=== PATIENT | male | born 1985 | race Caucasian/White ===

== ENCOUNTER 2020-06-25 14:53 | Outpatient (CLI) | payer MEDICARE, MEDICAID, SELFPAY ==
[2020-06-25 16:23] LABS: Alanine Aminotransferase 16 U/L (4-50); Albumin Level 4.5 g/dL (3.5-5.1); Alkaline Phosphatase 68 U/L (38-126); Aspartate Amino Transferase 27 U/L (17-59); Bilirubin,Total 0.2 mg/dL (0.2-1.3)
== END 2020-06-25 14:54 | disposition home or self-care (01) ==
PROVIDERS: PCP Internal Medicine; Visit Provider Podiatrist Foot & Ankle Surgery
DX: B35.1 Tinea unguium (principal); M79.675 Pain in left toe(s); M79.674 Pain in right toe(s)
CPT/HCPCS: 36415; 80076

== ENCOUNTER 2020-09-02 11:30 | Outpatient (CLI) | payer MEDICARE, MEDICAID, SELFPAY ==
--- NOTE | ~2020-09-02 | XR_ITS ---
EXAMINATION: XR chest 2V EXAM DATE: 09/02/2020 12:03 INDICATION: T17.908A - Unspecified foreign body in respiratory tract, pa. TECHNIQUE: Frontal and lateral projections of the chest obtained and reviewed. Comparison is made to prior examination from 11/29/2018. FINDINGS: Thoracolumbar Mckeon rods, imaged portions are intact. The cardiomediastinal silhouett e is prominent but magnified on this AP technique. No confluent consolidation, pneumothorax or pleura l effusion suspected. Tracheobronchial air column unremarkable. Moderate thoracolumbar scoliosis. IMPRESSION: Thoracolumbar hardware. No other radiopaque foreign bodies. Reviewed, dictated and finalized at location A.
== END 2020-09-02 11:31 | disposition home or self-care (01) ==
LOC: ANHIMG 11:36
PROVIDERS: PCP Internal Medicine; Visit Provider Internal Medicine
DX: T17.908A Unspecified foreign body in respiratory tract, part unspecified causing other injury, initial encounter (principal)
CPT/HCPCS: 71046

== ENCOUNTER 2020-09-10 14:11 | Outpatient (CLI) | payer MEDICARE, MEDICAID, SELFPAY ==
[2020-09-10 15:10] LABS: Alanine Aminotransferase 15 U/L (4-50); Albumin Level 4.2 g/dL (3.5-5.1); Alkaline Phosphatase 72 U/L (38-126); Aspartate Amino Transferase 35 U/L (17-59); Bilirubin,Total 0.2 mg/dL (0.2-1.3)
== END 2020-09-10 14:12 | disposition home or self-care (01) ==
LOC: ANHLAB 14:33
PROVIDERS: PCP Internal Medicine; Visit Provider Podiatrist Foot & Ankle Surgery
DX: B35.1 Tinea unguium (principal)
CPT/HCPCS: 36415; 80076

== ENCOUNTER 2020-10-19 06:01 | Observation (INO) | payer MEDICARE, MEDICAID, SELFPAY ==
[2020-10-19] VITALS (19 sets, daily range): BP systolic 97–135; BP diastolic 62–81; PULSE 81–160; RESP 12–33; TEMP 36.5–37.8; O2SAT 95–100; BMI 15.5
--- NOTE | ~2020-10-19 | CT_ITS ---
EXAMINATION: CT abdomen pelvis wo con DATE: 10/19/2020 08:24 INDICATION: Vomiting. Abdomen pain. TECHNIQUE: Computed tomography (CT) of the abdomen and pelvis was performed without intravenous contr ast. The dose-length product was 261.58 mGy-cm. Automated exposure control and iterative reconstructi on technique were employed. COMPARISON: None. FINDINGS: There is left lower lobe airspace disease with left lower lobe bronchiectasis. Heart size i s normal. There is scoliosis. There are Mckeon rods visualized throughout the lower thoracic and lumbar spine. Evaluation of the abdomen and pelvis limited by streak artifact from overlying spinal rods. The liver , spleen, pancreas, adrenal glands and kidneys are grossly unremarkable for noncontrast CT. Gallbladd er is present. Nonobstructive bowel gas pattern. There is a large amount of retained fecal material i n the distal colon or rectum. No free air or free fluid. IMPRESSION: 1. Fecal impaction of the distal colon and rectum. 2: Left lower lobe airspace disease which may represent atelectasis and/or pneumonia. Reviewed, dictated and finalized at location A. IMPRESSION: 1. Fecal impaction of the distal colon and rectum. 2: Left lower lobe airspace disease which may represent atelectasis and/or pne aysha.
--- NOTE | ~2020-10-19 | XR_ITS ---
XR chest 1V portable 10/19/2020 06:24 Indication: Tachypnea Procedure: AP portable chest Comparison: Comparison to multiple prior studies sequentially, with oldest reviewed study dated 08/2018. Findings: Heart size is normal. Diffuse bilateral airspace disease. There are Mckeon rods. No sig nificant effusion or pneumothorax. No acute osseous abnormality. Impression: 1: Diffuse bilateral airspace disease which may represent edema or pneumonia. Reviewed, dictated and finalized at location A. Impression: 1: Diffuse bilateral airspace disease which may represent edema or pneumonia.
--- NOTE | 2020-10-19 06:16 | ECG_ITS ---
Measurements Intervals [place] Rate: 147 P: 46 WA: 130 QRS: 115 QRSD: 86 T: 15 QT: 274 QTc: 429 Interpretive Statements SINUS TACHYCARDIA, POSSIBLE ATRIAL FLUTTER LEFT POSTERIOR FASCICULAR BLOCK BORDERLINE ST-T WAVE ABNORMALITY- ANTEROLAT/INF LEADS BASELINE ARTIFACT- I, II, III, AVR, AVF ABNORMAL ECG Electronically Signed On 10-19-2020 6:34:45 CDT by Yoandy Walters D.O.
[2020-10-19] MEDS: SODIUM CHLORIDE 0.9% IV 1,000 ML 999 ML IV CONT (06:26)
[2020-10-19 06:35] LABS: Glucose Point of Care 122 mg/dl (65-105)
[2020-10-19 06:44] LABS: Alveolar/Arterial O2 Gradient 55.2 mmHg; Base Excess ABG 1.6 mEq/l (+/-2.0); Device ROOM AIR; Fractional Inspired Oxygen 21 %; HCO3 ABG 25.3 mEq/l (22.0-26.0); Oxygen Content ABG 18.6 %vol (16.0-22.0); Oxygen Saturation ABG 87.5 % (95.0-100.0); Oxyhemoglobin 86.8 % THb (90.0-100.0); PO2 ABG 50.2 mmHg (80.0-100.0); PO2 FiO2 Ratio Arterial Blood 2.39 %; Site Drawn RIGHT BRACHIAL; Total Hemoglobin 15.3 g/dL (12.0-18.0); pH ABG 7.452 (7.350-7.450)
--- NOTE | 2020-10-19 06:49 | ED.SOB ---
HPI - SOB/Dyspnea General Chief Complaint: Shortness of Breath/Dyspnea <Silvia Christianson MD - Last Filed: 10/19/20 07:45> Stated Complaint: aspirated, sob <Silvia Christianson MD - Last Filed: 10/19/20 07:45> Time Seen by Provider: 10/19/20 06:07 <Silvia Christianson MD - Last Filed: 10/19/20 07:45> Source: family <Silvia Christianson MD - Last Filed: 10/19/20 07:45> Mode of arrival: wheelchair <Silvia Christianson MD - Last Filed: 10/19/20 07:45> Limitations: physical limitation (nonverbal cerebral palsy) <Silvia Christianson MD - Last Filed: 10/19/20 07:45> History of Present Illness HPI Narrative: This is a 35 year old male with cerebral palsy, gtube in place, seizures and aspiration who presents with his mother for concern of aspiration. She states this morning she woke up and he was moaning with nasal flaring. She gave him tylenol through his g tube at that time and patient had an episode of emesis containing his tylenol. She states he frequently aspirates. He is not acting normally and he is moaning . She states he does not moan unless something is wrong. She is unsure of fever at home but she gave him 500 mg tylenol to prevent a fever. She does states he has been coughing over the past 2 days. <Silvia Christianson MD - Last Filed: 10/19/20 07:45> Related Data Home Medications: Home Medications Medication Instructions Recorded Confirmed baclofen 20 mg FEEDING TUBE BID 03/26/19 09/02/20 <Silvia Christianson MD - Last Filed: 10/19/20 07:45> Allergies/Adverse Reactions: Allergies Allergy/AdvReac Type Severity Reaction Status Date / Time Sulfa (Sulfonamide Allergy Unknown LIPS AND Verified 10/19/20 06:14 Antibiotics) GENITAL PEELING SKIN <Silvia Christianson MD - Last Filed: 10/19/20 07:45> Review of Systems Review of Systems: ROS unobtainable: Yes unobtainable due to medical condition (nonverbal) <Silvia Christianson MD - Last Filed: 10/19/20 07:45> [facility] Past Medical History Medical History: Medical History (Updated 10/19/20 @ 10:48 by Bharath Tineo DO) Cerebral palsy Gastrointestinal tube present History of seizures Uses powered wheelchair <Silvia Christianson MD - Last Filed: 10/19/20 07:45> Surgical History Surgical History: Surgical History (Updated 10/19/20 @ 06:49 by Silvia Christianson MD) Previous back surgery <Silvia Christianson MD - Last Filed: 10/19/20 07:45> Family History Family History: Family History Father Family history of diabetes mellitus in first degree relative Hypertension Family history of elevated blood lipids <Silvia Christianson MD - Last Filed: 10/19/20 07:45> Social History Social History: Social History Smoking status: Never smoker Alcohol intake: never Substance use: never Additional occupation/education comments: disabled <Silvia Christianson MD - Last Filed: 10/19/20 07:45> Exam Const: General: no acute distress and alert <Silvia Christianson MD - Last Filed: 10/19/20 07:45> Nutritional Appearance: thin <Silvia Christianson MD - Last Filed: 10/19/20 07:45> Other: nonverbal <Silvia Christianson MD - Last Filed: 10/19/20 07:45> Eyes: EOM: EOMs intact bilaterally <Silvia Christianson MD - Last Filed: 10/19/20 07:45> Resp: Effort & Inspection: normal respiratory effort, not labored and no use of accessory muscles <Silvia Christianson MD - Last Filed: 10/19/20 07:45> Auscultation: rales <Silvia Christianson MD - Last Filed: 10/19/20 07:45> Other: some mild nasal flaring <Silvia Christianson MD - Last Filed: 10/19/20 07:45> Cardio: Rate: tachycardic <Silvia Christianson MD - Last Filed: 10/19/20 07:45> Rhythm: regular rhythm <Silvia Christianson MD - Last Filed: 10/19/20 07:45> Heart sounds: no murmurs <Silvia Christianson MD - Last File
[2020-10-19 06:53] LABS: Basophils Absolute Auto 0.1 K/mm3 (0.0-0.1); Basophils Percent Auto 0.3 % (0.2-1.2); Eosinophils Percent Auto 0.1 % (0-4.4); Hematocrit 46.4 % (42.0-52.0); Hemoglobin 15.3 g/dL (14.0-18.0); Immature Granulocyte Absolute 0.06 K/mm3 (0.00-0.031); Immature Granulocyte Percent A 0.4 % (0-0.5); Lymphocytes Absolute Auto 2.27 K/mm3 (0.9-3.2); Lymphocytes Percent Auto 14.3 % (18.3-44.2); Mean Corpuscular Hemoglobin 30.1 pg (26-34); Mean Corpuscular Volume 91.2 fl (80-100); Mean Platelet Volume 10.2 fl (7.4-10.4); Monocytes Absolute Auto 1.4 K/mm3 (0.1-0.6); Monocytes Percent Auto 8.7 % (2.6-8.5); Neutrophils Absolute Auto 12.1 K/mm3 (1.3-6.7); Neutrophils Percent Auto 76.2 % (45.5-73.1); Platelet Count Result 296 k/mm3 (150-375); Red Blood Count 5.09 M/mm3 (4.6-6.20); Red Cell Distribution Width 14.6 % (11.5-14.5); White Blood Count 15.9 K/mm3 (4.5-10.0)
[2020-10-19 06:57] LABS: Alanine Aminotransferase 20 U/L (4-50); Albumin Level 4.6 g/dL (3.5-5.1); Alkaline Phosphatase 82 U/L (38-126); Anion Gap 12 mmol/L (8-16); Aspartate Amino Transferase 30 U/L (17-59); Bilirubin,Total 0.4 mg/dL (0.2-1.3); Blood Urea Nitrogen 17 mg/dL (9-20); Calcium 9.8 mg/dL (8.4-10.2); Carbon Dioxide 31 mmol/L (22-30); Chloride 98 mmol/L (98-107); Estimated Glomerular Filt Rate > 60; Glucose 101 mg/dL (65-110); INR 0.9; Magnesium 1.4 mg/dL (1.6-2.3); Potassium 4.9 mmol/L (3.4-5.0); Prothrombin Time 11.7 Seconds (11.1-14.7); Sodium 141 mmol/L (137-145)
[2020-10-19 06:58] LABS: Partial Thromboplastin Time 24.8 SECONDS (22.3-36.8)
[2020-10-19 07:01] LABS: D Dimer 0.45 ug/mL (<0.48)
[2020-10-19 07:08] LABS: NT Pro B Type Natriuretic Pept 25 pg/mL (5-100); Troponin I < 0.012 ng/mL (0.000-0.034)
[2020-10-19 07:54] LABS: Lactic Acid Reflex 3.6 mmol/L (0.7-2.1)
[2020-10-19] MEDS: SODIUM CHLORIDE 0.9% IV 500 ML 999 ML IV CONT (08:05)
[2020-10-19 08:18] LABS: Add Urine Microscopic? YES; Appearance Urine Clear (Clear); Bilirubin Urine Negative (Negative); Blood Urine Negative (Negative); Color Urine Yellow (Yellow); Glucose Urine UA Negative (Negative); Ketones Urine Negative (Negative); Leukocyte Esterase Ur Negative LEU/UL (Negative); Mucus Urine Rare /lpf; Nitrate Urine Negative (Negative); Protein Urine Negative (Negative); Specific Grav Ur 1.016 (1.001-1.035); Squamous Epithelial Cell Urine Rare /hpf (Few); Urobilinogen Urine Negative mg/dL (<2.0); WBC Urine 0-3 /hpf
[2020-10-19 08:25] LABS: Valproic Acid 41.5 ug/mL (50-120)
[2020-10-19] MEDS: MAGNESIUM SULF 1 GM/D5W 100 ML 1 GM/100 ML BAG IVPB (09:09)
[2020-10-19 10:40] LABS: Reflex Lactic Acid Yes or No Add Lactic
--- NOTE | 2020-10-19 10:56 | PC.NURSE ---
This patient, Dallas Slaughter, was admitted to IMU Room 213-01. Patient/family oriented to hospital policies and general routines including ID bracelet, bed and alarms, visiting hours, pain management, procedures, bathroom and other care routines, personal items, smoking policy, room service/diet, and visiting hours. Information on how to activate the Rapid Response Team has been discussed. Patient/Family are encouraged to report perceived risks to care and to ask questions if they do not understand what they are told or what they should do.
[2020-10-19 11:36] LABS: Lactic Acid 3.9 mmol/L (0.7-2.1)
[2020-10-19] MEDS: SODIUM CHLORIDE 0.9% IV 1,000 ML 100 ML IV CONT (12:01)
--- NOTE | 2020-10-19 13:00 | PM.IMHP ---
H&P: HPI History of Present Illness Date/Time: 10/19/20 13:00 Chief Complaint: Possible aspiration. Narrative: This is a 35-year-old male with cerebral palsy and history of seizures and aspiration who presented to the emergency department earlier today with concerns for possible aspiration. The patient does not speak and thus all of the following history is obtained via a review of his electronic medical records as well as discussions with his mother. Over the years Dallas has had progressive issues with dysphagia and now has a G-tube however he does still eat once a day or so. He seems to understand that he has difficulties swallowing and some days he eats more than others. Yesterday Dallas celebrated his 35th birthday and I believe sometime last evening he had an episode of emesis and he began coughing thereafter. This morning he was moaning, which is not usual for him, and seemed to be having difficulties breathing with nostrils flaring. Mom also thought he felt a bit warm and brought him in for evaluation. Chest x-ray on arrival showed diffuse bilateral airspace disease which could represent edema or pneumonia, and he is being admitted for suspected aspiration. A CT of the abdomen and pelvis showed fecal impaction of the distal colon and rectum and with further questioning his mom mentions that he typically has formed bowel movements but on Monday he seemed to be having a harder time and was straining. She has MiraLax at home and monitors his bowel movements closely and will give that to him if she feels he needs it however he has been having bowel movements daily and she did not think that he was constipated. At the time my evaluation he is alert and is enjoying watching the cars pass by the window in his room. He looks to be in no distress and mother reports that his color looks good and he seems to be back to his usual self. Review of Systems Review of Systems: Narrative: Unable to obtain as the patient does not talk. Mom denies any recent illnesses. No known exposure to those positive for COVID-19. His urine always small strong and that is not changed. He has not had a seizure for many years. No history of venous thromboembolism. Except as documented, all other systems were reviewed and are negative. [facility] Past Medical History Medical History Anxiety Cerebral palsy Dysphagia Chronic. G-tube in place. Gastrointestinal tube present History of pulmonary aspiration History of upper gastrointestinal bleeding Seizure disorder Uses powered wheelchair Surgical History Surgical History (Updated 10/19/20 @ 20:57 by Huyen Ngo PA-C) History of orthopedic surgery Multiple surgeries related to his cerebra palsy including tendon surgeries and Green transfer. History of spinal fusion Family History Family History Father Family history of diabetes mellitus in first degree relative Hypertension Family history of elevated blood lipids Social History Social History (Updated 10/19/20 @ 20:53 by Huyen Ngo PA-C) Social History: Surrogate decision maker: Cm and Leonora Slaughter, parents. Code status: Full code. Smoking status: Never smoker Alcohol intake: never Substance use: never Additional living arrangements comments: The patient lives with his parents and 17-year-old brother in [place]. He is wheelchair-bound and uses an electric wheelchair which he can manage quite nicely. In fact he likes to spend a lot of his time out in their pole [place] where they have cars and motorcycles, which he really enjoys. He is dependent on most activities of daily living. Additional occupation/education comments: Disabled. Meds Home Medications and Allergies Home Medications Medication Instructions Recorded Confirmed Type baclofen 20 mg FEEDING TUBE BID 03/26/19 10/19/20 History tizanidine 4 mg caps
--- NOTE | 2020-10-19 15:01 | PCDIET ---
Nutrition Consult Received. Spoke with patient's mother, Leonora, who reports patient takes Ensure Plus via PEG at home. See Comprehensive Nutrition Assessment for additional details. Recommend 240mL (1 can) Ensure Enlive every 4-6 hours x 4 feedings/day with 150mL water flush after each feeding to provide 1400kcal (36 kcal/kg), 80 grams protein and 1320mL free water.
[2020-10-19] MEDS: DIVALPROEX SODIUM SPRINKLE 125 MG CAP.DR 250 MG PO (17:01)
[2020-10-19] MEDS: SCOPOLAMINE 1.5 MG PATCH 1 MG TRANSDERM (17:02)
--- NOTE | 2020-10-19 19:52 | PC.NURSE ---
meds were not given at 1700 due to not having the right tubing for g-tube. Leonora (mom) at bedside to contact family to bring in correct tubing.
[2020-10-19] MEDS: BACLOFEN 10 MG TABLET 20 MG FEED TUBE (20:10)
[2020-10-19] MEDS: CLORAZEPATE DIPOTASSIUM (*CRX) 3.75 MG TABLET FEED TUBE (20:10)
[2020-10-19] MEDS: PANTOPRAZOLE 40 MG TABLET PO (20:10)
[2020-10-19] MEDS: diazePAM (*CRX) 10 MG TABLET FEED TUBE (21:11)
[2020-10-20] VITALS (8 sets, daily range): BP systolic 98–126; BP diastolic 61–78; PULSE 70–110; RESP 14–18; TEMP 36.6–37; O2SAT 94–98
[2020-10-20 05:42] LABS: Basophils Absolute Auto 0.1 K/mm3 (0.0-0.1); Basophils Percent Auto 0.3 % (0.2-1.2); Eosinophils Percent Auto 0.2 % (0-4.4); Hematocrit 37.5 % (42.0-52.0); Hemoglobin 12.4 g/dL (14.0-18.0); Immature Granulocyte Absolute 0.06 K/mm3 (0.00-0.031); Immature Granulocyte Percent A 0.3 % (0-0.5); Lymphocytes Absolute Auto 4.06 K/mm3 (0.9-3.2); Lymphocytes Percent Auto 23.2 % (18.3-44.2); Mean Corpuscular HGB Conc 33.1 g/dl (32-36); Mean Corpuscular Volume 90.8 fl (80-100); Mean Platelet Volume 10.2 fl (7.4-10.4); Monocytes Absolute Auto 1.3 K/mm3 (0.1-0.6); Monocytes Percent Auto 7.3 % (2.6-8.5); Neutrophils Percent Auto 68.7 % (45.5-73.1); Platelet Count Result 212 k/mm3 (150-375); Red Blood Count 4.13 M/mm3 (4.6-6.20); Red Cell Distribution Width 14.8 % (11.5-14.5); White Blood Count 17.5 K/mm3 (4.5-10.0)
[2020-10-20 05:55] LABS: Lactic Acid Reflex 0.7 mmol/L (0.7-2.1)
[2020-10-20 05:57] LABS: Alanine Aminotransferase 11 U/L (4-50); Albumin Level 3.3 g/dL (3.5-5.1); Alkaline Phosphatase 60 U/L (38-126); Anion Gap 9 mmol/L (8-16); Aspartate Amino Transferase 19 U/L (17-59); Bilirubin,Total 0.4 mg/dL (0.2-1.3); Blood Urea Nitrogen 10 mg/dL (9-20); Calcium 8.6 mg/dL (8.4-10.2); Carbon Dioxide 23 mmol/L (22-30); Chloride 105 mmol/L (98-107); Estimated CRCL calculation 68 ml/min; Estimated Glomerular Filt Rate > 60; Glucose 80 mg/dL (65-110); Magnesium 1.8 mg/dL (1.6-2.3); Sodium 137 mmol/L (137-145)
[2020-10-20 06:45] LABS: Valproic Acid 31.5 ug/mL (50-120)
[2020-10-20] MEDS: PANTOPRAZOLE 40 MG TABLET PO (10:09)
[2020-10-20] MEDS: DIVALPROEX SODIUM SPRINKLE 125 MG CAP.DR 250 MG PO (10:09)
[2020-10-20] MEDS: ENOXAPARIN 40 MG/0.4 ML SYRINGE SUB-Q (10:09)
[2020-10-20] MEDS: BACLOFEN 10 MG TABLET 20 MG FEED TUBE (10:10)
[2020-10-20] MEDS: CLORAZEPATE DIPOTASSIUM (*CRX) 3.75 MG TABLET FEED TUBE (10:10)
--- NOTE | 2020-10-20 11:34 | PM.DS ---
DS: Admitting Diagnosis Admitting Diagnosis Short of breath DS: Discharge Diagnosis Discharge Diagnosis (1) Sepsis: Code(s): A41.9 - Sepsis, unspecified organism Status: Acute Assessment and Plan: The patient meets sepsis criteria with low-grade fever, tachypnea, tachycardia, leukocytosis, and elevated lactic acid level in the setting of suspected aspiration pneumonia. With adequate fluid resuscitation, his lactic acid level normalized. WBC elevated at 16K and relatively unchanged today. No further fevers. He is nontoxic appearance this morning and mom reports that he is at his baseline. BCx pending but mom wishing to take his home today. COVID swab also pending. (2) Pneumonia: Code(s): J18.9 - Pneumonia, unspecified organism Status: Acute Assessment and Plan: Presumed aspiration pneumonia given his hx. Empiric Zosyn started after blood cultures collected. Sputum cx not collected. COVID less likely but he has been swabbed and this is pending. He was placed in isolation. He has received one dose of the COVID vaccine and is due for the 2nd shot in early October. Not requiring O2. Tube feedings started and tolerating it well without vomiting. Mom plans to stop oral intake now. (3) Hypomagnesemia: Code(s): E83.42 - Hypomagnesemia Status: Acute Assessment and Plan: Magnesium slightly low at 1.4 and this has been replaced. Repeat mag level normal. (4) Fecal impaction of rectum: Code(s): K56.41 - Fecal impaction Status: Acute Assessment and Plan: CT scan showing fecal impaction of the distal colon and rectum. No evidence of obstruction on imaging. Enema given with good results. The benefits of a routine bowel regiment discussed. Started on MiraLax daily and titrate as needed. (5) Seizure disorder: Code(s): G40.909 - Epilepsy, unspecified, not intractable, without status epilepticus Status: Acute Assessment and Plan: Valproic acid level is a bit low but he has not had seizures for several years. We continued his VPA DS: Summary Hospital Course Reason for hospitalization: 35yo male with cerebral palsy and dysphagia requiring GTube here for shortness of breath and found to have PNA. Please see H&P for details Hospital Course: Please see above for details of hospital course Status at Discharge Cognitive/behavioral status at discharge: stable Time Spent with Patient Time attestation: Total time spent providing and/or coordinating discharge services: 35 minutes Time spent: Greater than 30 minutes Exam Narrative: Exam Narrative: AF 98.5 126/65 99 18 97% ra Gen - NARD lying semi-recumbent in bed Chest - clear to quiet respirations, nml RR CV - RRR S1/S2; Tele showing occasional sinus tachycardia Abd - Soft, mildly protuberant (mom states this is much improved), Peg tube dressing clean and dry with slight pinkness to surrounding skin Ext - No pedal edema Neuro - Alert,nonverbal, spastic contractures noted UE/LE and muscle mass loss Psych - pleasant and cooperative at times Skin - as above o/w warm and dry DS: Data Data Completed and Pending Labs on day of discharge: Labs from last 24 hours 10/20/20 10/20/20 10/20/20 05:07 05:07 05:07 WBC RBC Hgb Hct MCV MCH MCHC RDW Plt Count MPV Immature Gran % (Auto) Neut % (Auto) Lymph % (Auto) [place] % (Auto) Eos % (Auto) Baso % (Auto) Lymph # (Auto) [place] # (Auto) Eos # (Auto) Baso # (Auto) Abs Immat Gran (auto) Absolute Neuts (auto) Absolute Nucleated RBC Nucleated RBC % Sodium 137 Potassium 4.0 Chloride 105 Carbon Dioxide 23 Anion Gap 9 BUN 10 D Creatinine 0.70 Estim Creat Clear Calc 68 Estimated GFR > 60 Glucose 80 Lactic Acid 0.7 Calcium 8.6 Magnesium 1.8 Total Bilirubin 0.4 AST 19 ALT 11 Alkaline Phosphatase 60 T
[2020-10-20 15:39] LABS: SARS-CoV-2 RNA PCR Negative
--- NOTE | 2020-10-22 15:42 | PC.NURSE ---
COVID is negative. Dr. Pereyra aware.
--- NOTE | 2020-10-26 13:03 | PC.NURSE ---
Blood cx are negative. Dr. Roddy minor.
== END 2020-10-20 12:57 | disposition home or self-care (01) ==
LOC: ANHED 08:01 → ANHIMU 10-20 11:49
PROVIDERS: General Practice; Physician Assistant; Admitting Provider Family Medicine; Emergency Provider Emergency Medicine; PCP Internal Medicine; Visit Provider Internal Medicine
DX: J18.9 Pneumonia, unspecified organism (principal); R65.20 Severe sepsis without septic shock; E83.42 Hypomagnesemia; K56.41 Fecal impaction; G40.909 Epilepsy, unspecified, not intractable, without status epilepticus; R06.02 Shortness of breath; G80.9 Cerebral palsy, unspecified; Z93.1 Gastrostomy status; R13.10 Dysphagia, unspecified; F41.9 Anxiety disorder, unspecified; Z20.822 Contact with and (suspected) exposure to COVID-19
CPT/HCPCS: 36415; 36600; 51701; 71045; 74176; 80053; 80164; 81001; 82805; 82948; 83605; 83735; 83880; 84484; 85025; 85380; 85610; 85730; 87040; 93005; 96361; 96365; 96366; 96367; 96372; 99285; A9270; C9803; G0378; J0456; J0696; J1650; J2543; J3370; J3475; J7030; J7040; U0003; U0005

== ENCOUNTER 2020-12-08 01:39 | Day surgery (SDC) | payer MEDICARE, MEDICAID, SELFPAY ==
[2020-12-04 13:10] VITALS: BMI 14.4
[2020-12-08 10:24] VITALS: BP 125/78; PULSE 82; RESP 20; TEMP 36.6; O2SAT 97
--- NOTE | 2020-12-08 10:31 | SUR.PREOP ---
Mom present with pt. Dr. Mccartney at bedside. Vitals stable. FLACC 0. pt tolerated procedure well. Mom given discharge papers.
--- NOTE | 2020-12-08 10:32 | WPDGICN ---
Assessment and Plan Assessment and plan (1) Dysphagia: Code(s): R13.10 - Dysphagia, unspecified Status: Acute (2) Gastrointestinal tube present: Code(s): Z93.1 - Gastrostomy status Status: Acute Assessment and Plan: Patient has a Del type of G-tube. This requires exchange approximately every 4 months. Mother asks that we exchanged at this time because of deterioration over time and some leakage. Plan is for every four-month exchange of this G-tube. (3) Cerebral palsy: Code(s): G80.9 - Cerebral palsy, unspecified Status: Acute GI Consult Note Consult date/time: 12/08/20 10:32 HPI: Dallas Slaughter is a 35 year old male Presents for exchange of gastrostomy tube. Patient has a history of cerebral palsy. He is unable to eat or swallow safely. Currently requires gastrostomy tube for nutritional support. He had difficulty with our traditional G-tube. Most recently has done very well with a Del type of G-tube. Mother has exchange this at home every 4 months on her own. However recently has noticed some leakage and requests that we exchange it so that she is certain is done properly. She denies any bleeding. He has had no recent weight loss. Review of Systems Review of Systems: All systems reviewed & are unremarkable except as noted in HPI and below PMFSH Past Medical History Medical History Anxiety Cerebral palsy Dysphagia Chronic. G-tube in place. Gastrointestinal tube present History of pulmonary aspiration History of upper gastrointestinal bleeding Seizure disorder Uses powered wheelchair Surgical History Surgical History History of orthopedic surgery Multiple surgeries related to his cerebra palsy including tendon surgeries and Green transfer. History of spinal fusion Family History Family History Father Family history of diabetes mellitus in first degree relative Hypertension Family history of elevated blood lipids Social History Social History Social History: Surrogate decision maker: Cm and Leonora Slaughter, parents. Code status: Full code. Smoking status: Never smoker Alcohol intake: never Substance use: never Substance use type: does not use Living arrangements: with family Additional living arrangements comments: The patient lives with his parents and 17-year-old brother in [place]. He is wheelchair-bound and uses an electric wheelchair which he can manage quite nicely. In fact he likes to spend a lot of his time out in their [place] where they have cars and motorcycles, which he really enjoys. He is dependent on most activities of daily living. Additional occupation/education comments: Disabled. Spiritual care concerns: No Meds Home Medications and Allergies Home Medications Medication Instructions Recorded Confirmed Type tizanidine 4 mg capsule 4 mg PO TID PRN #30 cap 04/18/19 12/04/20 Rx acetaminophen 500 mg/15 mL oral 500 mg PO Q6H PRN #240 ml 04/22/20 12/04/20 Rx liquid mupirocin 2 % topical ointment 1 applic TOPICAL BID PRN #22 g 04/22/20 12/04/20 Rx scopolamine base 1 mg over 3 days 1 patch TOPICAL Q3-4D #4 each 04/22/20 12/04/20 Rx transdermal patch omeprazole 40 mg capsule,delayed 40 mg PO DAILY #30 cap 07/10/20 12/04/20 Rx release albuterol sulfate 2.5 mg INHALATION Q4-6H PRN #180 ml 09/02/20 12/04/20 Rx clorazepate dipotassium 3.75 mg 3.75 mg FEEDING TUBE TID #270 10/05/20 12/04/20 Rx tablet tablet MDD anxiety benzonatate 100 mg PO TID PRN 10/19/20 12/04/20 History divalproex 250 mg PO BID 10/19/20 12/04/20 History diazepam 5 mg tablet 10 mg FEEDING TUBE HS #90 tablet 11/16/20 12/04/20 Rx MDD spasticity baclofen 20 mg tablet See Rx Instructions .ROUTE 11/17/20 12/04/20 Rx .COMPLEX #2
--- NOTE | 2020-12-08 10:35 | PM.OP ---
Procedure Note - Brief Procedure Note - Brief Date of procedure: 12/08/20 Pre-op diagnosis: G-tube Removal Surgeon: Fletcher Mccartney MD Patient with cerebral palsy. Has a Del brand gastrostomy tube in place. Informed consent for removal exchange of this is obtained from the patient his mother. Old G-tube is removed initially the interior balloon is deflated with 6cc of liquid is removed. Old G-tube is taken out. New Del brand G-tube is placed within the gastrostomy tube it is inflated with 6cc of water. Tolerated well by patient aspiration of gastric contents appears to confirm adequate position. Local skin is noted to be erythematous with probable flash but no evidence of infection. Local care is advised to the G-tube site. Plan to resume tube feedings as previously prescribed. Would anticipate follow-up for G-tube exchange in 4 months.
== END 2020-12-08 10:25 | disposition home or self-care (01) ==
PROVIDERS: PCP Internal Medicine; Visit Provider Internal Medicine Gastroenterology
PROC: 0DH63UZ Insertion of Feeding Device into Stomach, Percutaneous Approach (ICD-10-PCS; CPT 43246; principal; 2020-12-08 11:00)
DX: Z43.1 Encounter for attention to gastrostomy (principal); R13.10 Dysphagia, unspecified; G80.9 Cerebral palsy, unspecified; G40.909 Epilepsy, unspecified, not intractable, without status epilepticus; Z99.3 Dependence on wheelchair; Z98.1 Arthrodesis status
CPT/HCPCS: 43762; 43246; J7120

== ENCOUNTER 2020-12-19 19:55 | Emergency (ER) | payer MEDICARE, MEDICAID, SELFPAY ==
[2020-12-19 20:00] VITALS: BP 125/86; PULSE 97; RESP 18; TEMP 36.7; O2SAT 97
--- NOTE | 2020-12-19 22:30 | PC.NURSE ---
Pt's mother/legal guardian does not want to wait, reports will monitor pt at home and return if needed.
== END 2020-12-19 23:00 | disposition left against medical advice (07) ==
LOC: ANHED 23:22
PROVIDERS: PCP Internal Medicine
DX: K94.21 Gastrostomy hemorrhage (principal)
CPT/HCPCS: 99199

== ENCOUNTER → 2021-04-07 02:54 | Outpatient (CLI) | payer MEDICARE, MEDICAID, SELFPAY ==
[2021-04-07 14:59] LABS: Influenza A QL RT-PCR Negative (Negative); Influenza B QL RT-PCR Negative (Negative)
[2021-04-08 01:23] LABS: SARS-CoV-2 RNA PCR Negative
== END ==
PROVIDERS: PCP Internal Medicine; Visit Provider Internal Medicine
DX: J06.9 Acute upper respiratory infection, unspecified (principal); R68.89 Other general symptoms and signs; Z20.822 Contact with and (suspected) exposure to COVID-19
CPT/HCPCS: 87502; C9803; U0003; U0005

== ENCOUNTER 2021-04-15 00:36 | Outpatient (CLI) | payer MEDICARE, MEDICAID, SELFPAY ==
[2021-04-09 15:10] VITALS: BMI 14.4
[2021-04-15 10:45] VITALS: BP 122/79; PULSE 75; RESP 18; O2SAT 99
--- NOTE | 2021-04-15 11:16 | WPDGICN ---
Assessment and Plan Assessment and plan (1) PEG (percutaneous endoscopic gastrostomy) adjustment/replacement/removal: Code(s): Z43.1 - Encounter for attention to gastrostomy Status: Acute Assessment and Plan: Patient presents today for PEG tube exchange and replacement. Plan to do this at 4 month intervals. Further recommendations may be given after placement. GI Consult Note Consult date/time: 04/15/21 11:16 HPI: Dallas Slaughter is a 35 year old male Presents for exchange of PEG tube. Patient has a history of cerebral palsy. His depends on PEG tube for nutritional support. Patient had Del type of PEG tube replaced 4 months ago. He presents today for replacement. Currently doing well. He has had no bleeding. Weight has remained stable. Review of Systems Review of Systems: All systems reviewed & are unremarkable except as noted in HPI and below PMFSH Past Medical History Medical History Anxiety Cerebral palsy Dysphagia Chronic. G-tube in place. Gastrointestinal tube present History of pulmonary aspiration History of upper gastrointestinal bleeding Seizure disorder Uses powered wheelchair Surgical History Surgical History History of orthopedic surgery Multiple surgeries related to his cerebra palsy including tendon surgeries and Green transfer. History of spinal fusion Family History Family History Father Family history of diabetes mellitus in first degree relative Hypertension Family history of elevated blood lipids Social History Social History (Updated 02/22/21 @ 09:59 by Yesi Elizalde) Social History: Surrogate decision maker: Cm and Leonora Slaughter, parents. Code status: Full code. Smoking status: Never smoker Alcohol intake: never Substance use: never Substance use type: does not use Living arrangements: with family Additional living arrangements comments: The patient lives with his parents and 17-year-old brother in [place]. He is wheelchair-bound and uses an electric wheelchair which he can manage quite nicely. In fact he likes to spend a lot of his time out in their [place] where they have cars and motorcycles, which he really enjoys. He is dependent on most activities of daily living. Additional occupation/education comments: Disabled. Spiritual care concerns: No Meds Home Medications and Allergies Home Medications Medication Instructions Recorded Confirmed Type tizanidine 4 mg capsule 4 mg PO TID PRN #30 cap 04/18/19 04/09/21 Rx acetaminophen 500 mg/15 mL oral 500 mg PO Q6H PRN #240 ml 04/22/20 04/09/21 Rx liquid omeprazole 40 mg capsule,delayed 40 mg PO DAILY #30 cap 07/10/20 04/09/21 Rx release albuterol sulfate 2.5 mg INHALATION Q4-6H PRN #180 ml 09/02/20 04/09/21 Rx divalproex 250 mg PO BID 10/19/20 04/09/21 History baclofen 20 mg tablet See Rx Instructions .ROUTE 11/17/20 04/09/21 Rx .COMPLEX #270 tablet mupirocin 2 % topical ointment 1 applic TOPICAL BID PRN #22 g 01/18/21 04/09/21 Rx clorazepate dipotassium 3.75 mg 3.75 mg FEEDING TUBE TID #270 02/08/21 04/09/21 Rx tablet tablet MDD anxiety benzonatate 100 mg capsule See Rx Instructions .ROUTE 02/22/21 04/09/21 Rx .COMPLEX #90 capsule scopolamine base 1 mg over 3 days 1 patch TOPICAL Q3-4D #24 ea 03/22/21 04/09/21 Rx transdermal patch diazepam 5 mg tablet See Rx Instructions PO .COMPLEX 04/02/21 04/09/21 Rx PRN #90 tablet Allergies Allergy/AdvReac Type Severity Reaction Status Date / Time Sulfa (Sulfonamide Allergy Unknown LIPS AND Verified 02/22/21 09:57 Antibiotics) GENITAL PEELING SKIN Exam Narrative: Physical exam reveals patient to be alert. Vital signs stable. HEENT exam is unremarkable. Patient anicteric. Lungs are clear heart without murmur. Abdomen
--- NOTE | 2021-04-15 11:18 | P.OPB_ITS ---
Procedure Note - Brief Procedure Note - Brief Date of procedure: 04/15/21 Pre-op diagnosis: malfunctioning g- tube Post-op diagnosis: same Procedure performed: Peg tube removal and replacement. Description of procedure: After informed consent from patient's mother the risks benefits alternatives and indications are discussed agreed 2. Patient is given no sedation. 6Cc of liquid is removed from the internal balloon of the existing Del PEG tube. This is removed. G-tube site appears well healed. Small amount of probable flush noted. 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 6cc of water is placed into the balloon and tolerated well by patient. Gastric contents were aspirated through the G-tube site. Anesthesia: none Surgeon: Fletcher Mccartney MD Estimated blood loss (mL): 0 Drains: No Packing: No Pathology: none sent Complications: No immediate complications Condition: stable Findings: Peg tube replaced without difficulties. Plan for patient to resume tube feedings return home. Follow-up replacement PEG tube advised in 4 months.
--- NOTE | 2021-04-15 11:21 | SUR.PREOP ---
Dallas was assisted by his Mother Gayle to the stretcher. Vital signs stable. Consent and questions answered. Dr Mccartney at bedside to replace Del tube. Reddened area noted to site- Dr Mccartney aware and drain sponges applied. Patient assisted back to wheelchair by mother. No acute distress noted.
== END 2021-04-15 11:19 | disposition home or self-care (01) ==
PROVIDERS: PCP Internal Medicine; Visit Provider Internal Medicine Gastroenterology
PROC: 0DH63UZ Insertion of Feeding Device into Stomach, Percutaneous Approach (ICD-10-PCS; CPT 43246; principal; 2021-04-15 11:30)
DX: K94.23 Gastrostomy malfunction (principal)
CPT/HCPCS: 99211; G0463

== ENCOUNTER 2021-05-24 13:25 | Emergency (ER) | payer MEDICARE, MEDICAID, SELFPAY ==
--- NOTE | ~2021-05-24 | CT_ITS ---
EXAMINATION: CT chest abdomen pelvis w con DATE: 05/24/2021 15:30 INDICATION: Fever. TECHNIQUE: Computed tomography (CT) of the chest, abdomen, and pelvis was performed with 81 mL Omnipa que 350 intravenous contrast. Automated exposure control and iterative reconstruction technique were employed. The dose-length product was 289.36 mGy-cm. COMPARISON: CT abdomen and pelvis 10/19/2020 FINDINGS: CHEST CT: There are centrilobular nodules in right upper lobe. There is mild bronchiectasis in left lower lobe with material in some of the bronchi. There are groundglass opacities and centrilobular nodules and t ree-in-bud opacities in left upper lobe and left lower lobe. No pleural effusion. The heart size is n ormal. No pericardial effusion. ABDOMEN/PELVIS CT: The liver, gallbladder, spleen, pancreas, adrenal glands, and kidneys are normal. There is a gastrost viktoriya tube in expected position. Stool distends the rectum. The appendix is not visualized. There are n o pathologically enlarged lymph nodes. There is no free intraperitoneal fluid. There is thoracolumbar dextroscoliosis. There are changes of posterior fusion procedure from T2 to the sacrum and iliac bon es. IMPRESSION: 1. Pneumonia involving the upper lobes and left lower lobe. 2. Stool distends the rectum. Reviewed, dictated and finalized at location A. AD REELER
--- NOTE | ~2021-05-24 | XR_ITS ---
EXAMINATION: XR chest 2V EXAM DATE: 05/24/2021 13:57 INDICATION: Possible aspiration TECHNIQUE: Frontal and lateral projections of the chest obtained and reviewed. Comparison is made to prior examination from 10/09/2020. FINDINGS: Thoracolumbar Mckeon rods. No confluent consolidation, pneumothorax or pleural effusio n suspected. The cardiomediastinal silhouette is prominent but magnified on this AP technique. IMPRESSION: No acute cardiopulmonary findings. Reviewed, dictated and finalized at location B. ROLLER
[2021-05-24 13:31] VITALS: BP 120/70; PULSE 110; RESP 18; TEMP 37.4; O2SAT 96
--- NOTE | 2021-05-24 14:03 | PC.NURSE ---
MOM REPORTS THE PAST MONTH PT NOT EATING LIKE HE NORMALLY DOES. MOM REPORTS PT WILL GO TO KITCHEN. POINT TO SOMETHING HE WANTS THEN ONLY TAKE A COUPLE BITES .
[2021-05-24 14:38] LABS: Basophils Absolute Auto 0.1 K/mm3 (0.0-0.1); Basophils Percent Auto 0.3 % (0.2-1.2); Eosinophils Percent Auto 0.1 % (0-4.4); Hematocrit 45.8 % (42.0-52.0); Hemoglobin 15.1 g/dL (14.0-18.0); Immature Granulocyte Absolute 0.07 K/mm3 (0.00-0.031); Immature Granulocyte Percent A 0.4 % (0-0.5); Lymphocytes Absolute Auto 4.45 K/mm3 (0.9-3.2); Lymphocytes Percent Auto 26.2 % (18.3-44.2); Mean Corpuscular Hemoglobin 30.2 pg (26-34); Mean Corpuscular Volume 91.6 fl (80-100); Mean Platelet Volume 10.4 fl (7.4-10.4); Monocytes Absolute Auto 1.7 K/mm3 (0.1-0.6); Monocytes Percent Auto 10.2 % (2.6-8.5); Neutrophils Absolute Auto 10.7 K/mm3 (1.3-6.7); Neutrophils Percent Auto 62.8 % (45.5-73.1); Platelet Count Result 251 k/mm3 (150-375)
[2021-05-24 14:56] LABS: Alanine Aminotransferase 21 U/L (4-50); Albumin Level 4.6 g/dL (3.5-5.1); Alkaline Phosphatase 85 U/L (38-126); Anion Gap 10 mmol/L (8-16); Aspartate Amino Transferase 29 U/L (17-59); Bilirubin,Total 0.4 mg/dL (0.2-1.3); Blood Urea Nitrogen 15 mg/dL (9-20); Calcium 9.4 mg/dL (8.4-10.2); Carbon Dioxide 29 mmol/L (22-30); Chloride 99 mmol/L (98-107); Estimated CRCL calculation 65 ml/min; Estimated Glomerular Filt Rate > 60; Glucose 90 mg/dL (65-110); Potassium 4.2 mmol/L (3.4-5.0); Sodium 138 mmol/L (137-145)
[2021-05-24 15:00] VITALS: BP 118/68; PULSE 99; RESP 16; O2SAT 98
[2021-05-24 15:39] VITALS: TEMP 36.9
[2021-05-24 15:43] LABS: Add Urine Microscopic? YES; Appearance Urine Clear (Clear); Bilirubin Urine Negative (Negative); Blood Urine 3+ (Negative); Color Urine Yellow (Yellow); Glucose Urine UA Negative (Negative); Ketones Urine Negative (Negative); Leukocyte Esterase Ur Negative LEU/UL (Negative); Mucus Urine Rare /lpf; Nitrate Urine Negative (Negative); Protein Urine Negative (Negative); RBC Urine >75 /hpf (0-2); Specific Grav Ur 1.011 (1.001-1.035); Urobilinogen Urine Negative mg/dL (<2.0); WBC Urine 0-3 /hpf
[2021-05-24 16:00] VITALS: BP 114/70; PULSE 98; RESP 16; TEMP 37.1; O2SAT 98
--- NOTE | 2021-05-24 16:36 | ED.GENADULT ---
HPI - General Adult General Chief complaint: Unspecified Stated complaint: aspirating Time Seen by Provider: 05/24/21 14:32 Related Data Allergies Allergy/AdvReac Type Severity Reaction Status Date / Time Sulfa (Sulfonamide Allergy Unknown LIPS AND Verified 05/24/21 13:35 Antibiotics) GENITAL PEELING SKIN PMFSH Past Medical History Medical History Anxiety Cerebral palsy Dysphagia Chronic. G-tube in place. Gastrointestinal tube present History of pulmonary aspiration History of upper gastrointestinal bleeding Seizure disorder Uses powered wheelchair Surgical History Surgical History History of orthopedic surgery Multiple surgeries related to his cerebra palsy including tendon surgeries and Green transfer. History of spinal fusion Family History Family History Father Family history of diabetes mellitus in first degree relative Hypertension Family history of elevated blood lipids Social History Social History (Updated 02/22/21 @ 09:59 by Yesi Elizalde) Social History: Surrogate decision maker: Cm and Leonora Kasandra, parents. Code status: Full code. Smoking status: Never smoker Alcohol intake: never Substance use: never Substance use type: does not use Additional living arrangements comments: The patient lives with his parents and 17-year-old brother in [place]. He is wheelchair-bound and uses an electric wheelchair which he can manage quite nicely. In fact he likes to spend a lot of his time out in their [place] where they have cars and motorcycles, which he really enjoys. He is dependent on most activities of daily living. Additional occupation/education comments: Disabled. Spiritual care concerns: No Course Course Emergency Course: Patient was treated with IV antibiotics in the department. Admission was discussed with mother and she does prefer discharge to home. Mother states that she does have the ability of oxygen at home. Mother was educated on reasons to return to the emerge department and the importance having close follow-up with the patient's primary care physician. All questions and concerns were addressed. Patient heart rate was improved and his temperature was improved. Patient is saturating well on room air and is in no distress. Vital Signs Vital signs: Vital Signs Temperature 99.3 F 05/24/21 13:31 Pulse Rate 110 H 05/24/21 13:31 Respiratory Rate 18 05/24/21 13:31 Blood Pressure 120/70 05/24/21 13:31 Pulse Oximetry 96 05/24/21 13:31 Temperature 98.4 F 05/24/21 15:39 Pulse Rate 99 05/24/21 15:00 Respiratory Rate 16 05/24/21 15:00 Blood Pressure 118/68 05/24/21 15:00 Pulse Oximetry 98 05/24/21 15:00 Medical Decision Making Vital Signs Vital Signs: Vital Signs Temperature 99.3 F 05/24/21 13:31 Pulse Rate 110 H 05/24/21 13:31 Respiratory Rate 18 05/24/21 13:31 Blood Pressure 120/70 05/24/21 13:31 Pulse Oximetry 96 05/24/21 13:31 Temperature 98.4 F 05/24/21 15:39 Pulse Rate 99 05/24/21 15:00 Respiratory Rate 16 05/24/21 15:00 Blood Pressure 118/68 05/24/21 15:00 Pulse Oximetry 98 05/24/21 15:00 Lab Data Result diagrams: 05/24/21 14:31 05/24/21 14:31 Labs: Lab Results 05/24/21 05/24/21 05/24/21 Range/Units 14:31 14:31 15:10 WBC 17.0 H (4.5-10.0) K/mm3 RBC 5.00 (4.6-6.20) M/mm3 Hgb 15.1 (14.0-18.0) g/dL Hct 45.8 (42.0-52.0) % MCV 91.6 (80-100) fl MCH 30.2 (26-34) pg MCHC 33.0 (32-36) g/dl RDW 15.0 H (11.5-14.5) % Plt Count 251 (150-375) k/mm3 MPV 10.4 (7.4-10.4) fl Immature Gran % (Auto) 0.4 (0-0.5) % Neut % (Auto) 62.8 (45.5-73.1) % Lymph % (Auto) 26.2 (18.3-44.2) % [place] % (Auto) 10.2 H (2.6-8.5) % E
[2021-05-24 17:17] VITALS: BP 118/68; PULSE 92; RESP 16; O2SAT 97
[2021-05-24 18:06] VITALS: BP 118/62; PULSE 94; RESP 16; TEMP 36.5; O2SAT 98
== END 2021-05-24 18:08 | disposition home or self-care (01) ==
PROVIDERS: Emergency Medicine; Emergency Provider Emergency Medicine; PCP Internal Medicine
DX: J69.0 Pneumonitis due to inhalation of food and vomit (principal); G80.9 Cerebral palsy, unspecified; R13.10 Dysphagia, unspecified; Z93.1 Gastrostomy status; G40.909 Epilepsy, unspecified, not intractable, without status epilepticus; Z99.3 Dependence on wheelchair
CPT/HCPCS: 36415; 51702; 71046; 71260; 74177; 80053; 81001; 85025; 87040; 96365; 96367; 99284; J1956; J2543; Q9967

== ENCOUNTER 2021-06-28 12:25 | Outpatient (CLI) | payer MEDICARE, MEDICAID, SELFPAY ==
--- NOTE | ~2021-06-28 | XR_ITS ---
EXAMINATION: XR barium swallow modified DATE: 06/28/2021 13:34 INDICATION: Dysphagia. TECHNIQUE: The patient was given barium-containing material of multiple consistencies to swallow by t he speech pathologist while I performed fluoroscopy. Fluoroscopy exposure time was 2.1 minutes. The n umber of fluoroscopy images saved to the PACS was 2. Dose-area product was 1.255 Gy-cm^2. FINDINGS: There was reduced lingual movement. There is no purposeful propulsion of contrast to the pharynx. Robert y little contrast reached the pharynx, and the swallow could not be assessed for laryngeal penetratio n or aspiration. IMPRESSION: 1. Reduced lingual movement. Very little contrast reached the pharynx, and the swallow could not be a ssessed for laryngeal penetration or aspiration. 2. Please refer to the speech therapy report for recommendations. Reviewed, dictated and finalized at location A. IMPRESSION: 1. Reduced lingual movement. Very little contrast reached the pharynx, and the swallow could not be assessed for laryngeal penetration or aspiration. 2. Please refer to the speech therapy report for recommendations.
--- NOTE | 2021-07-01 08:29 | STOPEVAL ---
Thank you for referring Dallas Slaughter to [facility].? The patient is scheduled to be seen for therapy? ____x/week for ___ weeks. Please review, sign, date and return this plan of care MARIANN. I agree with and certify that the following plan of care is medically necessary. Referring Physician Date Attending Provider: Alvaro Alonso DO Outpatient Past Medical History Past Medical History Source of Past Medical History Recalled from Previous Visit, Confirmed with Patient/Family Neurological History Hx Seizures Yes Hx Other Neurological Disorders Yes: CEREBRAL PALSY, SPASTIC MUSCLES/ W/C BOUND, DIFFICULT TO UNDERSTAND SPEECH Respiratory History Hx Pneumonia Yes: HX ASPIRATION PNEUMONIA, PN AND COXTDU3110/19/2020 HOSPITALIZED Hx Other Respiratory Disorders Yes: DIFFICULTY SWALLOWING R/T CP, O2 & SUCTIONING PRN Gastrointestinal History Hx Appendectomy Yes Hx Gastrointestinal Bleed Yes: HX STOMACH EROSIONS/ SEVERE GI BLEED, ICU/ TRANSFUSED Hx Other Gastrointestinal Disorders Yes: DIFFICULTY SWALLOWING, TUBE FEEDINGS PER PEG AND EATS 1 SOLID FOOD MEAL/DAY Musculoskeletal History Hx Spinal Surgery Yes: FULL SPINAL FUSION- RODS AND SCREWS Hx Other Musculoskeletal Disorders Yes: RIGID MUSCLES, SPACICITY, VERY LIMITED ROM, W/C BOUND, FULL LIFT TO TRANSFER Hematological History Hx Blood Transfusions Yes: WITH GI BLEED AND WITH SPINAL FUSION Hx Implanted Device Yes: METAL ALL ALONG SPINE Modified Barium Swallow Evaluation Recent Swallowing History Reports Dysphagia Yes: he won't eat and when he does he chokes alot Onset of Dysphagia years ago Other Related History cerebral palsy Consistency Pureed Consistency Method of Presentation Spoon Oral Preparatory Symptoms Anterior Loss Oral Preparatory Phase Comments all contents were leaked from his mouth; inability and weakness versus refusal. Pharyngeal Phase Comments pharyngeal stage could not be assessed as pt did not propel any contents posteriorly; all contents were leaked from his mouth Thin Method of Presentation pipette Oral Preparatory Symptoms Anterior Loss,Loss of Bolus Control,Unable to Form Bolus Oral Preparatory Phase Comments
--- NOTE | 2021-07-01 08:30 | STOPEVAL ---
MODIFIED BARIUM SWALLOW EVALUATION: Thank you for referring Dallas Slaughter to [facility].? Modified Barium Swallow Evaluation Recent Swallowing History Reports Dysphagia Yes: he won't eat and when he does he chokes alot Onset of Dysphagia years ago Other Related History cerebral palsy Consistency Pureed Consistency Method of Presentation Spoon Oral Preparatory Symptoms Anterior Loss Oral Preparatory Phase Comments all contents were leaked from his mouth; inability and weakness versus refusal. Pharyngeal Phase Comments pharyngeal stage could not be assessed as pt did not propel any contents posteriorly; all contents were leaked from his mouth Thin Method of Presentation pipette Oral Preparatory Symptoms Anterior Loss,Loss of Bolus Control,Unable to Form Bolus Oral Preparatory Phase Comments all contents were leaked from his mouth Pharyngeal Phase Comments pharyngeal stage could not be assessed as pt did not propel any contents posteriorly; all contents were leaked from his mouth Disorders Oral Preparatory Stage Disorders Reduced Labial Tension,Reduced Lingual Control,Reduced Lingual Coordination Oral Stage Disorders Disorganized A-P Movement, Reduced Labial Tension,Reduced Tongue Control,Reduced Tongue Movement,Reduced Tongue Shaping Swallowing Recommendations MBS Comments Pt did not achieve lip closure to hold contents in oral cavity; refusal versus inability/impairment. Pt made no oral initiation to formulate contents into a bolus. ST Clinical Summary Clinical Summary ST Clinical Summary Pt was seated for a lateral view. Pt's mother was presented for the exam and encouraged pt; however, upon all trials, pt did not achieve lip seal nor appear to attempt to formulate contents into a bolus. All presented contents were leaked from his mouth. Pharyngeal stage could not
== END 2021-06-28 12:26 | disposition home or self-care (01) ==
LOC: ANHIMG 12:32
PROVIDERS: PCP Internal Medicine; Visit Provider Internal Medicine
DX: R13.10 Dysphagia, unspecified (principal)
CPT/HCPCS: 99199; 92611

== ENCOUNTER 2021-09-02 02:32 | Day surgery (SDC) | payer MEDICARE, MEDICAID, SELFPAY ==
[2021-08-30 14:24] VITALS: BMI 16.1
[2021-09-02 11:54] VITALS: BP 115/89; PULSE 79; RESP 16; TEMP 36.8; O2SAT 98
--- NOTE | 2021-09-02 12:12 | PM.IMHP ---
H&P: HPI History of Present Illness Date/Time: 09/02/21 12:12 Chief Complaint: G-tube malfunction Narrative: this is a 35-year-old white male patient with cerebral palsy is had a PEG tube for nutritional support for quite some time. Patient's G-tube last changed 4 months ago. He her currently has a Del type G-tube. It is advised that these get changed to 4 month intervals patient presents today for change of this PEG tube. Patient notices some irritation and erythema at the opening. His mother reports that he pulls out the tube on a few occasions in that skin will get irritated from gastric juices. Review of Systems Review of Systems: Review of systems noncontributory. [facility] Past Medical History Medical History Anxiety Cerebral palsy Dysphagia Chronic. G-tube in place. Gastrointestinal tube present History of pulmonary aspiration History of upper gastrointestinal bleeding Seizure disorder Uses powered wheelchair Surgical History Surgical History History of orthopedic surgery Multiple surgeries related to his cerebra palsy including tendon surgeries and Green transfer. History of spinal fusion Family History Family History Father Family history of diabetes mellitus in first degree relative Hypertension Family history of elevated blood lipids Social History Social History Social History: Surrogate decision maker: Cm and Leonora Ramírezi, parents. Code status: Full code. Smoking status: Never smoker Alcohol intake: never Substance use: never Substance use type: does not use Living arrangements: with family Additional living arrangements comments: The patient lives with his parents and 17-year-old brother in [place]. He is wheelchair-bound and uses an electric wheelchair which he can manage quite nicely. In fact he likes to spend a lot of his time out in their [place] where they have cars and motorcycles, which he really enjoys. He is dependent on most activities of daily living. Additional occupation/education comments: Disabled. Spiritual care concerns: No Meds Home Medications and Allergies Home Medications Medication Instructions Recorded Confirmed Type acetaminophen 500 mg/15 mL oral 500 mg (15 mL) PO Q6H PRN fever or 04/22/20 08/30/21 Rx liquid pain #240 mL omeprazole 40 mg capsule,delayed 40 mg PO DAILY #30 caps 07/10/20 08/30/21 Rx release albuterol sulfate 2.5 mg/3 mL 2.5 mg (3 mL) inhalation Q4-6H PRN 09/02/20 08/30/21 Rx (0.083 %) solution for nebulization shortness of breath or wheezing #180 mL mupirocin 2 % topical ointment 1 applic topical BID PRN Edema #22 01/18/21 08/30/21 Rx grams scopolamine base 1 mg over 3 days 1 patch topical Q3-4D #24 ea 03/22/21 08/30/21 Rx transdermal patch tizanidine 4 mg tablet 4 mg PO TID PRN muscle spasticity 05/14/21 08/30/21 Rx #60 tabs amoxicillin 250 mg-potassium 10 ml PO Q8H #100 mL 06/03/21 08/30/21 Rx clavulanate 62.5 mg/5 mL oral suspension (Augmentin) divalproex 125 mg capsule,delayed See Rx Instructions .Route 07/30/21 08/30/21 Rx release sprinkle .COMPLEX #360 caps diazepam 5 mg tablet See Rx Instructions PO .COMPLEX 08/16/21 08/30/21 Rx PRN muscle spasm #90 tabs benzonatate 100 mg capsule See Rx Instructions .Route 08/26/21 08/30/21 Rx .COMPLEX #90 caps clorazepate dipotassium 3.75 mg 3.75 mg feeding tube TID #90 tabs 08/26/21 08/30/21 Rx tablet baclofen 20 mg tablet See Rx Instructions .Route 08/27/21 08/30/21 Rx .COMPLEX #270 tabs Allergies Allergy/AdvReac Type Severity Reaction Status Date / Time Sulfa (Sulfonamide Allergy Unknown LIPS AND Verified 09/02/21 11:50 Antibiotics) GENITAL PEELING SKIN Vital Signs Vital Signs - 24 hr 09/02/21 11
--- NOTE | 2021-09-02 12:15 | PM.OP ---
Procedure Note - Brief Procedure Note - Brief Date of procedure: 09/02/21 Pre-op diagnosis: malfunctioning G-tube Preop diagnosis malfunctioning G-tube. Irritation at PEG tube site. Procedure performed: Postop diagnosis peg removal and exchange. Description of procedure: After informed consent from patient and his mother the previous Del type PEG tube is removed. 5cc of liquid has withdrawn from the internal balloon. Old PEG tube is removed noted to have some blood at the tube site. New Del 24 Slovak PEG replacement tube is placed into the gastric cutaneous fistula. 5cc of water is placed into the balloon is noted to be in good position. Gastric juices are withdrawn through the balloon PEG tube. Peg tube itself will not come out as the balloon is inflated at this time. Implants: Twenty-four Slovak Del PEG replacement tube is placed at the gastric cutaneous PEG tube site. Surgeon: Fletcher Mccartney MD Estimated blood loss (mL): 0 Drains: No Packing: No Pathology: None sent Complications: None Findings: Peg tube is exchanged without difficulty. Plan is for local care to the skin at the PEG tube site gauze dressing is suggested. Patient may benefit from Desitin at this site. Gastric content should not be allowed to leak and remain on the skin for any extended period of time. Follow-up PEG replacement is advised in 4 months.
== END 2021-09-02 12:10 | disposition home or self-care (01) ==
PROVIDERS: PCP Internal Medicine; Visit Provider Internal Medicine Gastroenterology
PROC: 0DH63UZ Insertion of Feeding Device into Stomach, Percutaneous Approach (ICD-10-PCS; CPT 43246; principal; 2021-09-02 13:15)
DX: Z43.1 Encounter for attention to gastrostomy (principal); Z98.0 Intestinal bypass and anastomosis status; Z90.49 Acquired absence of other specified parts of digestive tract; Z87.19 Personal history of other diseases of the digestive system; Y83.8 Other surgical procedures as the cause of abnormal reaction of the patient, or of later complication, without mention of misadventure at the time of the procedure; F41.9 Anxiety disorder, unspecified; G80.9 Cerebral palsy, unspecified; R13.10 Dysphagia, unspecified; R56.9 Unspecified convulsions; Z98.1 Arthrodesis status; Z79.51 Long term (current) use of inhaled steroids
CPT/HCPCS: 99211; G0463

== ENCOUNTER 2021-11-30 15:00 | Outpatient (CLI) | payer MEDICARE, MEDICAID, SELFPAY ==
[2021-11-30 15:58] LABS: Alanine Aminotransferase 20 U/L (6-50); Albumin Level 4.5 g/dL (3.5-5.1); Alkaline Phosphatase 80 U/L (38-126); Anion Gap 16 mmol/L (8-16); Aspartate Amino Transferase 31 U/L (17-59); Bilirubin,Total 0.2 mg/dL (0.2-1.3); Blood Urea Nitrogen 15 mg/dL (9-20); Calcium 9.1 mg/dL (8.4-10.2); Carbon Dioxide 30 mmol/L (22-30); Chloride 93 mmol/L (98-107); Estimated Glomerular Filt Rate > 60; Glucose 138 mg/dL (65-110); Potassium 4.4 mmol/L (3.4-5.0); Sodium 139 mmol/L (137-145)
== END 2021-11-30 15:01 | disposition home or self-care (01) ==
PROVIDERS: PCP Internal Medicine; Visit Provider Nurse Practitioner
DX: E78.5 Hyperlipidemia, unspecified (principal); Z51.81 Encounter for therapeutic drug level monitoring; Z79.899 Other long term (current) drug therapy
CPT/HCPCS: 36415; 80053

== ENCOUNTER 2022-01-22 16:37 | Emergency (ER) | payer MEDICARE, MEDICAID, SELFPAY ==
--- NOTE | ~2022-01-22 | XR_ITS ---
EXAMINATION: XR chest 2V Exam Date/Time: 01/22/2022 17:15 CDT HISTORY: fever, cough; hx of G-tube, cerebral palsy Comparison: 05/24/2021, CT and x-ray. RESULT: Lines, tubes, and devices: Extensive thoracolumbar fusion hardware. Lungs and pleura: No focal consolidation or pneumothorax. Chronic coarse interstitial opacities in t he left dependent lung base. Cardiomediastinal silhouette: Stable. Other: No acute osseous or upper abdominal finding. IMPRESSION: No acute cardiopulmonary process. Reviewed, dictated and finalized at location K.
--- NOTE | ~2022-01-22 | XR_ITS ---
EXAM: XR abdomen/kub 1V DATE: 01/22/2022 17:29 HISTORY: constipation, fever; hx of G-tube, cerebral palsy . COMPARISON: CT 05/24/2021, x-ray 07/17/2018. FINDINGS: Normal bowel gas pattern. No organomegaly. No abnormal abdominal calcification. Extensive thoracolumbar fusion hardware. Congenital osseous change. IMPRESSION: No radiographic evidence of obstruction or ileus. Reviewed, dictated and finalized at location K.
[2022-01-22 16:40] VITALS: BP 117/64; PULSE 112; RESP 18; TEMP 36.9; O2SAT 97
[2022-01-22 16:58] VITALS: RESP 18; O2SAT 99
[2022-01-22] MEDS: SODIUM CHLORIDE 0.9% IV 1,000 ML 999 ML IV CONT (17:49)
[2022-01-22 17:56] LABS: Basophils Percent Auto 0.4 % (0.2-1.2); Eosinophils Percent Auto 0.1 % (0-4.4); Hematocrit 43.2 % (42.0-52.0); Hemoglobin 14.5 g/dL (14.0-18.0); Immature Granulocyte Absolute 0.05 K/mm3 (0.00-0.031); Immature Granulocyte Percent A 0.4 % (0-0.5); Lymphocytes Absolute Auto 2.69 K/mm3 (0.9-3.2); Lymphocytes Percent Auto 23.7 % (18.3-44.2); Mean Corpuscular HGB Conc 33.6 g/dl (32-36); Mean Corpuscular Hemoglobin 31.3 pg (26-34); Mean Corpuscular Volume 93.1 fl (80-100); Mean Platelet Volume 10.2 fl (7.4-10.4); Monocytes Absolute Auto 1.7 K/mm3 (0.1-0.6); Monocytes Percent Auto 15.2 % (2.6-8.5); Neutrophils Absolute Auto 6.8 K/mm3 (1.3-6.7); Neutrophils Percent Auto 60.2 % (45.5-73.1); Platelet Count Result 205 k/mm3 (150-375); Red Blood Count 4.64 M/mm3 (4.6-6.20); Red Cell Distribution Width 14.3 % (11.5-14.5); White Blood Count 11.4 K/mm3 (4.5-10.0)
--- NOTE | 2022-01-22 18:03 | ED.FEVER ---
HPI - Fever General Chief Complaint: Fever Stated Complaint: fever Time Seen by Provider: 01/22/22 16:51 History of Present Illness HPI Narrative: Patient is a 36-year-old male who presents ER with fever. Up to 102.5 ?F according mom. Persistent throughout the day. She has been trying to treat it with Tylenol. Patient had multiple immunizations yesterday including COVID, influenza, and flu. Reports last night he was having an aspiration episode and she had to suction him. Patient has had shortness of breath new productive cough today. No gurgling breath sounds. Mother also reports some mild constipation and she gives him MiraLAX. Related Data Allergies Allergy/AdvReac Type Severity Reaction Status Date / Time Sulfa (Sulfonamide Allergy Unknown LIPS AND Verified 01/22/22 17:07 Antibiotics) GENITAL PEELING SKIN Review of Systems Review of Systems: ROS unobtainable: Yes unobtainable due to medical condition PMFSH Past Medical History Medical History Anxiety Cerebral palsy Dysphagia Chronic. G-tube in place. Gastrointestinal tube present History of pulmonary aspiration History of upper gastrointestinal bleeding Seizure disorder Uses powered wheelchair Surgical History Surgical History History of orthopedic surgery Multiple surgeries related to his cerebra palsy including tendon surgeries and Green transfer. History of spinal fusion Family History Family History Father Family history of diabetes mellitus in first degree relative Hypertension Family history of elevated blood lipids Social History Social History Social History: Surrogate decision maker: Cm and Leonora Slaughter, parents. Code status: Full code. Smoking status: Never smoker Alcohol intake: never Substance use: never Substance use type: does not use Additional living arrangements comments: The patient lives with his parents and 17-year-old brother in [place]. He is wheelchair-bound and uses an electric wheelchair which he can manage quite nicely. In fact he likes to spend a lot of his time out in their [place] where they have cars and motorcycles, which he really enjoys. He is dependent on most activities of daily living. Additional occupation/education comments: Disabled. Spiritual care concerns: No Exam Narrative: GENERAL: Chronically ill appearing, well-nourished, and in no acute distress. HEAD: Normocephalic, atraumatic. EYES: PERRL and EOMI. ENT: Mucous membranes moist. CHEST: Clear to auscultation. No respiratory distress. HEART: Regular rate and rhythm. Normal peripheral pulses. ABDOMEN: Soft, nontender, nondistended, normal active bowel sounds. Normal-appearing G-tube site. EXTREMITIES: Contractures of extremities. No acute deformity. SKIN: Warm, dry, no rash. NEURO: Awake and alert, neurologic baseline. Course Course Emergency Course: Your patient resting comfortably. Family informed of results. Discharge home. No hypoxia. No new respiratory distress or productive cough. Feel symptoms felt to be related to recent vaccination. Vital Signs Vital signs: Vital Signs Temperature 98.4 F 01/22/22 16:40 Pulse Rate 112 H 01/22/22 16:40 Respiratory Rate 18 01/22/22 16:40 Blood Pressure 117/64 01/22/22 16:40 Pulse Oximetry 97 01/22/22 16:40 Temperature 98.5 F 01/22/22 19:22 Pulse Rate 99 01/22/22 19:22 Respiratory Rate 17 01/22/22 19:22 Blood Pressure 102/71 01/22/22 19:22 Pulse Oximetry 95 01/22/22 19:22 Allergies: Allergies Allergy/AdvReac Type Severity Reaction Status Date / Time Sulfa (Sulfonamide Allergy Unknown LIPS AND Verified 01/22/22 17:07 Antibiotics) GENITAL PEELING SKIN Vital Signs: Vital Signs T
[2022-01-22 18:07] LABS: Alanine Aminotransferase 20 U/L (6-50); Alkaline Phosphatase 91 U/L (38-126); Anion Gap 11 mmol/L (8-16); Aspartate Amino Transferase 24 U/L (17-59); Bilirubin,Total 0.4 mg/dL (0.2-1.3); Blood Urea Nitrogen 15 mg/dL (9-20); Calcium 8.7 mg/dL (8.4-10.2); Carbon Dioxide 29 mmol/L (22-30); Chloride 97 mmol/L (98-107); Estimated Glomerular Filt Rate > 60; Glucose 117 mg/dL (65-110); Potassium 4.2 mmol/L (3.4-5.0); Sodium 137 mmol/L (137-145)
[2022-01-22 18:32] LABS: Influenza A QL RT-PCR Negative (Negative); Influenza B QL RT-PCR Negative (Negative); SARS-CoV-2 RNA PCR Negative
--- NOTE | 2022-01-22 19:10 | PC.NURSE ---
Report received from JESSI Serna. Assumed care of patient at this time.
[2022-01-22 19:22] VITALS: BP 102/71; PULSE 99; RESP 17; TEMP 36.9; O2SAT 95
== END 2022-01-22 20:00 | disposition home or self-care (01) ==
PROVIDERS: Emergency Provider Emergency Medicine; PCP Internal Medicine
DX: R50.83 Postvaccination fever (principal); Z20.822 Contact with and (suspected) exposure to COVID-19; G80.9 Cerebral palsy, unspecified; R13.10 Dysphagia, unspecified; G40.909 Epilepsy, unspecified, not intractable, without status epilepticus; F41.9 Anxiety disorder, unspecified; Z93.1 Gastrostomy status; Z98.1 Arthrodesis status; Z99.3 Dependence on wheelchair
CPT/HCPCS: 36415; 71046; 74018; 80053; 85025; 87502; 96360; 99283; J7030; U0003; U0005

== ENCOUNTER 2022-01-28 08:46 | Outpatient (CLI) | payer MEDICARE, MEDICAID, SELFPAY ==
[2022-01-27 13:18] VITALS: BMI 16.5
[2022-01-28 12:25] VITALS: BP 123/76; PULSE 60; RESP 16; TEMP 36.8; O2SAT 100
--- NOTE | 2022-01-28 12:46 | PM.HPGS ---
History of Present Illness History of Present Illness Consent: Risks, benefits, and alternatives have been discussed and questions answered. Patient agrees to proceed with procedure. Chief complaint: Malfunc Peg Tube Narrative: Dallas Slaughter is a 36 year old male Presents for PEG tube exchange. Patient has a history of cerebral palsy. He has required and PEG tube feedings for quite some time. He currently has a Del type PEG tube with internal balloon. Patient's mother reports that on few occasions he has pulled this out. He has developed some proud flesh at the gastric cutaneous fistula. mother states current PEG tube feedings are functioning well. He has no immediate difficulties. Patient presents today for PEG tube exchange. Previous PEG tube is began to deteriorate somewhat. Review of Systems Review of Systems: Review of systems noncontributory. [facility] Past Medical History Medical History Anxiety Cerebral palsy Dysphagia Chronic. G-tube in place. Gastrointestinal tube present History of pulmonary aspiration History of upper gastrointestinal bleeding Seizure disorder Uses powered wheelchair Surgical History Surgical History History of orthopedic surgery Multiple surgeries related to his cerebra palsy including tendon surgeries and Green transfer. History of spinal fusion Family History Family History Father Family history of diabetes mellitus in first degree relative Hypertension Family history of elevated blood lipids Social History Social History Social History: Surrogate decision maker: Cm and Leonora Slaughter, parents. Code status: Full code. Smoking status: Never smoker Alcohol intake: never Substance use: never Substance use type: does not use Living arrangements: with family Additional living arrangements comments: The patient lives with his parents and 17-year-old brother in [place]. He is wheelchair-bound and uses an electric wheelchair which he can manage quite nicely. In fact he likes to spend a lot of his time out in their [place] where they have cars and motorcycles, which he really enjoys. He is dependent on most activities of daily living. Additional occupation/education comments: Disabled. Spiritual care concerns: No Meds Home Medications and Allergies Home Medications Medication Instructions Recorded Confirmed Type albuterol sulfate 2.5 mg/3 mL 2.5 mg (3 mL) inhalation Q4-6H PRN 09/02/20 01/27/22 Rx (0.083 %) solution for nebulization shortness of breath or wheezing #180 mL divalproex 125 mg capsule,delayed See Rx Instructions .Route 07/30/21 01/27/22 Rx release sprinkle .COMPLEX #360 caps clorazepate dipotassium 3.75 mg 3.75 mg feeding tube TID #90 tabs 08/26/21 01/27/22 Rx tablet omeprazole 40 mg capsule,delayed 40 mg PO DAILY #30 caps 09/02/21 01/27/22 Rx release scopolamine base 1 mg over 3 days 1 patch topical Q3-4D #24 ea 10/06/21 01/27/22 Rx transdermal patch benzonatate 100 mg capsule See Rx Instructions .Route 10/25/21 01/27/22 Rx .COMPLEX #180 caps diazepam 5 mg tablet See Rx Instructions PO .COMPLEX 11/15/21 01/27/22 Rx PRN muscle spasm #90 tabs acetaminophen 500 mg/15 mL oral 500 mg (15 mL) PO Q6H PRN fever or 12/02/21 01/27/22 Rx liquid pain #240 mL mupirocin 2 % topical ointment 1 applic topical BID PRN Edema #22 12/02/21 01/27/22 Rx grams baclofen 20 mg tablet See Rx Instructions .Route 12/24/21 01/27/22 Rx .COMPLEX #270 tabs tizanidine 4 mg tablet 4 mg PO TID PRN muscle spasticity 01/13/22 01/27/22 Rx #60 tabs Allergies Allergy/AdvReac Type Severity Reaction Status Date / Time Sulfa (Sulfonamide Allergy Unknown LIPS AND Verified 01/27/22 13:11 Antibiotics) GENITAL
--- NOTE | 2022-01-28 12:48 | PM.OP ---
Procedure Note - Brief Procedure Note - Brief Date of procedure: 01/28/22 Pre-op diagnosis: Malfunc Peg Tube Peg tube malfunction. Procedure performed: Peg removal and replacement. Description of procedure: After informed consent from patient's mother previous Del PEG type tube is removed. Initially 5-6 cc of colored fluid is withdrawn from the internal balloon. Del G-tube is withdrawn. New 24 Guyanese Del PEG type G-tube is placed through the gastric cutaneous all orifice without difficulty. Gastric contents were aspirated from the opening without difficulty. Plan for PEG tube feedings to be resumed as previously prescribed. Local care to the PEG tube site is advised. Anticipate follow-up PEG tube replacement at 4 month intervals. Implants: Twenty-four Guyanese Del PEG tube device placed into the gastric cutaneous fistula. Surgeon: Fletcher Mccartney MD Findings: Previous PEG tube slightly deteriorated from time. New PEG tube placed anticipate follow-up PEG tube replacement at 3-4 month intervals. Continue tube feedings as previously prescribed.
--- NOTE | 2022-02-03 11:26 | SUR.OPER ---
Procedure done in the pre-op room, Time out completed at [address] Mccartney, patient, pt's mom, and Emma Magaña RN. Procedure started at 1232 and completed at 1234. Patient discharged at 1234.
== END 2022-01-28 12:40 | disposition home or self-care (01) ==
PROVIDERS: PCP Internal Medicine; Visit Provider Internal Medicine Gastroenterology
PROC: 0DH63UZ Insertion of Feeding Device into Stomach, Percutaneous Approach (ICD-10-PCS; CPT 43246; principal; 2022-01-28 13:30)
DX: Z43.1 Encounter for attention to gastrostomy (principal)
CPT/HCPCS: 99212; G0463

== ENCOUNTER 2022-06-10 20:35 | Emergency (ER) | payer MEDICARE, MEDICAID, SELFPAY ==
--- NOTE | ~2022-06-10 | XR_ITS ---
XR chest 2V 06/11/2022 02:11 Indication: Cough and drooling. History of chest pain. Procedure: AP and lateral views of the chest Comparison: 01/22/2022 Findings: Borderline heart size. Shallow inspiration. No focal air space disease, pulmonary edema, pl eural effusion or suspected pneumothorax. There are Mckeon rods overlying the thoracic spine. No acute osseous abnormality. Impression: 1: No acute cardiopulmonary disease. Reviewed, dictated and finalized at location A. Impression: 1: No acute cardiopulmonary disease.
--- NOTE | ~2022-06-10 | CT_ITS ---
EXAMINATION: CT abdomen pelvis w con DATE: 06/11/2022 01:59 INDICATION: Constipation. TECHNIQUE: Computed tomography (CT) of the abdomen and pelvis was performed with 100 cc Omnipaque 350 intravenous contrast. The dose-length product was 312.42 mGy-cm. Automated exposure control and iter ative reconstruction technique were employed. COMPARISON: CT dated 05/24/2021 FINDINGS: Heart size normal. There are Mckeon rods. There is scoliosis. There is left lower lobe consolidation which may represent atelectasis or pneumonia. No significant pleural or pericardial eff usion. There is a G-tube present. No significant vascular abnormality. No lymphadenopathy. There is a right inguinal hernia containing nonobstructed bowel. There is fecal impaction of the distal colon a nd rectum. No free air or free fluid. The liver, spleen, pancreas, adrenal glands and kidneys are unremarkable. Gallbladder is present. No free air or free fluid. No lymphadenopathy. No acute osseous abnormality. IMPRESSION: 1. Fecal impaction of the distal colon and rectum. No definite obstruction. 2: Left lower lobe airspace consolidation which may represent atelectasis or pneumonia. 3: Right inguinal hernia containing nonobstructed bowel. Reviewed, dictated and finalized at location A. IMPRESSION: 1. Fecal impaction of the distal colon and rectum. No definite obstruction. 2: Left lower lobe airspace consolidation which may represent atelectasis or pn eumonia. 3: Right inguinal hernia containing nonobstructed bowel.
[2022-06-10 20:41] VITALS: BP 117/76; PULSE 86; RESP 18; TEMP 36.9; O2SAT 97
[2022-06-10 22:49] VITALS: BP 127/78; PULSE 86; O2SAT 100
--- NOTE | 2022-06-10 23:45 | PC.NURSE ---
Upon bringing patient back to a room, hebert stated patient did have a BM. Patient cleaned up.
--- NOTE | 2022-06-11 00:56 | ED.ABDPAIN ---
HPI - Abdominal Pain General Chief Complaint: Abdominal Pain <ADARSH Tirado Last Filed: 06/11/22 03:52> Stated Complaint: abdominal pain, constipated <ADARSH Tirado Last Filed: 06/11/22 03:52> Time Seen by Provider: 06/10/22 23:44 <ADARSH Tirado Last Filed: 06/11/22 03:52> Source: family and old records reviewed <ADARSH Tirado Last Filed: 06/11/22 03:52> Mode of arrival: ambulatory <ADARSH Tirado Last Filed: 06/11/22 03:52> Limitations: language barrier <ADARSH Tirado Last Filed: 06/11/22 03:52> History of Present Illness HPI narrative: Patient is a 36 y/o male who presents to the ED with his mother with report of abdominal distension and constipation. Patient has a Hx of cerebral palsy, seizures, G-tube placement, aspiration pneumonia. He is nonverbal at baseline. Information provided through mother and review of old records. Mother reports patient has had recent constipation. He passed a large hard stool ball 5 days ago, and another 2 days ago. She has been giving him MiraLAX, Dulcolax and glycerin suppositories, without improvement. She states he has been eating normally and his G-tube has been functioning normally. Mother has also noticed patient moaning more than usual, drawing his knees up towards his abdomen, abdominal distention, and increased drooling. She denies any vomiting. Patient does also have a chronic cough, mother reports slight worsening of this recently. Denies any fever. <ADARSH Tirado Last Filed: 06/11/22 03:52> Related Data Allergies/Adverse Reactions: Allergies Allergy/AdvReac Type Severity Reaction Status Date / Time Sulfa (Sulfonamide Allergy Unknown LIPS AND Verified 06/10/22 20:46 Antibiotics) GENITAL PEELING SKIN <ADARSH Tirado Last Filed: 06/11/22 03:52> Review of Systems Review of Systems: ROS unobtainable: Yes unobtainable due to medical condition <Marlen Fernandes PA-C - Last Filed: 06/11/22 03:52> [facility] Past Medical History Medical History: Medical History Anxiety Cerebral palsy Dysphagia Chronic. G-tube in place. Gastrointestinal tube present History of pulmonary aspiration History of upper gastrointestinal bleeding Seizure disorder Uses powered wheelchair <Marlen Fernandes PA-C - Last Filed: 06/11/22 03:52> Surgical History Surgical History: Surgical History History of orthopedic surgery Multiple surgeries related to his cerebra palsy including tendon surgeries and Green transfer. History of spinal fusion <Marlen Fernandes PA-C - Last Filed: 06/11/22 03:52> Family History Family History: Family History Father Family history of diabetes mellitus in first degree relative Hypertension Family history of elevated blood lipids <Marlen Fernandes PA-C - Last Filed: 06/11/22 03:52> Social History Social History: Social History Social History: Surrogate decision maker: Cm and Leonora Kasandra, parents. Code status: Full code. Smoking status: Never smoker Alcohol intake: never Substance use: never Substance use type: does not use Living arrangements: with family Additional living arrangements comments: The patient lives with his parents and 17-year-old brother in [place]. He is wheelchair-bound and uses an electric wheelchair which he can manage quite nicely. In fact he likes to spend a lot of his time out in their [place] where they have cars and motorcycles, which he really enjoys. He is dependent on most activities of daily living. Occupation/Education: unemployed Additional occupation/education comment
[2022-06-11 00:57] VITALS: BP 116/85; PULSE 77; RESP 18; O2SAT 97
--- NOTE | 2022-06-11 00:58 | PC.NURSE ---
Patients mother and POA at bedside, she was informed of need for urine specimen. She states patient normally needs a catheter to obtain a specimen, she states she does not want that at this time.
[2022-06-11 01:00] LABS: Basophils Percent Auto 0.4 % (0.2-1.2); Eosinophils Percent Auto 0.2 % (0-4.4); Hematocrit 44.7 % (42.0-52.0); Hemoglobin 14.9 g/dL (14.0-18.0); Immature Granulocyte Absolute 0.03 K/mm3 (0.00-0.031); Immature Granulocyte Percent A 0.3 % (0-0.5); Lymphocytes Absolute Auto 4.86 K/mm3 (0.9-3.2); Lymphocytes Percent Auto 51.1 % (18.3-44.2); Mean Corpuscular HGB Conc 33.3 g/dl (32-36); Mean Corpuscular Hemoglobin 30.7 pg (26-34); Mean Corpuscular Volume 92.2 fl (80-100); Mean Platelet Volume 9.9 fl (7.4-10.4); Monocytes Absolute Auto 0.9 K/mm3 (0.1-0.6); Monocytes Percent Auto 9.6 % (2.6-8.5); Neutrophils Absolute Auto 3.7 K/mm3 (1.3-6.7); Neutrophils Percent Auto 38.4 % (45.5-73.1); Platelet Count Result 249 k/mm3 (150-375); Red Blood Count 4.85 M/mm3 (4.6-6.20); Red Cell Distribution Width 13.9 % (11.5-14.5); White Blood Count 9.5 K/mm3 (4.5-10.0)
[2022-06-11 01:12] LABS: Alanine Aminotransferase 24 U/L (6-50); Albumin Level 4.2 g/dL (3.5-5.1); Alkaline Phosphatase 88 U/L (38-126); Anion Gap 6 mmol/L (8-16); Aspartate Amino Transferase 29 U/L (17-59); Bilirubin,Total 0.4 mg/dL (0.2-1.3); Blood Urea Nitrogen 13 mg/dL (9-20); Carbon Dioxide 31 mmol/L (22-30); Chloride 102 mmol/L (98-107); Estimated CRCL calculation 96 ml/min; Estimated Glomerular Filt Rate > 60; Glucose 102 mg/dL (65-110); Lactic Acid Reflex 1.3 mmol/L (0.7-2.0); Potassium 4.2 mmol/L (3.4-5.0); Sodium 139 mmol/L (137-145)
[2022-06-11] MEDS: SODIUM CHLORIDE 0.9% IV 1,000 ML 999 ML IV CONT (01:31)
[2022-06-11 04:09] LABS: Appearance Urine Clear (Clear); Bilirubin Urine Negative (Negative); Blood Urine Negative (Negative); Color Urine Yellow (Yellow); Glucose Urine UA Negative (Negative); Ketones Urine Negative (Negative); Leukocyte Esterase Ur Negative LEU/UL (Negative); Nitrate Urine Negative (Negative); Protein Urine Negative (Negative)
[2022-06-11 04:28] LABS: Specific Grav Ur 1.042 (1.001-1.035)
[2022-06-11] MEDS: BISACODYL 10 MG SUPPOSITORY RECTAL (04:29)
[2022-06-11 04:31] LABS: Add Urine Microscopic? NO
[2022-06-11 04:33] VITALS: BP 108/68; PULSE 77; RESP 18; O2SAT 98
--- NOTE | 2022-06-11 05:31 | PC.NURSE ---
Patient had a large BM, hard and soft. ERP notified. Per mother patient is much more comfortable.
== END 2022-06-11 05:48 | disposition home or self-care (01) ==
PROVIDERS: Emergency Provider Physician Assistant; PCP Internal Medicine
DX: K59.00 Constipation, unspecified (principal); G80.9 Cerebral palsy, unspecified; G40.909 Epilepsy, unspecified, not intractable, without status epilepticus; Z93.1 Gastrostomy status; Z98.1 Arthrodesis status; Z99.3 Dependence on wheelchair
CPT/HCPCS: 36415; 71046; 74177; 80053; 81003; 83605; 85025; 96360; 99284; A9270; J7030; Q9967

== ENCOUNTER 2022-06-13 15:12 | Inpatient (IN) | payer MEDICARE, MEDICAID, SELFPAY ==
[2022-06-13] VITALS (9 sets, daily range): BP systolic 99–112; BP diastolic 3–79; PULSE 110–126; RESP 18–25; TEMP 36.9–39.4; O2SAT 96–100
--- NOTE | ~2022-06-13 | CT_ITS ---
EXAMINATION: CT chest abdomen pelvis w con DATE: 06/13/2022 21:27 INDICATION: Sepsis, fecal impaction . TECHNIQUE: Computed tomography (CT) of the chest, abdomen, and pelvis was performed with 100 mL Omnip aque-350 intravenous contrast. Automated exposure control and iterative reconstruction technique were employed. The dose-length product was 381.40 mGy-cm. COMPARISON: CT abdomen pelvis 06/11/2022, CT cap 05/24/2021 FINDINGS: Examination limited by motion artifact and beam hardening. CHEST: Thoracic aorta: No significant dilation or calcification. Lung parenchyma and airways: Airway debris in the distal trachea. Chronic bronchiectasis and scarring in the left lower lobe with adjacent subsegmental atelectasis/consolidation. Mild scattered tree-in- bud opacities in the posterior segment of the right upper lobe. Subsegmental scar/atelectasis in the dependent right lower lobe. Thoracic inlet, axillae and chest wall: No thyroid or soft tissue mass. No axillary lymphadenopathy. Mediastinum: No mass or lymphadenopathy. Heart and pericardium: Normal heart size. No pericardial effusion. Coronary artery calcifications: Absent. Pleura: No effusion or mass. Thoracic bones: No acute osseous finding in the chest. ABDOMEN/PELVIS: Liver: Normal. Biliary/Gallbladder: Possible mild wall edema/pericholecystic fluid although determination is limited by motion artifact. No bile duct dilation. Pancreas: No mass or duct dilation. Spleen: Normal. Adrenals:No mass. Kidneys: No mass, stone, or hydronephrosis. GI tract: Moderate distal esophageal and gastric wall edema. PEG tube, in good position. No small or large bowel dilation. Appendix not confidently visualized. Rectal wall edema. Mesentery/Peritoneum: No ascites, mass, or free air. Retroperitoneum: No mass Pelvis: Marked urinary bladder wall thickening and edema. Mild prostate enlargement with heterogeneou s enhancement. Soft Tissues: Small uncomplicated fat-containing right inguinal hernia. Abdominopelvic bones: No acute osseous finding in the abdomen/pelvis. Congenital scoliosis. Extensiv e uncomplicated appearing thoracolumbar fusion hardware. IMPRESSION: 1. Airway debris in the distal trachea. Right upper lobe tree-in-bud opacities may represent atypical infection or aspiration. Findings of chronic aspiration in the left lower lobe. 2. Esophagitis/gastritis. 3. Possible mild gallbladder wall edema/pericholecystic fluid, correlate with right upper quadrant pa in/tenderness and biliary labs. 4. Severe cystitis and possible prostatitis. 5. Proctitis. Reviewed, dictated and finalized at location K. IMPRESSION: 1. Airway debris in the distal trachea. Right upper lobe tree-in-bud opacities may represent atypical infection or aspiration. Findings of chronic aspiration in the left lower lobe. 2. Esophagitis/gastritis. 3. Possible mild gallbladder wall edema/pericholecystic fluid, correlate with r ight upper quadrant pain/tenderness and biliary labs. 4. Severe cystitis and possible prostatitis. 5. Proctitis.
--- NOTE | ~2022-06-13 | XR_ITS ---
XR G tube evaluation w imaging 06/15/2022 14:36 Indication: G-tube evaluation Procedure: Serial fluoroscopic images are performed during contrast administration via pre-existing G -tube. 0.7 minutes of fluoroscopy time. Fluoroscopic images. Comparison: No prior studies for comparison. Findings: There is normal contrast opacification of the stomach during gastric tube injection with Om nipaque 350. 100 cc Omnipaque administered. No evidence for contrast extravasation. Impression: 1: Gastric tube appropriately located within the stomach lumen. No evidence for extravasation. Reviewed, dictated and finalized at location A. Impression: 1: Gastric tube appropriately located within the stomach lumen. No evidence for extravasation.
--- NOTE | ~2022-06-13 | XR_ITS ---
EXAMINATION: XR abdomen NG/feed tube insert DATE: 06/15/2022 17:14 INDICATION: Nasogastric tube insertion TECHNIQUE: A supine view of the abdomen and lower chest was obtained for evaluation of feeding tube placement. COMPARISON: None. FINDINGS: Nasogastric tube tip in proximal side port in the body of the stomach. Linear opacity projecting over the right side of the upper lumbar spine appears to correspond in location to a previously seen cont rast opacified percutaneous gastrostomy tube. Contrast is seen scattered throughout the colon and a f ew loops of small bowel secondary to the earlier contrast injection through the percutaneous gastrost viktoriya tube. Heart size is normal. S-shaped thoracolumbar scoliosis with extensive a cemented posterior spinal fusion with bilateral vertical hernesto, pedicle screw and laminar wire fixation extending from T2 caudally through at least the lower lumbar spine. IMPRESSION: 1. Nasal gastric tube tip in proximal side port in the body of the stomach. 2. Likely additional percutaneous gastrostomy tube projecting over the expected location of the dista l gastric body. Reviewed, dictated and finalized at location A. IMPRESSION: 1. Nasal gastric tube tip in proximal side port in the body of the stomach. 2. Likely additional percutaneous gastrostomy tube projecting over the expected location of the distal gastric body.
--- NOTE | ~2022-06-13 | XR_ITS ---
XR chest 1V portable DATE: 06/13/2022 16:39 INDICATION: Shortness of breath TECHNIQUE: Portable supine AP view on 06/13/2022 at 1637 hours COMPARISON: 06/11/2022 AP and lateral chest FINDINGS: Thoracolumbar spinal rods are again noted. No pulmonary infiltrate or consolidation, pleural effusion or pulmonary vascular congestion or pneumo thorax is detected. Thoracolumbar dextroscoliosis. IMPRESSION: No active disease Reviewed, dictated and finalized at location B. IMPRESSION: No active disease
--- NOTE | ~2022-06-13 | XR_ITS ---
Portable chest x-ray Comparison: 06/13/2022 Clinical History: Congestion Findings: There is worsening extensive groundglass pulmonary disease. No pleural effusion or pneumot horax. NG tube in place. Cardiomediastinal silhouette is stable. Stable extensive spinal fixation grullon rdware. Impression: Worsening groundglass pulmonary disease, compatible with developing pulmonary edema versus infection. Correlate clinically. NG tube in place. Stable extensive spinal fixation hardware. Reviewed, dictated and finalized at location . Impression: Worsening groundglass pulmonary disease, compatible with developing pulmonary e collin versus infection. Correlate clinically. NG tube in place. Stable extensive spinal fixation hardware.
--- NOTE | ~2022-06-13 | XR_ITS ---
MODIFIED ESOPHAGRAM HISTORY: Possible aspiration pneumonia TECHNIQUE: Modified barium esophagram was performed by speech pathologist under radiologist fluorosco pic guidance. This was recorded on tape. The exam was reviewed on 06/15/2022 13:15 CDT. The DAP for this procedure was 0.35 Gycm2. Fluoroscopy time is 0.3 minutes. FINDINGS: Lateral projection of the cervical spine demonstrates normal alignment. Swallowing reflex is absent limiting evaluation for aspiration. IMPRESSION: 1: Extremely limited study due to absent swallowing reflex. 2: Please refer to speech pathologist report for additional detail. Reviewed, dictated and finalized at location A.
--- NOTE | ~2022-06-13 | XR_ITS ---
Supine views of the abdomen Clinical history: Fecal impaction COMPARISON: 01/22/2022 Findings: Bowel gas pattern is nonspecific. No evidence for obstruction or free air. No abnormal mass lesion or calcification is seen. Extensive spinal fixation hardware is unchanged. Impression: Nonspecific bowel gas pattern. Stable extensive spinal fixation hardware. Reviewed, dictated and finalized at [facility]. Impression: Nonspecific bowel gas pattern. Stable extensive spinal fixation hardware.
[2022-06-13 16:29] LABS: Appearance Urine Turbid (Clear); Bilirubin Urine 2+ (Negative); Blood Urine 3+ (Negative); Color Urine Red (Yellow); Glucose Urine UA Negative (Negative); Ketones Urine 1+ mg/dL (Negative); Leukocyte Esterase Ur Trace LEU/UL (Negative); Nitrate Urine Positive (Negative); Protein Urine 3+ mg/dL (Negative); Specific Grav Ur 1.015 (1.001-1.035); pH Urine >=9.0 (5.0-9.0)
[2022-06-13 16:41] LABS: Add Urine Microscopic? YES
[2022-06-13 16:42] LABS: Basophils Percent Auto 0.2 % (0.2-1.2); Eosinophils Percent Auto 0.1 % (0-4.4); Hematocrit 44.5 % (42.0-52.0); Hemoglobin 14.8 g/dL (14.0-18.0); Immature Granulocyte Absolute 0.09 K/mm3 (0.00-0.031); Immature Granulocyte Percent A 0.5 % (0-0.5); Immature Platelet Fraction Pct 10.3 % (0.9-11.2); Lymphocytes Percent Auto 12.5 % (18.3-44.2); Mean Corpuscular HGB Conc 33.3 g/dl (32-36); Mean Corpuscular Volume 93.1 fl (80-100); Mean Platelet Volume 11.6 fl (7.4-10.4); Monocytes Absolute Auto 2.3 K/mm3 (0.1-0.6); Monocytes Percent Auto 12.3 % (2.6-8.5); Neutrophils Absolute Auto 13.8 K/mm3 (1.3-6.7); Neutrophils Percent Auto 74.4 % (45.5-73.1); Platelet Count Result 113 k/mm3 (150-375); Red Blood Count 4.78 M/mm3 (4.6-6.20); Red Cell Distribution Width 14.2 % (11.5-14.5); White Blood Count 18.5 K/mm3 (4.5-10.0)
[2022-06-13 16:42] LABS: RBC Urine >100 /hpf (0-2)
[2022-06-13 16:43] LABS: WBC Urine 0-3 /hpf (0-3)
[2022-06-13 16:44] LABS: Bacteria Urine Trace /hpf; Squamous Epithelial Cell Urine Few /hpf (Few)
[2022-06-13] MEDS: ACETAMINOPHEN 325 MG TABLET 650 MG FEED TUBE ×2 (16:51→23:03)
[2022-06-13 16:57] LABS: Alanine Aminotransferase 21 U/L (6-50); Albumin Level 4.3 g/dL (3.5-5.1); Alkaline Phosphatase 103 U/L (38-126); Anion Gap 7 mmol/L (8-16); Aspartate Amino Transferase 32 U/L (17-59); Bilirubin,Total 0.8 mg/dL (0.2-1.3); Blood Urea Nitrogen 18 mg/dL (9-20); CRP > 9.0 mg/dL (<1.0); Calcium 9.1 mg/dL (8.4-10.2); Carbon Dioxide 33 mmol/L (22-30); Chloride 100 mmol/L (98-107); Estimated CRCL calculation 80 ml/min; Estimated Glomerular Filt Rate > 60; Glucose 92 mg/dL (65-110); Potassium 4.9 mmol/L (3.4-5.0); Sodium 140 mmol/L (137-145)
[2022-06-13 17:01] LABS: INR 1.1; Prothrombin Time 13.5 Seconds (11.1-14.7)
[2022-06-13 17:01] LABS: Lactic Acid Reflex 2.1 mmol/L (0.7-2.0)
[2022-06-13 17:02] LABS: Partial Thromboplastin Time 30.9 SECONDS (22.3-36.8)
[2022-06-13 17:54] LABS: Influenza A QL RT-PCR Negative (Negative); Influenza B QL RT-PCR Negative (Negative); SARS-CoV-2 RNA PCR Negative
[2022-06-13] MEDS: PIPERACILLN/TAZ 3.375GM/NS50ML 3.375 GM/50 ML BAG IVPB (18:37)
--- NOTE | 2022-06-13 18:42 | ED.FEVER ---
HPI - Fever General Chief Complaint: Fever Stated Complaint: constiptaed, blood in his urine, fever Time Seen by Provider: 06/13/22 16:00 History of Present Illness HPI Narrative: Patient is a 36-year-old male with history of cerebral palsy who presents to the ER with fever. Patient was seen in the ER couple nights ago for constipation and was disimpacted. Mother is given some Colace since then. She feels patient may be more bloated. Patient's G-tube came out today and patient aspirated as witnessed by mom. He is not coughing at this time. Cannot provide history. No hypoxia. Patient's G-tube is back in place. Related Data Allergies Allergy/AdvReac Type Severity Reaction Status Date / Time Sulfa (Sulfonamide Allergy Unknown LIPS AND Verified 06/13/22 15:58 Antibiotics) GENITAL PEELING SKIN Review of Systems Review of Systems: ROS unobtainable: Yes unobtainable due to medical condition PMFSH Past Medical History Medical History Anxiety Cerebral palsy Dysphagia Chronic. G-tube in place. Gastrointestinal tube present History of pulmonary aspiration History of upper gastrointestinal bleeding Seizure disorder Uses powered wheelchair Surgical History Surgical History History of orthopedic surgery Multiple surgeries related to his cerebra palsy including tendon surgeries and Green transfer. History of spinal fusion Family History Family History Father Family history of diabetes mellitus in first degree relative Hypertension Family history of elevated blood lipids Social History Social History (Updated 06/13/22 @ 20:10 by Raisa Laurent DO) Social History: Surrogate decision maker: Cm and Leonoraflorencia Slaughter, parents. Code status: Full code. Smoking status: Never smoker Alcohol intake: never Substance use: never Substance use type: does not use Living arrangements: with family Additional living arrangements comments: The patient lives with his parents and 19-year-old brother in [place]. He is wheelchair-dependent and uses an electric wheelchair which he can manage quite nicely. In fact he likes to spend a lot of his time out in their [place] where they have cars and motorcycles, which he really enjoys. He is dependent on most activities of daily living. Occupation/Education: unemployed Additional occupation/education comments: Disabled. Spiritual care concerns: No Exam Narrative: GENERAL: Chronically ill-appearing, well-nourished, and in no acute distress. HEAD: Normocephalic, atraumatic. EYES: PERRL and EOMI. ENT Mucous membranes moist. CHEST: Clear to auscultation. No respiratory distress. HEART: Tachycardic and regular. Normal peripheral pulses. ABDOMEN: Soft, nontender, nondistended, normal active bowel sounds. EXTREMITIES: Upper and lower extremity contractures that are chronic. No edema. SKIN: Warm, dry, no rash. NEURO: Awake and alert and at neurologic baseline according to mother. Course [employer]PECTOR/PA Physician Supervision Patient aggressively fluid resuscitated. IV Zosyn started. Patient could have potentially aspiration pneumonia and UTI. Flu and COVID testing negative. Discussed treatment plan with patient's mom who verbalized understanding. Vital Signs Vital signs: Vital Signs Temperature 98.4 F 06/13/22 15:26 Pulse Rate 124 H 06/13/22 15:26 Respiratory Rate 23 H 06/13/22 15:26 Blood Pressure 112/62 06/13/22 15:26 Pulse Oximetry 96 06/13/22 15:26 Oxygen Delivery Room Air 06/13/22 15:26 Temperature 99.1 F 06/13/22 19:31 Pulse Rate 118 H 06/13/22 20:52 Respiratory Rate 22 H 06/13/22 20:52 Blood Pressure 100/73 06/13/22 20:52 Pulse Oximetry 100 06/13/22 20:52 Oxygen Delivery Room Air 06/13/22 15:26 MDM - Fever Lab Data 06/13/22 16:27
[2022-06-13] MEDS: SODIUM CHLORIDE 0.9% IV 1,000 ML 999 ML IV CONT (18:53)
[2022-06-13 19:47] LABS: Reflex Lactic Acid Yes or No Add Lactic
[2022-06-13] MEDS: MORPHINE SULFATE (*CRX) 2 MG/ML INJ IV PUSH (20:06)
--- NOTE | 2022-06-13 20:07 | PM.IMHP ---
H&P: HPI History of Present Illness Date/Time: 06/13/22 20:07 Chief Complaint: Bloody urine, fever, constipation Narrative: 36-year-old male with past medical history of seizures disorder, cerebral palsy, nonverbal with dysphagia and PEG tube who presented to the ER with hematuria, fever, constipation and abdominal pain. Source of information is from past medical records and patient's mother's report. The patient is nonverbal at baseline. The patient had been evaluated in the ER on the and was found to have fecal impaction was manually disimpacted and received a suppository. He did have a large bowel movement at that time and was discharged home. His mother states that since he returned home she has been doing MiraLax every other day and Dulcolax suppositories every other day without relief in his symptoms. The patient has continued to eat orally and had some a eggs and other food this morning for breakfast. He usually eats 1 solid meal a day and receives the rest of his nutrition through his G-tube. Then the shortly before coming to the ER the patient began tremoring and flaring his nostrils. She states that he usually flares his nostrils any time he aspirates. He checked his temperature at that time it was 100.5. She gave him a dose of Tylenol through his PEG tube. When she asked him where he was hurting he pointed to the right lower chest. When I asked him if he was hurting in his chest or was he hurting lower in his abdomen. He indicated within not of his head that he was hurting more in his abdomen. His mother reports that for the last day the patient has been moaning and groaning which is unusual for him. He has seemed restless and is not sleeping. She when she saw that his nostrils or flaring she did put him on 2 L of oxygen. However when patient arrived to the ER he was not hypoxic. At the time of my evaluation the patient's teeth were chattering. I suspect that the patient is now right growing in trying to spike a fever again. The patient's labs in the ER did today demonstrated a significant increase in his white count compared to prior his white count is 18.5. His mother had noticed some blood in his urine at home. His platelet count has dropped from 249 down to 113. His UA was red in color and turbid in appearance with a pH greater than 9 3+ protein 1+ ketones 3+ blood positive nitrates 2+ bilirubin greater than 100 RBCs and trace bacteria. Had trace leukocyte esterase. His viral PCRs were negative. Patient remains tachycardic despite IV fluids. The patient had been evaluated overnight on the in the ER. He had a CT with contrast at that time and demonstrated fecal impaction and distal colon and rectum without obstruction. Left lower lobe airspace consolidation may represent atelectasis or pneumonia and a right inguinal hernia containing nonobstructive bowel. During that ER visit the patient was afebrile and had a normal white count. Patient was manually disimpacted by the ER physician and had a the suppository. At that time he passed a larger than fist sized ball of hard stool and was discharged home. Although he had evidence of consolidation at the time he had no evidence of infection. Review of Systems Review of Systems: ROS unobtainable: Yes unobtainable due to medical condition (Nonverbal due to cerebral palsy) PMFSH Past Medical History Medical History (Updated 06/14/22 @ 03:48 by Raisa Laurent DO) Anxiety Cerebral palsy Dysphagia Chronic. G-tube in place. Esophagitis with gastritis Gastrointestinal tube present History of GI bleed History of pulmonary aspiration History of upper gastrointestinal bleeding Seizure disorder Uses powered wheelchair Surgical History Surgical History History of orthopedic surgery Multiple surgeries related to his cerebra palsy including tendon surgeries and Green transfer. History of spinal fusion Famil
[2022-06-13 21:04] LABS: Lactic Acid 1.7 mmol/L (0.7-2.0)
[2022-06-13] MEDS: SODIUM CHLORIDE 0.9% IV 1,000 ML 125 ML IV CONT (21:34)
--- NOTE | 2022-06-13 22:50 | PC.NURSE ---
Per Dr. Laurent, cooling measures initiated.
[2022-06-14] VITALS (18 sets, daily range): BP systolic 96–110; BP diastolic 54–78; PULSE 73–125; RESP 14–26; TEMP 36.3–38.9; O2SAT 95–98; BMI 17.4
[2022-06-14] MEDS: PANTOPRAZOLE SODIUM IV 40 MG VIAL IV PUSH ×3 (00:14→20:26)
[2022-06-14] MEDS: PIPERACILLIN/TAZOBACTAM SOD 4.5 GM in SODIUM CHLORIDE 0.9% IV 100 ML 200 ML IVPB ×5 (00:42→23:30)
[2022-06-14] MEDS: SODIUM CHLORIDE 0.9% IV 1,000 ML 999 ML IV CONT (00:42)
[2022-06-14] MEDS: MORPHINE SULFATE (*CRX) 2 MG/ML INJ IV PUSH ×3 (02:25→23:34)
[2022-06-14] MEDS: DOCUSATE SODIUM 400 MG/400 ML ENEMA RECTAL (02:59)
--- NOTE | 2022-06-14 04:01 | ADMIMU ---
This patient, Dallas Slaughter, was admitted to IMU status, and placed in Intensive Care Unit-11 at 0250. Patient/family oriented to hospital policies and general routines including ID bracelet, bed and alarms, visiting hours, pain management, procedures, bathroom and other care routines, personal items, smoking policy, room service/diet, and visiting hours. Valuables list has been completed. Information on how to activate the Rapid Response Team has been discussed. Patient/Family are encouraged to report perceived risks to care and to ask questions if they do not understand what they are told or what they should do.
[2022-06-14 04:33] LABS: Basophils Percent Auto 0.2 % (0.2-1.2); Hemoglobin 12.6 g/dL (14.0-18.0); Immature Granulocyte Absolute 0.26 K/mm3 (0.00-0.031); Immature Granulocyte Percent A 1.3 % (0-0.5); Immature Platelet Fraction Pct 3.8 % (0.9-11.2); Lymphocytes Absolute Auto 2.88 K/mm3 (0.9-3.2); Mean Corpuscular HGB Conc 33.2 g/dl (32-36); Mean Corpuscular Hemoglobin 31.3 pg (26-34); Mean Corpuscular Volume 94.5 fl (80-100); Mean Platelet Volume 10.2 fl (7.4-10.4); Monocytes Absolute Auto 2.3 K/mm3 (0.1-0.6); Monocytes Percent Auto 11.4 % (2.6-8.5); Neutrophils Percent Auto 73.1 % (45.5-73.1); Platelet Count Result 132 k/mm3 (150-375); Red Blood Count 4.02 M/mm3 (4.6-6.20); Red Cell Distribution Width 14.5 % (11.5-14.5); White Blood Count 20.5 K/mm3 (4.5-10.0)
[2022-06-14 04:46] LABS: Anion Gap 5 mmol/L (8-16); Blood Urea Nitrogen 13 mg/dL (9-20); Calcium 7.4 mg/dL (8.4-10.2); Carbon Dioxide 25 mmol/L (22-30); Chloride 108 mmol/L (98-107); Estimated CRCL calculation 87 ml/min; Estimated Glomerular Filt Rate > 60; Glucose 82 mg/dL (65-110); Potassium 4.1 mmol/L (3.4-5.0); Sodium 138 mmol/L (137-145)
[2022-06-14] MEDS: BACLOFEN 10 MG TABLET 20 MG PO ×3 (05:36→20:26)
[2022-06-14] MEDS: CLORAZEPATE DIPOTASSIUM (*CRX) 3.75 MG TABLET FEED TUBE ×3 (08:32→17:58)
[2022-06-14] MEDS: BISACODYL 10 MG SUPPOSITORY RECTAL (08:32)
[2022-06-14] MEDS: polyethylene glycoL 3350 17 GM POWD.PACK FEED TUBE ×2 (08:32→17:26)
[2022-06-14] MEDS: HEPARIN SODIUM 5,000 UNITS/ML VIAL 5000 UNITS SUB-Q ×2 (08:32→20:26)
[2022-06-14] MEDS: DIVALPROEX SODIUM SPRINKLE 125 MG CAP.DR 250 MG PO ×2 (08:32→17:25)
[2022-06-14] MEDS: ACETAMINOPHEN 325 MG TABLET 650 MG FEED TUBE (08:38)
[2022-06-14] MEDS: SODIUM CHLORIDE 0.9% IV 1,000 ML 125 ML IV CONT ×2 (12:18→20:27)
--- NOTE | 2022-06-14 16:32 | PC.NURSE ---
This patient, Dallas Slaughter, was transferred to IMU on 06/14/22 at 1632. Personal belongings sent with patient. Report given to JESSI Carter. Appropriate documentation sent with patient.
--- NOTE | 2022-06-14 17:01 | PM.IMPN ---
Progress Note: A&P Assessment and Plan (1) Sepsis: Qualifiers: Sepsis acute organ dysfunction status: without acute organ dysfunction Sepsis type: sepsis due to unspecified organism Qualified Code(s): A41.9 - Sepsis, unspecified organism Code(s): A41.9 - Sepsis, unspecified organism Status: Acute (2) UTI (urinary tract infection): Code(s): N39.0 - Urinary tract infection, site not specified Status: Acute (3) Fecal impaction of rectum: Code(s): K56.41 - Fecal impaction Status: Acute (4) Dysphagia: Qualifiers: Dysphagia type: unspecified Qualified Code(s): R13.10 - Dysphagia, unspecified Code(s): R13.10 - Dysphagia, unspecified Status: Acute (5) Seizure disorder: Code(s): G40.909 - Epilepsy, unspecified, not intractable, without status epilepticus Status: Acute (6) Cerebral palsy: Code(s): G80.9 - Cerebral palsy, unspecified Status: Acute Plan Sepsis criteria met with tachycardia, tachypnea, fever and leukocytosis. Patient has sepsis with UA suggestive of UTI. Blood cultures are pending. UA is positive for infection uc is pending, continue to watch pt for further fevers CT demonstrated diffusely inflamed bladder and likely associated prostatitis. Also there may was some concern for cholecystitis. I was at the bedside with ER physician when he performed a right upper quadrant fast exam which demonstrated gallbladder wall of approximately 0.3 in thickness which could be indicative of inflammation. No obvious stones noted. CT also demonstrated no fecal impaction with proctitis. zosyn and iv fluids started The patient's UTI probably occurred due to his earlier fecal impaction. pt to continue with aggressive bowel regimen with b.i.d. MiraLax and daily Dulcolax suppositories. And daily enemas if needed The patient's prior CT did demonstrate consolidation left lower lobe however I think this is likely due to atelectasis. pt has some cough , i will add iv vancomycin as aspiration pneumonia is a possibility The patient has dysphagia with a G-tube. Will order tube feeds per the patient's home regimen. Will continue patient's home Depakote for seizure disorder. Will continue the patient's home muscle relaxers for his spasticity related to cerebral palsy. Subjective Date/time seen: 06/14/22 17:01 36-year-old male with past medical history of seizures disorder, cerebral palsy, nonverbal with dysphagia and PEG tube who presented to the ER with hematuria, fever, constipation and abdominal pain.? Source of information is from past medical records and patient's mother's report.? The patient is nonverbal at baseline.? The patient had been evaluated in the ER on the and was found to have fecal impaction was manually disimpacted and received a suppository.? He did have a large bowel movement at that time and was discharged home.? His mother states that since he returned home she has been doing MiraLax every other day and Dulcolax suppositories every other day without relief in his symptoms.? The patient has continued to eat orally and had some a eggs and other food this morning for breakfast.? He usually eats 1 solid meal a day and receives the rest of his nutrition through his G-tube.? Then the shortly before coming to the ER the patient began tremoring and flaring his nostrils. Pt admitted for vomiting fecal impaction, possible aspiration pneumonia and uti long discussion with mother by the bedside ok to continue iv fluids, tube feeds, iv zosyn bolus tube feed given already pt had suppository earlier in the day had a bowel movement Review of Systems Review of Systems: Cough, abdominal distension Exam Narrative: Thin appearing pleasant younger male Const: Other: chronically ill appearing HENMT: Other: Head is normocephalic atraumatic mucous membranes are dry Eyes: Other: No scleral icterus, no conjunctival
[2022-06-14 23:54] LABS: Hematocrit 37.4 % (42.0-52.0); Hemoglobin 12.3 g/dL (14.0-18.0); Immature Platelet Fraction Pct 4.3 % (0.9-11.2); Mean Corpuscular HGB Conc 32.9 g/dl (32-36); Mean Corpuscular Hemoglobin 31.3 pg (26-34); Mean Corpuscular Volume 95.2 fl (80-100); Mean Platelet Volume 10.5 fl (7.4-10.4); Platelet Count Result 145 k/mm3 (150-375); Red Blood Count 3.93 M/mm3 (4.6-6.20); Red Cell Distribution Width 14.6 % (11.5-14.5); White Blood Count 16.2 K/mm3 (4.5-10.0)
[2022-06-15] VITALS (17 sets, daily range): BP systolic 96–121; BP diastolic 59–78; PULSE 58–115; RESP 16–20; TEMP 36.3–37; O2SAT 92–97
[2022-06-15] LABS: Anion Gap 3 mmol/L (8-16); Blood Urea Nitrogen 12 mg/dL (9-20); Calcium 7.8 mg/dL (8.4-10.2); Carbon Dioxide 26 mmol/L (22-30); Chloride 108 mmol/L (98-107); Estimated CRCL calculation 87 ml/min; Estimated Glomerular Filt Rate > 60; Glucose 99 mg/dL (65-110); Sodium 137 mmol/L (137-145)
[2022-06-15 05:22] LABS: Estimated CRCL calculation 75 ml/min; Estimated Glomerular Filt Rate > 60
[2022-06-15] MEDS: PIPERACILLIN/TAZOBACTAM SOD 4.5 GM in SODIUM CHLORIDE 0.9% IV 100 ML 200 ML IVPB ×3 (06:08→19:14)
[2022-06-15] MEDS: BACLOFEN 10 MG TABLET 20 MG PO (08:29)
[2022-06-15] MEDS: HEPARIN SODIUM 5,000 UNITS/ML VIAL 5000 UNITS SUB-Q ×2 (08:30→20:36)
[2022-06-15] MEDS: DIVALPROEX SODIUM SPRINKLE 125 MG CAP.DR 250 MG PO (08:30)
[2022-06-15] MEDS: PANTOPRAZOLE SODIUM IV 40 MG VIAL IV PUSH ×2 (08:30→20:36)
[2022-06-15] MEDS: TIZANIDINE HCL 4 MG TABLET PO (08:32)
[2022-06-15] MEDS: CLORAZEPATE DIPOTASSIUM (*CRX) 3.75 MG TABLET FEED TUBE (08:38)
--- NOTE | 2022-06-15 09:19 | PCNFU ---
Nutrition Follow-Up Complete: Moderate Malnutrition as related to inadequate protein-energy intake with increased protein-energy needs in chronic setting or condition (Cerebral Palsy) as evidenced by minimal oral intake for > 1-2 months: severe subcutaneous fat loss (orbital fat pads) and muscle wasting (temporalis). goal; Meet estimated nutritional needs Goal: Pt current nutrition is . Nutrition recommendation: Last recorded weight is 43 kg. Bowel Motility: Labs Reviewed: Meds Noted: Skin: Additional Notes: Will monitor every 3 days.
[2022-06-15] MEDS: SODIUM CHLORIDE 0.9% IV 1,000 ML 125 ML IV CONT ×2 (10:05→20:38)
--- NOTE | 2022-06-15 11:25 | PM.IMPN ---
Progress Note: A&P Assessment and Plan (1) Sepsis: Qualifiers: Sepsis type: sepsis due to unspecified organism Sepsis acute organ dysfunction status: without acute organ dysfunction Qualified Code(s): A41.9 - Sepsis, unspecified organism Code(s): A41.9 - Sepsis, unspecified organism Status: Acute (2) UTI (urinary tract infection): Code(s): N39.0 - Urinary tract infection, site not specified Status: Acute (3) Fecal impaction of rectum: Code(s): K56.41 - Fecal impaction Status: Acute (4) Dysphagia: Qualifiers: Dysphagia type: unspecified Qualified Code(s): R13.10 - Dysphagia, unspecified Code(s): R13.10 - Dysphagia, unspecified Status: Acute (5) Seizure disorder: Code(s): G40.909 - Epilepsy, unspecified, not intractable, without status epilepticus Status: Acute (6) Cerebral palsy: Code(s): G80.9 - Cerebral palsy, unspecified Status: Acute Plan # sepsis criteria met with tachycardia, tachypnea, fever and leukocytosis. Patient has sepsis with UA suggestive of UTI. Blood cultures are no growth to date. UA is positive for infection urine culture is pending, continue to watch pt for further fevers. On IV Zosyn CT demonstrated diffusely inflamed bladder and likely associated prostatitis. Also there may was some concern for cholecystitis. I was at the bedside with ER physician when he performed a right upper quadrant fast exam which demonstrated gallbladder wall of approximately 0.3 in thickness which could be indicative of inflammation. No obvious stones noted. CT also demonstrated no fecal impaction with proctitis. zosyn and iv fluids started Barium swallow failed. Needs to be NPO strictly # fecal impaction pt to continue with aggressive bowel regimen with b.i.d. MiraLax and daily Dulcolax suppositories. And daily enemas if needed # left lower lobe consolidation on IV vancomycin and Zosyn. She will aspiration pneumonia. # status post PEG tube placement tube feeds as ordered. Dr. suarez consultation for PEG tube replacement as already scheduled in 2 days # dysphagia # seizure disorder: Depakote # cerebral palsy with spasticity on muscle relaxer # DVT prophylaxis heparin subQ # code status full code Subjective Date/time seen: 06/15/22 11:25 Interval history: Went to do a barium swallow evaluation which she failed. Discussed need to be NPO with family. Abdomen is distended he is scheduled to get his PEG tube replaced on . Review of Systems Review of Systems: ROS unobtainable: Yes unobtainable due to medical condition (Nonverbal due to cerebral palsy) Exam Narrative: GENERAL: Chronically ill-appearing, well-nourished, and in no acute distress. HEAD: Normocephalic, atraumatic. EYES: PERRL and EOMI. ENT? Mucous membranes moist. CHEST: Clear to auscultation.? No respiratory distress. HEART: Regular rate rhythm normal peripheral pulses. ABDOMEN: Soft, nontender, distended, normal active bowel sounds. G-tube in place EXTREMITIES: Upper and lower extremity contractures that are chronic.? No edema. SKIN: Warm, dry, no rash. NEURO: Awake and alert and at neurologic baseline according to mother. Objective Data Vital Signs Vital Signs: Vital Signs - 24 hr 06/14/22 12:00 06/14/22 12:00 06/14/22 12:00 Temperature 97.4 F L Pulse Rate 78 93 Respiratory Rate 14 Blood Pressure 104/69 Pulse Oximetry 98 98 Oxygen Delivery Room Air 06/14/22 14:00 06/14/22 16:00 06/14/22 16:00 Temperature Pulse Rate 73 93 Respiratory Rate Blood Pressure Pulse Oximetry 98 Oxygen Delivery Room Air 06/14/22 16:00 06/14/22 18:00 06/14/22 20:00 Temperature 97.6 F 97.6 F Pulse Rate 100 82 87 Respiratory Rate 14 20 Blood Pressure 102/61 96/54 L Pulse Oximetry 97 96 Oxygen Delivery 06/14/22 20:00 06/14/22 20:00 06/14/22 22:00 Temperature Pulse Rate 94 94 88
--- NOTE | 2022-06-15 12:09 | P.CDI_ITS ---
CDI Query Clarified Diagnosis Clarified Diagnosis: BMI 17.4 Nutritional Diagnostic Statement Moderate Malnutrition as related to inadequate protein energy- intake with increased protein-energy needs in chronic setting or condition (cerebral palsy) as evidence by minimal oral intake for > 1-2 months: mild subcutaneous fat loss (orbital fat pads) and muscle wasting (temporalis). Please review Comprehensive Nutrition Assessment for more information. Please clarify severity of protein calorie malnutrition * Mild * Moderate * Severe * Other/Unspecified <Emma Olvera RN - Last Filed: 06/15/22 12:15> Provider Comments Moderate malnutrition <Hai Etienne MD - Last Filed: 06/16/22 09:27>
--- NOTE | 2022-06-15 12:22 | PCSTNOTE ---
Modified barium swallow study (MBSS) Patient was alert in an upright seated position. Responding to yes/no questions with head nod/shake. Given 3ml of thin liquid by spoon patient did not form bolus and there was anterior loss of bolus. Procedure was stopped. Based on the results of this MBSS and reports from mother and nursing staff, NPO is recommended for this patient due to high risk of aspiration. No further speech therapy is recommended. Thank you for the referral of this patient.
--- NOTE | 2022-06-15 12:45 | WPDGICN ---
Assessment and Plan Assessment and plan (1) Ileus: Code(s): K56.7 - Ileus, unspecified Status: Acute Assessment and Plan: Patient with significant abdominal distention appears to have begun on on Monday. He had significant distention initially attributed to a fecal impaction which was disimpacted Monday or Monday per. He continues to be that the with absent bowel sounds are present. Plan for NG tube decompression. Etiology for this could be related to his infection with urinary tract infection and pneumonia. Perhaps from trauma from disimpaction.. Will plan supportive care. Consider imaging studies to exclude obstruction subsequently if necessary. He will need to be NPO for now and IV fluids for nutrition at present. (2) Aspiration pneumonia: Code(s): J69.0 - Pneumonitis due to inhalation of food and vomit Status: Acute Assessment and Plan: Antibiotics in progress for aspiration pneumonia. (3) UTI (urinary tract infection): Code(s): N39.0 - Urinary tract infection, site not specified Status: Acute Assessment and Plan: Active urinary tract infection will need antibiotics. This may be contributed to his abdominal distention. (4) PEG (percutaneous endoscopic gastrostomy) adjustment/replacement/removal: Code(s): Z43.1 - Encounter for attention to gastrostomy Status: Acute Assessment and Plan: PEG tube has been functioning adequately. Given his abdominal distention will not replace it at this time. Will plan contrast study through the PEG tube to document good position initially. (5) Fecal impaction of rectum: Code(s): K56.41 - Fecal impaction Status: Acute Assessment and Plan: Fecal impaction was resolved on Monday or Monday. Patient has had difficulties with constipation because of his cerebral palsy. Continue to monitor at this time. He may benefit from a Gastrografin lower GI after decompression with NG tube is accomplished. (6) Cerebral palsy: Code(s): G80.9 - Cerebral palsy, unspecified Status: Acute Assessment and Plan: Patient with longstanding history of pre broad palsy. Currently less alert and more lethargic than did typical. GI Consult Note Consult date/time: 06/15/22 12:46 Reason for consult: Abdominal distention. History of PEG tube. HPI: Dallas Slaughter is a 36 year old male Well-known to me with a history of cerebral palsy. Patient has required PEG tube for many years for nutritional support. History is obtained with the assistance patient's mother. Patient is very obtained in its been so over the weekend. Mother initially noticed difficulties that patient may have been more urpy' last week. On Monday apparently became somewhat distended. Because of abdominal distention patient was taken to the emergency room on Monday. X-ray imaging revealed a fecal impaction. This was disimpacted. Patient continued to have difficulties and return to the emergency room on Monday. That time found to have a urinary tract infection. Patient was subsequently admitted the hospital. Imaging studies have also identified patient is having pneumonia. Is felt that he has an aspiration pneumonia. Patient currently is much more lethargic than typical. He does not interact as he usually does. Review of Systems Review of Systems: ROS unobtainable: Yes unobtainable due to mental status PMFSH Past Medical History Medical History (Updated 06/15/22 @ 12:50 by Fletcher Mccartney MD) Anxiety Cerebral palsy Dysphagia Chronic. G-tube in place. Esophagitis with gastritis Gastrointestinal tube present History of GI bleed History of pulmonary aspiration History of upper gastrointestinal bleeding Seizure disorder Uses powered wheelchair Surgical History Surgical History History of orthopedic surgery Multiple surgeries related to his cer
--- NOTE | 2022-06-15 13:34 | PCNFU ---
Nutrition Follow-Up Complete: Moderate Malnutrition as related to inadequate protein-energy intake with increased protein-energy needs in chronic setting or condition (Cerebral Palsy) as evidenced by minimal oral intake for > 1-2 months: mild subcutaneous fat loss (orbital fat pads) and muscle wasting (temporalis). Goal: Meet estimated nutritional needs Patient has limited progress towards goal. We will continue current goal. Pt current nutrition is NPO. Nutrition recommendation: Jevity 1.5 bolus feedings 300 ml 4 x daily. Last recorded weight is 43 kg. Bowel Motility:+Bm reported 06/14 Labs Reviewed: no labs to report Meds Noted:Vancomycin, Heparin, NS Skin: WNL Additional Notes: Patient currently NPO for xray. MBS performed today recommending non oral feedings. Spoke with hospitalist regarding home tube feedings. Recommend to change formula which will provide patient with sole source of nutrition of Jevity 1.5 bolus feedings 300 ml 4 x daily. Tube feedings providing 1800 kcals/77 gms protein/912 ml water. Flush 150 ml after feedings. Patient currently has NGT with plans to replace PEG. If patient remains NPO for greater than 5 days recommend starting parental nutrition of Clinimix E 4.25/5 at 80 ml/hr. Monitoring: will reassess every Monday and Monday.
[2022-06-16] VITALS (11 sets, daily range): BP systolic 123–134; BP diastolic 64–86; PULSE 53–88; RESP 14–20; TEMP 36.4–36.8; O2SAT 93–99
[2022-06-16] MEDS: PIPERACILLIN/TAZOBACTAM SOD 4.5 GM in SODIUM CHLORIDE 0.9% IV 100 ML 200 ML IVPB ×5 (00:31→23:37)
[2022-06-16] MEDS: SCOPOLAMINE 1.5 MG PATCH TRANSDERM (03:30)
[2022-06-16 05:12] LABS: Basophils Percent Auto 0.3 % (0.2-1.2); Eosinophils Percent Auto 0.3 % (0-4.4); Hematocrit 38.4 % (42.0-52.0); Hemoglobin 12.9 g/dL (14.0-18.0); Immature Granulocyte Absolute 0.05 K/mm3 (0.00-0.031); Immature Granulocyte Percent A 0.6 % (0-0.5); Lymphocytes Absolute Auto 2.62 K/mm3 (0.9-3.2); Lymphocytes Percent Auto 32.8 % (18.3-44.2); Mean Corpuscular HGB Conc 33.6 g/dl (32-36); Mean Corpuscular Hemoglobin 30.4 pg (26-34); Mean Corpuscular Volume 90.4 fl (80-100); Mean Platelet Volume 10.3 fl (7.4-10.4); Monocytes Percent Auto 12.9 % (2.6-8.5); Neutrophils Absolute Auto 4.3 K/mm3 (1.3-6.7); Neutrophils Percent Auto 53.1 % (45.5-73.1); Platelet Count Result 158 k/mm3 (150-375); Red Blood Count 4.25 M/mm3 (4.6-6.20); Red Cell Distribution Width 14.3 % (11.5-14.5)
[2022-06-16 05:40] LABS: Alanine Aminotransferase 15 U/L (6-50); Albumin Level 3.2 g/dL (3.5-5.1); Alkaline Phosphatase 80 U/L (38-126); Anion Gap 7 mmol/L (8-16); Aspartate Amino Transferase 20 U/L (17-59); Bilirubin,Total 0.5 mg/dL (0.2-1.3); Blood Urea Nitrogen 6 mg/dL (9-20); Carbon Dioxide 24 mmol/L (22-30); Chloride 107 mmol/L (98-107); Estimated CRCL calculation 86 ml/min; Estimated Glomerular Filt Rate > 60; Glucose 88 mg/dL (65-110); Magnesium 1.8 mg/dL (1.6-2.3); Potassium 3.6 mmol/L (3.4-5.0); Sodium 138 mmol/L (137-145)
--- NOTE | 2022-06-16 07:54 | WPDGIPROGNO ---
Progress Note: A&P Assessment and Plan (1) PEG (percutaneous endoscopic gastrostomy) status: Code(s): Z93.1 - Gastrostomy status Status: Acute Assessment and Plan: Peg appears to be in good position. Contrast placed through it shows it is in the stomach. I would not change it at this time until is abdominal issues have resolved. PEG tube itself is due for of replacement but this should be deferred till he is illness is cleared. (2) Ileus: Code(s): K56.7 - Ileus, unspecified Status: Acute Assessment and Plan: Ileus appears resolved this morning. Patient's bowel sounds are now normal active. Will clamp NG tube. Start Dulcolax suppositories. Allow all medications to be given via the NG tube or PEG tube. (3) Aspiration pneumonia: Code(s): J69.0 - Pneumonitis due to inhalation of food and vomit Status: Acute Assessment and Plan: Patient with sepsis appears be from aspiration pneumonia and urinary tract infection. Continue antibiotics. (4) Acute UTI: Code(s): N39.0 - Urinary tract infection, site not specified Status: Acute Assessment and Plan: Patient on antibiotics for apparent UTI. (5) Cerebral palsy: Code(s): G80.9 - Cerebral palsy, unspecified Status: Acute (6) Seizure disorder: Code(s): G40.909 - Epilepsy, unspecified, not intractable, without status epilepticus Status: Acute (7) Fecal impaction of rectum: Code(s): K56.41 - Fecal impaction Status: Acute Assessment and Plan: Pack aguilar appears resolved. Continue laxative in bowel regime. Subjective Date/time seen: 06/16/22 07:54 Interval history: Patient remains lethargic this morning. He has had a moderate amount of output via NG tube overnight. Mother reports he is much less distended and more comfortable. Nursing staff reports small bowel movement. Review of Systems Review of Systems: She ROS unobtainable: Yes unobtainable due to medical condition Exam Narrative: physical exam reveals patient to be lying in bed. Somewhat lethargic. Non communicative. He does watch what is happening in observes the room. HEENT exam reveals no icterus. Lungs reveal a few rhonchi. Heart without murmur. Abdomen bowel sounds are active this morning. Abdomen much softer and flatter. Extremities with significant flexion contractures. Objective Data Vital Signs Vital Signs: Vital Signs - 24 hr 06/15/22 09:06 06/15/22 08:00 06/15/22 08:00 Temperature Pulse Rate 74 83 Respiratory Rate Blood Pressure Pulse Oximetry 92 Oxygen Delivery Room Air Room Air 06/15/22 10:00 06/15/22 12:00 06/15/22 12:00 Temperature 97.3 F L Pulse Rate 88 69 66 Respiratory Rate 18 Blood Pressure 96/59 L Pulse Oximetry 94 Oxygen Delivery 06/15/22 12:00 06/15/22 14:00 06/15/22 16:00 Temperature 98.6 F Pulse Rate 67 68 Respiratory Rate 16 Blood Pressure 121/78 Pulse Oximetry 97 Oxygen Delivery Room Air 06/15/22 16:00 06/15/22 16:00 06/15/22 18:00 Temperature Pulse Rate 62 79 Respiratory Rate Blood Pressure Pulse Oximetry Oxygen Delivery Room Air 06/15/22 19:51 06/15/22 20:00 06/15/22 20:00 Temperature 98.1 F Pulse Rate 67 67 74 Respiratory Rate 18 18 Blood Pressure 98/65 L Pulse Oximetry 96 96 Oxygen Delivery Room Air 06/15/22 23:44 06/15/22 22:00 06/16/22 00:00 Temperature 97.6 F Pulse Rate 58 L 69 70 Respiratory Rate 20 Blood Pressure 112/74 Pulse Oximetry 93 Oxygen Delivery 06/16/22 00:00 06/15/22 22:47 06/16/22 04:00 Temperature 97.6 F Pulse Rate 70 76 Respiratory Rate 20 20 Blood Pressure 125/64 Pulse Oximetry 93 93 94 Oxygen Delivery Room Air Room Air 06/16/22 02:00 06/16/22 04:00 06/16/22 04:00 Temperature Pulse Rate 70 67 76 Respiratory Rate 20 Blood Pressure Pulse Oximetry 94 Oxygen Delivery Room Air
[2022-06-16] MEDS: PANTOPRAZOLE SODIUM IV 40 MG VIAL IV PUSH ×2 (10:38→20:18)
[2022-06-16] MEDS: HEPARIN SODIUM 5,000 UNITS/ML VIAL 5000 UNITS SUB-Q ×2 (10:38→20:18)
[2022-06-16] MEDS: CLORAZEPATE DIPOTASSIUM (*CRX) 3.75 MG TABLET FEED TUBE ×3 (10:39→17:27)
[2022-06-16] MEDS: BISACODYL 10 MG SUPPOSITORY RECTAL (10:39)
[2022-06-16] MEDS: SODIUM CHLORIDE 0.9% IV 1,000 ML 125 ML IV CONT (11:28)
[2022-06-16] MEDS: BACLOFEN 10 MG TABLET 20 MG PO ×2 (13:21→20:19)
--- NOTE | 2022-06-16 13:54 | PCNFU ---
Nutrition Follow-Up Complete: Moderate Malnutrition as related to inadequate protein-energy intake with increased protein-energy needs in chronic setting or condition (Cerebral Palsy) as evidenced by minimal oral intake for > 1-2 months: mild subcutaneous fat loss (orbital fat pads) and muscle wasting (temporalis). Goal: Meet estimated nutritional needs Patient has limited progress towards goal at this time. We will continue current goal. Pt current nutrition is NPO. Nutrition recommendation: PPN at 80 ml/hr if patient remains NPO. Last recorded weight is 43 kg. Bowel Motility: +BM reported 06/15 Labs Reviewed:Cr 0.6,BUN 6, Alb 3.2 Meds Noted: Protonix, Miralax, Heparin, Vancomycin Skin: WNL Additional Notes: Patient is non verbal. PEG in place. Diet order: NPO with NGT to suction. MBS on 06/15 recommending non oral feedings. Spoke with nursing today, patient will remain NPO due to emesis after meds today. Gtube was not replaced. If patient remains NPO would recommend starting PPN at 80 ml/hr, providing 1153 kcals and 82 gms protein. Discussions with Hospitalist and Transplant Registered Nurse in regards to home tube feedings orders due to patient's need for sole source of nutrition. Tube feeding recommendations for [facility] bolus feedings 237 ml 3 x daily with 150 ml water flush after feedings. Tube feedings providing 1600 kcals/66 gms protein,480 ml water. Meeting 100% of kcal and protein needs at 35 kcal/kg. Agree with diet orders. Monitoring: Will monitor every Monday and Monday.
--- NOTE | 2022-06-16 16:51 | PM.IMPN ---
Progress Note: A&P Assessment and Plan (1) Sepsis: Qualifiers: Sepsis type: sepsis due to unspecified organism Sepsis acute organ dysfunction status: without acute organ dysfunction Qualified Code(s): A41.9 - Sepsis, unspecified organism Code(s): A41.9 - Sepsis, unspecified organism Status: Acute (2) UTI (urinary tract infection): Code(s): N39.0 - Urinary tract infection, site not specified Status: Acute (3) Fecal impaction of rectum: Code(s): K56.41 - Fecal impaction Status: Acute (4) Dysphagia: Qualifiers: Dysphagia type: unspecified Qualified Code(s): R13.10 - Dysphagia, unspecified Code(s): R13.10 - Dysphagia, unspecified Status: Acute (5) Seizure disorder: Code(s): G40.909 - Epilepsy, unspecified, not intractable, without status epilepticus Status: Acute (6) Cerebral palsy: Code(s): G80.9 - Cerebral palsy, unspecified Status: Acute Plan # sepsis criteria met with tachycardia, tachypnea, fever and leukocytosis. Patient has sepsis with UA suggestive of UTI. Blood cultures are no growth to date. UA is positive for infection urine culture is pending, continue to watch pt for further fevers. On IV Zosyn CT demonstrated diffusely inflamed bladder and likely associated prostatitis. Also there may was some concern for cholecystitis. I was at the bedside with ER physician when he performed a right upper quadrant fast exam which demonstrated gallbladder wall of approximately 0.3 in thickness which could be indicative of inflammation. No obvious stones noted. CT also demonstrated no fecal impaction with proctitis. zosyn and iv fluids started Barium swallow failed. Needs to be NPO strictly . # fecal impaction pt to continue with aggressive bowel regimen with b.i.d. MiraLax and daily Dulcolax suppositories. And daily enemas if needed . Also has ileus. GI recommendations appreciated. Continue NG suction ordered. # left lower lobe consolidation on IV vancomycin and Zosyn. Continue treatment forl aspiration pneumonia. # status post PEG tube placement tube feeds as ordered. Dr. suarez consultation for PEG tube replacement as already scheduled in 2 days # dysphagia # seizure disorder: Depakote switched to IV # cerebral palsy with spasticity on muscle relaxer # DVT prophylaxis heparin subQ # code status full code Subjective Date/time seen: 06/16/22 16:51 Interval history: Patient remains lethargic this morning. He has had a moderate amount of output via NG tube overnight. Mother reports he is much less distended and more comfortable. Nursing staff reports small bowel movement. 06/16/2022: NG was placed for ileus by GI yesterday. Had 700 cc out. Abdomen is softer. He is also NPO. Seizure medication has been changed to IV. He had 2 or 3 bowel movements since yesterday Review of Systems Review of Systems: ROS unobtainable: Yes unobtainable due to medical condition (Nonverbal due to cerebral palsy) Exam Narrative: GENERAL: Chronically ill-appearing, well-nourished, and in no acute distress. HEAD: Normocephalic, atraumatic. EYES: PERRL and EOMI. ENT? Mucous membranes moist. CHEST: Clear to auscultation.? No respiratory distress. HEART: Regular rate rhythm normal peripheral pulses. ABDOMEN: Soft, nontender, distended, normal active bowel sounds. G-tube in place EXTREMITIES: Upper and lower extremity contractures that are chronic.? No edema. SKIN: Warm, dry, no rash. NEURO: Awake and alert and at neurologic baseline according to mother. Objective Data Vital Signs Vital Signs: Vital Signs - 24 hr 06/15/22 18:00 06/15/22 19:51 06/15/22 20:00 Temperature 98.1 F Pulse Rate 79 67 67 Respiratory Rate 18 18 Blood Pressure 98/65 L Pulse Oximetry 96 96 Oxygen Delivery Room Air 06/15/22 20:00 06/15/22 23:44 06/15/22 22:00 Temperature 97.6 F Pulse Rate 74 58 L 69 Respir
[2022-06-16] MEDS: DEXTROSE 5%/0.45% SOD CHL 1,000 ML 40 ML IV CONT (17:32)
[2022-06-16] MEDS: diazePAM (*CRX) 5 MG TABLET 10 MG PO (20:20)
[2022-06-16] MEDS: ONDANSETRON INJ 4 MG/2 ML VIAL IV PUSH (23:36)
[2022-06-17] VITALS: BP 124/71; PULSE 52; RESP 16; TEMP 36.6; O2SAT 97
[2022-06-17] MEDS: PIPERACILLIN/TAZOBACTAM SOD 4.5 GM in SODIUM CHLORIDE 0.9% IV 100 ML 200 ML IVPB ×3 (05:40→17:22)
[2022-06-17] MEDS: BACLOFEN 10 MG TABLET 20 MG PO ×3 (05:51→22:42)
[2022-06-17 05:58] LABS: Basophils Percent Auto 0.4 % (0.2-1.2); Eosinophils Absolute Auto 0.1 K/mm3 (0-0.3); Eosinophils Percent Auto 0.6 % (0-4.4); Hematocrit 36.5 % (42.0-52.0); Hemoglobin 12.2 g/dL (14.0-18.0); Immature Granulocyte Absolute 0.04 K/mm3 (0.00-0.031); Immature Granulocyte Percent A 0.5 % (0-0.5); Lymphocytes Absolute Auto 3.87 K/mm3 (0.9-3.2); Lymphocytes Percent Auto 48.6 % (18.3-44.2); Mean Corpuscular HGB Conc 33.4 g/dl (32-36); Mean Corpuscular Hemoglobin 30.4 pg (26-34); Mean Platelet Volume 9.9 fl (7.4-10.4); Monocytes Absolute Auto 0.8 K/mm3 (0.1-0.6); Monocytes Percent Auto 10.2 % (2.6-8.5); Neutrophils Absolute Auto 3.2 K/mm3 (1.3-6.7); Neutrophils Percent Auto 39.7 % (45.5-73.1); Platelet Count Result 188 k/mm3 (150-375); Red Blood Count 4.01 M/mm3 (4.6-6.20); Red Cell Distribution Width 14.3 % (11.5-14.5)
[2022-06-17 06:07] LABS: Alanine Aminotransferase 13 U/L (6-50); Albumin Level 2.9 g/dL (3.5-5.1); Alkaline Phosphatase 65 U/L (38-126); Anion Gap 5 mmol/L (8-16); Aspartate Amino Transferase 18 U/L (17-59); Bilirubin,Total 0.4 mg/dL (0.2-1.3); Blood Urea Nitrogen 6 mg/dL (9-20); Calcium 7.9 mg/dL (8.4-10.2); Carbon Dioxide 26 mmol/L (22-30); Chloride 107 mmol/L (98-107); Estimated CRCL calculation 86 ml/min; Estimated Glomerular Filt Rate > 60; Glucose 90 mg/dL (65-110); Magnesium 1.8 mg/dL (1.6-2.3); Potassium 3.2 mmol/L (3.4-5.0); Sodium 138 mmol/L (137-145)
[2022-06-17 07:53] VITALS: BP 127/77; PULSE 50; RESP 14; TEMP 36.4; O2SAT 94
[2022-06-17] MEDS: POTASSIUM CHLORIDE INJ 40 MEQ in SODIUM CHLORIDE 0.9% IV 500 ML 130 MEQ IVPB (08:02)
[2022-06-17] MEDS: HEPARIN SODIUM 5,000 UNITS/ML VIAL 5000 UNITS SUB-Q ×2 (09:59→20:15)
[2022-06-17] MEDS: PANTOPRAZOLE SODIUM IV 40 MG VIAL IV PUSH ×2 (09:59→20:12)
[2022-06-17] MEDS: CLORAZEPATE DIPOTASSIUM (*CRX) 3.75 MG TABLET FEED TUBE ×3 (10:00→17:28)
[2022-06-17] MEDS: BISACODYL 10 MG SUPPOSITORY RECTAL (10:00)
--- NOTE | 2022-06-17 11:57 | PC.NURSE ---
This patient, Dallas Slaughter, was transferred to [[id number]] on 06/17/22 at 1145. Personal belongings sent with patient. Report given to [Maryanne]. Appropriate documentation sent with patient.
--- NOTE | 2022-06-17 12:13 | PCNFU ---
Addendum entered by Kim Calvert RD, LDN 06/17/22 15:19: Diet order will advance to tube feedings of Jevity 1.5 at 30 ml/hr. Recommend goal rate on continuous feedings at 50 ml/hr. Following. Original Note: Nutrition Follow-Up Complete: Moderate Malnutrition as related to inadequate protein-energy intake with increased protein-energy needs in chronic setting or condition (Cerebral Palsy) as evidenced by minimal oral intake for > 1-2 months: mild subcutaneous fat loss (orbital fat pads) and muscle wasting (temporalis). Goal: Meet estimated nutritional needs Patient has limited progressing towards goal. We will continue current goal. Pt current nutrition is NPO x 2. Nutrition recommendation: If patient remains NPO for greater than 5 days-Clinimix 4.25/5 at 80 ml/hr with 250 ml 20% Lipid Emulsion. Last recorded weight is 43 kg. Bowel Motility:+Bm reported 06/16 Labs Reviewed:Alb 2.9,K 3.2,BUN 6, Cr 0.6 Meds Noted:Heparin, Dextrose 5%, Vancomycin, Protonix, Miralax. Skin: WNL Additional Notes: Patient is NPO x 2 days. NGT to suction-700 ml output yesterday. Spoke with patients mom this morning regarding home tube feedings. She is aware of the tube feeding change and agreeable to the feedings of [facility] bolus feedings 3 x daily with Flush of 150 ml after feedings. At this time patient will remain NPO. If patient remains NPO for greater than 5 days recommend starting Clinimix 4.25/5 at 80 ml/hr with 250 ml 20% Lipid Emulsion. Monitoring: Will monitor every 3 days.
--- NOTE | 2022-06-17 12:47 | PM.IMPN ---
Progress Note: A&P Assessment and Plan (1) Sepsis: Qualifiers: Sepsis type: sepsis due to unspecified organism Sepsis acute organ dysfunction status: without acute organ dysfunction Qualified Code(s): A41.9 - Sepsis, unspecified organism Code(s): A41.9 - Sepsis, unspecified organism Status: Acute (2) UTI (urinary tract infection): Code(s): N39.0 - Urinary tract infection, site not specified Status: Acute (3) Fecal impaction of rectum: Code(s): K56.41 - Fecal impaction Status: Acute (4) Dysphagia: Qualifiers: Dysphagia type: unspecified Qualified Code(s): R13.10 - Dysphagia, unspecified Code(s): R13.10 - Dysphagia, unspecified Status: Acute (5) Seizure disorder: Code(s): G40.909 - Epilepsy, unspecified, not intractable, without status epilepticus Status: Acute (6) Cerebral palsy: Code(s): G80.9 - Cerebral palsy, unspecified Status: Acute Plan # sepsis criteria met with tachycardia, tachypnea, fever and leukocytosis. Patient has sepsis with UA suggestive of UTI. Blood cultures are no growth to date. UA is positive for infection urine culture is pending, continue to watch pt for further fevers. On IV Zosyn CT demonstrated diffusely inflamed bladder and likely associated prostatitis. Also there may was some concern for cholecystitis. I was at the bedside with ER physician when he performed a right upper quadrant fast exam which demonstrated gallbladder wall of approximately 0.3 in thickness which could be indicative of inflammation. No obvious stones noted. CT also demonstrated no fecal impaction with proctitis. zosyn and iv fluids started Barium swallow failed. Needs to be NPO strictly . # fecal impaction pt to continue with aggressive bowel regimen with b.i.d. MiraLax and daily Dulcolax suppositories. And daily enemas if needed . Also has ileus. GI recommendations appreciated. Continue NG suction ordered. # left lower lobe consolidation on IV vancomycin and Zosyn. Continue treatment forl aspiration pneumonia. Repeat chest x-ray with congestive changes. Will give a dose of Lasix today # status post PEG tube placement tube feeds as ordered. Dr. suarez consultation for PEG tube replacement as already scheduled in 2 days # dysphagia # seizure disorder: Depakote switched to IV # cerebral palsy with spasticity on muscle relaxer # DVT prophylaxis heparin subQ # code status full code Subjective Date/time seen: 06/17/22 12:47 Interval history: Patient remains lethargic this morning. He has had a moderate amount of output via NG tube overnight. Mother reports he is much less distended and more comfortable. Nursing staff reports small bowel movement. 06/16/2022: NG was placed for ileus by GI yesterday. Had 700 cc out. Abdomen is softer. He is also NPO. Seizure medication has been changed to IV. He had 2 or 3 bowel movements since yesterday 06/17/2022: NG output 700 cc yesterday. 350 cc so far. Abdomen is softer having bowel movement. Remains NPO. Discussed with the nursing staff. Review of Systems Review of Systems: ROS unobtainable: Yes unobtainable due to medical condition (Nonverbal due to cerebral palsy) Exam Narrative: GENERAL: Chronically ill-appearing, well-nourished, and in no acute distress. HEAD: Normocephalic, atraumatic. EYES: PERRL and EOMI. ENT? Mucous membranes moist. CHEST: Coarse breath sound to auscultation no respiratory distress. HEART: Regular rate rhythm normal peripheral pulses. ABDOMEN: Soft, nontender, distended, normal active bowel sounds. G-tube in place EXTREMITIES: Upper and lower extremity contractures that are chronic.? No edema. SKIN: Warm, dry, no rash. NEURO: Awake and alert and at neurologic baseline according to mother. Objective Data Vital Signs Vital Signs: Vital Signs - 24 hr 06/16/22 16:00 06/16/22 20:05 06/16/22 20:00 Temper
[2022-06-17 12:54] VITALS: BP 143/79; PULSE 54; RESP 18; TEMP 36.9; O2SAT 96
[2022-06-17] MEDS: METOCLOPRAMIDE HCL INJ 10 MG/2 ML VIAL IV PUSH ×2 (13:52→17:28)
[2022-06-17] MEDS: FUROSEMIDE INJ 40 MG/4 ML VIAL IV PUSH (13:57)
--- NOTE | 2022-06-17 15:02 | WPDGIPROGNO ---
Progress Note: A&P Assessment and Plan (1) Ileus: Code(s): K56.7 - Ileus, unspecified Status: Acute Assessment and Plan: Patient's ileus appears to be improving. He is having bowel movements on a regular basis. Bowel sounds appreciated today. Will clamp NG tube and start tube feedings at a slow rate. (2) Aspiration pneumonia: Code(s): J69.0 - Pneumonitis due to inhalation of food and vomit Status: Acute Assessment and Plan: Pneumonia more evident with chest x-ray performed today. Continue antibiotics. Likely this is the source of sepsis. (3) Acute UTI: Code(s): N39.0 - Urinary tract infection, site not specified Status: Acute Assessment and Plan: Patient also being treated for urinary tract infection. Likely contributes to sepsis. (4) PEG (percutaneous endoscopic gastrostomy) adjustment/replacement/removal: Code(s): Z43.1 - Encounter for attention to gastrostomy Status: Acute Assessment and Plan: PEG tube is removed and exchanged today with a new 24 Chinese Del PEG tube. This is very short but like tube. Tolerated well by patient. Resume tube feedings at a slow rate today and advance slowly as tolerated. (5) Cerebral palsy: Code(s): G80.9 - Cerebral palsy, unspecified Status: Acute Subjective Date/time seen: 06/17/22 15:03 Interval history: Patient remains bedridden. Had several good bowel movements this morning. Abdomen modestly distended but softer. Bowel sounds are appreciated today. No significant fluid out take from NG tube. NG tube decompression restarted yesterday because of recurrent distention. This appears to have improved. Review of Systems Review of Systems: ROS unobtainable: Yes unobtainable due to mental status Exam Narrative: Physical exam reveals patient comfortable lying in bed. Still nonverbal at his baseline. Less animated than is typical for him. He is afebrile and anicteric. HEENT exam unremarkable. NG tube in place. Lungs reveal scattered rhonchi. Heart without murmur. Abdomen peg tube in good position. Bowel sounds are present but difficult to appreciate. No masses appreciated. Peg tube is replaced by review deflating the internal balloon and replacement with 24 Chinese Del PEG tube. Patient follow rated this procedure. Objective Data Vital Signs Vital Signs: Vital Signs - 24 hr 06/16/22 16:00 06/16/22 20:05 06/16/22 20:00 Temperature 97.7 F 98.2 F Pulse Rate 53 L 55 L Respiratory Rate 18 16 Blood Pressure 134/82 134/84 Pulse Oximetry 98 94 Oxygen Delivery Room Air 06/17/22 00:00 06/16/22 21:47 06/17/22 07:53 Temperature 97.8 F 97.5 F L Pulse Rate 52 L 50 L Respiratory Rate 16 14 Blood Pressure 124/71 127/77 Pulse Oximetry 97 96 94 Oxygen Delivery Room Air 06/17/22 08:00 06/17/22 12:54 Temperature 98.4 F Pulse Rate 54 L Respiratory Rate 18 Blood Pressure 143/79 H Pulse Oximetry 96 Oxygen Delivery Room Air Intake/Output Intake/Output: Intake & Output 06/14/22 06/15/22 06/16/22 06/17/22 23:59 23:59 23:59 23:59 Intake Total 4130 3361.25 2709.00 402.50 Output Total 350 1250 700 350 Balance 3780 2111.25 2009.00 52.50 Meds/Results Medications: Active Medications Generic Name Dose Route Start Last Admin Trade Name Freq PRN Reason Stop Dose Admin Acetaminophen 650 mg 06/13/22 20:05 06/14/22 08:38 Acetaminophen 325 Mg Tablet FEED TUBE 650 mg Q6HR PRN Administration Mild Pain (1-3) or Fever Albuterol 2.5 mg 06/14/22 03:41 Albuterol Sulfate Neb 2.5 Mg/3 Ml Inh INHALATION Q4-6H PRN shortness of breath or wheezing Baclofen 20 mg 06/14/22 06:00 06/17/22 05:51 Baclofen 10 Mg Tablet PO 20 mg Q8HR VANDA Administration Benzonatate 100 mg 06/14/22 09:00 Benzonatate 100 Mg Capsule PO TID PRN Cough Bisacodyl 10 mg 06/14/22 09:00 06/17/22 10:00 Bisacodyl 10 Mg S
--- NOTE | 2022-06-17 15:08 | P.OPB_ITS ---
Procedure Note - Brief Procedure Note - Brief Date of procedure: 06/17/22 Pre-op diagnosis: Aspiration Pneumonia, Sepsis Deteriorating PEG tube. Post-op diagnosis: Same Procedure performed: Peg tube replacement. Description of procedure: After consent is obtained from the patient's mother who is power of state's attorney the old PEG tube internal bumper is deflated. 5cc of fluid is removed from the internal bumper and old PEG tube is removed. A new 24 Cam[place]onian Del type button PEG tube is replaced. Implants: Twenty-four Cam[place]onian Del PEG tube is placed. Anesthesia: none Surgeon: Fletcher Mccartney MD Estimated blood loss (mL): 0 Drains: No Packing: No Pathology: None sent Complications: None Condition: Stable Disposition: No change Findings: Old PEG tube had deteriorated. New PEG tube placed without difficulty. Plan to resume tube feedings at a slow rate tonight. A advance as tolerated morning if tolerated.
[2022-06-17 16:00] VITALS: BP 121/61; PULSE 47; RESP 16; TEMP 36.8; O2SAT 94
[2022-06-17 20:15] VITALS: PULSE 47; RESP 16; O2SAT 94
[2022-06-17] MEDS: diazePAM (*CRX) 5 MG TABLET 10 MG PO (22:45)
[2022-06-17 23:48] VITALS: BP 115/61; PULSE 57; RESP 14; TEMP 36.6; O2SAT 92
[2022-06-18] MEDS: METOCLOPRAMIDE HCL INJ 10 MG/2 ML VIAL IV PUSH ×4 (01:06→17:43)
[2022-06-18] MEDS: PIPERACILLIN/TAZOBACTAM SOD 4.5 GM in SODIUM CHLORIDE 0.9% IV 100 ML 200 ML IVPB ×4 (01:06→17:43)
[2022-06-18] MEDS: DEXTROSE 5%/0.45% SOD CHL 1,000 ML 40 ML IV CONT (03:03)
[2022-06-18] MEDS: BACLOFEN 10 MG TABLET 20 MG PO ×3 (05:50→21:58)
[2022-06-18 06:58] LABS: Basophils Absolute Auto 0.1 K/mm3 (0.0-0.1); Basophils Percent Auto 0.6 % (0.2-1.2); Eosinophils Absolute Auto 0.1 K/mm3 (0-0.3); Eosinophils Percent Auto 1.4 % (0-4.4); Hematocrit 39.5 % (42.0-52.0); Hemoglobin 13.2 g/dL (14.0-18.0); Immature Granulocyte Absolute 0.06 K/mm3 (0.00-0.031); Immature Granulocyte Percent A 0.8 % (0-0.5); Mean Corpuscular HGB Conc 33.4 g/dl (32-36); Mean Corpuscular Hemoglobin 30.3 pg (26-34); Mean Corpuscular Volume 90.8 fl (80-100); Mean Platelet Volume 10.1 fl (7.4-10.4); Monocytes Absolute Auto 0.8 K/mm3 (0.1-0.6); Monocytes Percent Auto 9.7 % (2.6-8.5); Neutrophils Absolute Auto 2.7 K/mm3 (1.3-6.7); Neutrophils Percent Auto 34.5 % (45.5-73.1); Platelet Count Result 234 k/mm3 (150-375); Red Blood Count 4.35 M/mm3 (4.6-6.20); Red Cell Distribution Width 14.1 % (11.5-14.5); White Blood Count 7.7 K/mm3 (4.5-10.0)
[2022-06-18 07:18] LABS: Alanine Aminotransferase 14 U/L (6-50); Albumin Level 3.1 g/dL (3.5-5.1); Alkaline Phosphatase 74 U/L (38-126); Anion Gap 6 mmol/L (8-16); Aspartate Amino Transferase 21 U/L (17-59); Bilirubin,Total 0.3 mg/dL (0.2-1.3); Blood Urea Nitrogen 5 mg/dL (9-20); Calcium 8.1 mg/dL (8.4-10.2); Carbon Dioxide 31 mmol/L (22-30); Chloride 103 mmol/L (98-107); Estimated CRCL calculation 75 ml/min; Estimated Glomerular Filt Rate > 60; Glucose 150 mg/dL (65-110); Magnesium 1.9 mg/dL (1.6-2.3); Potassium 3.1 mmol/L (3.4-5.0); Sodium 140 mmol/L (137-145)
[2022-06-18] MEDS: POTASSIUM CHLORIDE INJ 40 MEQ in SODIUM CHLORIDE 0.9% IV 500 ML 130 MEQ IVPB (10:00)
[2022-06-18] MEDS: PANTOPRAZOLE SODIUM IV 40 MG VIAL IV PUSH ×2 (10:01→21:57)
[2022-06-18] MEDS: HEPARIN SODIUM 5,000 UNITS/ML VIAL 5000 UNITS SUB-Q ×2 (10:01→21:57)
--- NOTE | 2022-06-18 10:21 | WPDGIPROGNO ---
Progress Note: A&P Assessment and Plan (1) Ileus: Code(s): K56.7 - Ileus, unspecified Status: Acute Assessment and Plan: Ileus appears to be resolved. Although abdomen is still modestly distended. Plan to discontinue NG tube. Advance tube feeding slowly. (2) PEG (percutaneous endoscopic gastrostomy) status: Code(s): Z93.1 - Gastrostomy status Status: Acute Assessment and Plan: Advance tube feedings as tolerated. Peg tube button was replaced yesterday. Will need to be replaced another 3-4 months. (3) Aspiration pneumonia: Code(s): J69.0 - Pneumonitis due to inhalation of food and vomit Status: Acute Assessment and Plan: Patient with pneumonia. Continue antibiotics. Limited oral intake for now. (4) Acute UTI: Code(s): N39.0 - Urinary tract infection, site not specified Status: Acute (5) Fecal impaction of rectum: Code(s): K56.41 - Fecal impaction Status: Acute Assessment and Plan: Patient admitted with fecal impaction. May resume stool softeners and laxatives now the tube feedings restarted. (6) Cerebral palsy: Code(s): G80.9 - Cerebral palsy, unspecified Status: Acute Subjective Date/time seen: 06/18/22 10:21 Interval history: Patient alert more interactive today. Apparently continues to have bowel movements. Tolerating tube feedings at a slow rate. Review of Systems Review of Systems: ROS unobtainable: Yes unobtainable due to medical condition Exam Narrative: Physical exam reveals patient be alert. Vital signs stable. HEENT exam reveals no icterus. NG tube in place clamped at this time. Lungs reveal few rhonchi. Abdomen bowel sounds are present abdomen is soft but modestly distended. Mild tympany noted. Objective Data Vital Signs Vital Signs: Vital Signs - 24 hr 06/17/22 12:54 06/17/22 16:00 06/17/22 20:15 Temperature 98.4 F 98.2 F Pulse Rate 54 L 47 L 47 L Respiratory Rate 18 16 16 Blood Pressure 143/79 H 121/61 Pulse Oximetry 96 94 94 Oxygen Delivery Room Air 06/17/22 23:48 Temperature 97.8 F Pulse Rate 57 L Respiratory Rate 14 Blood Pressure 115/61 Pulse Oximetry 92 Oxygen Delivery Intake/Output Intake/Output: Intake & Output 06/15/22 06/16/22 06/17/22 06/18/22 23:59 23:59 23:59 23:59 Intake Total 3361.25 2709.00 1805.00 201.25 Output Total 1250 700 350 Balance 2111.25 2008. 1455.00 201.25 Meds/Results Medications: Active Medications Generic Name Dose Route Start Last Admin Trade Name Freq PRN Reason Stop Dose Admin Acetaminophen 650 mg 06/13/22 20:05 06/14/22 08:38 Acetaminophen 325 Mg Tablet FEED TUBE 650 mg Q6HR PRN Administration Mild Pain (1-3) or Fever Albuterol 2.5 mg 06/14/22 03:41 Albuterol Sulfate Neb 2.5 Mg/3 Ml Inh INHALATION Q4-6H PRN shortness of breath or wheezing Baclofen 20 mg 06/14/22 06:00 06/18/22 05:50 Baclofen 10 Mg Tablet PO 20 mg Q8HR VANDA Administration Benzonatate 100 mg 06/14/22 09:00 Benzonatate 100 Mg Capsule PO TID PRN Cough Bisacodyl 10 mg 06/14/22 09:00 06/18/22 10:09 Bisacodyl 10 Mg [facility]ository [facility] Clorazepate Dipotassium 3.75 mg 06/14/22 09:00 06/17/22 17:28 Clorazepate Dipotassium (*Crx) 3.75 Mg Tablet FEED TUBE 3.75 mg TID VANDA Administration Diazepam 2.5 mg 06/14/22 04:35 Diazepam (*Crx) 2.5 Mg Tablet PO BID PRN muscle spasm Diazepam 10 mg 06/14/22 04:36 06/17/22 22:45 Diazepam (*Crx) 5 Mg Tablet PO 10 mg HS PRN Administration muscle spasm Diazepam 10 mg 06/15/22 18:52 Diazepam Inj (*Crx) 10 Mg/2 Ml Syringe IV PUSH HS PRN Muscle Spasm Diazepam 2.5 mg 06/15/22 18:53 Diazepam Inj (*Crx) 10 Mg/2 Ml Syringe IV PUSH BID PRN Muscle Spasm Divalproex Sodium 250 mg 06/14/22 08:00 06/15/22 18:40 Divalproex Sodium Sprinkle 125 Mg
[2022-06-18] MEDS: CLORAZEPATE DIPOTASSIUM (*CRX) 3.75 MG TABLET FEED TUBE ×3 (10:49→17:43)
[2022-06-18 14:00] VITALS: BP 113/73; PULSE 60; RESP 16; TEMP 36.8; O2SAT 97
--- NOTE | 2022-06-18 14:04 | PM.IMPN ---
Progress Note: A&P Assessment and Plan (1) Sepsis: Qualifiers: Sepsis type: sepsis due to unspecified organism Sepsis acute organ dysfunction status: without acute organ dysfunction Qualified Code(s): A41.9 - Sepsis, unspecified organism Code(s): A41.9 - Sepsis, unspecified organism Status: Acute (2) UTI (urinary tract infection): Code(s): N39.0 - Urinary tract infection, site not specified Status: Acute (3) Fecal impaction of rectum: Code(s): K56.41 - Fecal impaction Status: Acute (4) Dysphagia: Qualifiers: Dysphagia type: unspecified Qualified Code(s): R13.10 - Dysphagia, unspecified Code(s): R13.10 - Dysphagia, unspecified Status: Acute (5) Seizure disorder: Code(s): G40.909 - Epilepsy, unspecified, not intractable, without status epilepticus Status: Acute (6) Cerebral palsy: Code(s): G80.9 - Cerebral palsy, unspecified Status: Acute Plan # sepsis criteria met with tachycardia, tachypnea, fever and leukocytosis. Patient has sepsis with UA suggestive of UTI. Blood cultures are no growth to date. UA is positive for infection urine culture is pending, continue to watch pt for further fevers. On IV Zosyn CT demonstrated diffusely inflamed bladder and likely associated prostatitis. Also there may was some concern for cholecystitis. I was at the bedside with ER physician when he performed a right upper quadrant fast exam which demonstrated gallbladder wall of approximately 0.3 in thickness which could be indicative of inflammation. No obvious stones noted. CT also demonstrated no fecal impaction with proctitis. zosyn and iv fluids started Barium swallow failed. Needs to be NPO strictly . # fecal impaction pt to continue with aggressive bowel regimen with b.i.d. MiraLax and daily Dulcolax suppositories. And daily enemas if needed . Also has ileus. GI recommendations appreciated. NG was placed and continued on low intermittent suction. Abdomen has been softer and having regular bowel movement. NG has now been discontinued. Restarted on Tube feed slowly. Continue as tolerated to a goal rate. Eventually he will be on a tube feed at home which is new. He is planned to continue on bolus feeding as discussed and planned based on dietitian recommendations. # left lower lobe consolidation on IV vancomycin and Zosyn. Continue treatment for aspiration pneumonia. Repeat chest x-ray with congestive changes. Received a dose of Lasix 06/17/2022. Lung sounds better today # status post PEG tube placement tube feeds as ordered. Dr. suarez consultation for PEG tube replacement as already scheduled in 2 days Status post exchange of PEG tube 06/17/2022 # dysphagiaNeeds to be strict NPO. # seizure disorder: Depakote switched to IV . Since peg tube is reused we can switch Depakote back enterally # cerebral palsy with spasticity on muscle relaxer # DVT prophylaxis heparin subQ # code status full code Subjective Date/time seen: 06/18/22 14:04 Interval history: is more interactive today. His brother from [place] is here to visit. is having regular bowel movement. Discussion nursing staff. Tolerating tube feeds currently at 45 cc per hour. No nausea vomiting. He had his PEG tube exchanged yesterday Review of Systems Review of Systems: ROS unobtainable: Yes unobtainable due to medical condition (Nonverbal due to cerebral palsy) Exam Narrative: GENERAL: Chronically ill-appearing, well-nourished, and in no acute distress. HEAD: Normocephalic, atraumatic. EYES: PERRL and EOMI. ENT? Mucous membranes moist. CHEST: Coarse breath sound to auscultation improved from yesterday, no respiratory distress. HEART: Regular rate rhythm normal peripheral pulses. ABDOMEN: Soft, nontender, distended, normal active bowel sounds. G-tube in place EXTREMITIES: Upper and lower extremity contractures that are chronic.
[2022-06-18 20:00] VITALS: PULSE 69; RESP 14; O2SAT 96
[2022-06-18 21:28] VITALS: BP 105/63; PULSE 69; RESP 14; TEMP 36.8; O2SAT 96
[2022-06-18] MEDS: VALPROIC ACID LIQ 250 MG/5 ML ORAL SOLUTION UDC FEED TUBE (21:57)
[2022-06-19] MEDS: PIPERACILLIN/TAZOBACTAM SOD 4.5 GM in SODIUM CHLORIDE 0.9% IV 100 ML 200 ML IVPB ×3 (00:13→11:47)
[2022-06-19] MEDS: METOCLOPRAMIDE HCL INJ 10 MG/2 ML VIAL IV PUSH ×4 (00:15→17:18)
[2022-06-19] MEDS: BACLOFEN 10 MG TABLET 20 MG PO ×3 (05:23→20:17)
[2022-06-19 06:00] VITALS: BP 95/58; PULSE 80; RESP 14; TEMP 36.9; O2SAT 95
[2022-06-19 06:36] LABS: Basophils Percent Auto 0.5 % (0.2-1.2); Eosinophils Absolute Auto 0.2 K/mm3 (0-0.3); Hematocrit 37.7 % (42.0-52.0); Hemoglobin 12.3 g/dL (14.0-18.0); Immature Granulocyte Absolute 0.07 K/mm3 (0.00-0.031); Immature Granulocyte Percent A 0.9 % (0-0.5); Lymphocytes Absolute Auto 4.25 K/mm3 (0.9-3.2); Lymphocytes Percent Auto 56.4 % (18.3-44.2); Mean Corpuscular HGB Conc 32.6 g/dl (32-36); Mean Corpuscular Hemoglobin 30.6 pg (26-34); Mean Corpuscular Volume 93.8 fl (80-100); Mean Platelet Volume 9.9 fl (7.4-10.4); Monocytes Absolute Auto 0.8 K/mm3 (0.1-0.6); Monocytes Percent Auto 10.7 % (2.6-8.5); Neutrophils Absolute Auto 2.2 K/mm3 (1.3-6.7); Neutrophils Percent Auto 29.5 % (45.5-73.1); Platelet Count Result 270 k/mm3 (150-375); Red Blood Count 4.02 M/mm3 (4.6-6.20); Red Cell Distribution Width 14.6 % (11.5-14.5); White Blood Count 7.5 K/mm3 (4.5-10.0)
[2022-06-19 07:16] LABS: Alanine Aminotransferase 17 U/L (6-50); Alkaline Phosphatase 60 U/L (38-126); Anion Gap 3 mmol/L (8-16); Aspartate Amino Transferase 26 U/L (17-59); Bilirubin,Total 0.3 mg/dL (0.2-1.3); Blood Urea Nitrogen 5 mg/dL (9-20); Calcium 8.2 mg/dL (8.4-10.2); Carbon Dioxide 30 mmol/L (22-30); Chloride 107 mmol/L (98-107); Estimated CRCL calculation 86 ml/min; Estimated Glomerular Filt Rate > 60; Glucose 125 mg/dL (65-110); Magnesium 1.9 mg/dL (1.6-2.3); Potassium 3.7 mmol/L (3.4-5.0); Sodium 140 mmol/L (137-145)
[2022-06-19] MEDS: HEPARIN SODIUM 5,000 UNITS/ML VIAL 5000 UNITS SUB-Q ×2 (09:05→20:17)
[2022-06-19] MEDS: PANTOPRAZOLE SODIUM IV 40 MG VIAL IV PUSH ×2 (09:05→20:18)
[2022-06-19] MEDS: CLORAZEPATE DIPOTASSIUM (*CRX) 3.75 MG TABLET FEED TUBE ×3 (09:05→17:18)
[2022-06-19] MEDS: VALPROIC ACID LIQ 250 MG/5 ML ORAL SOLUTION UDC FEED TUBE ×2 (09:06→20:18)
[2022-06-19] MEDS: SCOPOLAMINE 1.5 MG PATCH TRANSDERM (09:07)
[2022-06-19 14:00] VITALS: BP 114/73; PULSE 88; RESP 16; TEMP 36.6; O2SAT 92
--- NOTE | 2022-06-19 14:08 | PM.IMPN ---
Progress Note: A&P Assessment and Plan (1) Sepsis: Qualifiers: Sepsis type: sepsis due to unspecified organism Sepsis acute organ dysfunction status: without acute organ dysfunction Qualified Code(s): A41.9 - Sepsis, unspecified organism Code(s): A41.9 - Sepsis, unspecified organism Status: Acute (2) UTI (urinary tract infection): Code(s): N39.0 - Urinary tract infection, site not specified Status: Acute (3) Fecal impaction of rectum: Code(s): K56.41 - Fecal impaction Status: Acute (4) Dysphagia: Qualifiers: Dysphagia type: unspecified Qualified Code(s): R13.10 - Dysphagia, unspecified Code(s): R13.10 - Dysphagia, unspecified Status: Acute (5) Seizure disorder: Code(s): G40.909 - Epilepsy, unspecified, not intractable, without status epilepticus Status: Acute (6) Cerebral palsy: Code(s): G80.9 - Cerebral palsy, unspecified Status: Acute Plan # sepsis criteria met with tachycardia, tachypnea, fever and leukocytosis. Patient has sepsis with UA suggestive of UTI. Blood cultures are no growth to date. UA is positive for infection urine culture is pending, continue to watch pt for further fevers. On IV Zosyn CT demonstrated diffusely inflamed bladder and likely associated prostatitis. Also there may was some concern for cholecystitis. I was at the bedside with ER physician when he performed a right upper quadrant fast exam which demonstrated gallbladder wall of approximately 0.3 in thickness which could be indicative of inflammation. No obvious stones noted. CT also demonstrated no fecal impaction with proctitis. zosyn and iv fluids started Barium swallow failed. Needs to be NPO strictly . # fecal impaction pt to continue with aggressive bowel regimen with b.i.d. MiraLax and daily Dulcolax suppositories. And daily enemas if needed . Also has ileus. GI recommendations appreciated. NG was placed and continued on low intermittent suction. Abdomen has been softer and having regular bowel movement. NG has now been discontinued. Restarted on Tube feed slowly. Continue as tolerated to a goal rate. Eventually he will be on a tube feed at home which is new. He is planned to continue on bolus feeding as discussed and planned based on dietitian recommendations. # left lower lobe consolidation on IV vancomycin and Zosyn. Continue treatment for aspiration pneumonia. Repeat chest x-ray with congestive changes. Received a dose of Lasix 06/17/2022. Lung sounds better. Switch Zosyn to oral Augmentin # status post PEG tube placement tube feeds as ordered. Dr. suarez consultation for PEG tube replacement as already scheduled in 2 days Status post exchange of PEG tube 06/17/2022 # dysphagiaNeeds to be strict NPO. # seizure disorder: Depakote switched to IV . Since peg tube is reused we can switch Depakote back enterally # cerebral palsy with spasticity on muscle relaxer # DVT prophylaxis heparin subQ # code status full code Subjective Date/time seen: 06/19/22 14:08 Interval history: He had some coughing with to feed in them yesterday and hence the tube feed is running a bit slower today at 30 cc an hour. No residual issue per nursing staff. Having bowel movement belly is soft. Brother at bedside. Discussed with him. Review of Systems Review of Systems: ROS unobtainable: Yes unobtainable due to medical condition (Nonverbal due to cerebral palsy) Objective Data Vital Signs Vital Signs: Vital Signs - 24 hr 06/18/22 21:28 06/18/22 20:00 06/19/22 06:00 Temperature 98.3 F 98.4 F Pulse Rate 69 69 80 Respiratory Rate 14 14 14 Blood Pressure 105/63 95/58 L Pulse Oximetry 96 96 95 Oxygen Delivery Room Air Intake/Output Intake/Output: Intake & Output 06/16/22 06/17/22 06/18/22 06/19/22 23:59 23:59 23:59 23:59 Intake Total 2709.00 1805.00 1773.75 200 Output Total 700 350 Bal
[2022-06-19] MEDS: AMOXICILLIN/CLAVULANATE K 875-125 MG TAB 1 TABLET FEED TUBE (20:17)
[2022-06-19] MEDS: diazePAM INJ (*CRX) 10 MG/2 ML SYRINGE IV PUSH (20:18)
[2022-06-19 21:20] LABS: Glucose Point of Care 109 mg/dl (65-105)
[2022-06-19 22:00] VITALS: BP 109/67; PULSE 57; RESP 16; TEMP 36.6; O2SAT 95
[2022-06-20] MEDS: METOCLOPRAMIDE HCL INJ 10 MG/2 ML VIAL IV PUSH ×3 (00:18→12:22)
[2022-06-20 02:12] VITALS: BP 112/69; PULSE 76; RESP 18; TEMP 36.1; O2SAT 94
[2022-06-20] MEDS: BACLOFEN 10 MG TABLET 20 MG PO ×2 (06:06→12:23)
[2022-06-20 06:31] LABS: Basophils Absolute Auto 0.1 K/mm3 (0.0-0.1); Basophils Percent Auto 0.7 % (0.2-1.2); Eosinophils Absolute Auto 0.2 K/mm3 (0-0.3); Eosinophils Percent Auto 2.5 % (0-4.4); Hematocrit 36.8 % (42.0-52.0); Hemoglobin 12.5 g/dL (14.0-18.0); Immature Granulocyte Absolute 0.11 K/mm3 (0.00-0.031); Immature Granulocyte Percent A 1.3 % (0-0.5); Lymphocytes Absolute Auto 4.12 K/mm3 (0.9-3.2); Mean Corpuscular Hemoglobin 30.6 pg (26-34); Mean Corpuscular Volume 90.2 fl (80-100); Mean Platelet Volume 9.6 fl (7.4-10.4); Monocytes Absolute Auto 0.9 K/mm3 (0.1-0.6); Neutrophils Absolute Auto 3.4 K/mm3 (1.3-6.7); Neutrophils Percent Auto 38.5 % (45.5-73.1); Platelet Count Result 344 k/mm3 (150-375); Red Blood Count 4.08 M/mm3 (4.6-6.20); Red Cell Distribution Width 14.6 % (11.5-14.5); White Blood Count 8.8 K/mm3 (4.5-10.0)
[2022-06-20 06:42] LABS: Anion Gap 5 mmol/L (8-16); Carbon Dioxide 29 mmol/L (22-30); Chloride 107 mmol/L (98-107); Potassium 3.7 mmol/L (3.4-5.0); Sodium 141 mmol/L (137-145)
[2022-06-20 06:43] LABS: Alanine Aminotransferase 23 U/L (6-50); Albumin Level 3.2 g/dL (3.5-5.1); Alkaline Phosphatase 63 U/L (38-126); Aspartate Amino Transferase 34 U/L (17-59); Bilirubin,Total 0.3 mg/dL (0.2-1.3); Blood Urea Nitrogen 7 mg/dL (9-20); Calcium 8.4 mg/dL (8.4-10.2); Estimated CRCL calculation 101 ml/min; Estimated Glomerular Filt Rate > 60; Glucose 116 mg/dL (65-110)
[2022-06-20] MEDS: AMOXICILLIN/CLAVULANATE K 875-125 MG TAB 1 TABLET FEED TUBE (09:25)
[2022-06-20] MEDS: HEPARIN SODIUM 5,000 UNITS/ML VIAL 5000 UNITS SUB-Q (09:26)
[2022-06-20] MEDS: PANTOPRAZOLE SODIUM IV 40 MG VIAL IV PUSH (09:26)
[2022-06-20] MEDS: BISACODYL 10 MG SUPPOSITORY RECTAL (09:26)
[2022-06-20] MEDS: CLORAZEPATE DIPOTASSIUM (*CRX) 3.75 MG TABLET FEED TUBE ×2 (09:26→12:25)
[2022-06-20] MEDS: VALPROIC ACID LIQ 250 MG/5 ML ORAL SOLUTION UDC FEED TUBE (09:26)
--- NOTE | 2022-06-20 11:37 | PCNFU ---
Nutrition Follow-Up Complete: Moderate Malnutrition as related to inadequate protein-energy intake with increased protein-energy needs in chronic setting or condition (Cerebral Palsy) as evidenced by minimal oral intake for > 1-2 months: mild subcutaneous fat loss (orbital fat pads) and muscle wasting (temporalis). Goal: Meet estimated nutritional needs Patient is progressing towards goal. We will continue current goal. Pt current nutrition is Jevity 1.5 at 30 ml/hr. Nutrition recommendation: changed to bolus feedings 240 ml- 4 x per day of Jevity 1.5 Last recorded weight is 43.7 kg. Bowel Motility:+BM reported 06/20 Labs Reviewed:Glu 116, BUN 7, Cr 0.5,Hct 36.8,Hgb 12.5 Meds Noted:Protonix, Reglan, Heparin Skin: WNL Additional Notes: Spoke with Hospitalist today. NGT removed this weekend. Some abdominal distention noted over the weekend. Patient is going to global climate change researcher to bolus feedings for lunch. Jevity 1.5-240 ml. Discussed with nursing tube feedings change. If patient tolerates plans to discharge today. Spoke with healthcare analyst, tube feedings for home are all set up for [facility]. Patient has ordered 237 ml 3 x daily. Flush 150 ml after feedings. Tube feedings providing 1600 kcals/66 gms protein/480 ml water. Agree with diet orders. Monitoring: Will monitor every Monday and Monday.
--- NOTE | 2022-06-20 12:43 | WPDGIPROGNO ---
Progress Note: A&P Assessment and Plan (1) PEG (percutaneous endoscopic gastrostomy) status: Code(s): Z93.1 - Gastrostomy status Status: Acute Assessment and Plan: Patient doing well. Tolerating PEG tube feedings. Plan to change to bolus tube feedings which she will proceed receive at home. [employer] [facility] Researcher to determine PEG nutritional formula to take after discharge. Continue care to PEG site. Peg button Del type tube was replaced during this hospital stay anticipate replacement again in 3-4 months. (2) Aspiration pneumonia: Code(s): J69.0 - Pneumonitis due to inhalation of food and vomit Status: Acute Assessment and Plan: Patient to complete complete course of antibiotics for pneumonia after discharge. (3) Acute UTI: Code(s): N39.0 - Urinary tract infection, site not specified Status: Acute (4) Cerebral palsy: Code(s): G80.9 - Cerebral palsy, unspecified Status: Acute Subjective Date/time seen: 06/20/22 12:43 Interval history: Patient seen in follow-up today. Patient remains interactive. Afebrile. HEENT exam reveals no icterus. Tolerating tube feedings continuously. Had some nausea when tube feedings were increased to45cc an hour. Review of Systems Review of Systems: ROS unobtainable: Yes unobtainable due to medical condition Exam Narrative: Physical exam vital signs are stable. Patient is alert afebrile anicteric. He has significant flexion contractures. Lung reveal a few rhonchi. Heart without murmur. Abdomen is soft. Tube feedings being tolerated currently. No masses no tenderness. Objective Data Vital Signs Vital Signs: Vital Signs - 24 hr 06/19/22 14:00 06/19/22 22:00 06/20/22 02:12 Temperature 97.9 F 97.9 F 97 F L Pulse Rate 88 57 L 76 Respiratory Rate 16 16 18 Blood Pressure 114/73 109/67 112/69 Pulse Oximetry 92 95 94 Oxygen Delivery 06/20/22 09:30 Temperature Pulse Rate Respiratory Rate Blood Pressure Pulse Oximetry Oxygen Delivery Room Air Intake/Output Intake/Output: Intake & Output 06/17/22 06/18/22 06/19/22 06/20/22 23:59 23:59 23:59 23:59 Intake Total 1805.00 1773.75 770 0 Output Total 350 Balance 1455.00 1773.75 770 0 Meds/Results Medications: Active Medications Generic Name Dose Route Start Last Admin Trade Name Freq PRN Reason Stop Dose Admin Acetaminophen 650 mg 06/13/22 20:05 06/14/22 08:38 Acetaminophen 325 Mg Tablet FEED TUBE 650 mg Q6HR PRN Administration Mild Pain (1-3) or Fever Albuterol 2.5 mg 06/14/22 03:41 Albuterol Sulfate Neb 2.5 Mg/3 Ml Inh INHALATION Q4-6H PRN shortness of breath or wheezing Amoxicillin/Clavulanate Potassium 1 tablet 06/19/22 21:00 06/20/22 09:25 Amoxicillin/Clavulanate K 875-125 Mg Tab FEED TUBE 1 tablet Q12HR VANDA Administration Baclofen 20 mg 06/14/22 06:00 06/20/22 12:23 Baclofen 10 Mg Tablet PO 20 mg Q8HR VANDA Administration Benzonatate 100 mg 06/14/22 09:00 Benzonatate 100 Mg Capsule PO TID PRN Cough Bisacodyl 10 mg 06/14/22 09:00 06/20/22 09:26 Bisacodyl 10 Mg Suppository RECTAL 10 mg QAM VANDA Administration Clorazepate Dipotassium 3.75 mg 06/14/22 09:00 06/20/22 12:25 Clorazepate Dipotassium (*Crx) 3.75 Mg Tablet FEED TUBE 3.75 mg TID VANDA Administration Diazepam 2.5 mg 06/14/22 04:35 Diazepam (*Crx) 2.5 Mg Tablet PO BID PRN muscle spasm Diazepam 10 mg 06/14/22 04:36 06/17/22 22:45 Diazepam (*Crx) 5 Mg Tablet PO 10 mg HS PRN Administration muscle spasm Diazepam 10 mg 06/15/22 18:52 06/19/22 20:18 Diazepam Inj (*Crx) 10 Mg/2 Ml Syringe IV PUSH 10 mg HS PRN Administration Muscle Spasm Diazepam 2.5 mg 06/15/22 18:53 Diazepam Inj (*Crx) 10 Mg/2 Ml Syringe IV PUSH BID PRN Muscle Spasm Divalproex Sodium 250 mg 06/18/22 17:00 Divalproex Sodium Sprinkle 125 Mg
--- NOTE | 2022-06-20 13:30 | PM.DS ---
DS: Admitting Diagnosis Discharge Date 06/20/2022 Admitting Diagnosis Fever DS: Discharge Diagnosis Discharge Diagnosis (1) Sepsis: Qualifiers: Sepsis type: sepsis due to unspecified organism Sepsis acute organ dysfunction status: without acute organ dysfunction Qualified Code(s): A41.9 - Sepsis, unspecified organism Code(s): A41.9 - Sepsis, unspecified organism Status: Acute (2) UTI (urinary tract infection): Code(s): N39.0 - Urinary tract infection, site not specified Status: Acute (3) Fecal impaction of rectum: Code(s): K56.41 - Fecal impaction Status: Acute (4) Dysphagia: Qualifiers: Dysphagia type: unspecified Qualified Code(s): R13.10 - Dysphagia, unspecified Code(s): R13.10 - Dysphagia, unspecified Status: Acute (5) Seizure disorder: Code(s): G40.909 - Epilepsy, unspecified, not intractable, without status epilepticus Status: Acute (6) Cerebral palsy: Code(s): G80.9 - Cerebral palsy, unspecified Status: Acute DS: Summary Hospital Course Hospital Course: # sepsis criteria met with tachycardia, tachypnea, fever and leukocytosis.? Patient has sepsis with UA suggestive of UTI.? Blood cultures are no growth to date.? CT demonstrated diffusely inflamed bladder and likely associated prostatitis.? Also there may was some concern for cholecystitis.? CT also demonstrated no fecal impaction with proctitis.? zosyn and iv fluids started CT chest with airway diverse in the distal trachea. Right upper lobe tree-in-bud opacities may represent atypical infection or aspiration. Findings of chronic aspiration the left lower lobe. There were associated findings of esophagitis/gastritis. He was treated with IV Zosyn. He did well with resolution of fever and resolution of his leukocytosis With findings of possible ongoing aspiration he underwent barium swallow which he failed. It was recommended for him to stay completely NPO. He had a PEG tube in place but was used only for supplemental nutrition. This was switched to primary source of nutrition to him during the hospital stay. He was started on tube feeds with Jevity 1.2 during the hospital stay a continuous basis. Further plan to change to bolus feeding at discharge was made. His antibiotics is switched to Augmentin at discharge for completion of the course of antibiotics for his underlying UTI and pneumonia. Pneumonia is suspected to be aspiration pneumonia. # fecal impaction with ileus pt to continue with aggressive bowel regimen with b.i.d. MiraLax and daily Dulcolax suppositories.? And daily? enemas if needed .? Also has ileus.? GI recommendations appreciated. During the hospital stay he was treated with NG tube tube decompression.? Abdomen has been softer and having regular bowel movement.? NG has now been discontinued.? Restarted on ? Tube feed slowly.? Continue as tolerated to a goal rate.? Eventually he will be on a tube feed at home which is new.? He is planned to continue on bolus feeding as discussed and planned based on dietitian recommendations. # left lower lobe consolidation on IV vancomycin and Zosyn.? ? Continue treatment for aspiration pneumonia. Repeat chest x-ray with congestive changes.? ? Received a dose of Lasix 06/17/2022.? Lung sounds better.? Switch Zosyn to oral Augmentin # status post PEG tube placement tube feeds as ordered.? Dr. suarez consultation for PEG tube replacement as already scheduled in 2 days Status post exchange of PEG tube 06/17/2022 # dysphagia: Needs to be strict NPO. # seizure disorder:? Depakote? switched to IV .? Since? peg tube is reused we can switch Depakote back? enterally # cerebral palsy with spasticity on muscle relaxer # DVT prophylaxis heparin subQ # code status full code Time Spent with Patient Time attestation: Total time spent providing and/or coordinating discharge services: 45 minutes Exam Narrative: GENERAL: C
[2022-06-20 13:58] VITALS: BP 125/84; PULSE 106; RESP 18; TEMP 36.6; O2SAT 97
== END 2022-06-20 14:45 | disposition home or self-care (01) | DRG 871 ==
LOC: ANHED 21:54 → ANHIMU 22:08 → ANHICU 06-14 02:10 → ANHIMU 06-14 16:07 → ANH3MEDSUR 06-17 12:22
PROVIDERS: Internal Medicine; Admitting Provider Family Medicine; Emergency Provider Emergency Medicine; PCP Internal Medicine; Visit Provider Internal Medicine
DX: A41.9 Sepsis, unspecified organism (principal); J69.0 Pneumonitis due to inhalation of food and vomit; N39.0 Urinary tract infection, site not specified; G80.1 Spastic diplegic cerebral palsy; E44.0 Moderate protein-calorie malnutrition; Z68.1 Body mass index [BMI] 19.9 or less, adult; R13.10 Dysphagia, unspecified; G40.909 Epilepsy, unspecified, not intractable, without status epilepticus; K56.41 Fecal impaction; Z20.822 Contact with and (suspected) exposure to COVID-19; Z93.1 Gastrostomy status; Z79.899 Other long term (current) drug therapy; Z88.2 Allergy status to sulfonamides
CPT/HCPCS: 36415; 49465; 71045; 71046; 71260; 74018; 74177; 80048; 80053; 80202; 81001; 81003; 82565; 82948; 83605; 83735; 85025; 85027; 85055; 85610; 85730; 86140; 87040; 87081; 87636; 92611; 96360; 96361; 96365; 96366; 96367; 96372; 96375; 96376; 99285; A9270; C9113; G0378; J1644; J1940; J2270; J2405; J2543; J2765; J3360; J3370; J3480; J7030; J7040; Q9967

== ENCOUNTER 2022-07-02 13:06 | Inpatient (IN) | payer MEDICARE, MEDICAID, SELFPAY ==
[2022-07-02] VITALS (8 sets, daily range): BP systolic 92–109; BP diastolic 54–77; PULSE 96–142; RESP 20–30; TEMP 36.8–39.5; O2SAT 88–100
--- NOTE | ~2022-07-02 | CT_ITS ---
EXAMINATION: CT chest abdomen pelvis w con DATE: 07/02/2022 15:42 INDICATION: Fever, shortness of breath and abdominal distentio . TECHNIQUE: Computed tomography (CT) of the chest, abdomen, and pelvis was performed with T8 mL Omnipa que-350 intravenous contrast. Automated exposure control and iterative reconstruction technique were employed. The dose-length product was 386.29 mGy-cm. COMPARISON: 06/13/2022 FINDINGS: CHEST: Thoracic aorta: No significant dilation or calcification. Lung parenchyma and airways: Scattered centrilobular and tree-in-bud opacities. Bilateral basilar dep endent atelectasis/scar and acinar opacities in the left lung base. Left lower lobe atelectasis. Airw ay debris in the trachea. Thoracic inlet, axillae and chest wall: No thyroid or soft tissue mass. No axillary lymphadenopathy. Mediastinum: No mass or lymphadenopathy. Heart and pericardium: Normal heart size. No pericardial effusion. Coronary artery calcifications: . Pleura: No effusion or mass. Thoracic bones: No acute osseous finding in the chest. ABDOMEN/PELVIS: Liver: Normal. Biliary/Gallbladder: Gallbladder is normal. No bile duct dilation. Pancreas: No mass or duct dilation. Spleen: Normal. Adrenals:No mass. Kidneys: No mass, stone, or hydronephrosis. GI tract: PEG tube, in good position. Moderate distal esophageal and gastric wall edema. Persistent i ntraluminal or wall hyperdensity in the gastric fundus. No small or large bowel dilation. Appendix no t confidently visualized. Mesentery/Peritoneum: No ascites, mass, or free air. Retroperitoneum: No mass Pelvis: Mild urinary bladder wall thickening. Soft Tissues: Small uncomplicated fat-containing right inguinal hernia.. Abdominopelvic bones: Extensive thoracolumbar fusion. No acute osseous finding. IMPRESSION: Scattered pulmonary opacities may represent atypical infection, airways disease, or acute aspiration. Additional findings of chronic aspiration in the left lower lobe. Moderate esophagitis/gastritis. Mi ld urinary bladder wall thickening, may be secondary to a neurogenic bladder/outlet compromise or cys titis. Reviewed, dictated and finalized at location K. IMPRESSION: Scattered pulmonary opacities may represent atypical infection, airways disease , or acute aspiration. Additional findings of chronic aspiration in the left lo wer lobe. Moderate esophagitis/gastritis. Mild urinary bladder wall thickening, may be secondary to a neurogenic bladder/outlet compromise or cystitis.
--- NOTE | ~2022-07-02 | XR_ITS ---
XR chest 1V portable DATE: 07/02/2022 14:15 INDICATION: Shortness of breath, fever TECHNIQUE: Portable AP chest on July 02, 2022 1413 hours COMPARISON: 06/13/2022 portable AP chest FINDINGS: Bilateral thoracic spinal rods. There is dextroscoliosis of the thoracolumbar spine. There is diffuse bilateral groundglass pulmonary density which may be consistent with pulmonary edema or pneumonia, mildly improved since 06/13/2022. No pleural effusion or pneumothorax is detected. IMPRESSION: Mild improvement of diffuse bilateral groundglass pulmonary density since 06/17/2022 Reviewed, dictated and finalized at location A.
--- NOTE | 2022-07-02 13:12 | ECG_ITS ---
Measurements Intervals [place] Rate: 142 P: 40 WV: 150 QRS: 109 QRSD: 86 T: 41 QT: 270 QTc: 415 Interpretive Statements SINUS TACHYCARDIA POSSIBLE RIGHT VENTRICULAR HYPERTROPHY LOW-VOLTAGE QRS IN LIMB LEADS NONSPECIFIC ST ABNORMALITY ABNORMAL ECG COMPARED TO ECG 10/19/2020 06:13:23 NO SIGNIFICANT CHANGES Electronically Signed On 07-02-2022 15:38:11 CDT by Cooper Spencer M.D.
[2022-07-02] MEDS: SODIUM CHLORIDE 0.9% IV 1,000 ML 999 ML IV CONT (13:33)
[2022-07-02 13:34] LABS: Basophils Absolute Auto 0.1 K/mm3 (0.0-0.1); Basophils Percent Auto 0.3 % (0.2-1.2); Eosinophils Percent Auto 0.2 % (0-4.4); Hematocrit 46.2 % (42.0-52.0); Hemoglobin 15.2 g/dL (14.0-18.0); Immature Granulocyte Absolute 0.06 K/mm3 (0.00-0.031); Immature Granulocyte Percent A 0.3 % (0-0.5); Lymphocytes Absolute Auto 3.03 K/mm3 (0.9-3.2); Lymphocytes Percent Auto 17.4 % (18.3-44.2); Mean Corpuscular HGB Conc 32.9 g/dl (32-36); Mean Corpuscular Hemoglobin 31.3 pg (26-34); Mean Corpuscular Volume 95.3 fl (80-100); Mean Platelet Volume 10.6 fl (7.4-10.4); Monocytes Absolute Auto 1.1 K/mm3 (0.1-0.6); Monocytes Percent Auto 6.4 % (2.6-8.5); Neutrophils Absolute Auto 13.1 K/mm3 (1.3-6.7); Neutrophils Percent Auto 75.4 % (45.5-73.1); Platelet Count Result 301 k/mm3 (150-375); Red Blood Count 4.85 M/mm3 (4.6-6.20); Red Cell Distribution Width 14.8 % (11.5-14.5); White Blood Count 17.4 K/mm3 (4.5-10.0)
[2022-07-02 13:44] LABS: Alanine Aminotransferase 35 U/L (6-50); Albumin Level 4.7 g/dL (3.5-5.1); Alkaline Phosphatase 106 U/L (38-126); Anion Gap 9 mmol/L (8-16); Aspartate Amino Transferase 44 U/L (17-59); Bilirubin,Total 0.4 mg/dL (0.2-1.3); Blood Urea Nitrogen 23 mg/dL (9-20); Calcium 9.7 mg/dL (8.4-10.2); Carbon Dioxide 33 mmol/L (22-30); Chloride 100 mmol/L (98-107); Estimated CRCL calculation 80 ml/min; Estimated Glomerular Filt Rate > 60; Glucose 88 mg/dL (65-110); Potassium 4.4 mmol/L (3.4-5.0); Sodium 142 mmol/L (137-145)
--- NOTE | 2022-07-02 14:38 | ED.GENADULT ---
HPI - General Adult General Chief complaint: Shortness of Breath/Dyspnea Stated complaint: aspirated Time Seen by Provider: 07/02/22 13:23 History of Present Illness HPI narrative: 36-year-old male presented to the emergency department for evaluation of distended abdomen emesis and new O2 requirement. Patient is nonverbal and has cerebral palsy. Patient had recent hospitalization in June 13 for urinary sepsis and bowel obstruction. Mother states that the patient had been improved since discharge then this morning when he woke up he had not produced any urine she states when she did his feeding this morning his belly became distended, patient was moaning during feeding. Patient did have a bowel movement today. Mother reports that at home the patient did have an episode of emesis during which he was not clearing his airway and mother had to reposition him in order to help him pass the emesis afterwards patient had an increased O2 requirement and patient was placed on oxygen. Related Data Allergies Allergy/AdvReac Type Severity Reaction Status Date / Time Sulfa (Sulfonamide Allergy Unknown LIPS AND Verified 06/13/22 15:58 Antibiotics) GENITAL PEELING SKIN Review of Systems Review of Systems: ROS unobtainable: Yes unobtainable due to mental status [facility] Past Medical History Medical History (Updated 07/02/22 @ 17:34 by Huyen Ngo PA-C) Anxiety Cerebral palsy Dysphagia Chronic. G-tube in place. Esophagitis with gastritis History of GI bleed History of pulmonary aspiration Seizure disorder Uses powered wheelchair Surgical History Surgical History (Updated 07/02/22 @ 17:34 by Huyen Ngo PA-C) Gastrointestinal tube present History of orthopedic surgery Multiple surgeries related to his cerebra palsy including tendon surgeries and Green transfer. History of spinal fusion Family History Family History Father Family history of elevated blood lipids Family history of diabetes mellitus in first degree relative Hypertension Chronic obstructive pulmonary disease Other Lung cancer Social History Social History Social History: Surrogate decision maker: Cm and Leonora Slaughter, parents. Code status: Full code. Smoking status: Never smoker Second hand tobacco smoke exposure: No Alcohol intake: never Substance use: never Substance use type: does not use Lack of Transportation: No Lack of Food: Never True Current Housing: I Have Housing Concerned About Future Housing: No Difficulty Paying Gas/Electric Bills: No Difficulty Paying for Meds: No Currently Unemployed: No Education: Decline to Answer Difficulty w/ Childcare or Family Care: No Living arrangements: with family Additional living arrangements comments: The patient lives with his parents and 19-year-old brother in [place]. His father is currently suffering from dementia. He is wheelchair-dependent and uses an electric wheelchair which he can manage quite nicely. In fact he likes to spend a lot of his time out in their [place] where they have cars and motorcycles, which he really enjoys. He is dependent on most activities of daily living. Occupation/Education: unemployed Additional occupation/education comments: Disabled. Spiritual care concerns: No Exam Narrative: APPEARANCE: Ill-appearing HEAD: normocephalic, atraumatic. EYES: PERRLA/EOMI, conjunctivae clear. NOSE: Normal no drainage THROAT: Pharynx clear, no exudate. NECK: Supple. No adenopathy, no masses. RESPIRATORY: Airway patent, respirations nonlabored. Decreased breath sounds bilaterally CARDIOVASCULAR: Regular rate and rhythm without murmurs rubs or gallops. ABDOMINAL: Soft, nontender, nondistended, normal bowel sounds MUSCULOSKELETAL: Moves all extremities. Strength/ROM intact, No edema, No calf tenderne
[2022-07-02 14:39] LABS: Appearance Urine Turbid (Clear); Bacteria Urine None Seen /hpf; Bilirubin Urine Negative (Negative); Color Urine Yellow (Yellow); Glucose Urine UA Negative (Negative); Ketones Urine Negative (Negative); Leukocyte Esterase Ur 1+ LEU/UL (Negative); Need Manual Microscopic Reviewed; Nitrate Urine Negative (Negative); Non Pathogenic Casts 0-2; Protein Urine Negative (Negative); Specific Grav Ur 1.018 (1.001-1.035); Squamous Epithelial Cell Urine None seen /hpf (Few); Urobilinogen Urine 0.2 mg/dL (<2.0); WBC Urine 0-5 /hpf
[2022-07-02 14:40] LABS: Add Urine Microscopic? YES
[2022-07-02 14:47] LABS: Influenza A QL RT-PCR Negative (Negative); Influenza B QL RT-PCR Negative (Negative); RSV RNA, RT-PCR Negative (Negative); SARS-CoV-2 RNA PCR Negative
[2022-07-02] MEDS: PIPERACILLN/TAZ 3.375GM/NS50ML 3.375 GM/50 ML BAG IVPB ×2 (15:10→23:39)
[2022-07-02] MEDS: SODIUM CHLORIDE 0.9% IV 1,000 ML 500 ML IV CONT (15:11)
--- NOTE | 2022-07-02 17:15 | PM.IMHP ---
H&P: HPI History of Present Illness Date/Time: 07/02/22 17:15 Chief Complaint: Distended abdomen, vomiting, fever. Narrative: This is a 36-year-old male with history of seizures, cerebral palsy, and chronic aspiration who presented to the emergency department for evaluation of distended abdomen, vomiting, and fever. He is nonverbal and thus the following history is obtained via a review of his electronic medical records as well as discussions with his motherDon Haynes is known to the hospitalist service and was recently admitted to the hospital just a couple of weeks ago with sepsis. Urinalysis was abnormal but urine culture demonstrated no growth. CT imaging showed inflammation of the bladder and likely associated prostatitis in addition to findings of of esophagitis/gastritis and evidence of chronic aspiration the left lower lobe. He underwent barium swallow study which he failed and it was recommended that he remain completely NPO. His G-tube was replaced per Dr. Mccartney during the stay. He was treated with Zosyn and was discharged on amoxicillin. According to the patient's mother, he has been getting his nutrition through the button though on occasion he has a small amount of strawberry milk or crackers with butter but that is rare. This morning she reports that his abdomen was distended while doing his feedings. He began moaning at about 10:30, shortly before developing a low-grade fever. He vomited several times prior to arrival and he reportedly had coughing and choking episodes at the same time. Vital signs on arrival to the ED include a temperature of 103.1?, heart rate 142, respiratory rate 30, and a blood pressure of 109/77. He was given a dose of Zosyn in the ED for presumed aspiration and he is being admitted in this setting for further treatment. At the time my evaluation he is alert and keenly interested in what the nurses are doing in the room. He has defervesced and seems to be in good spirits. He does not exhibit any signs of pain on examination of the abdomen. Review of Systems Review of Systems: Unable to obtain as he is nonverbal. [facility] Past Medical History Medical History Anxiety Cerebral palsy Dysphagia Chronic. G-tube in place. Esophagitis with gastritis History of GI bleed History of pulmonary aspiration Seizure disorder Uses powered wheelchair Surgical History Surgical History (Updated 07/02/22 @ 17:34 by Huyen Ngo PA-C) Gastrointestinal tube present History of orthopedic surgery Multiple surgeries related to his cerebra palsy including tendon surgeries and Green transfer. History of spinal fusion Family History Family History Father Family history of elevated blood lipids Family history of diabetes mellitus in first degree relative Hypertension Chronic obstructive pulmonary disease Other Lung cancer Social History Social History Social History: Surrogate decision maker: Cm and Leonora Slaughter, parents. Code status: Full code. Smoking status: Never smoker Second hand tobacco smoke exposure: No Alcohol intake: never Substance use: never Substance use type: does not use Lack of Transportation: No Lack of Food: Never True Current Housing: I Have Housing Concerned About Future Housing: No Difficulty Paying Gas/Electric Bills: No Difficulty Paying for Meds: No Currently Unemployed: No Education: Decline to Answer Difficulty w/ Childcare or Family Care: No Living arrangements: with family Additional living arrangements comments: The patient lives with his parents and 19-year-old brother in [place]. His father is currently suffering from dementia. He is wheelchair-dependent and uses an electric wheelchair which he can manage quite nicely. In fact he likes to spend a lot of his time out in
[2022-07-02] MEDS: SODIUM CHLORIDE 0.9% IV 1,000 ML 75 ML IV CONT (17:51)
--- NOTE | 2022-07-02 18:23 | ADMGEN ---
This patient, Dallas Slaughter, was admitted to IMU Room 232-01. Patient/family oriented to hospital policies and general routines including ID bracelet, bed and alarms, visiting hours, pain management, procedures, bathroom and other care routines, personal items, smoking policy, room service/diet, and visiting hours. Information on how to activate the Rapid Response Team has been discussed. Patient/Family are encouraged to report perceived risks to care and to ask questions if they do not understand what they are told or what they should do.
[2022-07-03] VITALS (12 sets, daily range): BP systolic 99–122; BP diastolic 57–77; PULSE 63–98; RESP 16–20; TEMP 36.4–36.8; O2SAT 93–100
[2022-07-03] MEDS: CLORAZEPATE DIPOTASSIUM (*CRX) 3.75 MG TABLET FEED TUBE ×3 (00:20→16:53)
[2022-07-03] MEDS: BACLOFEN 10 MG TABLET 20 MG FEED TUBE ×4 (00:20→21:19)
[2022-07-03 04:59] LABS: Hematocrit 36.1 % (42.0-52.0); Hemoglobin 11.5 g/dL (14.0-18.0); Mean Corpuscular HGB Conc 31.9 g/dl (32-36); Mean Corpuscular Hemoglobin 30.3 pg (26-34); Platelet Count Result 207 k/mm3 (150-375); White Blood Count 19.4 K/mm3 (4.5-10.0)
[2022-07-03 05:09] LABS: Alanine Aminotransferase 25 U/L (6-50); Albumin Level 3.2 g/dL (3.5-5.1); Alkaline Phosphatase 71 U/L (38-126); Anion Gap 4 mmol/L (8-16); Aspartate Amino Transferase 28 U/L (17-59); Bilirubin,Total 0.5 mg/dL (0.2-1.3); Blood Urea Nitrogen 16 mg/dL (9-20); Calcium 8.2 mg/dL (8.4-10.2); Carbon Dioxide 26 mmol/L (22-30); Chloride 107 mmol/L (98-107); Estimated CRCL calculation 90 ml/min; Estimated Glomerular Filt Rate > 60; Glucose 79 mg/dL (65-110); Potassium 4.1 mmol/L (3.4-5.0); Sodium 137 mmol/L (137-145)
[2022-07-03] MEDS: LANSOPRAZOLE ORAL SUSP 30 MG/10 ML ORAL.SUSP FEED TUBE (06:19)
[2022-07-03] MEDS: PIPERACILLN/TAZ 3.375GM/NS50ML 3.375 GM/50 ML BAG IVPB ×4 (06:20→23:31)
[2022-07-03] MEDS: METOCLOPRAMIDE HCL 10 MG/10 ML SOLN UDC FEED TUBE (10:02)
[2022-07-03] MEDS: diazePAM (*CRX) 2.5 MG TABLET FEED TUBE ×2 (10:02→16:53)
[2022-07-03] MEDS: ENOXAPARIN 30 MG/0.3 ML SYRINGE SUB-Q (10:02)
[2022-07-03] MEDS: VALPROIC ACID LIQ 250 MG/5 ML ORAL SOLUTION UDC FEED TUBE ×2 (10:03→21:19)
--- NOTE | 2022-07-03 13:05 | PM.IMPN ---
Progress Note: A&P Assessment and Plan (1) Sepsis: Qualifiers: Sepsis type: sepsis due to unspecified organism Sepsis acute organ dysfunction status: without acute organ dysfunction Qualified Code(s): A41.9 - Sepsis, unspecified organism Code(s): A41.9 - Sepsis, unspecified organism Status: Acute Assessment and Plan: Present on admission and evidenced by fever, hypotension, tachycardia, tachypnea, and leukocytosis in the setting of pneumonia. Blood pressures have responded somewhat to IV fluids and he is running near his baseline. Blood cultures have been obtained and are no growth to date (2) Aspiration pneumonia: Qualifiers: Aspiration pneumonia type: unspecified Laterality: unspecified laterality Lung location: unspecified part of lung Qualified Code(s): J69.0 - Pneumonitis due to inhalation of food and vomit Code(s): J69.0 - Pneumonitis due to inhalation of food and vomit Status: Acute Assessment and Plan: Mother reports that his abdomen was distended this morning and that he vomited up quite a large amount of his tube feedings. It looks like he was on Reglan 10 mg q.6 hours with his previous hospitalization though appeared to have an ileus at that time. May be prudent to continue Reglan with meals. No evidence of obstruction or ileus noted on CT on admission. Elevate head of bed. Monitor residuals. Tube feeds currently on hold. (3) Esophagitis with gastritis: Code(s): K29.70 - Gastritis, unspecified, without bleeding; K20.90 - Esophagitis, unspecified without bleeding Status: Acute Assessment and Plan: Continue omeprazole. (4) Hypoxia: Code(s): R09.02 - Hypoxemia Status: Acute Assessment and Plan: Related to aspiration. Oxygen has been weaned off. Currently on room air saturating well (5) Bladder wall thickening: Code(s): N32.89 - Other specified disorders of bladder Status: Acute Assessment and Plan: Noted on CT, may be due to neurogenic bladder/outlet compromise or cystitis. He has had blood on multiple urinalyses over the years and he may very well have some chronic cystitis. Mother reports that he was dry this morning, bladder scan p.r.n. to check residuals. (6) Seizure disorder: Code(s): G40.909 - Epilepsy, unspecified, not intractable, without status epilepticus Status: Acute Assessment and Plan: Continue anti seizure medications. Subjective Date/time seen: 07/03/22 13:05 Interval history: Chart reviewed. Had a large bowel movement today. Abdomen is less distended. Not much coughing. At his baseline mental status Review of Systems Review of Systems: ROS unobtainable: Yes unobtainable due to mental status Exam Narrative: General: Mildly ill-appearing, chronically debilitated male resting comfortably in bed. HEENT: Atraumatic. Pupils are reactive. Extraocular motions appear to be intact. Sclera anicteric. Tacky mucous membranes. Fair dentition. Oropharynx not visualized. Neck: Supple. No lymphadenopathy. Respiratory: Diminished breath sounds bilaterally, no respiratory distress Cardiovascular: Regular rate and rhythm Gastrointestinal: Abdomen is soft. G-tube button is clean, dry, and intact. Hypoactive bowel sounds. No guarding or rebound tenderness. Mildly distended Skin: Warm and dry. Generalized pallor. Extremities: No cyanosis, clubbing, or edema. Normal capillary refill. Peripheral pulses intact. Neurological: Alert. Cranial nerves 2-12 are grossly intact. He is nonverbal. 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 He does follow some commands. Psychiatric: Cooperative. Objective Data Vital Signs Vital Signs: Vital Signs - 24 hr 07/02/22 13:13 07/02/22 13:13 07/02/22 13:15 Temperature 103.1 F H Pulse Rate 142 H Respiratory Rate 30 H Blood Pressure Pulse Oximetry 88
[2022-07-03] MEDS: diazePAM (*CRX) 5 MG TABLET 10 MG FEED TUBE (21:20)
[2022-07-04] VITALS (9 sets, daily range): BP systolic 103–122; BP diastolic 65–82; PULSE 62–78; RESP 16–20; TEMP 36.1–36.6; O2SAT 95–99; BMI 18.1
[2022-07-04] MEDS: PIPERACILLN/TAZ 3.375GM/NS50ML 3.375 GM/50 ML BAG IVPB ×3 (05:19→18:56)
[2022-07-04] MEDS: BACLOFEN 10 MG TABLET 20 MG FEED TUBE ×2 (05:38→22:20)
[2022-07-04] MEDS: LANSOPRAZOLE ORAL SUSP 30 MG/10 ML ORAL.SUSP FEED TUBE (05:38)
[2022-07-04 05:51] LABS: Basophils Percent Auto 0.4 % (0.2-1.2); Eosinophils Percent Auto 0.4 % (0-4.4); Hematocrit 39.1 % (42.0-52.0); Hemoglobin 12.9 g/dL (14.0-18.0); Immature Granulocyte Absolute 0.04 K/mm3 (0.00-0.031); Immature Granulocyte Percent A 0.4 % (0-0.5); Lymphocytes Absolute Auto 3.31 K/mm3 (0.9-3.2); Lymphocytes Percent Auto 30.8 % (18.3-44.2); Mean Corpuscular Hemoglobin 30.9 pg (26-34); Mean Corpuscular Volume 93.8 fl (80-100); Monocytes Absolute Auto 0.7 K/mm3 (0.1-0.6); Monocytes Percent Auto 6.3 % (2.6-8.5); Neutrophils Absolute Auto 6.6 K/mm3 (1.3-6.7); Neutrophils Percent Auto 61.7 % (45.5-73.1); Platelet Count Result 210 k/mm3 (150-375); Red Blood Count 4.17 M/mm3 (4.6-6.20); Red Cell Distribution Width 14.7 % (11.5-14.5); White Blood Count 10.7 K/mm3 (4.5-10.0)
[2022-07-04 06:00] LABS: Alanine Aminotransferase 25 U/L (6-50); Albumin Level 3.6 g/dL (3.5-5.1); Alkaline Phosphatase 78 U/L (38-126); Anion Gap 9 mmol/L (8-16); Aspartate Amino Transferase 28 U/L (17-59); Bilirubin,Total 0.5 mg/dL (0.2-1.3); Blood Urea Nitrogen 11 mg/dL (9-20); Calcium 8.9 mg/dL (8.4-10.2); Carbon Dioxide 26 mmol/L (22-30); Chloride 104 mmol/L (98-107); Estimated CRCL calculation 78 ml/min; Estimated Glomerular Filt Rate > 60; Glucose 64 mg/dL (65-110); Magnesium 1.9 mg/dL (1.6-2.3); Sodium 139 mmol/L (137-145)
[2022-07-04] MEDS: CLORAZEPATE DIPOTASSIUM (*CRX) 3.75 MG TABLET FEED TUBE (09:30)
[2022-07-04] MEDS: diazePAM (*CRX) 2.5 MG TABLET FEED TUBE (09:30)
[2022-07-04] MEDS: ENOXAPARIN 30 MG/0.3 ML SYRINGE SUB-Q (09:30)
[2022-07-04] MEDS: VALPROIC ACID LIQ 250 MG/5 ML ORAL SOLUTION UDC FEED TUBE ×2 (09:30→20:54)
[2022-07-04 10:45] LABS: Hepatitis B Surface Antigen Negative (Negative)
[2022-07-04 11:02] LABS: HIV 1/2 Ab P24 Ag Result Negative (Negative); Hepatitis C Virus Antibody Negative (Negative)
--- NOTE | 2022-07-04 15:00 | PM.IMPN ---
Progress Note: A&P Assessment and Plan (1) Sepsis: Qualifiers: Sepsis type: sepsis due to unspecified organism Sepsis acute organ dysfunction status: without acute organ dysfunction Qualified Code(s): A41.9 - Sepsis, unspecified organism Code(s): A41.9 - Sepsis, unspecified organism Status: Acute Assessment and Plan: Present on admission and evidenced by fever, hypotension, tachycardia, tachypnea, and leukocytosis in the setting of pneumonia. Blood pressures have responded somewhat to IV fluids and he is running near his baseline. Blood cultures have been obtained and are no growth to date (2) Aspiration pneumonia: Qualifiers: Aspiration pneumonia type: unspecified Laterality: unspecified laterality Lung location: unspecified part of lung Qualified Code(s): J69.0 - Pneumonitis due to inhalation of food and vomit Code(s): J69.0 - Pneumonitis due to inhalation of food and vomit Status: Acute Assessment and Plan: Mother reports that his abdomen was distended this morning and that he vomited up quite a large amount of his tube feedings. It looks like he was on Reglan 10 mg q.6 hours with his previous hospitalization though appeared to have an ileus at that time. May be prudent to continue Reglan with meals. No evidence of obstruction or ileus noted on CT on admission. Elevate head of bed. Monitor residuals. Tube feeds currently on hold. Will resume trickle tube feeds today and advance as tolerated (3) Esophagitis with gastritis: Code(s): K29.70 - Gastritis, unspecified, without bleeding; K20.90 - Esophagitis, unspecified without bleeding Status: Acute Assessment and Plan: Continue omeprazole. (4) Hypoxia: Code(s): R09.02 - Hypoxemia Status: Acute Assessment and Plan: Related to aspiration. Oxygen has been weaned off. Currently on room air saturating well (5) Bladder wall thickening: Code(s): N32.89 - Other specified disorders of bladder Status: Acute Assessment and Plan: Noted on CT, may be due to neurogenic bladder/outlet compromise or cystitis. He has had blood on multiple urinalyses over the years and he may very well have some chronic cystitis. Mother reports that he was dry this morning, bladder scan p.r.n. to check residuals. (6) Seizure disorder: Code(s): G40.909 - Epilepsy, unspecified, not intractable, without status epilepticus Status: Acute Assessment and Plan: Continue anti seizure medications. Subjective Date/time seen: 07/04/22 15:00 Interval history: he accidentally pulled out the G-tube earlier today and was put back. Abdominal distension about the same. Having bowel movement. Discussed with his mother. His back to his baseline mental status. Review of Systems Review of Systems: ROS unobtainable: Yes unobtainable due to mental status Exam Narrative: General: Mildly ill-appearing, chronically debilitated male resting comfortably in bed. HEENT: Atraumatic. Pupils are reactive. Extraocular motions appear to be intact. Sclera anicteric. Tacky mucous membranes. Fair dentition. Oropharynx not visualized. Neck: Supple. No lymphadenopathy. Respiratory: Diminished breath sounds bilaterally, no respiratory distress Cardiovascular: Regular rate and rhythm Gastrointestinal: Abdomen is soft. G-tube button is clean, dry, and intact. Hypoactive bowel sounds. No guarding or rebound tenderness. Mildly distended Skin: Warm and dry. Generalized pallor. Extremities: No cyanosis, clubbing, or edema. Normal capillary refill. Peripheral pulses intact. Neurological: Alert. Cranial nerves 2-12 are grossly intact. He is nonverbal. 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 He does follow some commands. Psychiatric: Cooperative. Objective Data Vital Signs Vital Signs: Vital Signs - 24 hr 07/03/22 16:00 07/03
[2022-07-04 19:59] LABS: Toxigenic C. Diff NEGATIVE (NEGATIVE)
[2022-07-04] MEDS: METOCLOPRAMIDE HCL 10 MG/10 ML SOLN UDC FEED TUBE (20:57)
--- NOTE | 2022-07-04 21:08 | PC.NURSE ---
Sbar faxed, report given to Frank BOWEN. Patient transferred to room 319 via bed with mother present. All belongings gathered by nurse and mother. 24ml cleared from tubefeeding pump. no change from shift assessment. patient and mom tolerating move well and in good spirits.
--- NOTE | 2022-07-04 22:55 | PC.NURSE ---
Patient arrived on 3 Med-Surg at 21:45 on 07/04/2022
[2022-07-05 00:11] LABS: Glucose Point of Care 88 mg/dl (65-105)
[2022-07-05] MEDS: PIPERACILLN/TAZ 3.375GM/NS50ML 3.375 GM/50 ML BAG IVPB ×2 (00:22→12:23)
[2022-07-05] MEDS: LANSOPRAZOLE ORAL SUSP 30 MG/10 ML ORAL.SUSP FEED TUBE (05:44)
[2022-07-05] MEDS: METOCLOPRAMIDE HCL 10 MG/10 ML SOLN UDC FEED TUBE ×2 (05:44→12:22)
[2022-07-05] MEDS: BACLOFEN 10 MG TABLET 20 MG FEED TUBE ×2 (05:44→14:35)
[2022-07-05 05:55] VITALS: BP 92/67; PULSE 75; RESP 16; TEMP 35.8; O2SAT 94
[2022-07-05 07:34] LABS: Basophils Percent Auto 0.6 % (0.2-1.2); Eosinophils Percent Auto 0.5 % (0-4.4); Hematocrit 39.8 % (42.0-52.0); Hemoglobin 13.4 g/dL (14.0-18.0); Immature Granulocyte Absolute 0.02 K/mm3 (0.00-0.031); Immature Granulocyte Percent A 0.3 % (0-0.5); Lymphocytes Absolute Auto 2.97 K/mm3 (0.9-3.2); Lymphocytes Percent Auto 44.8 % (18.3-44.2); Mean Corpuscular HGB Conc 33.7 g/dl (32-36); Mean Corpuscular Hemoglobin 30.8 pg (26-34); Mean Corpuscular Volume 91.5 fl (80-100); Mean Platelet Volume 10.7 fl (7.4-10.4); Monocytes Absolute Auto 0.7 K/mm3 (0.1-0.6); Monocytes Percent Auto 10.7 % (2.6-8.5); Neutrophils Absolute Auto 2.9 K/mm3 (1.3-6.7); Neutrophils Percent Auto 43.1 % (45.5-73.1); Platelet Count Result 209 k/mm3 (150-375); Red Blood Count 4.35 M/mm3 (4.6-6.20); Red Cell Distribution Width 14.2 % (11.5-14.5); White Blood Count 6.6 K/mm3 (4.5-10.0)
[2022-07-05 07:40] LABS: Alanine Aminotransferase 23 U/L (6-50); Alkaline Phosphatase 74 U/L (38-126); Anion Gap 10 mmol/L (8-16); Aspartate Amino Transferase 24 U/L (17-59); Bilirubin,Total 0.5 mg/dL (0.2-1.3); Blood Urea Nitrogen 15 mg/dL (9-20); Calcium 9.1 mg/dL (8.4-10.2); Carbon Dioxide 28 mmol/L (22-30); Chloride 99 mmol/L (98-107); Estimated CRCL calculation 73 ml/min; Estimated Glomerular Filt Rate > 60; Glucose 127 mg/dL (65-110); Magnesium 1.8 mg/dL (1.6-2.3); Potassium 3.7 mmol/L (3.4-5.0); Sodium 137 mmol/L (137-145)
[2022-07-05] MEDS: CLORAZEPATE DIPOTASSIUM (*CRX) 3.75 MG TABLET FEED TUBE ×2 (09:18→12:22)
[2022-07-05] MEDS: ENOXAPARIN 30 MG/0.3 ML SYRINGE SUB-Q (09:19)
[2022-07-05] MEDS: VALPROIC ACID LIQ 250 MG/5 ML ORAL SOLUTION UDC FEED TUBE (09:19)
[2022-07-05] MEDS: diazePAM (*CRX) 2.5 MG TABLET FEED TUBE (09:24)
--- NOTE | 2022-07-05 09:36 | PCNFU ---
Nutrition Follow-Up Complete: Need for enteral nutrition administration related to chronic illness, need for full tube feeding as evidenced by PEG tube, NPO status Meet estimated nutrition needs Goal: Pt current nutrition is Jevity 1.5 @ 45 ml/h for 1485 kcals, 63 g protein, 752 ml free water from formula. 100ml flus q 4 hrs Nutrition recommendation: Continue with current plan of care Last recorded weight is 41.6 kg. Bowel Motility: + BM 07/04 Labs Reviewed: Hgb:13.4, HCT:39.8, Glu:127 Meds Noted: lovenox, reglan, miralax Skin: WNL Additional Notes: Pt stated on tube feedings per recommendation, tolerating well. Agree with orders. Monitoring tolerance, weights, labs, plan of care Follow up Tuesdays and Fridays per policy
[2022-07-05 11:12] VITALS: O2SAT 92
[2022-07-05 14:43] VITALS: BP 101/63; PULSE 78; RESP 20; TEMP 36.4; O2SAT 93
--- NOTE | 2022-07-05 16:30 | PM.DS ---
DS: Admitting Diagnosis Discharge Date 07/05/2022 Admitting Diagnosis sepsis DS: Discharge Diagnosis Discharge Diagnosis (1) Sepsis: Qualifiers: Sepsis acute organ dysfunction status: without acute organ dysfunction Sepsis type: sepsis due to unspecified organism Qualified Code(s): A41.9 - Sepsis, unspecified organism Code(s): A41.9 - Sepsis, unspecified organism Status: Acute (2) Aspiration pneumonia: Qualifiers: Aspiration pneumonia type: unspecified Laterality: unspecified laterality Lung location: unspecified part of lung Qualified Code(s): J69.0 - Pneumonitis due to inhalation of food and vomit Code(s): J69.0 - Pneumonitis due to inhalation of food and vomit Status: Acute (3) Esophagitis with gastritis: Code(s): K29.70 - Gastritis, unspecified, without bleeding; K20.90 - Esophagitis, unspecified without bleeding Status: Acute (4) Hypoxia: Code(s): R09.02 - Hypoxemia Status: Acute (5) Bladder wall thickening: Code(s): N32.89 - Other specified disorders of bladder Status: Acute (6) Seizure disorder: Code(s): G40.909 - Epilepsy, unspecified, not intractable, without status epilepticus Status: Acute DS: Summary Hospital Course Hospital Course: # Sepsis: Present on admission and evidenced by fever, hypotension, tachycardia, tachypnea, and leukocytosis in the setting of pneumonia. Blood pressures have responded somewhat to IV fluids and he is running near his baseline. Blood cultures have been obtained and are no growth to date # Aspiration pneumonia: Mother reports that his abdomen was distended this morning and that he vomited up quite a large amount of his tube feedings. It looks like he was on Reglan 10 mg q.6 hours with his previous hospitalization though appeared to have an ileus at that time. continue Reglan with meals. No evidence of obstruction or ileus noted on CT on admission. Elevate head of bed. Monitor residuals.? Tube feeds currently on hold.?ube feed resumed continous ad tolerated well. # Esophagitis with gastritis: Continue omeprazole. # Hypoxia: Related to aspiration.? Oxygen has been weaned off.? Currently on room air saturating well # Bladder wall thickening: Noted on CT, may be due to neurogenic bladder/outlet compromise or cystitis. He has had blood on multiple urinalyses over the years and he may very well have some chronic cystitis.? Mother reports that he was dry this morning, bladder scan p.r.n. to check residuals. he was urinating well durig the hospital without much residual # Seizure disorder: Continue anti seizure medications. Time Spent with Patient Time attestation: Total time spent providing and/or coordinating discharge services:45 mins Exam Narrative: General: chronically debilitated male resting comfortably in bed. HEENT: Atraumatic. Pupils are reactive. Extraocular motions appear to be intact. Sclera anicteric. Tacky mucous membranes. Fair dentition. Oropharynx not visualized. Neck: Supple. No lymphadenopathy. Respiratory: Diminished breath sounds bilaterally, no respiratory distress Cardiovascular: Regular rate and rhythm Gastrointestinal: Abdomen is soft. G-tube button is clean, dry, and intact. Hypoactive bowel sounds. No guarding or rebound tenderness. Mildly distended Skin: Warm and dry. Generalized pallor. Extremities: No cyanosis, clubbing, or edema. Normal capillary refill. Peripheral pulses intact. Neurological: Alert. Cranial nerves 2-12 are grossly intact. He is nonverbal. 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 He does follow some commands. Psychiatric: Cooperative. DS: Data Data Completed and Pending Labs on day of discharge: Labs from last 24 hours 07/05/22 07/05/22 07/04/22 07:11 07:11 23:55 WBC 6.6 RBC 4.35 L Hgb 13.4 L Hct 39.8 L MCV 91.5 MCH 30.8 MCHC 33.7 RDW
--- NOTE | 2022-07-05 17:05 | PC.NURSE ---
Pt has been compliant with care. Pt family at bedside. Pt appears to have some discomfort with increase in continuous feeding. Pt was able to have a bowel movement and void. Post void urine measures at 129. Pt had aloe vesta applied to skin breakdown on sacrum and in groin. Pt was monitored for any changes in status. Pt discharging home with family. Will continue to monitor pt until discharge.
== END 2022-07-05 17:40 | disposition home or self-care (01) | DRG 871 ==
LOC: ANHED 17:15 → ANHIMU 17:44 → ANH3MEDSUR 07-04 21:54
PROVIDERS: Physician Assistant; Admitting Provider Internal Medicine; Emergency Provider Emergency Medicine; PCP Internal Medicine; Visit Provider Internal Medicine
DX: A41.9 Sepsis, unspecified organism (principal); J69.0 Pneumonitis due to inhalation of food and vomit; K29.70 Gastritis, unspecified, without bleeding; K20.90 Esophagitis, unspecified without bleeding; R09.02 Hypoxemia; N32.89 Other specified disorders of bladder; G40.909 Epilepsy, unspecified, not intractable, without status epilepticus; G80.9 Cerebral palsy, unspecified; Z20.822 Contact with and (suspected) exposure to COVID-19; Z93.1 Gastrostomy status; Z79.899 Other long term (current) drug therapy; Z88.2 Allergy status to sulfonamides
CPT/HCPCS: 36415; 71045; 71260; 74177; 80053; 81001; 82948; 83735; 85025; 85027; 86703; 86803; 87040; 87340; 87493; 87637; 93005; 96361; 96365; 96366; 96367; 96372; 99285; A9270; G0378; G0432; J0131; J1650; J2543; J7030; Q9967

== ENCOUNTER 2022-11-01 00:36 | Outpatient (CLI) | payer MEDICARE, MEDICAID, SELFPAY ==
--- NOTE | ~2022-11-01 | CT_ITS ---
EXAMINATION: CT abdomen pelvis w con DATE: 11/01/2022 14:51 INDICATION: Abdominal distention TECHNIQUE: Computed tomography (CT) of the abdomen and pelvis was performed with 100 mL Omnipaque-350 intravenous contrast. Automated exposure control and iterative reconstruction technique were employe d. The dose-length product was 344.93 mGy-cm. COMPARISON: None FINDINGS: Mild chest wall deformity is fissure with partially visualized moderate thoracolumbar dextroscoliosis . There is instrumented posterior thoracolumbar posterior spinal fusion with bilateral vertical rods with combination of pedicle screws and laminar wires which extends from the cephalad margin of the fi eld-of-view which is at T6 through S1 with bilateral iliac screws. Instrumentation results in streak artifact mildly limiting evaluation most prominently at the lower abdomen and upper pelvis. Associate d developmental chest wall deformity with volume loss in the visualized left hemithorax and associate d mild atelectasis in the left lower lobe. Heart size is normal. No pericardial or pleural effusion. Liver, gallbladder, spleen, pancreas, bilateral adrenal glands and kidneys are normal. Percutaneous g astrostomy tube in the distal body of the stomach. Liquid stool seen scattered throughout the colon c onsistent with nonspecific diarrhea. No dilated bowel to suggest obstruction. The appendix is not vis ualized. No pericecal inflammatory change to suggest acute appendicitis. Bladder is normal. No free i ntraperitoneal gas or fluid. No pathologically enlarged abdominal or pelvic lymphadenopathy. IMPRESSION: 1. Nonspecific diarrhea. No other acute intra-abdominal/pelvic process. Reviewed, dictated and finalized at location L.
[2022-11-01 12:13] VITALS: BP 106/82; PULSE 93; RESP 18; TEMP 36.4; O2SAT 96
--- NOTE | 2022-11-01 14:21 | PM.HPGS ---
History of Present Illness History of Present Illness Consent: Risks, benefits, and alternatives have been discussed and questions answered. Patient agrees to proceed with procedure. Chief complaint: g-tube malfunction Narrative: Dallas Slaughter is a 37 year old male with cerebral palsy has had a G-tube for many years. Has recently noted deterioration of external G-tube patient has a Del type 2 G-tube. The skin around this become quite irritated. Abdomen has become distended. Patient is now having liquid bowel movements. Patient recently hospitalized with pneumonia felt to have aspiration. He had significant gastritis at the time of endoscopy. Was felt to have fecal impaction at that time. Since discharge from the hospital stools have been liquidy in abdomen distended. Review of Systems Review of Systems: Review of systems unobtainable. [facility] Past Medical History Medical History (Updated 11/01/22 @ 14:23 by Fletcher Mccartney MD) Anxiety Cerebral palsy Dysphagia Chronic. G-tube in place. Esophagitis with gastritis Failure to thrive History of GI bleed History of pulmonary aspiration Seizure disorder Uses powered wheelchair Surgical History Surgical History Gastrointestinal tube present History of orthopedic surgery Multiple surgeries related to his cerebra palsy including tendon surgeries and Green transfer. History of spinal fusion Family History Family History Father Family history of elevated blood lipids Family history of diabetes mellitus in first degree relative Hypertension Chronic obstructive pulmonary disease Other Lung cancer Social History Social History Social History: Surrogate decision maker: Cm and Leonora Slaughter, parents. Code status: Full code. Smoking status: Never smoker Second hand tobacco smoke exposure: No Alcohol intake: never Substance use: never Substance use type: does not use Lack of Transportation: No Lack of Food: Never True Current Housing: I Have Housing Concerned About Future Housing: No Difficulty Paying Gas/Electric Bills: No Difficulty Paying for Meds: No Currently Unemployed: No Education: High School Diploma/GED Difficulty w/ Childcare or Family Care: No Living arrangements: with family Additional living arrangements comments: The patient lives with his parents and 19-year-old brother in [place]. His father is currently suffering from dementia. He is wheelchair-dependent and uses an electric wheelchair which he can manage quite nicely. In fact he likes to spend a lot of his time out in their [place] where they have cars and motorcycles, which he really enjoys. He is dependent on most activities of daily living. Occupation/Education: unemployed Additional occupation/education comments: Disabled. Spiritual care concerns: No Meds Home Medications and Allergies Home Medications Medication Instructions Recorded Confirmed Type albuterol sulfate 2.5 mg/3 mL 2.5 mg (3 mL) inhalation Q4-6H PRN 09/02/20 10/26/22 Rx (0.083 %) solution for nebulization shortness of breath or wheezing #180 mL mupirocin 2 % topical ointment 1 applic topical BID PRN Edema #22 12/02/21 10/26/22 Rx grams polyethylene glycol 3350 17 gram 17 g feeding tube BID PRN 06/20/22 10/26/22 Rx oral powder packet (Miralax) constipation #30 ea bisacodyl 10 mg rectal suppository 10 mg RECTAL DAILY PRN 07/14/22 10/26/22 Rx (Dulcolax (bisacodyl)) constipation #12 ea valproic acid (as sodium salt) 250 250 mg (5 mL) feeding tube Q12H 07/19/22 10/26/22 Rx mg/5 mL (5 mL) oral solution #300 mL diazepam 5 mg tablet See Rx Instructions .Route 07/20/22 10/26/22 Rx .COMPLEX PRN muscle spasm #90 tabs clorazepate dipotassium 3.75 mg 3.75 mg feeding tube TID #90 tabs
--- NOTE | 2022-11-01 14:25 | PM.OP ---
Procedure Note - Brief Procedure Note - Brief Date of procedure: 11/01/22 g-tube malfunction Post-op diagnosis: Same Procedure performed: Peg tube exchange. The old PEG tube in her balloon is recur deflated. 5Cc of fluid was withdrawn from the inner balloon and this is withdrawn from the abdomen without difficulty. 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 5Cc water used to inflate the inner balloon. Patient tolerated the procedure with no immediate complications. At this time okay to resume previous tube feedings. Surgeon: Fletcher Mccartney MD Anesthesia: none Findings: Peg site appears well healed. Previous inflammation around the exterior the tube is identified. Some probable flash on for appears chronic at the PEG tube site. Description of procedure: Peg tube exchange as previously described. Old PEG tube removed with removal of 5cc of fluid from the inner balloon. 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 New PEG tube balloon is inflated with 5cc of water. Drains: No Packing: No Pathology: None sent Complications: No immediate complications Condition: Stable Disposition: Other ( discharge home)
--- NOTE | 2022-11-01 14:33 | SUR.PREOP ---
Addendum entered by Karley Hernandez, [employer] 11/01/22 14:42: G-tube removed by Dr. Mccartney. IV lock to be removed by CT- scan personnel after the exam. Discharge instructions given to mom and questions answered. Original Note: 1405 Time out completed prior to start of procedure. G-tube without difficulty, new ALDO-Rai G tube placed by Dr. Mccartney. Abdomen distended prior to procedure. Dr. Mccartney discussed pt's condition with patient's mom, CT orders obtained. 1435 Patient discharged via wheel chair to Radiology for CT- scan.
[2022-11-01 14:43] LABS: Estimated Glomerular Filt Rate > 60
== END 2022-11-01 00:37 | disposition home or self-care (01) ==
PROVIDERS: PCP Family Medicine; Visit Provider Internal Medicine Gastroenterology
PROC: 0DH63UZ Insertion of Feeding Device into Stomach, Percutaneous Approach (ICD-10-PCS; CPT 43246; principal; 2022-11-01 14:15)
DX: R14.0 Abdominal distension (gaseous) (principal); R19.7 Diarrhea, unspecified; G80.9 Cerebral palsy, unspecified; Z93.1 Gastrostomy status
CPT/HCPCS: 74177; 87045; 87427; 87449; 99212; G0463; Q9967

== ENCOUNTER 2022-11-02 13:48 | Outpatient (NON) | payer MEDICARE, MEDICAID, SELFPAY | END 2022-11-02 13:49 | disposition home or self-care (01) | PROVIDERS: PCP Family Medicine; Visit Provider Internal Medicine Gastroenterology | DX: R19.8 Other specified symptoms and signs involving the digestive system and abdomen (principal) | CPT/HCPCS: 87045; 87427; 87449 ==

== ENCOUNTER 2022-11-04 18:48 | Emergency (ER) | payer MEDICARE, MEDICAID, SELFPAY ==
--- NOTE | ~2022-11-04 | CT_ITS ---
EXAMINATION: CT abdomen pelvis w con DATE: 11/05/2022 01:26 INDICATION: Leakage around gastrostomy tube. TECHNIQUE: Computed tomography (CT) of the abdomen and pelvis was performed with 94 mL Omnipaque 350 intravenous contrast. Automated exposure control and iterative reconstruction technique were employed . The dose-length product was 313.58 mGy-cm. COMPARISON: CT abdomen and pelvis 11/01/2022 FINDINGS: The visualized portions of the lung bases demonstrate mild atelectasis versus scarring in l eft lower lobe. A calcified right lung nodule is consistent with old granulomatous disease. There is bronchiectasis bilaterally. No pleural effusion. The heart size is normal. No pericardial effusion. T he liver, gallbladder, spleen, pancreas, adrenal glands, and kidneys are normal. There is a gastrosto my tube in expected position. There are no dilated loops of bowel. There are no pathologically enlarg ed lymph nodes. There is no free intraperitoneal fluid. There are changes of posterior fusion procedu re involving the thoracic and lumbar spine, sacrum, and iliac bones. There is dextroscoliosis of thor acolumbar spine. IMPRESSION: 1. Gastrostomy tube in expected position. Reviewed, dictated and finalized at location E.
[2022-11-04 18:50] VITALS: BP 124/80; PULSE 89; RESP 17; TEMP 37.4; O2SAT 98
[2022-11-04 22:00] VITALS: BP 115/86; TEMP 36.9; O2SAT 100
[2022-11-05] MEDS: SODIUM CHLORIDE 0.9% IV 1,000 ML 999 ML IV CONT (00:34)
[2022-11-05 00:35] LABS: Basophils Percent Auto 0.4 % (0.2-1.2); Eosinophils Percent Auto 0.3 % (0-4.4); Hematocrit 48.7 % (42.0-52.0); Immature Granulocyte Absolute 0.04 K/mm3 (0.00-0.031); Immature Granulocyte Percent A 0.4 % (0-0.5); Lymphocytes Absolute Auto 4.39 K/mm3 (0.9-3.2); Lymphocytes Percent Auto 46.2 % (18.3-44.2); Mean Corpuscular HGB Conc 32.9 g/dl (32-36); Mean Corpuscular Hemoglobin 30.1 pg (26-34); Mean Corpuscular Volume 91.7 fl (80-100); Mean Platelet Volume 10.2 fl (7.4-10.4); Monocytes Absolute Auto 1.2 K/mm3 (0.1-0.6); Monocytes Percent Auto 12.1 % (2.6-8.5); Neutrophils Absolute Auto 3.9 K/mm3 (1.3-6.7); Neutrophils Percent Auto 40.6 % (45.5-73.1); Platelet Count Result 239 k/mm3 (150-375); Red Blood Count 5.31 M/mm3 (4.6-6.20); Red Cell Distribution Width 14.3 % (11.5-14.5); White Blood Count 9.5 K/mm3 (4.5-10.0)
[2022-11-05 00:38] LABS: Glucose Point of Care 88 mg/dl (65-105)
[2022-11-05 00:52] LABS: Alanine Aminotransferase 42 U/L (6-50); Albumin Level 4.6 g/dL (3.5-5.1); Alkaline Phosphatase 119 U/L (38-126); Anion Gap 7 mmol/L (8-16); Aspartate Amino Transferase 41 U/L (17-59); Bilirubin,Total 0.5 mg/dL (0.2-1.3); Blood Urea Nitrogen 24 mg/dL (9-20); Calcium 9.5 mg/dL (8.4-10.2); Carbon Dioxide 30 mmol/L (22-30); Chloride 101 mmol/L (98-107); Estimated CRCL calculation 85 ml/min; Estimated Glomerular Filt Rate > 60; Glucose 90 mg/dL (65-110); Lactic Acid Reflex 1.4 mmol/L (0.7-2.0); Lipase 76 U/L (23-300); Magnesium 1.9 mg/dL (1.6-2.3); Potassium 4.6 mmol/L (3.4-5.0); Sodium 138 mmol/L (137-145)
--- NOTE | 2022-11-05 02:14 | ED.GENADULT ---
HPI - General Adult General Chief complaint: Unspecified Stated complaint: G-tube problem Time Seen by Provider: 11/04/22 23:22 History of Present Illness HPI narrative: This is a 37-year-old patient with cerebral palsy and chronic G-tube presenting with G-tube malfunction. The patient's mom has been working with Dr. Cheney (GI) as she has been having difficulty with his G-tube. A new tube was placed 3 days ago. Since then she has had some leaking around the G-tube site. She also believes the patient's abdomen's is distended x 4 months. GI's believes he may have slow gastric emptying and has scheduled a bowel transit study for November 16. The patient is nonverbal but the mother believes that he is more comfortable than usual. He has been having bowel movements and urinating normally. Related Data Home Medications Medication Instructions Recorded Confirmed amoxicillin 600 mg-potassium 7.3 ml feeding tube BID 10/26/22 10/26/22 clavulanate 42.9 mg/5 mL oral suspension Allergies Allergy/AdvReac Type Severity Reaction Status Date / Time Sulfa (Sulfonamide Allergy Unknown LIPS AND Verified 11/04/22 22:52 Antibiotics) GENITAL PEELING SKIN PMFSH Past Medical History Medical History Anxiety Cerebral palsy Dysphagia Chronic. G-tube in place. Esophagitis with gastritis Failure to thrive History of GI bleed History of pulmonary aspiration Seizure disorder Uses powered wheelchair Surgical History Surgical History Gastrointestinal tube present History of orthopedic surgery Multiple surgeries related to his cerebra palsy including tendon surgeries and Green transfer. History of spinal fusion Family History Family History Father Family history of elevated blood lipids Family history of diabetes mellitus in first degree relative Hypertension Chronic obstructive pulmonary disease Other Lung cancer Social History Social History Social History: Surrogate decision maker: Cm and Leonora Slaughter, parents. Code status: Full code. Smoking status: Never smoker Second hand tobacco smoke exposure: No Alcohol intake: never Substance use: never Substance use type: does not use Lack of Transportation: No Lack of Food: Never True Current Housing: I Have Housing Concerned About Future Housing: No Difficulty Paying Gas/Electric Bills: No Difficulty Paying for Meds: No Currently Unemployed: No Education: High School Diploma/GED Difficulty w/ Childcare or Family Care: No Living arrangements: with family Additional living arrangements comments: The patient lives with his parents and 19-year-old brother in [place]. His father is currently suffering from dementia. He is wheelchair-dependent and uses an electric wheelchair which he can manage quite nicely. In fact he likes to spend a lot of his time out in their [place] where they have cars and motorcycles, which he really enjoys. He is dependent on most activities of daily living. Occupation/Education: unemployed Additional occupation/education comments: Disabled. Spiritual care concerns: No Exam Narrative: APPEARANCE: cerebral palsy Head: atraumatic. EYES: EOMI, NOSE: Atraumatic NECK: Trachea midline RESPIRATORY: No increased rate of breathing CARDIOVASCULAR: RRR, ABDOMINAL: G-tube is in place with some minor excoriation in the surrounding skin. Abdomen is distended but not tender with no guarding. MUSCULOSKELETAl: No obvious deformities NEURO: Alert. Moving 4/4 extremities SKIN:: Warm, dry. Normal color PSYCHIATRIC: Normal affect Course Vital Signs Vital signs: Vital Signs Temperature 99.4 F 11/04/22 18:50 Pulse Rate 89 11/04/22 18:50 Respiratory Rate 17 10/25
[2022-11-05 03:09] VITALS: BP 111/81; PULSE 90; RESP 15; O2SAT 98
== END 2022-11-05 03:10 | disposition home or self-care (01) ==
PROVIDERS: Emergency Provider Emergency Medicine; PCP Family Medicine
DX: G80.9 Cerebral palsy, unspecified (principal); K94.23 Gastrostomy malfunction; Z79.899 Other long term (current) drug therapy
CPT/HCPCS: 36415; 74177; 80053; 82948; 83605; 83690; 83735; 85025; 96360; 96361; 99284; J7030; Q9967

== ENCOUNTER 2022-11-16 08:35 | Outpatient (CLI) | payer MEDICARE, MEDICAID, SELFPAY ==
--- NOTE | ~2022-11-16 | XR_ITS ---
EXAMINATION: XR UGI water soluble w sbs DATE: 11/16/2022 10:54 INDICATION: Abdominal distention TECHNIQUE: 360 cc of water-soluble contrast were administered through the indwelling G-tube. Conventi onal supine abdomen radiographs and fluoroscopy of the esophagus, stomach, and small bowel were perfo rmed. Fluoroscopy exposure time was 3.3 minutes. The DAP for this procedure was 31.208 Gycm2. COMPARISON: None. FINDINGS: UPPER GASTROINTESTINAL SERIES: There is no mass or stricture of the distal esophagus. There is no hiatal hernia. There was there is moderate to large volume of spontaneous gastroesophageal reflux. The stomach shows a normal folding p attern.] SMALL BOWEL SERIES: Transit time from the stomach to proximal colon was approximately 30 minutes. There is normal caliber and mucosal fold pattern throughout the small bowel. Terminal ileum is normal. No tethering or abnor mal mass effect observed upon the small bowel with real-time fluoroscopy. There is slow emptying of c ontrast material from the stomach. IMPRESSION: 1. Slow emptying of contrast material from the stomach. 2. Moderate to large volume of spontaneous gastroesophageal reflux. Reviewed, dictated and finalized at location A.
== END 2022-11-16 08:36 | disposition home or self-care (01) ==
PROVIDERS: PCP Family Medicine; Visit Provider Internal Medicine Gastroenterology
DX: R14.0 Abdominal distension (gaseous) (principal); Z93.1 Gastrostomy status
CPT/HCPCS: 74240; 74248

== ENCOUNTER 2022-12-13 14:55 | Outpatient (CLI) | payer MEDICARE, MEDICAID, SELFPAY ==
[2022-12-13 15:24] LABS: Basophils Percent Auto 0.4 % (0.2-1.2); Eosinophils Absolute Auto 0.1 K/mm3 (0-0.3); Eosinophils Percent Auto 1.7 % (0-4.4); Hematocrit 46.9 % (42.0-52.0); Hemoglobin 15.4 g/dL (14.0-18.0); Immature Granulocyte Absolute 0.02 K/mm3 (0.00-0.031); Immature Granulocyte Percent A 0.3 % (0-0.5); Lymphocytes Absolute Auto 3.34 K/mm3 (0.9-3.2); Lymphocytes Percent Auto 46.9 % (18.3-44.2); Mean Corpuscular HGB Conc 32.8 g/dl (32-36); Mean Corpuscular Hemoglobin 30.7 pg (26-34); Mean Corpuscular Volume 93.6 fl (80-100); Mean Platelet Volume 10.5 fl (7.4-10.4); Monocytes Absolute Auto 1.1 K/mm3 (0.1-0.6); Monocytes Percent Auto 15.6 % (2.6-8.5); Neutrophils Absolute Auto 2.5 K/mm3 (1.3-6.7); Neutrophils Percent Auto 35.1 % (45.5-73.1); Platelet Count Result 207 k/mm3 (150-375); Red Blood Count 5.01 M/mm3 (4.6-6.20); Red Cell Distribution Width 14.6 % (11.5-14.5); White Blood Count 7.1 K/mm3 (4.5-10.0)
[2022-12-13 15:35] LABS: Alanine Aminotransferase 30 U/L (6-50); Albumin Level 4.1 g/dL (3.5-5.1); Alkaline Phosphatase 84 U/L (38-126); Anion Gap 7 mmol/L (8-16); Aspartate Amino Transferase 32 U/L (17-59); Bilirubin,Total 0.4 mg/dL (0.2-1.3); Blood Urea Nitrogen 19 mg/dL (9-20); Calcium 9.2 mg/dL (8.4-10.2); Carbon Dioxide 31 mmol/L (22-30); Chloride 100 mmol/L (98-107); Estimated Glomerular Filt Rate > 60; Glucose 105 mg/dL (65-110); Potassium 4.3 mmol/L (3.4-5.0); Sodium 138 mmol/L (137-145)
== END 2022-12-13 14:56 | disposition home or self-care (01) ==
PROVIDERS: PCP Nurse Practitioner Family; Visit Provider Nurse Practitioner Family
DX: G80.9 Cerebral palsy, unspecified (principal); R19.7 Diarrhea, unspecified
CPT/HCPCS: 36415; 80053; 85025

== ENCOUNTER 2023-03-14 01:01 | Day surgery (SDC) | payer MEDICARE, MEDICAID, SELFPAY ==
[2023-03-14 10:38] VITALS: BP 124/79; PULSE 94; RESP 18; TEMP 36.6; O2SAT 96
[2023-03-14 10:40] VITALS: BMI 17.7
[2023-03-14 10:51] VITALS: TEMP 37.7
--- NOTE | 2023-03-14 11:27 | SUR.PREOP ---
Dr Mccartney at bedside to change G tube- Diana POA Mother present. No acute distress noted. Small rash noted by mother- instructed wound care per Dr Mccartney.
--- NOTE | 2023-03-14 11:34 | PM.HPGS ---
History of Present Illness History of Present Illness Consent: Risks, benefits, and alternatives have been discussed and questions answered. Patient agrees to proceed with procedure. Chief complaint: Gastrostomy status Narrative: Dallas Slaughter is a 37 year old male Presents for replacement of G-tube. Patient has cerebral palsy. Currently gets around in a wheelchair. Patient has a button type PEG tube that requires replacement every several months. Patient presents today for replacement of the G-tube. Patient's mother reports that he has some difficulty with bowel habits. Currently he is seen as a GI it as it is tertiary care center for a 2nd opinion. No bleeding is noted. His weight has improved some since last visit, Review of Systems Review of Systems: Review of systems noncontributory. [facility]LY [facility] Past Medical History Medical History Anxiety Cerebral palsy Dysphagia Chronic. G-tube in place. Esophagitis with gastritis Failure to thrive History of GI bleed History of pulmonary aspiration Seizure disorder Uses powered wheelchair Surgical History Surgical History Gastrointestinal tube present History of orthopedic surgery Multiple surgeries related to his cerebra palsy including tendon surgeries and Green transfer. History of spinal fusion Family History Family History Father Family history of elevated blood lipids Family history of diabetes mellitus in first degree relative Hypertension Chronic obstructive pulmonary disease Other Lung cancer Social History Social History Social History: Surrogate decision maker: Cm and Leonora Slaughter, parents. Code status: Full code. Smoking status: Never smoker Second hand tobacco smoke exposure: No Alcohol intake: never Substance use: never Substance use type: does not use Lack of Transportation: No Lack of Food: Never True Current Housing: I Have Housing Concerned About Future Housing: No Difficulty Paying Gas/Electric Bills: No Difficulty Paying for Meds: No Currently Unemployed: No Education: High School Diploma/GED Difficulty w/ Childcare or Family Care: No Living arrangements: with family Additional living arrangements comments: The patient lives with his parents and 19-year-old brother in [place]. His father ~12/2022. He is wheelchair-dependent and uses an electric wheelchair which he can manage quite nicely. In fact he likes to spend a lot of his time out in their pole [place] where they have cars and motorcycles, which he really enjoys. He is dependent on most activities of daily living. Occupation/Education: unemployed Additional occupation/education comments: Disabled. Spiritual care concerns: No Meds Home Medications and Allergies Home Medications Medication Instructions Recorded Confirmed Type albuterol sulfate 2.5 mg/3 mL 2.5 mg (3 mL) inhalation Q4-6H PRN 09/02/20 03/02/23 Rx (0.083 %) solution for nebulization shortness of breath or wheezing #180 mL mupirocin 2 % topical ointment 1 applic topical BID PRN Edema #22 12/02/21 03/02/23 Rx grams polyethylene glycol 3350 17 gram 17 g feeding tube BID PRN 06/20/22 03/02/23 Rx oral powder packet (Miralax) constipation #30 ea bisacodyl 10 mg rectal suppository 10 mg RECTAL DAILY PRN 07/14/22 03/02/23 Rx (Dulcolax (bisacodyl)) constipation #12 ea acetaminophen 500 mg/15 mL oral 500 mg (15 mL) feeding tube Q6H 10/18/22 03/02/23 Rx liquid PRN fever or pain #240 mL metoclopramide HCl 5 mg/5 mL oral See Rx Instructions .Route 11/25/22 03/02/23 Rx solution .COMPLEX #12,000 mL nystatin 100,000 unit/gram topical 1 applic topical TID #120 grams 12/14/22 03/02/23 Rx cream baclofen 20 mg tablet See Rx Instructions .Rou
--- NOTE | 2023-03-14 11:37 | PM.OP ---
Procedure Note - Brief Procedure Note - Brief Date of procedure: 03/14/23 Gastrostomy status Post-op diagnosis: Same Procedure performed: Replacement of button type gastrostomy tube. Surgeon: Fletcher Mccartney MD Anesthesia: none Description of procedure: Previous button type gastrostomy tube is noted be in place. Appears to be well healed. The tube internal bumper is decompressed 5cc of fluid is withdrawn from the internal bumper an old G-tube is withdrawn and removed. A new button type gastrostomy tube was replaced into the existing gastrocutaneous fistula. The internal bumper is inflated with 5cc of sterile water. Tolerated well by patient. He can resume tube feedings today. Implants: Button type gastrostomy tube left in place. Estimated blood loss (mL): 0 Drains: No Packing: No Pathology: None sent Complications: None Condition: Stable Disposition: Other ( Home)
--- NOTE | 2023-03-24 11:41 | W.PM.PROC2 ---
Procedure Note - Detailed Date of Procedure 03/14/23 Pre-op Diagnosis Gastrostomy status Post-op Diagnosis Same Procedure Performed Exchange of PEG tube. Surgeon Fletcher Mccartney MD Anesthesia None Indications Peg tube malfunction. Findings Old PEG tube functioning well but is been in place for more than 3 months. Description of Procedure Internal bumper of a PEG tube is decompressed by withdrawing fluid. New button like PEG tube is replaced into the gastrocutaneous fistula. Internal bumper filled with sterile water. Patient tolerated the procedure well. Implants Replacement PEG tube is replaced. Estimated Blood Loss 0 IV Fluids 0 Drains No Packing No Pathology None sent Complications None Condition Stable Disposition Same day [facility] Billing Surgery - Charge Forward: Surgery Billing
== END 2023-03-14 11:14 | disposition home or self-care (01) ==
PROVIDERS: PCP Family Medicine; Visit Provider Internal Medicine Gastroenterology
PROC: 0DJ08ZZ Inspection of Upper Intestinal Tract, Via Natural or Artificial Opening Endoscopic (ICD-10-PCS; CPT 43235; principal; 2023-03-14 11:30)
PROC: 0DH63UZ Insertion of Feeding Device into Stomach, Percutaneous Approach (ICD-10-PCS; CPT 43246; 2023-03-14 11:30)
DX: Z43.1 Encounter for attention to gastrostomy (principal); G80.9 Cerebral palsy, unspecified
CPT/HCPCS: 43762; 99211; 99212; G0463

== ENCOUNTER 2023-05-10 16:08 | Inpatient (IN) | payer MEDICARE, MEDICAID, SELFPAY ==
[2023-05-10] VITALS (16 sets, daily range): BP systolic 100–134; BP diastolic 57–90; PULSE 108–137; RESP 14–25; TEMP 37.3; O2SAT 93–97
--- NOTE | ~2023-05-10 | XR_ITS ---
EXAMINATION: XR chest 1V portable DATE: 05/10/2023 16:51 INDICATION: Fever. TECHNIQUE: A single frontal view of the chest was obtained. COMPARISON: Chest single view 07/02/2022, chest CT 07/02/2022 FINDINGS: Calcified pulmonary nodules are consistent with old granulomatous disease. There is no pneu monia, pleural effusion, or pneumothorax. The heart size is normal. There are changes of posterior fu susan procedure in thoracic lumbar spine. IMPRESSION: 1. No acute cardiopulmonary disease. Reviewed, dictated and finalized at location A. HING MACHINE OPERATOR
--- NOTE | ~2023-05-10 | CT_ITS ---
EXAMINATION: CT chest abdomen pelvis w con DATE: 05/10/2023 20:10 INDICATION: Fever, hematuria and possible aspiration. TECHNIQUE: Computed tomography (CT) of the chest, abdomen, and pelvis was performed with 100 mL Omnip aque-350 intravenous contrast. Automated exposure control and iterative reconstruction technique were employed. The dose-length product was 398.53 mGy-cm. COMPARISON: CT dated 07/02/2022 and 11/16/2022 FINDINGS: CHEST CT: Round atelectasis at the basilar left lower lobe. Subtle tree-in-bud opacities in the posterior segme nt of the right upper lobe consistent with endobronchial disease such as aspiration or pneumonia. No pulmonary edema, pleural effusion or pneumothorax. Heart size is normal. No pericardial effusion. Tho racic aorta is normal in caliber with no dissection. No pathologically enlarged thoracic lymphadenopa thy. There is extensive posterior spinal fusion extending from T2 through the lumbar spine and pelvis with bilateral vertical rods and combination of pedicle screws and laminar hooks and bilateral iliac screws. ABDOMEN/PELVIS CT: Liver, gallbladder, spleen, pancreas, bilateral adrenal glands and kidneys are normal. Percutaneous g astrostomy tube bulb in the body the stomach. Bladder is normal. Edematous wall thickening and surrou nding hyperemia and inflammatory stranding along the rectum and distal sigmoid colon consistent with a proctocolitis. The appendix is not visualized. No pericecal inflammatory change to suggest acute ap pendicitis. No bowel obstruction. No free intraperitoneal gas or fluid. No pathologically enlarged ab dominal or pelvic lymphadenopathy. IMPRESSION: 1. Distal proctocolitis most likely infectious or inflammatory in etiology. 2. Tree-in-bud opacities in the posterior segment of the right upper lobe consistent with aspiration and/or pneumonia. Reviewed, dictated and finalized at location A. IER AND SALESPERSON IMPRESSION: 1. Distal proctocolitis most likely infectious or inflammatory in etiology. 2. Tree-in-bud opacities in the posterior segment of the right upper lobe consi stent with aspiration and/or pneumonia.
[2023-05-10 17:17] LABS: Basophils Percent Auto 0.2 % (0.2-1.2); Hematocrit 45.8 % (42.0-52.0); Hemoglobin 15.4 g/dL (14.0-18.0); Immature Granulocyte Absolute 0.06 K/mm3 (0.00-0.031); Immature Granulocyte Percent A 0.3 % (0-0.5); Lymphocytes Absolute Auto 1.69 K/mm3 (0.9-3.2); Lymphocytes Percent Auto 9.3 % (18.3-44.2); Mean Corpuscular HGB Conc 33.6 g/dl (32-36); Mean Corpuscular Hemoglobin 31.4 pg (26-34); Mean Corpuscular Volume 93.3 fl (80-100); Mean Platelet Volume 9.6 fl (7.4-10.4); Monocytes Absolute Auto 2.1 K/mm3 (0.1-0.6); Monocytes Percent Auto 11.4 % (2.6-8.5); Neutrophils Absolute Auto 14.3 K/mm3 (1.3-6.7); Neutrophils Percent Auto 78.8 % (45.5-73.1); Platelet Count Result 275 k/mm3 (150-375); Red Blood Count 4.91 M/mm3 (4.6-6.20); Red Cell Distribution Width 12.8 % (11.5-14.5); White Blood Count 18.2 K/mm3 (4.5-10.0)
--- NOTE | 2023-05-10 17:26 | ED.GENADULT ---
HPI - General Adult General Chief complaint: Fever Stated complaint: Fever Time Seen by Provider: 05/10/23 16:26 History of Present Illness HPI narrative: patient is a 37-year-old male who presents ER with concern for possible aspiration. Patient had a tube feed today. Shortly after while his mother was laying the then the a.m. to have shaking chills and spiked a fever. She reports he is flying his nostrils. He has had history of aspiration the past. She did not witness aspiration she had not heard him coughing. She reports the patient was at his PCPs office a week ago but otherwise has not been around any potential sick individuals. He also has history of UTI and she has not noticed anything different recently. Patient is nonverbal and cannot provide history. Related Data Home Medications Medication Instructions Recorded Confirmed diazepam 5 mg tablet See Rx Instructions .Route 03/02/23 05/11/23 .COMPLEX muscle spasm scopolamine base 1 mg over 3 days 1 patch topical Q3D 03/02/23 05/11/23 transdermal patch prucalopride [Motegrity] 2 mg feeding tube .hs 05/04/23 05/11/23 baclofen 20 mg tablet 20 mg feeding tube BID 05/11/23 05/11/23 omeprazole 40 mg capsule,delayed 40 mg feeding tube DAILY 05/11/23 05/11/23 release tizanidine 4 mg tablet 4 mg feeding tube TID 05/11/23 05/11/23 Allergies Allergy/AdvReac Type Severity Reaction Status Date / Time Sulfa (Sulfonamide Allergy Unknown LIPS AND Verified 05/11/23 02:05 Antibiotics) GENITAL PEELING SKIN Review of Systems Review of Systems: ROS unobtainable: Yes unobtainable due to medical condition PMFSH Past Medical History Medical History Anxiety Cerebral palsy Dysphagia Chronic. G-tube in place. Esophagitis with gastritis Failure to thrive History of GI bleed History of pulmonary aspiration Seizure disorder Uses powered wheelchair Surgical History Surgical History Gastrointestinal tube present History of orthopedic surgery Multiple surgeries related to his cerebra palsy including tendon surgeries and Green transfer. History of spinal fusion Family History Family History Father Family history of elevated blood lipids Family history of diabetes mellitus in first degree relative Hypertension Chronic obstructive pulmonary disease Other Lung cancer Social History Social History Social History: Surrogate decision maker: Cm and Leonora Slaughter, parents. Code status: Full code. Smoking status: Never smoker Second hand tobacco smoke exposure: No Alcohol intake: never Substance use: never Substance use type: does not use Lack of Transportation: No Lack of Food: Never True Current Housing: I Have Housing Concerned About Future Housing: No Difficulty Paying Gas/Electric Bills: No Difficulty Paying for Meds: No Currently Unemployed: No Education: High School Diploma/GED Difficulty w/ Childcare or Family Care: No Living arrangements: with family Additional living arrangements comments: The patient lives with his parents and 19-year-old brother in [place]. His father ~12/2022. He is wheelchair-dependent and uses an electric wheelchair which he can manage quite nicely. In fact he likes to spend a lot of his time out in their pole [place] where they have cars and motorcycles, which he really enjoys. He is dependent on most activities of daily living. Occupation/Education: unemployed Additional occupation/education comments: Disabled. Spiritual care concerns: No Exam Narrative: GENERAL: Chronically ill-appearing and frail, and in no acute distress. HEAD: Normocephalic, atraumatic. EYES: PERRL and EOMI. ENT: Mucous membranes moist. normal posterior orophar
[2023-05-10 17:29] LABS: Partial Thromboplastin Time 25.6 SECONDS (22.3-36.8)
[2023-05-10 17:30] LABS: Lactic Acid Reflex 1.5 mmol/L (0.7-2.0)
[2023-05-10 17:32] LABS: Alanine Aminotransferase 32 U/L (6-50); Albumin Level 4.3 g/dL (3.5-5.1); Alkaline Phosphatase 76 U/L (38-126); Anion Gap 10 mmol/L (8-16); Aspartate Amino Transferase 40 U/L (17-59); Bilirubin,Total 0.4 mg/dL (0.2-1.3); Blood Urea Nitrogen 22 mg/dL (9-20); CRP 1.7 mg/dL (<1.0); Calcium 9.6 mg/dL (8.4-10.2); Carbon Dioxide 26 mmol/L (22-30); Chloride 103 mmol/L (98-107); Estimated Glomerular Filt Rate > 60; Glucose 85 mg/dL (65-110); Potassium 3.9 mmol/L (3.4-5.0); Sodium 139 mmol/L (137-145)
[2023-05-10 17:53] LABS: Influenza A QL RT-PCR Negative (Negative); Influenza B QL RT-PCR Negative (Negative); RSV RNA, RT-PCR Negative (Negative); SARS-CoV-2 RNA PCR Negative (Negative)
[2023-05-10 18:51] LABS: Appearance Urine Clear (Clear); Bacteria Urine None Seen /hpf; Bilirubin Urine Negative (Negative); Blood Urine 2+ (Negative); Color Urine Yellow (Yellow); Glucose Urine UA Negative (Negative); Ketones Urine Negative (Negative); Leukocyte Esterase Ur Negative LEU/UL (Negative); Nitrate Urine Negative (Negative); Non Pathogenic Casts 0-2; Protein Urine Negative (Negative); RBC Urine 21-50 /hpf (0-2); Specific Grav Ur 1.009 (1.001-1.035); Squamous Epithelial Cell Urine None seen /hpf (Few); Urobilinogen Urine 0.2 mg/dL (<2.0); WBC Urine 0-5 /hpf; pH Urine 7.5 (5.0-9.0)
[2023-05-10 18:56] LABS: Add Urine Microscopic? YES
--- NOTE | 2023-05-10 19:18 | PC.NURSE ---
Assumed care of pt from JESSI Perry at this time.
[2023-05-10] MEDS: PIPERACILLN/TAZ 3.375GM/NS50ML 3.375 GM/50 ML BAG IVPB (19:50)
[2023-05-10] MEDS: SODIUM CHLORIDE 0.9% IV 1,000 ML 999 ML IV CONT (22:33)
[2023-05-10] MEDS: SODIUM CHLORIDE 0.9% IV 1,000 ML 125 ML IV CONT (22:33)
[2023-05-11] VITALS (17 sets, daily range): BP systolic 105–127; BP diastolic 65–91; PULSE 54–114; RESP 14–24; TEMP 36.1–36.8; O2SAT 94–98; BMI 13.1
[2023-05-11] MEDS: PIPERACILLN/TAZ 3.375GM/NS50ML 3.375 GM/50 ML BAG IVPB ×4 (02:22→20:59)
[2023-05-11] MEDS: SODIUM CHLORIDE 0.9% IV 1,000 ML 125 ML IV CONT (06:17)
[2023-05-11 08:55] LABS: Basophils Percent Auto 0.2 % (0.2-1.2); Eosinophils Percent Auto 0.1 % (0-4.4); Hematocrit 37.7 % (42.0-52.0); Hemoglobin 12.4 g/dL (14.0-18.0); Immature Granulocyte Absolute 0.06 K/mm3 (0.00-0.031); Immature Granulocyte Percent A 0.4 % (0-0.5); Lymphocytes Absolute Auto 3.58 K/mm3 (0.9-3.2); Lymphocytes Percent Auto 23.1 % (18.3-44.2); Mean Corpuscular HGB Conc 32.9 g/dl (32-36); Mean Corpuscular Hemoglobin 31.2 pg (26-34); Mean Platelet Volume 9.8 fl (7.4-10.4); Monocytes Absolute Auto 1.3 K/mm3 (0.1-0.6); Monocytes Percent Auto 8.4 % (2.6-8.5); Neutrophils Absolute Auto 10.5 K/mm3 (1.3-6.7); Neutrophils Percent Auto 67.8 % (45.5-73.1); Platelet Count Result 231 k/mm3 (150-375); Red Blood Count 3.97 M/mm3 (4.6-6.20); Red Cell Distribution Width 13.1 % (11.5-14.5); White Blood Count 15.5 K/mm3 (4.5-10.0)
[2023-05-11 09:29] LABS: Anion Gap 5 mmol/L (8-16); Blood Urea Nitrogen 15 mg/dL (9-20); Calcium 8.2 mg/dL (8.4-10.2); Carbon Dioxide 23 mmol/L (22-30); Chloride 112 mmol/L (98-107); Estimated CRCL calculation 65 ml/min; Estimated Glomerular Filt Rate > 60; Glucose 85 mg/dL (65-110); Potassium 3.8 mmol/L (3.4-5.0); Sodium 140 mmol/L (137-145)
[2023-05-11] MEDS: ENOXAPARIN 40 MG/0.4 ML SYRINGE SUB-Q (09:46)
[2023-05-11] MEDS: SCOPOLAMINE 1 MG PATCH 1 PATCH TRANSDERM (09:46)
[2023-05-11] MEDS: VALPROIC ACID LIQ 250 MG/5 ML ORAL SOLUTION UDC FEED TUBE ×2 (11:22→21:01)
[2023-05-11] MEDS: TIZANIDINE HCL 4 MG TABLET FEED TUBE ×2 (11:22→15:12)
[2023-05-11] MEDS: BACLOFEN 10 MG TABLET 20 MG FEED TUBE ×3 (11:23→21:01)
[2023-05-11] MEDS: CLORAZEPATE DIPOTASSIUM (*CRX) 3.75 MG TABLET FEED TUBE ×3 (11:23→21:02)
[2023-05-11] MEDS: SERTRALINE HCL 25 MG TABLET FEED TUBE (11:23)
[2023-05-11] MEDS: LANSOPRAZOLE ODT 30 MG TAB.RAP.DR FEED TUBE ×2 (11:23→21:02)
[2023-05-11] MEDS: diazePAM (*CRX) 5 MG TABLET 2.5 MG FEED TUBE (11:24)
--- NOTE | 2023-05-11 15:18 | PM.IMHP ---
H&P: HPI History of Present Illness Date/Time: 05/11/23 15:18 Chief Complaint: Fever Narrative: This is a 37-year-old male with a past medical history of on feeding tube, seizure disorder, and GERD that presents to the ED on 05/10/2023 due to fevers. Fever at home was 102.7. Patient was given oxygen, Tylenol, sat him up. Patient's fin numbers were concerned for possible aspiration. Patient does have a feeding tube and does not take anything by mouth. Mother states that he was having episodes of choking and coughing. He has been restricted to only tube feedings since June of 2022 due to constant problems with aspiration. Patient was not around any other sick contacts. There was concern for UTI due to patient's history but urine was clean. Patient is nonverbal and unable to provide medical history. Medical history obtained by discussion with Mother. Chest x-ray did not show any acute cardiopulmonary process. CT chest abdomen pelvis showing tree-in-bud opacities in the posterior segment of the right upper lobe consistent with aspiration and/or pneumonia. Found to have an elevated white blood cell count of 18.2, BUN and creatinine of 22/0.6 and a lactic acid of 1.5. Patient was started on Unasyn for aspiration pneumonia. [facility] Past Medical History Medical History Anxiety Cerebral palsy Dysphagia Chronic. G-tube in place. Esophagitis with gastritis Failure to thrive History of GI bleed History of pulmonary aspiration Seizure disorder Uses powered wheelchair Surgical History Surgical History Gastrointestinal tube present History of orthopedic surgery Multiple surgeries related to his cerebra palsy including tendon surgeries and Green transfer. History of spinal fusion Family History Family History Father Family history of elevated blood lipids Family history of diabetes mellitus in first degree relative Hypertension Chronic obstructive pulmonary disease Other Lung cancer Social History Social History Social History: Surrogate decision maker: Cm and Leonora Slaughter, parents. Code status: Full code. Smoking status: Never smoker Second hand tobacco smoke exposure: No Alcohol intake: never Substance use: never Substance use type: does not use Lack of Transportation: No Lack of Food: Never True Current Housing: I Have Housing Concerned About Future Housing: No Difficulty Paying Gas/Electric Bills: No Difficulty Paying for Meds: No Currently Unemployed: No Education: High School Diploma/GED Difficulty w/ Childcare or Family Care: No Living arrangements: with family Additional living arrangements comments: The patient lives with his parents and 19-year-old brother in [place]. His father ~12/2022. He is wheelchair-dependent and uses an electric wheelchair which he can manage quite nicely. In fact he likes to spend a lot of his time out in their pole [place] where they have cars and motorcycles, which he really enjoys. He is dependent on most activities of daily living. Occupation/Education: unemployed Additional occupation/education comments: Disabled. Spiritual care concerns: No Meds Home Medications and Allergies Home Medications Medication Instructions Recorded Confirmed Type albuterol sulfate 2.5 mg/3 mL 2.5 mg (3 mL) inhalation Q4-6H PRN 09/02/20 05/11/23 Rx (0.083 %) solution for nebulization shortness of breath or wheezing #180 mL polyethylene glycol 3350 17 gram 17 g feeding tube BID PRN 06/20/22 05/11/23 Rx oral powder packet (Miralax) constipation #30 ea bisacodyl 10 mg rectal suppository 10 mg RECTAL DAILY PRN 07/14/22 05/11/23 Rx (Dulcolax (bisacodyl)) constipation #12 ea metoclopramide HCl 5 mg/5 mL oral See Rx In
[2023-05-11] MEDS: diazePAM (*CRX) 5 MG TABLET 10 MG FEED TUBE (21:02)
[2023-05-11] MEDS: FAMOTIDINE 20 MG TABLET FEED TUBE (21:02)
[2023-05-11] MEDS: guaiFENesin 600 MG/DEXTROMETHORPHAN 30 MG SR TAB 12 HR 1 TAB PO (21:02)
[2023-05-12] VITALS: PULSE 89
[2023-05-12] MEDS: PIPERACILLN/TAZ 3.375GM/NS50ML 3.375 GM/50 ML BAG IVPB ×3 (02:15→13:30)
[2023-05-12 04:00] VITALS: PULSE 71
[2023-05-12 04:20] VITALS: BP 120/63; PULSE 66; RESP 14; TEMP 36.6; O2SAT 94
[2023-05-12 06:45] LABS: Basophils Percent Auto 0.3 % (0.2-1.2); Eosinophils Absolute Auto 0.1 K/mm3 (0-0.3); Eosinophils Percent Auto 1.1 % (0-4.4); Hemoglobin 12.7 g/dL (14.0-18.0); Immature Granulocyte Absolute 0.02 K/mm3 (0.00-0.031); Immature Granulocyte Percent A 0.2 % (0-0.5); Lymphocytes Absolute Auto 3.16 K/mm3 (0.9-3.2); Lymphocytes Percent Auto 34.1 % (18.3-44.2); Mean Corpuscular HGB Conc 33.4 g/dl (32-36); Mean Corpuscular Hemoglobin 31.3 pg (26-34); Mean Corpuscular Volume 93.6 fl (80-100); Mean Platelet Volume 9.3 fl (7.4-10.4); Monocytes Absolute Auto 0.7 K/mm3 (0.1-0.6); Neutrophils Absolute Auto 5.2 K/mm3 (1.3-6.7); Neutrophils Percent Auto 56.3 % (45.5-73.1); Platelet Count Result 227 k/mm3 (150-375); Red Blood Count 4.06 M/mm3 (4.6-6.20); White Blood Count 9.3 K/mm3 (4.5-10.0)
[2023-05-12 07:04] LABS: Anion Gap 1 mmol/L (8-16); Blood Urea Nitrogen 9 mg/dL (9-20); Calcium 8.7 mg/dL (8.4-10.2); Carbon Dioxide 29 mmol/L (22-30); Chloride 108 mmol/L (98-107); Estimated CRCL calculation 56 ml/min; Estimated Glomerular Filt Rate > 60; Glucose 111 mg/dL (65-110); Potassium 3.9 mmol/L (3.4-5.0); Sodium 138 mmol/L (137-145)
[2023-05-12] MEDS: SERTRALINE HCL 25 MG TABLET FEED TUBE (09:01)
[2023-05-12] MEDS: VALPROIC ACID LIQ 250 MG/5 ML ORAL SOLUTION UDC FEED TUBE (09:01)
[2023-05-12] MEDS: CLORAZEPATE DIPOTASSIUM (*CRX) 3.75 MG TABLET FEED TUBE ×3 (09:02→16:15)
[2023-05-12] MEDS: LANSOPRAZOLE ODT 30 MG TAB.RAP.DR FEED TUBE (09:02)
[2023-05-12] MEDS: guaiFENesin 600 MG/DEXTROMETHORPHAN 30 MG SR TAB 12 HR 1 TAB PO (09:02)
[2023-05-12] MEDS: diazePAM (*CRX) 5 MG TABLET 2.5 MG FEED TUBE ×2 (09:03→16:16)
[2023-05-12] MEDS: BACLOFEN 10 MG TABLET 20 MG FEED TUBE ×2 (09:03→16:15)
[2023-05-12] MEDS: ENOXAPARIN 40 MG/0.4 ML SYRINGE SUB-Q (09:03)
[2023-05-12] MEDS: TIZANIDINE HCL 4 MG TABLET FEED TUBE ×3 (09:03→16:15)
--- NOTE | 2023-05-12 10:27 | PCNFU ---
Nutrition Follow-Up Complete: Swallowing difficulty related to dysphagia as evidenced by NPO and need for alternative nutrition support for sole source of nutrition. Meet estimated needs - Progressing Goal: Pt current nutrition is Peptimen 1.5 - 1 8oz container 3x per day. Nutrition recommendation: Continue with current regimen Last recorded weight is 32.6 kg. - ERROR. Correct weight is 46 kg. Bowel Motility: +2 BMs 05/11/23 Labs Reviewed: Hgb 12.7, Hct 38, Glu 111 Meds Noted: Pepcid, prevaic Skin: PEG tube Additional Notes: Discussed with provider Sherry re: persistent aspiration. Discussed with pt's mother. She does have a pole and gravity bag at home which she has not pursued. Describes that patient Dallas will fight any changes to tube feedings including hooked up to a pump or the gravity bag; prefers to have his mother administer the feedings per syringe. She plans to try transitioning him to the gravity feeding once he gets home. Discussed possibly researching a PEJ tube and discussing with GI doctor in regards to persistent aspiration. Pt already being fed at slow rate, already on peptide based formula for GI tolerance. Suggest prokinetic if intolerance persists. Monitor tube feeding start, tolerance, wt, labs. Follow up every Monday and Monday.
[2023-05-12 12:00] VITALS: PULSE 68
--- NOTE | 2023-05-12 12:08 | PM.DS ---
DS: Admitting Diagnosis Discharge Date 05/12/23 Admitting Diagnosis aspiration pneumonia DS: Discharge Diagnosis Discharge Diagnosis (1) Aspiration pneumonia: Qualifiers: Aspiration pneumonia type: unspecified Laterality: right Lung location: upper lobe of lung Qualified Code(s): J69.0 - Pneumonitis due to inhalation of food and vomit Code(s): J69.0 - Pneumonitis due to inhalation of food and vomit Status: Acute (2) Dysphagia: Qualifiers: Dysphagia type: unspecified Qualified Code(s): R13.10 - Dysphagia, unspecified Code(s): R13.10 - Dysphagia, unspecified Status: Chronic (3) Seizure disorder: Code(s): G40.909 - Epilepsy, unspecified, not intractable, without status epilepticus Status: Chronic (4) Cerebral palsy: Code(s): G80.9 - Cerebral palsy, unspecified Status: Chronic DS: Summary Hospital Course Hospital Course: This is a 37-year-old male with a past medical history of on feeding tube, seizure disorder, and GERD that presents to the ED on 05/10/2023 due to fevers. Fever at home was 102.7. Patient was given oxygen, Tylenol, sat him up. Patient's fin numbers were concerned for possible aspiration.? Patient does have a feeding tube and does not take anything by mouth. Mother states that he was having episodes of choking and coughing. He has been restricted to only tube feedings since June of 2022 due to constant problems with aspiration. Patient was not around any other sick contacts. There was concern for UTI due to patient's history but urine was clean.? Patient is nonverbal and unable to provide medical history. Medical history obtained by discussion with Mother. Chest x-ray did not show any acute cardiopulmonary process.? CT chest abdomen pelvis showing tree-in-bud opacities in the posterior segment of the right upper lobe consistent with aspiration and/or pneumonia. ? Found to have an elevated white blood cell count of 18.2, BUN and creatinine of 22/0.6 and a lactic acid of 1.5. Patient was started on Unasyn for aspiration pneumonia. patient's white blood cell count improved over the next couple days of IV antibiotic therapy as well as his overall consciousness improved. Patient was more alert and awake during this time. Had discussion with patient's mother regarding possible continuous feeds as well as consulting dietitian on patient's case. Dietitian also recommended trial of continuous feeds. Patient's mother was we reassess this and said she would like to discuss this with patient's current GI doctor. She is not agreeable to changing patient's current tube feedings at this time. Patient's labs and vital signs did improve for 3 days of IV antibiotic therapy. Patient's medications were transition to p.o. Augmentin and he was discharged back home with recommendation of a follow-up with GI doctor regarding tube feeding adjustment. His labs and vital signs are stable and he is medically clear for discharge at this time. Time Spent with Patient Time attestation: Total time spent providing and/or coordinating discharge services: Exam Narrative: GENERAL: Comfortable, no acute distress HENMT: moist mucous membranes EYES: EOM intact b/l NECK: no lymphadenopathy RESPIRATORY: clear to auscultation CARDIO: RRR GI: soft, nontender, bowel sounds present, abdominal distension, peg tube present SKIN: no rashes EXTREMITIES: no edema, redness or tenderness DS: Data Data Completed and Pending Labs on day of discharge: Labs from last 24 hours 05/12/23 06:23 WBC 9.3 RBC 4.06 L Hgb 12.7 L Hct 38.0 L MCV 93.6 MCH 31.3 MCHC 33.4 RDW 13.0 Plt Count 227 MPV 9.3 Immature Gran % (Auto) 0.2 Neut % (Auto) 56.3 Lymph % (Auto) 34.1 Park % (Auto) 8.0 Eos % (Auto) 1.1 Baso % (Auto) 0.3 Lymph # (Auto) 3.16 Park # (Auto) 0.7 H Eos # (Auto) 0.1 Baso # (Auto) 0.0 Abs Immat Gran (auto) 0.02 Absolute Neuts (auto) 5.2 Absolute
== END 2023-05-12 16:40 | disposition home or self-care (01) | DRG 179 ==
LOC: ANHED 21:37 → ANH3MEDSUR 05-11 01:03
PROVIDERS: Emergency Medicine; Admitting Provider Internal Medicine; Emergency Provider Student in an Organized Health Care Education/Training Program; PCP Family Medicine; Visit Provider Internal Medicine Critical Care Medicine
DX: J69.0 Pneumonitis due to inhalation of food and vomit (principal); K21.9 Gastro-esophageal reflux disease without esophagitis; R13.10 Dysphagia, unspecified; G83.9 Paralytic syndrome, unspecified; G40.909 Epilepsy, unspecified, not intractable, without status epilepticus; F41.9 Anxiety disorder, unspecified; Z20.822 Contact with and (suspected) exposure to COVID-19; Z93.1 Gastrostomy status; Z99.3 Dependence on wheelchair; Z98.1 Arthrodesis status
CPT/HCPCS: 36415; 71045; 71260; 74177; 80048; 80053; 81001; 83605; 85025; 85610; 85730; 86140; 87040; 87637; 96361; 96365; 99285; A9270; G0378; J1650; J2543; J7030; J7040; Q9967

== ENCOUNTER 2023-05-15 09:40 | Inpatient (IN) | payer MEDICARE, MEDICAID, SELFPAY ==
[2023-05-15] VITALS (18 sets, daily range): BP systolic 105–122; BP diastolic 70–88; PULSE 98–137; RESP 16–30; TEMP 37–37.4; O2SAT 91–100
--- NOTE | ~2023-05-15 | XR_ITS ---
XR chest 1V portable 05/20/2023 06:00 Indication: Assess change of pneumonia Procedure: AP portable chest Comparison: Comparison to multiple prior studies sequentially, with oldest reviewed study dated 05/18. Findings: Cardiomegaly. Diffuse bilateral airspace disease has progressed, particularly on the right. There are Mckeon rods obscuring the spine. No acute osseous abnormality. No significant effusion or pneumothorax. Impression: 1: Interval progression of diffuse bilateral airspace disease which may represent edema or pneumonia. Reviewed, dictated and finalized at location A. FOOD ASSISTANT RESTAURANT MANAGER Impression: 1: Interval progression of diffuse bilateral airspace disease which may represe nt edema or pneumonia.
--- NOTE | ~2023-05-15 | XR_ITS ---
XR abdomen/kub 1V 05/19/2023 08:23 INDICATION: Emesis. TECHNIQUE: KUB COMPARISON: None FINDINGS: Bowel gas pattern is normal. There is a G-tube present. There is no evidence of free air, m ass, organomegaly, ascites or obstruction. No abnormal calculi are seen. The bones appear intact. T here are Mckeon rods transfixing the lower thoracic spine, lumbar spine and sacrum. IMPRESSION: 1: No acute abdominal abnormality identified. Reviewed, dictated and finalized at location A. EQUIN MOLDER
--- NOTE | ~2023-05-15 | XR_ITS ---
EXAMINATION: XR chest 1V portable INDICATION: Shortness of breath TECHNIQUE: Portable AP chest at 1012 hours COMPARISON: 05/10/2023 FINDINGS: There is a mild diffuse interstitial pattern. The lung volumes are low. No pleural effusion or pneumothorax. The cardiomediastinal silhouette is stable. Changes of posterior fusion procedure i n the thoracic and lumbar spine are noted. IMPRESSION: 1. Diffuse interstitial pattern, consistent with pneumonia versus pulmonary edema. Reviewed, dictated and finalized at location B. A OPERATOR IMPRESSION: 1. Diffuse interstitial pattern, consistent with pneumonia versus pulmonary ruthy
--- NOTE | ~2023-05-15 | XR_ITS ---
Portable chest x-ray Comparison: 05/15/2023 Clinical History: Pneumonia Findings: There is asymmetric haziness in the left upper lobe, which could reflect pneumonia. Right lung clear. Cardiomediastinal silhouette is stable. Extensive spinal fixation hardware is again note d. Impression: Probable left upper lobe pneumonia. Reviewed, dictated and finalized at location . ZINE KEEPER Impression: Probable left upper lobe pneumonia.
--- NOTE | 2023-05-15 09:47 | ECG_ITS ---
Measurements Intervals [place] Rate: 101 P: 32 KS: 139 QRS: 57 QRSD: 90 T: 43 QT: 331 QTc: 431 Interpretive Statements SINUS TACHYCARDIA LEFT ATRIAL ENLARGEMENT [-0.15mV P WAVE IN V1/V2] POSSIBLE RIGHT VENTRICULAR CONDUCTION DELAY [RSR (QR) IN V1/V2] BORDERLINE ECG COMPARED TO ECG 07/02/2022 13:18:43 NO SIGNIFICANT CHANGES Electronically Signed On 05-15-2023 18:27:32 SALESPERSON MEATS by Cooper Spencer M.D.
[2023-05-15 10:13] LABS: Hematocrit 42.3 % (42.0-52.0); Mean Corpuscular HGB Conc 33.1 g/dl (32-36); Mean Corpuscular Hemoglobin 31.2 pg (26-34); Mean Corpuscular Volume 94.2 fl (80-100); Mean Platelet Volume 9.7 fl (7.4-10.4); Platelet Count Result 242 k/mm3 (150-375); Red Blood Count 4.49 M/mm3 (4.6-6.20); Red Cell Distribution Width 13.2 % (11.5-14.5); White Blood Count 5.9 K/mm3 (4.5-10.0)
[2023-05-15 10:26] LABS: Alanine Aminotransferase 34 U/L (6-50); Albumin Level 4.3 g/dL (3.5-5.1); Alkaline Phosphatase 68 U/L (38-126); Anion Gap 5 mmol/L (8-16); Aspartate Amino Transferase 43 U/L (17-59); Bilirubin,Total 0.3 mg/dL (0.2-1.3); Blood Urea Nitrogen 11 mg/dL (9-20); Calcium 9.4 mg/dL (8.4-10.2); Carbon Dioxide 28 mmol/L (22-30); Chloride 104 mmol/L (98-107); Estimated CRCL calculation 77 ml/min; Estimated Glomerular Filt Rate > 60; Glucose 102 mg/dL (65-110); Lactic Acid Reflex 1.2 mmol/L (0.7-2.0); Potassium 4.2 mmol/L (3.4-5.0); Sodium 137 mmol/L (137-145)
[2023-05-15 10:33] LABS: Eosinophils Absolute Manual 0.05 K/mm3 (0.02-0.5); Eosinophils Percent Manual 1 % (0-4); Lymphocytes Absolute Manual 0.88 K/mm3 (1.1-4.5); Monocytes Percent Manual 17 % (3-9); Neutrophils Percent Manual 67 % (46-73); Platelet Estimate Adequate (Adequate); Schistocytes None Seen (NORMAL); Total Cells Counted 100
[2023-05-15 10:34] LABS: Stomatocytes 1+ (NORMAL)
[2023-05-15] MEDS: ALBUTEROL SULFATE NEB 2.5 MG/3 ML INH 10 MG INHALATION (11:08)
[2023-05-15] MEDS: IPRATROPIUM BR 0.02% INH SOLN 0.5 MG/2.5 ML VIAL 1 MG INHALATION (11:08)
[2023-05-15 12:31] LABS: NT Pro B Type Natriuretic Pept 226 pg/mL (19.9-100)
[2023-05-15 13:22] LABS: Influenza A QL RT-PCR Negative (Negative); Influenza B QL RT-PCR Negative (Negative); RSV RNA, RT-PCR Negative (Negative); SARS-CoV-2 RNA PCR Positive (Negative)
--- NOTE | 2023-05-15 14:06 | ED.SOB ---
HPI - SOB/Dyspnea General Chief Complaint: Shortness of Breath/Dyspnea Stated Complaint: dyspnea Time Seen by Provider: 05/15/23 10:05 History of Present Illness HPI Narrative: patient is a 37-year-old male with history of cerebral palsy who presents ER with shortness of breath fever. Patient recently admitted and diagnosed with proctocolitis. He was started on Augmentin. He has been taking the medication as prescribed at home. Last night mother reports patient had a fever 102.8? F. He has had increased wheezing today. Issue he has been moaning more often than typical for him. Related Data Home Medications Medication Instructions Recorded Confirmed diazepam 5 mg tablet 5 mg PO DAILY muscle spasm 03/02/23 05/15/23 scopolamine base 1 mg over 3 days 1 patch topical Q3D 03/02/23 05/15/23 transdermal patch prucalopride [Motegrity] 2 mg feeding tube .hs 05/04/23 05/15/23 baclofen 20 mg tablet 20 mg feeding tube BID 05/11/23 05/15/23 omeprazole 40 mg capsule,delayed 40 mg feeding tube DAILY 05/11/23 05/15/23 release tizanidine 4 mg tablet 4 mg feeding tube TID 05/11/23 05/15/23 Allergies Allergy/AdvReac Type Severity Reaction Status Date / Time Sulfa (Sulfonamide Allergy Unknown LIPS AND Verified 05/15/23 18:15 Antibiotics) GENITAL PEELING SKIN Review of Systems Review of Systems: ROS unobtainable: Yes unobtainable due to medical condition PMFSH Past Medical History Medical History Anxiety Cerebral palsy Dysphagia Chronic. G-tube in place. Esophagitis with gastritis Failure to thrive History of GI bleed History of pulmonary aspiration Seizure disorder Uses powered wheelchair Surgical History Surgical History Gastrointestinal tube present History of orthopedic surgery Multiple surgeries related to his cerebra palsy including tendon surgeries and Green transfer. History of spinal fusion Family History Family History Father Family history of elevated blood lipids Family history of diabetes mellitus in first degree relative Hypertension Chronic obstructive pulmonary disease Other Lung cancer Social History Social History Social History: Surrogate decision maker: Cm and Leonora Slaughter, parents. Code status: Full code. Smoking status: Never smoker Second hand tobacco smoke exposure: No Alcohol intake: never Substance use: never Substance use type: does not use Do You Feel Safe in your Home?: Yes Lack of Transportation: No Lack of Food: Never True Current Housing: I Have Housing Concerned About Future Housing: No Difficulty Paying Gas/Electric Bills: No Difficulty Paying for Meds: No Currently Unemployed: No Education: Don't Know Difficulty w/ Childcare or Family Care: No Living arrangements: with family Additional living arrangements comments: The patient lives with his parents and 19-year-old brother in [place]. His father ~12/2022. He is wheelchair-dependent and uses an electric wheelchair which he can manage quite nicely. In fact he likes to spend a lot of his time out in their pole [place] where they have cars and motorcycles, which he really enjoys. He is dependent on most activities of daily living. Occupation/Education: unemployed Additional occupation/education comments: Disabled. Spiritual care concerns: No Exam Narrative: GENERAL: Chronically ill-appearing, well-nourished, and in no acute distress. HEAD: Normocephalic, atraumatic. EYES: PERRL and EOMI. ENT: Mucous membranes moist. NECK: Supple. CHEST: coarse rales bilaterally.. No respiratory distress. Occasional coughing. HEART: Regular rate and rhythm. Normal peripheral pulses. ABDOMEN: Soft, nontender, nondistended, normal a
--- NOTE | 2023-05-15 17:20 | PM.IMHP ---
H&P: HPI History of Present Illness Date/Time: 05/15/23 17:20 Chief Complaint: Fever and cough Narrative: 37-year-old male with past history of cerebral palsy, Seizure disorder, Failure to thrive, anxiety and dysphagia who presented who was brought to the ER by her for fever and cough. history was provided by his Mother who was at bedside. Noted that patient has been cough about 1 week, he was managed for aspiration PNA and distal proctocolitis, he was on Augmentin. However, mother noted that patient started having fever 102.8 which prompted re-presenting to the ER today. Unable to do review of systems. ER eval notable for KS 123, RR 21, BP 121/79, labs notable for COVID positive, WBC 5.9, CXR showed diffuse interstitial pattern consistent with pneumonia. CT chest AP, from 05/10 showed distal proctocolitis most likely infectious or inflammatory and tree-in-bud opacities in the posterior segment of the right upper love consistent with aspiration and/or pneumonia. patient was admitted for further eval and care. Review of Systems Review of Systems: Unable to do review of system as patient was lethargic [facility] Past Medical History Medical History Anxiety Cerebral palsy Dysphagia Chronic. G-tube in place. Esophagitis with gastritis Failure to thrive History of GI bleed History of pulmonary aspiration Seizure disorder Uses powered wheelchair Surgical History Surgical History Gastrointestinal tube present History of orthopedic surgery Multiple surgeries related to his cerebra palsy including tendon surgeries and Green transfer. History of spinal fusion Family History Family History Father Family history of elevated blood lipids Family history of diabetes mellitus in first degree relative Hypertension Chronic obstructive pulmonary disease Other Lung cancer Social History Social History Social History: Surrogate decision maker: Cm and Leonora Slaughter, parents. Code status: Full code. Smoking status: Never smoker Second hand tobacco smoke exposure: No Alcohol intake: never Substance use: never Substance use type: does not use Lack of Transportation: No Lack of Food: Never True Current Housing: I Have Housing Concerned About Future Housing: No Difficulty Paying Gas/Electric Bills: No Difficulty Paying for Meds: No Currently Unemployed: No Education: High School Diploma/GED Difficulty w/ Childcare or Family Care: No Living arrangements: with family Additional living arrangements comments: The patient lives with his parents and 19-year-old brother in [place]. His father ~12/2022. He is wheelchair-dependent and uses an electric wheelchair which he can manage quite nicely. In fact he likes to spend a lot of his time out in their [place] where they have cars and motorcycles, which he really enjoys. He is dependent on most activities of daily living. Occupation/Education: unemployed Additional occupation/education comments: Disabled. Spiritual care concerns: No Meds Home Medications and Allergies Home Medications Medication Instructions Recorded Confirmed Type albuterol sulfate 2.5 mg/3 mL 2.5 mg (3 mL) inhalation Q4-6H PRN 09/02/20 05/11/23 Rx (0.083 %) solution for nebulization shortness of breath or wheezing #180 mL polyethylene glycol 3350 17 gram 17 g feeding tube BID PRN 06/20/22 05/11/23 Rx oral powder packet (Miralax) constipation #30 ea bisacodyl 10 mg rectal suppository 10 mg RECTAL DAILY PRN 07/14/22 05/11/23 Rx (Dulcolax (bisacodyl)) constipation #12 ea metoclopramide HCl 5 mg/5 mL oral See Rx Instructions .Route 11/25/22 05/11/23 Rx solution .COMPLEX #12,000 mL valproic acid (as sodium salt)
--- NOTE | 2023-05-15 18:15 | ADMGEN ---
This patient, Dallas Slaughter, was admitted to [facility] Surg Room 327-01. Patient/family oriented to hospital policies and general routines including ID bracelet, bed and alarms, visiting hours, pain management, procedures, bathroom and other care routines, personal items, smoking policy, room service/diet, and visiting hours. Information on how to activate the Rapid Response Team has been discussed. Patient/Family are encouraged to report perceived risks to care and to ask questions if they do not understand what they are told or what they should do.
[2023-05-15] MEDS: REMDESIVIR 200 MG/NS 250 ML 200 MG/250 ML BAG 250 MG IVPB (18:45)
[2023-05-15] MEDS: LACTATED RINGERS 1,000 ML 100 ML IV CONT (18:45)
[2023-05-15 19:23] LABS: Lactic Acid Reflex 3.8 mmol/L (0.7-2.0)
[2023-05-15] MEDS: IPRATROPIUM 0.5 MG/ALBUTEROL SULFATE 2.5 MG AMPUL.NEB 3 ML INHALATION (21:11)
[2023-05-15] MEDS: metroNIDAZOLE 500 MG/ISO 100ML 500 MG/100 ML BAG 100 MG IVPB (21:15)
[2023-05-15 22:06] LABS: Reflex Lactic Acid Yes or No Add Lactic
[2023-05-15] MEDS: levoFLOXacin 750 MG/D5W 150 ML 750 MG/150 ML BAG 100 MG IVPB (22:15)
[2023-05-15 22:29] LABS: MRSA (PCR) NOT DETECTED (NOT DETECTE)
[2023-05-15 22:47] LABS: Lactic Acid 1.5 mmol/L (0.7-2.0)
[2023-05-16] VITALS (10 sets, daily range): BP systolic 99–101; BP diastolic 60–66; PULSE 71–95; RESP 14–20; TEMP 35.9–37.1; O2SAT 93–96; BMI 17.9
[2023-05-16] MEDS: BACLOFEN 10 MG TABLET 20 MG FEED TUBE ×3 (02:12→21:07)
[2023-05-16] MEDS: TIZANIDINE HCL 4 MG TABLET FEED TUBE ×4 (02:12→17:21)
[2023-05-16] MEDS: CLORAZEPATE DIPOTASSIUM (*CRX) 3.75 MG TABLET FEED TUBE ×4 (02:13→17:21)
[2023-05-16] MEDS: diazePAM (*CRX) 10 MG TABLET FEED TUBE (02:13)
[2023-05-16] MEDS: FAMOTIDINE 20 MG TABLET FEED TUBE ×2 (02:13→21:07)
[2023-05-16] MEDS: VALPROIC ACID LIQ 250 MG/5 ML ORAL SOLUTION UDC FEED TUBE ×3 (02:13→21:08)
[2023-05-16] MEDS: IPRATROPIUM 0.5 MG/ALBUTEROL SULFATE 2.5 MG AMPUL.NEB 3 ML INHALATION ×3 (02:25→21:02)
[2023-05-16] MEDS: metroNIDAZOLE 500 MG/ISO 100ML 500 MG/100 ML BAG 100 MG IVPB ×3 (05:25→21:08)
--- NOTE | 2023-05-16 06:19 | PC.NURSE ---
0115 Patient's mother requesting patient to receive home night meds. Spoke with Dr. Hollis about no home meds being ordered. Dr. Hollis says to put in orders for patient to receive his regular home meds tonight and she will put orders in later.
[2023-05-16 07:13] LABS: Basophils Percent Auto 0.3 % (0.2-1.2); Eosinophils Absolute Auto 0.1 K/mm3 (0-0.3); Eosinophils Percent Auto 1.6 % (0-4.4); Hematocrit 37.9 % (42.0-52.0); Hemoglobin 12.4 g/dL (14.0-18.0); Immature Granulocyte Absolute 0.03 K/mm3 (0.00-0.031); Immature Granulocyte Percent A 0.4 % (0-0.5); Lymphocytes Absolute Auto 2.72 K/mm3 (0.9-3.2); Lymphocytes Percent Auto 39.5 % (18.3-44.2); Mean Corpuscular HGB Conc 32.7 g/dl (32-36); Mean Corpuscular Hemoglobin 31.2 pg (26-34); Mean Corpuscular Volume 95.2 fl (80-100); Mean Platelet Volume 9.6 fl (7.4-10.4); Monocytes Absolute Auto 1.2 K/mm3 (0.1-0.6); Monocytes Percent Auto 16.7 % (2.6-8.5); Neutrophils Absolute Auto 2.9 K/mm3 (1.3-6.7); Neutrophils Percent Auto 41.5 % (45.5-73.1); Platelet Count Result 233 k/mm3 (150-375); Red Blood Count 3.98 M/mm3 (4.6-6.20); Red Cell Distribution Width 13.4 % (11.5-14.5); White Blood Count 6.9 K/mm3 (4.5-10.0)
[2023-05-16 07:22] LABS: Lactic Acid Reflex 0.8 mmol/L (0.7-2.0)
[2023-05-16 07:29] LABS: Alanine Aminotransferase 34 U/L (6-50); Albumin Level 3.8 g/dL (3.5-5.1); Alkaline Phosphatase 58 U/L (38-126); Anion Gap 9 mmol/L (8-16); Aspartate Amino Transferase 49 U/L (17-59); Bilirubin,Total 0.3 mg/dL (0.2-1.3); Blood Urea Nitrogen 17 mg/dL (9-20); Calcium 8.8 mg/dL (8.4-10.2); Carbon Dioxide 25 mmol/L (22-30); Chloride 104 mmol/L (98-107); Estimated CRCL calculation 77 ml/min; Estimated Glomerular Filt Rate > 60; Glucose 91 mg/dL (65-110); Potassium 3.7 mmol/L (3.4-5.0); Sodium 138 mmol/L (137-145)
[2023-05-16] MEDS: LACTATED RINGERS 1,000 ML 100 ML IV CONT ×2 (09:21→21:41)
[2023-05-16] MEDS: ENOXAPARIN 40 MG/0.4 ML SYRINGE SUB-Q (09:22)
[2023-05-16] MEDS: SCOPOLAMINE 1 MG PATCH 1 PATCH TRANSDERM (09:22)
--- NOTE | 2023-05-16 11:56 | PM.IMPN ---
Progress Note: A&P Assessment and Plan (1) COVID: Code(s): U07.1 - COVID-19 Status: Acute Assessment and Plan: Covid PCR positive On room air, CXR showed diffuse infiltates started on Remdesivir monitor 05/16: Improving, continue remdesivir total of 3 doses then discharge most likely (2) Cerebral palsy: Code(s): G80.9 - Cerebral palsy, unspecified Status: Chronic Assessment and Plan: stable (3) Pneumonia: Code(s): J18.9 - Pneumonia, unspecified organism Status: Acute Assessment and Plan: F/u cultures, MRSA pending Continue Levaquin and Flagyl monitor 05/16: MRSA nares negative (4) Severe sepsis: Code(s): A41.9 - Sepsis, unspecified organism; R65.20 - Severe sepsis without septic shock Status: Acute Assessment and Plan: RR 30, SD 112, CXR diffuse infiltrates Lactic acid pending Continue IVF, and levaquin monitor closely 05/16: Lactic acidosis resolved. (5) Seizure disorder: Code(s): G40.909 - Epilepsy, unspecified, not intractable, without status epilepticus Status: Chronic Assessment and Plan: restart home meds once verified (6) Dysphagia: Qualifiers: Dysphagia type: unspecified Qualified Code(s): R13.10 - Dysphagia, unspecified Code(s): R13.10 - Dysphagia, unspecified Status: Chronic Assessment and Plan: Continue tube feeds (mother wants to self administer with their own product her) and G tube medications. (7) Anxiety: Code(s): F41.9 - Anxiety disorder, unspecified Status: Acute Assessment and Plan: Continue home meds once verified (8) Proctocolitis: Code(s): K52.9 - Noninfective gastroenteritis and colitis, unspecified Status: Acute Assessment and Plan: CT from 05/10/23 reviewed continue Levaquin and flagyl monitor 05/16: Patient was sent home on Augmentin and today should be last day of treatment Plan DVT prophylaxis on Sq Lovenox Time Spent With Patient Time with patient: 25 - 35 minutes Subjective Date/time seen: 05/16/23 11:56 Interval history: This is a 37-year-old male patient with history of cerebral palsy cared for by his mother. Patient is tube feed only due to prior aspiration. Patient is much better appearing today. Abdominal distension is improved. He is still coughing but no labored respirations. Fever has broke. Review of Systems Review of Systems: ROS unobtainable: Yes unobtainable due to mental status Exam Narrative: General: alert and lethargic Eyes: EOMI, PERRLA ENNT: External ears normal, Neck is supple, no masses, Respiratory systems: Clear to auscultation Cardiovascular: S1, S2, normal rhythm, no murmur, rub, or gallop; no thrill or palpable murmurs on palpation. Gastrointestinal: soft, non-tender, and moderately distended abdomen with no masses; BS present Skin: no rash, lesions, ulcerations, subcutaneous nodules or induration Musculoskeletal: no abnormality and no tenderness, normal ROM Neurologic: Alert and non verbal Objective Data Vital Signs Vital Signs: Vital Signs - 24 hr 05/15/23 12:17 05/15/23 13:11 05/15/23 14:18 Temperature 37.0 C Pulse Rate 137 H 104 H 118 H Respiratory Rate 21 H 28 H 28 H Blood Pressure 118/80 122/88 106/80 Pulse Oximetry 92 91 99 Oxygen Delivery Fraction of Inspired Oxygen 05/15/23 14:58 05/15/23 15:07 05/15/23 15:07 Temperature Pulse Rate 117 H 123 H Respiratory Rate 21 H Blood Pressure 121/79 Pulse Oximetry 92 92 Oxygen Delivery Room Air Fraction of Inspired Oxygen 05/15/23 15:09 05/15/23 16:13 05/15/23 17:03 Temperature Pulse Rate 98 112 H Respiratory Rate 26 H 30 H Blood Pressure 115/81 105/70 Pulse Oximetry 92 97 96 Oxygen Delivery Room Air Fraction of Inspired Oxygen 05/15/23 17:55 05/15/23 18:32 05/15/23 21:08 Temperature 37.0 C 37.0 C 37.3 C Pulse Rate 106
[2023-05-16] MEDS: METOCLOPRAMIDE HCL 10 MG/10 ML SOLN UDC FEED TUBE ×3 (12:57→21:08)
[2023-05-16] MEDS: diazePAM (*CRX) 2.5 MG TABLET PO (13:20)
[2023-05-16] MEDS: levoFLOXacin 750 MG/D5W 150 ML 750 MG/150 ML BAG 100 MG IVPB (17:24)
[2023-05-16] MEDS: diazePAM (*CRX) 5 MG TABLET 10 MG PO (21:07)
[2023-05-16] MEDS: REMDESIVIR 100 MG/NS 250 ML 100 MG/250 ML BAG 250 MG IVPB (21:08)
[2023-05-17] VITALS (11 sets, daily range): BP systolic 76–115; BP diastolic 47–77; PULSE 65–84; RESP 12–18; TEMP 36.1–36.6; O2SAT 92–100
[2023-05-17 06:02] LABS: Basophils Percent Auto 0.3 % (0.2-1.2); Hematocrit 40.3 % (42.0-52.0); Hemoglobin 12.7 g/dL (14.0-18.0); Immature Granulocyte Absolute 0.03 K/mm3 (0.00-0.031); Immature Granulocyte Percent A 0.5 % (0-0.5); Lymphocytes Absolute Auto 2.81 K/mm3 (0.9-3.2); Lymphocytes Percent Auto 42.4 % (18.3-44.2); Mean Corpuscular HGB Conc 31.5 g/dl (32-36); Mean Corpuscular Hemoglobin 31.2 pg (26-34); Mean Platelet Volume 9.7 fl (7.4-10.4); Monocytes Absolute Auto 0.8 K/mm3 (0.1-0.6); Monocytes Percent Auto 11.3 % (2.6-8.5); Neutrophils Percent Auto 45.5 % (45.5-73.1); Platelet Count Result 226 k/mm3 (150-375); Red Blood Count 4.07 M/mm3 (4.6-6.20); Red Cell Distribution Width 13.4 % (11.5-14.5); White Blood Count 6.6 K/mm3 (4.5-10.0)
[2023-05-17] MEDS: metroNIDAZOLE 500 MG/ISO 100ML 500 MG/100 ML BAG 100 MG IVPB ×3 (06:03→21:45)
[2023-05-17] MEDS: LACTATED RINGERS 1,000 ML 100 ML IV CONT ×2 (06:03→12:14)
[2023-05-17] MEDS: BACLOFEN 10 MG TABLET 20 MG FEED TUBE ×3 (06:04→20:37)
[2023-05-17] MEDS: METOCLOPRAMIDE HCL 10 MG/10 ML SOLN UDC FEED TUBE ×4 (06:04→20:36)
[2023-05-17 06:07] LABS: INR 1.1; Prothrombin Time 14.7 Seconds (11.1-14.7)
[2023-05-17] MEDS: IPRATROPIUM 0.5 MG/ALBUTEROL SULFATE 2.5 MG AMPUL.NEB 3 ML INHALATION ×3 (06:59→20:04)
[2023-05-17 07:00] LABS: Alanine Aminotransferase 29 U/L (6-50); Albumin Level 3.6 g/dL (3.5-5.1); Alkaline Phosphatase 55 U/L (38-126); Anion Gap 8 mmol/L (8-16); Aspartate Amino Transferase 46 U/L (17-59); Bilirubin,Total 0.2 mg/dL (0.2-1.3); Blood Urea Nitrogen 13 mg/dL (9-20); Calcium 8.8 mg/dL (8.4-10.2); Carbon Dioxide 25 mmol/L (22-30); Chloride 104 mmol/L (98-107); Estimated CRCL calculation 88 ml/min; Estimated Glomerular Filt Rate > 60; Glucose 91 mg/dL (65-110); Magnesium 1.9 mg/dL (1.6-2.3); Potassium 3.9 mmol/L (3.4-5.0); Sodium 137 mmol/L (137-145)
[2023-05-17] MEDS: CLORAZEPATE DIPOTASSIUM (*CRX) 3.75 MG TABLET FEED TUBE ×2 (09:24→12:11)
[2023-05-17] MEDS: TIZANIDINE HCL 4 MG TABLET FEED TUBE ×2 (09:24→12:11)
[2023-05-17] MEDS: ONDANSETRON INJ 4 MG/2 ML VIAL IV PUSH (09:24)
[2023-05-17] MEDS: VALPROIC ACID LIQ 250 MG/5 ML ORAL SOLUTION UDC FEED TUBE ×2 (09:24→20:37)
[2023-05-17] MEDS: ENOXAPARIN 40 MG/0.4 ML SYRINGE SUB-Q (09:24)
[2023-05-17] MEDS: diazePAM (*CRX) 2.5 MG TABLET PO ×2 (09:25→12:14)
[2023-05-17] MEDS: SERTRALINE HCL 25 MG TABLET PO (09:25)
--- NOTE | 2023-05-17 12:24 | PM.IMPN ---
Progress Note: A&P Assessment and Plan (1) COVID: Code(s): U07.1 - COVID-19 Status: Acute Assessment and Plan: Covid PCR positive On room air, CXR showed diffuse infiltates started on Remdesivir monitor 05/16: Improving, continue remdesivir total of 3 doses then discharge most likely 05/17: I believe that pt needs a full course of Remdesivir, therefore he will be here until Monday the . We will continue to monitor his status for any acute changes and trend labs and VS. (2) Cerebral palsy: Code(s): G80.9 - Cerebral palsy, unspecified Status: Chronic Assessment and Plan: stable 05/17: Stable (3) Pneumonia: Code(s): J18.9 - Pneumonia, unspecified organism Status: Acute Assessment and Plan: F/u cultures, MRSA pending Continue Levaquin and Flagyl monitor 05/16: MRSA nares negative 05/17: Continue Levaquin and Flagyl. Follow cultures to completion, which are preliminarily negative. Continue to monitor. (4) Urinary retention: Code(s): R33.9 - Retention of urine, unspecified Status: Acute Assessment and Plan: Concern according to what mom disclosed to me. I confirmed this with the RN. Bladder scan every shift If greater than 500 on bladder scan or no void in 8 hours, may straight cath. Accurate I&O ordered. If it appears that pt may be retaining urine, consider consulting Urology. (5) Severe sepsis: Code(s): A41.9 - Sepsis, unspecified organism; R65.20 - Severe sepsis without septic shock Status: Resolved Assessment and Plan: RR 30, MT 112, CXR diffuse infiltrates Lactic acid pending Continue IVF, and levaquin monitor closely 05/16: Lactic acidosis resolved. 05/17: Continue to monitor for the re-development of sepsis, but currently not showing any acute s/s. (6) Seizure disorder: Code(s): G40.909 - Epilepsy, unspecified, not intractable, without status epilepticus Status: Chronic Assessment and Plan: restart home meds once verified 05/17: No noted seizure activity. Continue home meds and continue to monitor. (7) Dysphagia: Qualifiers: Dysphagia type: unspecified Qualified Code(s): R13.10 - Dysphagia, unspecified Code(s): R13.10 - Dysphagia, unspecified Status: Chronic Assessment and Plan: Continue tube feeds (mother wants to self administer with their own product her) and G tube medications. 05/17: Continue TF's as he normally has at home, given by mother. (8) Anxiety: Code(s): F41.9 - Anxiety disorder, unspecified Status: Acute Assessment and Plan: Continue home meds once verified 05/17: Continue home meds. (9) Proctocolitis: Code(s): K52.9 - Noninfective gastroenteritis and colitis, unspecified Status: Acute Assessment and Plan: CT from 05/10/23 reviewed continue Levaquin and flagyl monitor 05/16: Patient was sent home on Augmentin and today should be last day of treatment 05/17: Continue Levaquin and Flagyl. Plan DVT prophylaxis on Sq Lovenox Time Spent With Patient Time with patient: 25 - 35 minutes Subjective Date/time seen: 05/17/23 1000 Interval history: This pt was examined at the bedside today in interval assessment since being admitted to the hospital with PNA and COVID. Pt.'s mother is at the bedside and informs me that she, too, has tested positive for COVID, and still wishes to stay at her son's bedside as she has not been without him since he was born. From a respiratory standpoint, the pt has been doing well and is not requiring supplemental oxygen. In addition, the pt's mother states he has stopped coughing as much. He was also recently treated one week ago after presenting here to the ER for Proctocolitis and has remained on Levaquin and Flagyl since then. He continues on it as inpatient now as he also has PNA. Pt's mother endorses to me that yesterday after she did his tube feeding
[2023-05-17] MEDS: SODIUM CHLORIDE 0.9% IV 1000 ML BAG IVPB (14:31)
[2023-05-17] MEDS: SODIUM CHLORIDE 0.9% IV 1,000 ML 999 ML IV CONT (15:52)
[2023-05-17] MEDS: FLUDROCORTISONE ACETATE 0.1 MG TABLET FEED TUBE (16:53)
[2023-05-17] MEDS: SODIUM CHLORIDE 0.9% IV 1,000 ML 100 ML IV CONT (16:53)
[2023-05-17] MEDS: levoFLOXacin 750 MG/D5W 150 ML 750 MG/150 ML BAG 100 MG IVPB (17:08)
--- NOTE | 2023-05-17 18:50 | PC.NURSE ---
Patient bladder scanned at 1330 with 100 mL in bladder, voided later on
[2023-05-17] MEDS: FAMOTIDINE 20 MG TABLET FEED TUBE (20:37)
[2023-05-17] MEDS: diazePAM (*CRX) 5 MG TABLET 10 MG PO (20:37)
[2023-05-17] MEDS: REMDESIVIR 100 MG/NS 250 ML 100 MG/250 ML BAG IVPB (21:46)
[2023-05-18] VITALS (10 sets, daily range): BP systolic 97–152; BP diastolic 60–90; PULSE 72–84; RESP 12–20; TEMP 36.4–37.2; O2SAT 94–96
[2023-05-18] MEDS: IPRATROPIUM 0.5 MG/ALBUTEROL SULFATE 2.5 MG AMPUL.NEB 3 ML INHALATION ×4 (01:35→21:12)
[2023-05-18 06:08] LABS: Basophils Percent Auto 0.2 % (0.2-1.2); Hematocrit 37.9 % (42.0-52.0); Immature Granulocyte Absolute 0.01 K/mm3 (0.00-0.031); Immature Granulocyte Percent A 0.2 % (0-0.5); Lymphocytes Absolute Auto 2.92 K/mm3 (0.9-3.2); Lymphocytes Percent Auto 57.9 % (18.3-44.2); Mean Corpuscular HGB Conc 31.7 g/dl (32-36); Mean Corpuscular Hemoglobin 31.2 pg (26-34); Mean Corpuscular Volume 98.4 fl (80-100); Mean Platelet Volume 9.9 fl (7.4-10.4); Monocytes Absolute Auto 0.5 K/mm3 (0.1-0.6); Monocytes Percent Auto 10.5 % (2.6-8.5); Neutrophils Absolute Auto 1.6 K/mm3 (1.3-6.7); Neutrophils Percent Auto 31.2 % (45.5-73.1); Platelet Count Result 242 k/mm3 (150-375); Red Blood Count 3.85 M/mm3 (4.6-6.20); Red Cell Distribution Width 13.7 % (11.5-14.5)
[2023-05-18 06:19] LABS: Alanine Aminotransferase 23 U/L (6-50); Albumin Level 3.1 g/dL (3.5-5.1); Alkaline Phosphatase 49 U/L (38-126); Anion Gap 6 mmol/L (8-16); Aspartate Amino Transferase 35 U/L (17-59); Bilirubin,Total 0.1 mg/dL (0.2-1.3); Blood Urea Nitrogen 10 mg/dL (9-20); Calcium 8.1 mg/dL (8.4-10.2); Carbon Dioxide 23 mmol/L (22-30); Chloride 110 mmol/L (98-107); Estimated CRCL calculation 88 ml/min; Estimated Glomerular Filt Rate > 60; Glucose 93 mg/dL (65-110); Magnesium 1.8 mg/dL (1.6-2.3); Potassium 3.8 mmol/L (3.4-5.0); Sodium 139 mmol/L (137-145)
[2023-05-18] MEDS: METOCLOPRAMIDE HCL 10 MG/10 ML SOLN UDC FEED TUBE ×4 (06:31→21:10)
[2023-05-18] MEDS: SODIUM CHLORIDE 0.9% IV 1,000 ML 100 ML IV CONT (06:31)
[2023-05-18] MEDS: metroNIDAZOLE 500 MG/ISO 100ML 500 MG/100 ML BAG 100 MG IVPB (06:31)
[2023-05-18] MEDS: BACLOFEN 10 MG TABLET 20 MG FEED TUBE ×3 (06:31→21:10)
[2023-05-18] MEDS: ONDANSETRON INJ 4 MG/2 ML VIAL IV PUSH (09:12)
[2023-05-18] MEDS: DEXTROSE 5%/0.9% SOD CHL 1,000 ML 100 ML IV CONT ×2 (09:31→20:15)
[2023-05-18] MEDS: SERTRALINE HCL 25 MG TABLET PO (09:33)
[2023-05-18] MEDS: VALPROIC ACID LIQ 250 MG/5 ML ORAL SOLUTION UDC FEED TUBE ×2 (09:33→21:10)
[2023-05-18] MEDS: diazePAM (*CRX) 2.5 MG TABLET PO ×2 (09:33→12:30)
[2023-05-18] MEDS: FLUDROCORTISONE ACETATE 0.1 MG TABLET FEED TUBE ×2 (09:33→16:03)
--- NOTE | 2023-05-18 10:52 | PM.IMPN ---
Progress Note: A&P Assessment and Plan (1) COVID: Code(s): U07.1 - COVID-19 Status: Acute Assessment and Plan: Covid PCR positive On room air, CXR showed diffuse infiltates started on Remdesivir monitor 05/16: Improving, continue remdesivir total of 3 doses then discharge most likely 05/17: I believe that pt needs a full course of Remdesivir, therefore he will be here until Monday the . We will continue to monitor his status for any acute changes and trend labs and VS. 05/18: Continue remdesivir. Not requiring supplemental oxygen. Respiratory worsening overnight however, and CXR this AM shows a PORFIRIO PNA. (2) Cerebral palsy: Code(s): G80.9 - Cerebral palsy, unspecified Status: Chronic Assessment and Plan: stable 05/17: Stable 05/18: Continue centrally acting muscle relaxants. (3) Pneumonia: Code(s): J18.9 - Pneumonia, unspecified organism Status: Acute Assessment and Plan: F/u cultures, MRSA pending Continue Levaquin and Flagyl monitor 05/16: MRSA nares negative 05/17: Continue Levaquin and Flagyl. Follow cultures to completion, which are preliminarily negative. Continue to monitor. 05/18: CXR this AM that was repeated shows PORFIRIO PNA, that was not otherwise definitely identified upon admission. Continue IV Abx, today is day number 4 of abx, and provide supportive care with oxygen if needed. Duonebs ordered. Preliminary blood cultures are negative. Continue to follow them to completion. Does not currently meet Sepsis criteria, however, pt was hypotensive last evening. We will trend labs and VS and correlate clinically with pt's physical exam. (4) Urinary retention: Code(s): R33.9 - Retention of urine, unspecified Status: Acute Assessment and Plan: Concern according to what mom disclosed to me. I confirmed this with the RN. Bladder scan every shift If greater than 500 on bladder scan or no void in 8 hours, may straight cath. Accurate I&O ordered. If it appears that pt may be retaining urine, consider consulting Urology. 05/18: Pt was incontinent of urine x3 since last evening. He has not required any straight catheterization. Very low suspicion of urinary retention. I checked with nurse regarding the Q-shift bladder scanning that I ordered yesterday, and despite the order being placed, the pt has not been bladder scanned at all. She will scan the bladder for me. (5) Severe sepsis: Code(s): A41.9 - Sepsis, unspecified organism; R65.20 - Severe sepsis without septic shock Status: Resolved Assessment and Plan: RR 30, TN 112, CXR diffuse infiltrates Lactic acid pending Continue IVF, and levaquin monitor closely 05/16: Lactic acidosis resolved. 05/17: Continue to monitor for the re-development of sepsis, but currently not showing any acute s/s. 05/18: Pt with development of Hypotension yesterday to 70s/40s that gradually increased to low 100s/70s with holding of his Tranxene. The remainder of his VS remained normal and he was afebrile and not tachycardic. His repeat CXR this AM shows PORFIRIO PNA. Pt remains on IV abx of flagyl and levaquin as well as he has preliminarily negative cultures. Today he is stable and we will continue to trend labs and VS. (6) Seizure disorder: Code(s): G40.909 - Epilepsy, unspecified, not intractable, without status epilepticus Status: Chronic Assessment and Plan: restart home meds once verified 05/17: No noted seizure activity. Continue home meds and continue to monitor. 05/18: No seizure activity noted. (7) Dysphagia: Qualifiers: Dysphagia type: unspecified Qualified Code(s): R13.10 - Dysphagia, unspecified Code(s): R13.10 - Dysphagia, unspecified Status: Chronic Assessment and Plan: Continue tube feeds (mother wants to self administer with their own product her) and G tube medications. 05/17: Continue TF's as he normally has at home, given by tobias
[2023-05-18] MEDS: PIPERACILLIN/TAZ 4.5G/NS 100ML 4.5 GM/100 ML BAG IVPB ×2 (15:54→20:17)
[2023-05-18] MEDS: ACETAMINOPHEN 325 MG TABLET 650 MG FEED TUBE (16:03)
--- NOTE | 2023-05-18 17:18 | WPDGICN ---
Assessment and Plan Assessment and plan (1) Bleeding from gastrostomy tube site: Code(s): K94.21 - Gastrostomy hemorrhage Status: Acute Assessment and Plan: this is apparently new. Hemoglobin is 12 this appears to be in his usual range. (2) COVID: Code(s): U07.1 - COVID-19 Status: Acute Assessment and Plan: He has been started on remdesivir (3) Rash: Code(s): R21 - Rash and other nonspecific skin eruption Status: Acute (4) Vomiting: Code(s): R11.10 - Vomiting, unspecified Status: Acute Assessment and Plan: the staff indicates that every time they give him a medication for G-tube that he has vomited and earlier today he was vomiting some dark blood. Plan we will continue to hold his tube feedings I will schedule him for EGD to be done tomorrow. I will return to his room this evening to see if his mother is there to discuss this with her GI Consult Note Consult date/time: 05/18/23 17:18 HPI: Dallas Slaughter is a 37 year old male He was admitted 2 days ago with shortness of breath. He was found to be positive for COVID and has been started on therapy. He is chronically dependent on tube feedings because he is unable to eat. He is not communicative having severe cerebral palsy. Apparently this morning when he was given some medication per tube he vomited and brought up dark blood. Since then when medications were given to tube he vomited and also staff noticed that his abdomen was becoming firmer. He has had regular replacement of his G-tube most recently when Dr. Ramirez inserted a button type tube 8 weeks ago. He appears that has been quite awhile since he actually had endoscopy with replacement of a G-tube. The bleeding is new. Review of Systems Review of Systems: ROS unobtainable: Yes unobtainable due to mental status PMFSH Past Medical History Medical History Anxiety Bleeding from gastrostomy tube site Cerebral palsy Dysphagia Chronic. G-tube in place. Esophagitis with gastritis Failure to thrive Hematemesis History of GI bleed History of pulmonary aspiration Hypotension Seizure disorder Urinary retention Uses powered wheelchair Surgical History Surgical History Gastrointestinal tube present History of orthopedic surgery Multiple surgeries related to his cerebra palsy including tendon surgeries and Green transfer. History of spinal fusion Family History Family History Father Family history of elevated blood lipids Family history of diabetes mellitus in first degree relative Hypertension Chronic obstructive pulmonary disease Other Lung cancer Social History Social History Social History: Surrogate decision maker: Cm and Leonora Kasandra, parents. Code status: Full code. Smoking status: Never smoker Second hand tobacco smoke exposure: No Alcohol intake: never Substance use: never Substance use type: does not use Do You Feel Safe in your Home?: Yes Lack of Transportation: No Lack of Food: Never True Current Housing: I Have Housing Concerned About Future Housing: No Difficulty Paying Gas/Electric Bills: No Difficulty Paying for Meds: No Currently Unemployed: No Education: Don't Know Difficulty w/ Childcare or Family Care: No Living arrangements: with family Additional living arrangements comments: The patient lives with his parents and 19-year-old brother in [place]. His father ~12/2022. He is wheelchair-dependent and uses an electric wheelchair which he can manage quite nicely. In fact he likes to spend a lot of his time out in their pole [place] where they have cars and motorcycles, which he really enjoys. He is dependent on most activities of daily living.
--- NOTE | 2023-05-18 19:53 | PC.NURSE ---
I have reviewed and agree with charting that has been done. Pt had consult with GI and is going for EGD tomorrow. Consent was obtained and reviewed as well. highway engineer charge aware of pt change in status.
[2023-05-18] MEDS: diazePAM (*CRX) 5 MG TABLET 10 MG PO (21:10)
[2023-05-18] MEDS: FAMOTIDINE 20 MG TABLET FEED TUBE (21:10)
[2023-05-18] MEDS: REMDESIVIR 100 MG/NS 250 ML 100 MG/250 ML BAG 250 MG IVPB (21:23)
[2023-05-19] VITALS (16 sets, daily range): BP systolic 106–124; BP diastolic 67–82; PULSE 51–76; RESP 16–20; TEMP 36–36.7; O2SAT 93–98
[2023-05-19] MEDS: PIPERACILLIN/TAZ 4.5G/NS 100ML 4.5 GM/100 ML BAG IVPB ×4 (01:45→20:15)
[2023-05-19] MEDS: IPRATROPIUM 0.5 MG/ALBUTEROL SULFATE 2.5 MG AMPUL.NEB 3 ML INHALATION ×3 (02:59→21:15)
[2023-05-19] MEDS: METOCLOPRAMIDE HCL 10 MG/10 ML SOLN UDC FEED TUBE (05:28)
[2023-05-19] MEDS: BACLOFEN 10 MG TABLET 20 MG FEED TUBE ×3 (05:28→21:49)
[2023-05-19 06:24] LABS: Basophils Percent Auto 0.4 % (0.2-1.2); Eosinophils Percent Auto 0.6 % (0-4.4); Hematocrit 35.6 % (42.0-52.0); Hemoglobin 11.6 g/dL (14.0-18.0); Immature Granulocyte Absolute 0.01 K/mm3 (0.00-0.031); Immature Granulocyte Percent A 0.2 % (0-0.5); Lymphocytes Absolute Auto 2.97 K/mm3 (0.9-3.2); Lymphocytes Percent Auto 63.2 % (18.3-44.2); Mean Corpuscular HGB Conc 32.6 g/dl (32-36); Mean Corpuscular Hemoglobin 31.4 pg (26-34); Mean Corpuscular Volume 96.2 fl (80-100); Mean Platelet Volume 9.7 fl (7.4-10.4); Monocytes Absolute Auto 0.5 K/mm3 (0.1-0.6); Neutrophils Absolute Auto 1.2 K/mm3 (1.3-6.7); Neutrophils Percent Auto 25.6 % (45.5-73.1); Platelet Count Result 217 k/mm3 (150-375); Red Cell Distribution Width 13.5 % (11.5-14.5); White Blood Count 4.7 K/mm3 (4.5-10.0)
[2023-05-19 06:31] LABS: INR 1.2; Prothrombin Time 16.4 Seconds (11.1-14.7)
[2023-05-19 06:32] LABS: Alanine Aminotransferase 19 U/L (6-50); Albumin Level 2.9 g/dL (3.5-5.1); Alkaline Phosphatase 46 U/L (38-126); Anion Gap 4 mmol/L (8-16); Aspartate Amino Transferase 28 U/L (17-59); Bilirubin,Total 0.2 mg/dL (0.2-1.3); Blood Urea Nitrogen 5 mg/dL (9-20); Carbon Dioxide 26 mmol/L (22-30); Chloride 108 mmol/L (98-107); Estimated CRCL calculation 88 ml/min; Estimated Glomerular Filt Rate > 60; Glucose 138 mg/dL (65-110); Magnesium 1.8 mg/dL (1.6-2.3); Sodium 138 mmol/L (137-145)
[2023-05-19] MEDS: POTASSIUM CHLORIDE INJ 40 MEQ in SODIUM CHLORIDE 0.9% IV 500 ML 130 MEQ IVPB (08:40)
[2023-05-19] MEDS: SERTRALINE HCL 25 MG TABLET PO (09:10)
[2023-05-19] MEDS: FLUDROCORTISONE ACETATE 0.1 MG TABLET FEED TUBE (09:10)
[2023-05-19] MEDS: PANTOPRAZOLE SODIUM IV 40 MG VIAL IV PUSH (09:26)
[2023-05-19] MEDS: diazePAM INJ (*CRX) 10 MG/2 ML SYRINGE 2.5 MG IV PUSH ×2 (09:26→13:20)
[2023-05-19] MEDS: VALPROIC ACID LIQ 250 MG/5 ML ORAL SOLUTION UDC FEED TUBE ×2 (09:42→21:49)
[2023-05-19] MEDS: SCOPOLAMINE 1 MG PATCH 1 PATCH TRANSDERM (09:43)
[2023-05-19] MEDS: TIZANIDINE HCL 4 MG TABLET FEED TUBE ×3 (09:56→17:53)
--- NOTE | 2023-05-19 11:21 | PCNFU ---
Nutrition Follow-Up Complete: Swallowing difficulties related to dysphagia as evidenced by need for tube feeding for sole source of nutrition Goal:Pt tolerance - Not meeting goal because of vomiting, continue with same goal once tube feeds are restarted after procedure Pt current nutrition is Tube feeding (home: Osmolite 1,5 3 cans per day) - ON HOLD due to possible GI bleed. Nutrition recommendation: No new recommendations. Restart current tube feeds when medically able Last recorded weight is 44.4 kg. Bowel Motility: + 3 BMs 05/18 Labs Reviewed: Hgb 11.6, Hct 35.6, Alb 2.9 K+ 3.0, BUN 5, Cre 0.6, Glu 138 Meds Noted: Reglan, D5, Zosyn, remdesivir Skin: No pressure injuries Additional Notes: Pt had a possible GI bleed. NPO for EGD tomorrow, tube feeds on hold. Pt's mother brings in home tube feeds. Monitor tube feeding, tolerance, wt, labs. Follow up every Monday and Monday.
--- NOTE | 2023-05-19 13:01 | PM.IMPN ---
Progress Note: A&P Assessment and Plan (1) COVID: Code(s): U07.1 - COVID-19 Status: Acute Assessment and Plan: Covid PCR positive On room air, CXR showed diffuse infiltates started on Remdesivir monitor 05/16: Improving, continue remdesivir total of 3 doses then discharge most likely 05/17: I believe that pt needs a full course of Remdesivir, therefore he will be here until Monday the . We will continue to monitor his status for any acute changes and trend labs and VS. 05/18: Continue remdesivir. Not requiring supplemental oxygen. Respiratory worsening overnight however, and CXR this AM shows a PORFIRIO PNA. 05/19: Last day of Remdesivir. On room air. Will continue abx today of Zosyn and recheck CXR in AM. (2) Cerebral palsy: Code(s): G80.9 - Cerebral palsy, unspecified Status: Chronic Assessment and Plan: stable 05/17: Stable 05/18: Continue centrally acting muscle relaxants. 05/19: Continue all home meds. (3) Pneumonia: Code(s): J18.9 - Pneumonia, unspecified organism Status: Acute Assessment and Plan: F/u cultures, MRSA pending Continue Levaquin and Flagyl monitor 05/16: MRSA nares negative 05/17: Continue Levaquin and Flagyl. Follow cultures to completion, which are preliminarily negative. Continue to monitor. 05/18: CXR this AM that was repeated shows PORFIRIO PNA, that was not otherwise definitely identified upon admission. Continue IV Abx, today is day number 4 of abx, and provide supportive care with oxygen if needed. Duonebs ordered. Preliminary blood cultures are negative. Continue to follow them to completion. Does not currently meet Sepsis criteria, however, pt was hypotensive last evening. We will trend labs and VS and correlate clinically with pt's physical exam. 05/19: Continue abx as ordered. Continue nebs, repeat CXR in AM. Blood cultures are negative. Does not meet sepsis criteria. Pt's lung sounds today are improved overall. (4) Urinary retention: Code(s): R33.9 - Retention of urine, unspecified Status: Acute Assessment and Plan: Concern according to what mom disclosed to me. I confirmed this with the RN. Bladder scan every shift If greater than 500 on bladder scan or no void in 8 hours, may straight cath. Accurate I&O ordered. If it appears that pt may be retaining urine, consider consulting Urology. 05/18: Pt was incontinent of urine x3 since last evening. He has not required any straight catheterization. Very low suspicion of urinary retention. I checked with nurse regarding the Q-shift bladder scanning that I ordered yesterday, and despite the order being placed, the pt has not been bladder scanned at all. She will scan the bladder for me. 05/19: Pt with darby catheter placed overnight in the setting that he was retaining >500 ml. Draining clear yellow urine currently. Will attempt bladder training tomorrow. (5) Severe sepsis: Code(s): A41.9 - Sepsis, unspecified organism; R65.20 - Severe sepsis without septic shock Status: Resolved Assessment and Plan: RR 30, KS 112, CXR diffuse infiltrates Lactic acid pending Continue IVF, and levaquin monitor closely 05/16: Lactic acidosis resolved. 05/17: Continue to monitor for the re-development of sepsis, but currently not showing any acute s/s. 05/18: Pt with development of Hypotension yesterday to 70s/40s that gradually increased to low 100s/70s with holding of his Tranxene. The remainder of his VS remained normal and he was afebrile and not tachycardic. His repeat CXR this AM shows PORFIRIO PNA. Pt remains on IV abx of flagyl and levaquin as well as he has preliminarily negative cultures. Today he is stable and we will continue to trend labs and VS. (6) Seizure disorder: Code(s): G40.909 - Epilepsy, unspecified, not intractable, without status epilepticus Status: Chronic Assessment and Plan: restart home meds once verified 05/17: No noted seizure activity. Con
[2023-05-19] MEDS: DEXTROSE 5%/0.9% SOD CHL 1,000 ML 100 ML IV CONT (13:07)
[2023-05-19] MEDS: METOCLOPRAMIDE HCL INJ 10 MG/2 ML VIAL IV PUSH ×3 (13:20→21:48)
--- NOTE | 2023-05-19 15:01 | WPDANESEPPF ---
Anes - Initial Pre Proc Eval Procedure: Operation Date: 05/19/23 14:00 Proposed Procedures p Esophagogastroduodenoscopy - Cedric Rodrigues MD Date/Time: 05/19/23 15:01 Surgeon: CLARIBEL Cason Pre Op Diagnosis: COVID Pneumonia Patient Data Age: 37 Gender: M Height: 1.57 m Weight: 44.4 kg Last Vital Signs Temp 97.7 F 05/19/23 12:42 Pulse 76 05/19/23 12:42 Resp 18 05/19/23 12:42 BP 111/79 05/19/23 12:42 Pulse Ox 93 05/19/23 12:42 O2 Del Method Room Air 05/19/23 09:25 FiO2 21 05/18/23 07:55 Allergies Allergy/AdvReac Type Severity Reaction Status Date / Time Sulfa (Sulfonamide Allergy Unknown LIPS AND Verified 05/15/23 18:15 Antibiotics) GENITAL PEELING SKIN Home Medications Medication Instructions Recorded Confirmed Type albuterol sulfate 2.5 mg/3 mL 2.5 mg (3 mL) inhalation Q4-6H PRN 09/02/20 05/15/23 Rx (0.083 %) solution for nebulization shortness of breath or wheezing #180 mL polyethylene glycol 3350 17 gram 17 g feeding tube BID PRN 06/20/22 05/15/23 Rx oral powder packet (Miralax) constipation #30 ea bisacodyl 10 mg rectal suppository 10 mg RECTAL DAILY PRN 07/14/22 05/15/23 Rx (Dulcolax (bisacodyl)) constipation #12 ea metoclopramide HCl 5 mg/5 mL oral See Rx Instructions .Route 11/25/22 05/15/23 Rx solution .COMPLEX #12,000 mL valproic acid (as sodium salt) 250 See Rx Instructions .Route 01/05/23 05/15/23 Rx mg/5 mL oral solution .COMPLEX #300 mL famotidine 40 mg/5 mL (8 mg/mL) 20 mg (2.5 mL) PO QHS #150 mL 01/24/23 05/15/23 Rx oral suspension clorazepate dipotassium 3.75 mg 3.75 mg feeding tube TID #90 tabs 02/24/23 05/15/23 Rx tablet diazepam 5 mg tablet 5 mg PO TID muscle spasm 03/02/23 05/16/23 History scopolamine base 1 mg over 3 days 1 patch topical Q3D 03/02/23 05/15/23 History transdermal patch mupirocin 2 % topical ointment 1 applic topical BID PRN Edema #22 04/11/23 05/15/23 Rx grams acetaminophen 500 mg/15 mL oral 500 mg (15 mL) feeding tube Q6H 05/04/23 05/15/23 Rx liquid PRN fever or pain #240 mL prucalopride [Motegrity] 2 mg feeding tube .hs 05/04/23 05/15/23 History sertraline 20 mg/mL oral 20 mg PO DAILY #60 mL 05/04/23 05/15/23 Rx concentrate baclofen 20 mg tablet 20 mg feeding tube TID 05/11/23 05/16/23 History omeprazole 40 mg capsule,delayed 40 mg feeding tube DAILY 05/11/23 05/15/23 History release tizanidine 4 mg tablet 4 mg feeding tube TID 05/11/23 05/15/23 History amoxicillin 400 mg-potassium 5 ml PO Q12H #80 mL 05/12/23 05/15/23 Rx clavulanate 57 mg/5 mL oral suspension Laboratory Tests 05/19/23 05:39 WBC 4.7 K/mm3 (4.5-10.0) RBC 3.70 L M/mm3 (4.6-6.20) Hgb 11.6 L g/dL (14.0-18.0) Hct 35.6 L % (42.0-52.0) MCV 96.2 fl (80-100) MCH 31.4 pg (26-34) MCHC 32.6 g/dl (32-36) RDW 13.5 % (11.5-14.5) Plt Count 217 k/mm3 (150-375) MPV 9.7 fl (7.4-10.4) Immature Gran % (Auto) 0.2 % (0-0.5) Neut % (Auto) 25.6 L % (45.5-73.1) Lymph % (Auto) 63.2 H % (18.3-44.2) [place] % (Auto) 10.0 H % (2.6-8.5) Eos % (Auto) 0.6 % (0-4.4) Baso % (Auto) 0.4 % (0.2-1.2) Lymph # (Auto) 2.97 K/mm3 (0.9-3.2) [place] # (Auto) 0.5 K/mm3 (0.1-0.6) Eos # (Auto) 0.0 K/mm3 (0-0.3) Baso # (Auto) 0.0 K/mm3 (0.0-0.1) Abs Immat Gran (auto) 0.01 K/mm3 (0.00-0.031) Absolute Neuts (auto) 1.2 L K/mm3 (1.3-6.7) Absolute Nucleated RBC 0.0 K/mm3 (0.0-0.012) Nucleated RBC % 0.0 % (0.0-0.2) PT 16.4 H Seconds (11.1-14.7) INR 1.2 Sodium 138 mmol/L (137-145) Potassium 3.0 L mmol/L (3.4-5.0) Chloride 108 H mmol/L (98-107) Carbon Dioxide 26 mmol/L (22-30) Anion Gap 4 L mmol/L (8-16) BUN 5 L D mg/dL (9-20) Creatinine 0.60 L mg/dL (0.7-1.3) Estim Creat Clear Calc 88 ml/min Estimated GFR > 60 (59 - ) Glucose 138 H
[2023-05-19] MEDS: LACTATED RINGERS 1,000 ML 150 ML IV CONT (15:39)
--- NOTE | 2023-05-19 19:28 | PHAR ---
PT'S HOME MED MOTEGRITY 2 MG TABS VERIFIED BY PHARMACY
--- NOTE | 2023-05-19 20:09 | PC.NURSE ---
On 05/19/23, the FOREST AIDE, Linnea, provided care and [facility]. I have reviewed the FOREST AIDE's documentation and agree with the findings.
[2023-05-19] MEDS: diazePAM INJ (*CRX) 10 MG/2 ML SYRINGE IV PUSH (21:46)
[2023-05-19] MEDS: REMDESIVIR 100 MG/NS 250 ML 100 MG/250 ML BAG 250 MG IVPB (21:49)
[2023-05-20] MEDS: PIPERACILLIN/TAZ 4.5G/NS 100ML 4.5 GM/100 ML BAG IVPB ×3 (01:56→13:07)
[2023-05-20] MEDS: DEXTROSE 5%/0.9% SOD CHL 1,000 ML 100 ML IV CONT (01:57)
[2023-05-20] MEDS: BACLOFEN 10 MG TABLET 20 MG FEED TUBE ×2 (06:03→13:05)
[2023-05-20] MEDS: METOCLOPRAMIDE HCL INJ 10 MG/2 ML VIAL IV PUSH ×2 (06:03→11:35)
[2023-05-20 06:25] LABS: Basophils Percent Auto 0.2 % (0.2-1.2); Eosinophils Absolute Auto 0.1 K/mm3 (0-0.3); Eosinophils Percent Auto 1.2 % (0-4.4); Hematocrit 38.6 % (42.0-52.0); Hemoglobin 12.4 g/dL (14.0-18.0); Immature Granulocyte Absolute 0.02 K/mm3 (0.00-0.031); Immature Granulocyte Percent A 0.4 % (0-0.5); Lymphocytes Absolute Auto 2.82 K/mm3 (0.9-3.2); Lymphocytes Percent Auto 50.2 % (18.3-44.2); Mean Corpuscular HGB Conc 32.1 g/dl (32-36); Mean Corpuscular Volume 96.5 fl (80-100); Mean Platelet Volume 9.8 fl (7.4-10.4); Monocytes Absolute Auto 0.5 K/mm3 (0.1-0.6); Monocytes Percent Auto 9.1 % (2.6-8.5); Neutrophils Absolute Auto 2.2 K/mm3 (1.3-6.7); Neutrophils Percent Auto 38.9 % (45.5-73.1); Platelet Count Result 218 k/mm3 (150-375); Red Cell Distribution Width 13.4 % (11.5-14.5); White Blood Count 5.6 K/mm3 (4.5-10.0)
[2023-05-20 06:43] LABS: Alanine Aminotransferase 19 U/L (6-50); Albumin Level 2.9 g/dL (3.5-5.1); Alkaline Phosphatase 43 U/L (38-126); Anion Gap 5 mmol/L (8-16); Aspartate Amino Transferase 29 U/L (17-59); Bilirubin,Total 0.3 mg/dL (0.2-1.3); Blood Urea Nitrogen 4 mg/dL (9-20); Calcium 8.2 mg/dL (8.4-10.2); Carbon Dioxide 27 mmol/L (22-30); Chloride 108 mmol/L (98-107); Estimated CRCL calculation 88 ml/min; Estimated Glomerular Filt Rate > 60; Glucose 121 mg/dL (65-110); Magnesium 1.9 mg/dL (1.6-2.3); Potassium 3.6 mmol/L (3.4-5.0); Sodium 140 mmol/L (137-145)
[2023-05-20 07:44] VITALS: PULSE 58; RESP 18; O2SAT 94
[2023-05-20] MEDS: IPRATROPIUM 0.5 MG/ALBUTEROL SULFATE 2.5 MG AMPUL.NEB 3 ML INHALATION ×2 (07:44→13:11)
[2023-05-20 07:50] VITALS: PULSE 61; RESP 18
[2023-05-20] MEDS: diazePAM INJ (*CRX) 10 MG/2 ML SYRINGE 2.5 MG IV PUSH ×2 (09:30→13:05)
[2023-05-20] MEDS: SERTRALINE HCL 25 MG TABLET PO (09:31)
[2023-05-20] MEDS: TIZANIDINE HCL 4 MG TABLET FEED TUBE ×2 (09:31→13:05)
[2023-05-20] MEDS: VALPROIC ACID LIQ 250 MG/5 ML ORAL SOLUTION UDC FEED TUBE (09:31)
[2023-05-20] MEDS: PANTOPRAZOLE SODIUM IV 40 MG VIAL IV PUSH (09:32)
[2023-05-20 13:11] VITALS: PULSE 60; RESP 18
[2023-05-20 13:17] VITALS: PULSE 61; RESP 18
[2023-05-20 14:00] VITALS: BP 140/87; PULSE 56; RESP 12; TEMP 36.3; O2SAT 96
--- NOTE | 2023-05-20 15:01 | PM.DS ---
DS: Admitting Diagnosis Discharge Date 05/20/23 Admitting Diagnosis COVID 19 Pneumonia Cerebral Palsy Severe Sepsis Seizure Disorder Epilepsy Dysphagia Anxiety Proctocolitis DS: Discharge Diagnosis Discharge Diagnosis (1) COVID: Code(s): U07.1 - COVID-19 Status: Acute Assessment and Plan: Covid PCR positive On room air, CXR showed diffuse infiltates started on Remdesivir monitor 05/16: Improving, continue remdesivir total of 3 doses then discharge most likely 05/17: I believe that pt needs a full course of Remdesivir, therefore he will be here until Monday the . We will continue to monitor his status for any acute changes and trend labs and VS. 05/18: Continue remdesivir. Not requiring supplemental oxygen. Respiratory worsening overnight however, and CXR this AM shows a PORFIRIO PNA. 05/19: Last day of Remdesivir. On room air. Will continue abx today of Zosyn and recheck CXR in AM. 05/20: Pt completed Remdesivir, remains on room air and has not had any further difficulty or decline in his respiratory status. VSS. No acute distress. (2) Cerebral palsy: Code(s): G80.9 - Cerebral palsy, unspecified Status: Chronic Assessment and Plan: stable 05/17: Stable 05/18: Continue centrally acting muscle relaxants. 05/19: Continue all home meds. 05/20: Continue all home meds on discharge. (3) Pneumonia: Code(s): J18.9 - Pneumonia, unspecified organism Status: Acute Assessment and Plan: F/u cultures, MRSA pending Continue Levaquin and Flagyl monitor 05/16: MRSA nares negative 05/17: Continue Levaquin and Flagyl. Follow cultures to completion, which are preliminarily negative. Continue to monitor. 05/18: CXR this AM that was repeated shows PORFIRIO PNA, that was not otherwise definitely identified upon admission. Continue IV Abx, today is day number 4 of abx, and provide supportive care with oxygen if needed. Duonebs ordered. Preliminary blood cultures are negative. Continue to follow them to completion. Does not currently meet Sepsis criteria, however, pt was hypotensive last evening. We will trend labs and VS and correlate clinically with pt's physical exam. 05/19: Continue abx as ordered. Continue nebs, repeat CXR in AM. Blood cultures are negative. Does not meet sepsis criteria. Pt's lung sounds today are improved overall. 05/20: Prior to admission to hospital, the pt completed four days of Augmentin per G-tube for Proctocolitis and PNA. Upon admission on 05/15/23, the pt was started on abx of Levaquin and Flagyl which he had for four days and as he started to appear sicker, he was switched to Zosyn which he has currently had for a total of 3 days. Blood and MRSA cultures are negative. He is stable for discharge to home today with abx to continue Augmentin for 5 more days, and add Azithromycin for 5 days per G-tube. Pt discharged hemodynamically stable and without oxygen requirements. (4) Urinary retention: Code(s): R33.9 - Retention of urine, unspecified Status: Acute Assessment and Plan: Concern according to what mom disclosed to me. I confirmed this with the RN. Bladder scan every shift If greater than 500 on bladder scan or no void in 8 hours, may straight cath. Accurate I&O ordered. If it appears that pt may be retaining urine, consider consulting Urology. 05/18: Pt was incontinent of urine x3 since last evening. He has not required any straight catheterization. Very low suspicion of urinary retention. I checked with nurse regarding the Q-shift bladder scanning that I ordered yesterday, and despite the order being placed, the pt has not been bladder scanned at all. She will scan the bladder for me. 05/19: Pt with darby catheter placed overnight in the setting that he was retaining >500 ml. Draining clear yellow urine currently. Will attempt bladder training tomorrow. 05/20: Darby discontinued this AM and pt voiding without difficulty. (5) Severe sepsis: Code(s): A
--- NOTE | 2023-05-20 15:49 | P.PNAN_ITS ---
Anes - Prog Note Post-Op Date/Time: 05/20/23 15:49 Cardiovascular status: normal Respiratory status: normal Airway patency: baseline Mental status: baseline Post-Op hydration status: normal Vital Signs: Last Vital Signs Temp 36.3 C L 05/20/23 14:00 Pulse 56 L 05/20/23 14:00 Resp 12 05/20/23 14:00 BP 140/87 05/20/23 14:00 Pulse Ox 96 05/20/23 14:00 O2 Del Method Room Air 05/20/23 08:00 FiO2 21 05/20/23 07:44 Pain Score (VAS): 04/05 I/O: Intake & Output 05/19/23 05/20/23 05/20/23 23:59 07:59 15:59 Intake Total 1100 100 200 Output Total 1530 1525 Balance -430 -1425 200 Laboratory Tests 05/20/23 05:58 05/20/23 05:58 05/20/23 05:58 WBC 5.6 RBC 4.00 L Hgb 12.4 L Hct 38.6 L MCV 96.5 MCH 31.0 MCHC 32.1 RDW 13.4 Plt Count 218 MPV 9.8 Immature Gran % (Auto) 0.4 Neut % (Auto) 38.9 L Lymph % (Auto) 50.2 H [place] % (Auto) 9.1 H Eos % (Auto) 1.2 Baso % (Auto) 0.2 Lymph # (Auto) 2.82 [place] # (Auto) 0.5 Eos # (Auto) 0.1 Baso # (Auto) 0.0 Abs Immat Gran (auto) 0.02 Absolute Neuts (auto) 2.2 Absolute Nucleated RBC 0.0 Nucleated RBC % 0.0 Sodium 140 Potassium 3.6 Chloride 108 H Carbon Dioxide 27 Anion Gap 5 L BUN 4 L Creatinine 0.60 L Estim Creat Clear Calc 88 Estimated GFR > 60 Glucose 121 H Calcium 8.2 L Magnesium 1.9 Total Bilirubin 0.3 AST 29 ALT 19 Alkaline Phosphatase 43 Total Protein 6.0 L Albumin 2.9 L Post-procedural complaints: none Patient Feedback: Patient satisfied with anesthetic care.
== END 2023-05-20 17:00 | disposition home or self-care (01) | DRG 871 ==
LOC: ANHED 10:20 → ANH3MEDSUR 16:49
PROVIDERS: Internal Medicine Gastroenterology; Nurse Practitioner; Admitting Provider Internal Medicine; Emergency Provider Emergency Medicine; PCP Family Medicine; Visit Provider Nurse Practitioner Adult Health
PROC: 0DJ08ZZ Inspection of Upper Intestinal Tract, Via Natural or Artificial Opening Endoscopic (ICD-10-PCS; CPT 43235; principal; 2023-05-19 14:00)
DX: A41.9 Sepsis, unspecified organism (principal); J12.82 Pneumonia due to coronavirus disease 2019; U07.1 COVID-19; K92.0 Hematemesis; Z68.1 Body mass index [BMI] 19.9 or less, adult; R65.20 Severe sepsis without septic shock; K52.9 Noninfective gastroenteritis and colitis, unspecified; K21.9 Gastro-esophageal reflux disease without esophagitis; K29.70 Gastritis, unspecified, without bleeding; R62.7 Adult failure to thrive; G80.9 Cerebral palsy, unspecified; R33.9 Retention of urine, unspecified; G40.909 Epilepsy, unspecified, not intractable, without status epilepticus; R13.10 Dysphagia, unspecified; F41.9 Anxiety disorder, unspecified; K94.21 Gastrostomy hemorrhage; R21 Rash and other nonspecific skin eruption; I95.9 Hypotension, unspecified; Z98.1 Arthrodesis status
CPT/HCPCS: 36415; 71045; 74018; 80053; 82248; 83605; 83735; 83880; 85025; 85610; 87040; 87081; 87637; 87641; 88305; 93005; 94640; 96365; 99285; A9270; C9113; G0378; J0248; J1650; J1836; J1956; J2405; J2543; J2704; J2765; J3360; J3480; J7030; J7040; J7042; J7120

== ENCOUNTER 2023-06-18 13:31 | Observation (INO) | payer MEDICARE, MEDICAID, SELFPAY ==
--- NOTE | ~2023-06-18 | XR_ITS ---
EXAMINATION: XR chest 2V Exam Date/Time: 06/18/2023 14:25 CDT HISTORY: cough, Patient contracted hx of CP best images obtained Comparison: With focus portable shouldn't. RESULT: Lines, tubes, and devices: Thoracolumbar fusion hardware. Lungs and pleura: Exam limited by overlapping arms in both the frontal and lateral view as well as s evere rotation in the lateral view. Cardiomediastinal silhouette: Partially obscured. Other: No acute osseous or upper abdominal finding. IMPRESSION: Nondiagnostic study due to patient condition. Reviewed, dictated and finalized at location K.
--- NOTE | ~2023-06-18 | XR_ITS ---
EXAM: XR abdomen/kub 1V DATE: 06/18/2023 19:44 HISTORY: vomiting, abdominal distention . COMPARISON: 05/19/2023. FINDINGS: Clear left lung base. The right lung base is obscured by the right forearm and hand. Leanne l bowel gas pattern. Partially visualized G tube. Thoracolumbar fusion/stabilization hardware. No org anomegaly. No abnormal abdominal calcification. No acute osseous finding. IMPRESSION: No radiographic evidence of obstruction or ileus. Reviewed, dictated and finalized at location K.
[2023-06-18 13:30] VITALS: BP 113/84; PULSE 131; RESP 23; TEMP 36.7; O2SAT 95
--- NOTE | 2023-06-18 13:42 | ED.URI ---
HPI - URI/Sore Throat General Chief Complaint: Upper Respiratory Infection Stated Complaint: asp pneumonia Time Seen by Provider: 06/18/23 13:42 History of Present Illness HPI Narrative: 37 years old white male, mentally challenged, brought to the emergency room by ambulance from home with coughing up phlegm, possible aspiration, nobody available to take care of him at home. longterm placement, family recommended. Patient's mom who take care of the patient 89 has been hospitalized at [facility] yesterday for brain tumor. His little brother who is leaving in 3 days to go to the service, his neighbor across the street not familiar with this condition unable to take care of him. Last feeding tube use was last night, patient did not take his medication or eat today. According to his brother that patient can follow commands sometimes, nonverbal, noncommunicative, wearing dependent, having feeding tube Related Data Home Medications Medication Instructions Recorded Confirmed scopolamine base 1 mg over 3 days 1 patch topical Q3D 03/02/23 06/18/23 transdermal patch prucalopride [Motegrity] 2 mg feeding tube .hs 05/04/23 06/18/23 baclofen 20 mg tablet 20 mg feeding tube TID 05/11/23 06/18/23 Allergies Allergy/AdvReac Type Severity Reaction Status Date / Time Sulfa (Sulfonamide Allergy Unknown LIPS AND Verified 06/18/23 13:48 Antibiotics) GENITAL PEELING SKIN Review of Systems Review of Systems: ROS unobtainable: Yes unobtainable due to medical condition PMFSH Past Medical History Medical History Anxiety Bleeding from gastrostomy tube site Cerebral palsy Dysphagia Chronic. G-tube in place. Esophagitis with gastritis Failure to thrive Hematemesis History of GI bleed History of pulmonary aspiration Hypotension Seizure disorder Urinary retention Uses powered wheelchair Surgical History Surgical History Gastrointestinal tube present History of orthopedic surgery Multiple surgeries related to his cerebra palsy including tendon surgeries and Green transfer. History of spinal fusion Family History Family History Father Family history of elevated blood lipids Family history of diabetes mellitus in first degree relative Hypertension Chronic obstructive pulmonary disease Other Lung cancer Social History Social History Social History: Surrogate decision maker: Cm and Leonora Ramírezi, parents. Code status: Full code. Smoking status: Never smoker Second hand tobacco smoke exposure: No Alcohol intake: never Substance use: never Substance use type: does not use Do You Feel Safe in your Home?: Yes Lack of Transportation: No Lack of Food: Never True Current Housing: I Have Housing Concerned About Future Housing: No Difficulty Paying Gas/Electric Bills: No Difficulty Paying for Meds: No Currently Unemployed: No Education: Don't Know Difficulty w/ Childcare or Family Care: No Living arrangements: with family Additional living arrangements comments: The patient lives with his parents and 19-year-old brother in [place]. His father ~12/2022. He is wheelchair-dependent and uses an electric wheelchair which he can manage quite nicely. In fact he likes to spend a lot of his time out in their pole [place] where they have cars and motorcycles, which he really enjoys. He is dependent on most activities of daily living. Occupation/Education: unemployed Additional occupation/education comments: Disabled. Spiritual care concerns: No Exam Narrative: General appearance: Well-developed, well-nourished, lying down in bed, not in any pain or distress, intermittent coughing up phlegm Skin: Normal color Head: Normocephalic, nontraumatic Eye
[2023-06-18 13:54] VITALS: O2SAT 97
--- NOTE | 2023-06-18 13:59 | ECG_ITS ---
Measurements Intervals [place] Rate: 126 P: 43 UT: 136 QRS: 86 QRSD: 80 T: 20 QT: 335 QTc: 485 Interpretive Statements SINUS TACHYCARDIA LEFT ATRIAL ENLARGEMENT RSR' IN V1 OR V2, PROBABLY NORMAL VARIANT DELAYED PRECORDIAL R/S TRANSITION BASELINE ARTIFACT- III, AVL, AVF, V2 ABNORMAL ECG COMPARED TO ECG 05/15/2023 09:51:05 NO SIGNIFICANT CHANGES Electronically Signed On 06-18-2023 16:51:08 CDT by Yoandy Walters D.O.
--- NOTE | 2023-06-18 14:47 | PCCCNOTE ---
Called to pt room by Kip , ED charge nurse, and met with pt and his brother, Rere regarding home situation. Rere reports pt lives at home with his mother, Leonora, who is pt's legal guardian and his DORS worker. She is the only person who is able to care for pt due to the of his father,Wenceslao, four months ago. Pt's mother is currently hospitalized at [facility] with a newly diagnosed brain tumor and hopes to be discharged in 1-2 days. Spoke with pt's mother, Leonora, at [phone] and she states she is the only person able to care for pt and she plans to pursue back up plans but many situations have arisen since the of Dallas's father. Pt had IPA and now does not qualify due to his receiving his father's social security and mom is actively working to get the situation rectified. She plans to take pt home and does not want him institutionalized .
[2023-06-18 15:09] LABS: Basophils Percent Auto 0.3 % (0.2-1.2); Eosinophils Percent Auto 0.2 % (0-4.4); Hematocrit 47.7 % (42.0-52.0); Hemoglobin 15.9 g/dL (14.0-18.0); Immature Granulocyte Absolute 0.03 K/mm3 (0.00-0.031); Immature Granulocyte Percent A 0.3 % (0-0.5); Lymphocytes Absolute Auto 3.03 K/mm3 (0.9-3.2); Mean Corpuscular HGB Conc 33.3 g/dl (32-36); Mean Corpuscular Hemoglobin 31.2 pg (26-34); Mean Corpuscular Volume 93.7 fl (80-100); Mean Platelet Volume 9.5 fl (7.4-10.4); Monocytes Absolute Auto 0.8 K/mm3 (0.1-0.6); Monocytes Percent Auto 8.7 % (2.6-8.5); Neutrophils Percent Auto 56.5 % (45.5-73.1); Platelet Count Result 285 k/mm3 (150-375); Red Blood Count 5.09 M/mm3 (4.6-6.20); Red Cell Distribution Width 13.4 % (11.5-14.5); White Blood Count 8.9 K/mm3 (4.5-10.0)
[2023-06-18] MEDS: SODIUM CHLORIDE 0.9% IV 1,000 ML 999 ML IV CONT (15:13)
[2023-06-18 15:18] LABS: Lactic Acid Reflex 2.5 mmol/L (0.7-2.0)
[2023-06-18 15:19] LABS: INR 0.9; Partial Thromboplastin Time 27.2 Seconds (22.3-36.8); Prothrombin Time 12.7 Seconds (11.1-14.7)
[2023-06-18 15:22] LABS: Alanine Aminotransferase 33 U/L (6-50); Albumin Level 4.9 g/dL (3.5-5.1); Alkaline Phosphatase 74 U/L (38-126); Anion Gap 9 mmol/L (8-16); Aspartate Amino Transferase 34 U/L (17-59); Bilirubin,Total 0.5 mg/dL (0.2-1.3); Blood Urea Nitrogen 19 mg/dL (9-20); CRP < 0.5 mg/dL (<1.0); Calcium 9.9 mg/dL (8.4-10.2); Carbon Dioxide 28 mmol/L (22-30); Chloride 103 mmol/L (98-107); Estimated Glomerular Filt Rate > 60; Glucose 94 mg/dL (65-110); Potassium 4.2 mmol/L (3.4-5.0); Sodium 140 mmol/L (137-145)
[2023-06-18 15:26] VITALS: BP 103/85; PULSE 126; RESP 20; O2SAT 95
--- NOTE | 2023-06-18 15:36 | PC.NURSE ---
Called Rere to bring pt feeding tube extension and feedings.
[2023-06-18 15:46] LABS: Influenza A QL RT-PCR Negative (Negative); Influenza B QL RT-PCR Negative (Negative); RSV RNA, RT-PCR Negative (Negative); SARS-CoV-2 RNA PCR Negative (Negative)
--- NOTE | 2023-06-18 16:45 | PC.NURSE ---
Tube feeding initiated. placed on a pump to be distributed over an hour. Pt sat up for feeding.
[2023-06-18 18:06] LABS: Reflex Lactic Acid Yes or No Add Lactic
--- NOTE | 2023-06-18 19:06 | PM.IMHP ---
H&P: HPI History of Present Illness Date/Time: 06/18/23 19:05 Chief Complaint: Coughing. Narrative: This is a 37-year-old male with history of seizures, cerebral palsy, and chronic aspiration who presented to the emergency department for evaluation of cough. He is nonverbal and thus the following history is obtained via a review of his electronic medical records. Gayle, his mother, is his primary software project engineer and she has been in the hospital at another facility for the past 24 hours. His younger brother, Ok, is on leave this weekend from the and has been staying with Dallas however he is not familiar with his care routine and has not been able to give him his medications or tube feedings. Ok called 911 today after Dallas had a coughing fit. According to EMS documentation, Dallas he was in no distress on their arrival with stable vital signs. He has been tachycardic in the ED and has tremors, both which appear to be due to anxiety. CMP and CBC were pretty unremarkable. Lactic acid level was at the upper limit of normal but is felt to be related to lab draw technique. Chest x-ray was limited due to positioning but his lung sounds are clear on exam. The ED physician and floor care technician were able to speak with the patient's mother via phone. While she would prefer Dallas to be at home, she understands that her younger son is not able to care for him and fulfill his needs while she is absent; he is due to return back to the in the next day or 2. Thus the patient is being admitted in this setting so that he may get his medications and tube feedings. At the time my evaluation, he is alert and awake and appears nontoxic. He does not answer question or but he does track me with his eyes and attempts to follow commands. Tube feeds were started in the emergency department and he had an episode of emesis about an hour later which was consistent with tube feedings. Abdomen was a bit distended on exam though KUB did not show any concerning findings. Of note, he was hospitalized last month at which time he had an EGD for evaluation of ongoing vomiting which showed NERD and gastritis. Review of Systems Review of Systems: Unable to obtain given clinical condition. [facility] Past Medical History Medical History (Updated 06/18/23 @ 22:12 by Huyen Ngo PA-C) Anxiety Cerebral palsy Dysphagia Chronic. G-tube in place. Esophagitis with gastritis Hematemesis History of GI bleed History of pulmonary aspiration Seizure disorder Urinary retention Surgical History Surgical History Gastrointestinal tube present History of orthopedic surgery Multiple surgeries related to his cerebra palsy including tendon surgeries and Green transfer. History of spinal fusion Family History Family History Father Family history of elevated blood lipids Family history of diabetes mellitus in first degree relative Hypertension Chronic obstructive pulmonary disease Other Lung cancer Social History Social History (Updated 06/18/23 @ 19:09 by Huyen Ngo PA-C) Social History: Surrogate decision maker: Leonora Slaughter, mother. Code status: Full code. Smoking status: Never smoker Second hand tobacco smoke exposure: No Alcohol intake: never Substance use: never Substance use type: does not use Do You Feel Safe in your Home?: Yes Lack of Transportation: No Lack of Food: Never True Current Housing: I Have Housing Concerned About Future Housing: No Difficulty Paying Gas/Electric Bills: No Difficulty Paying for Meds: No Currently Unemployed: No Education: Don't Know Difficulty w/ Childcare or Family Care: No Living arrangements: with family Additional living arrangements comments: The patient lives with his mother and brother in [place]. His father in November 2022. He is wheelchair-d
--- NOTE | 2023-06-18 19:25 | PC.NURSE ---
BSSR received from JESSI Brown and JESSI Noguera. Pt linen changed and repositioned in bed.
[2023-06-18 20:30] VITALS: BP 111/85; PULSE 117; RESP 20; TEMP 37.2; O2SAT 96; BMI 14.5
[2023-06-18 20:52] LABS: Lactic Acid 1.8 mmol/L (0.7-2.0)
[2023-06-18 23:45] VITALS: O2SAT 97
[2023-06-19] MEDS: METOCLOPRAMIDE HCL 10 MG/10 ML SOLN UDC FEED TUBE ×4 (00:05→20:27)
[2023-06-19] MEDS: CLORAZEPATE DIPOTASSIUM (*CRX) 3.75 MG TABLET FEED TUBE ×4 (00:05→17:35)
[2023-06-19] MEDS: BACLOFEN 10 MG TABLET 20 MG FEED TUBE ×4 (00:05→17:35)
[2023-06-19] MEDS: VALPROIC ACID LIQ 250 MG/5 ML ORAL SOLUTION UDC FEED TUBE ×3 (00:05→20:27)
[2023-06-19] MEDS: SCOPOLAMINE 1 MG PATCH 1 PATCH TRANSDERM (00:47)
[2023-06-19] MEDS: ONDANSETRON INJ 4 MG/2 ML VIAL IV PUSH (00:51)
[2023-06-19 05:59] LABS: Hematocrit 46.1 % (42.0-52.0); Hemoglobin 14.8 g/dL (14.0-18.0); Mean Corpuscular HGB Conc 32.1 g/dl (32-36); Mean Corpuscular Volume 96.4 fl (80-100); Mean Platelet Volume 9.8 fl (7.4-10.4); Platelet Count Result 302 k/mm3 (150-375); Red Blood Count 4.78 M/mm3 (4.6-6.20); Red Cell Distribution Width 13.4 % (11.5-14.5); White Blood Count 15.3 K/mm3 (4.5-10.0)
[2023-06-19 06:00] VITALS: BP 128/83; PULSE 130; RESP 24; TEMP 36.8; O2SAT 94
[2023-06-19 06:13] LABS: Anion Gap 10 mmol/L (8-16); Blood Urea Nitrogen 19 mg/dL (9-20); Calcium 9.6 mg/dL (8.4-10.2); Carbon Dioxide 22 mmol/L (22-30); Chloride 109 mmol/L (98-107); Estimated CRCL calculation 105 ml/min; Estimated Glomerular Filt Rate > 60; Glucose 105 mg/dL (65-110); Magnesium 1.9 mg/dL (1.6-2.3); Potassium 4.1 mmol/L (3.4-5.0); Sodium 141 mmol/L (137-145)
--- NOTE | 2023-06-19 09:17 | PM.IMPN ---
Progress Note: A&P Assessment and Plan (1) Unable to manage residence-related activities: Code(s): R68.89 - Other general symptoms and signs Status: Acute Assessment and Plan: -patient with cerebral palsy, currently he is painting care of by his mother at home, who is currently hospitalized for brain tumor -she has requested patient not be institutionalized, she is anticipating discharge from facility and will be able to care for patient once she has been discharged -care coordination has been consulted -continue supportive therapy for nausea vomiting -adjust tube feeding (2) Vomiting: Code(s): R11.10 - Vomiting, unspecified Status: Acute Assessment and Plan: -patient has history of chronic emesis, secondary to tube feeding -continue aspiration precautions Consult dietary management tube feedings (3) Dysphagia: Qualifiers: Dysphagia type: unspecified Qualified Code(s): R13.10 - Dysphagia, unspecified Code(s): R13.10 - Dysphagia, unspecified Status: Chronic Assessment and Plan: -continue monitor for aspiration (4) Cerebral palsy: Code(s): G80.9 - Cerebral palsy, unspecified Status: Chronic Assessment and Plan: Chronic, mother takes care of patient 17/10 -fall precautions (5) Seizure disorder: Code(s): G40.909 - Epilepsy, unspecified, not intractable, without status epilepticus Status: Chronic Assessment and Plan: -chronic continue home medications - valproic acid is low suspect 2nd from chronic emesis -continue home epilepsy medication Plan Continue home medications: VTE Prophylaxis: SCDs DIET: Tube feeding per dietary consultation Anticipated hospital stay: > 2 days Code Status: Full He is being admitted for possible placement as he requires full care and his mother is unable to provide that at this time as above. Subjective Date/time seen: 06/19/23 09:17 Interval history: Patient is nonverbal all information been provided from charting, and staff Chief Complaint: Coughing. Narrative: This is a 37-year-old male with history of seizures, cerebral palsy, and chronic aspiration who presented to the emergency department for evaluation of cough. He is nonverbal and thus the following history is obtained via a review of his electronic medical records. Gayle, his mother, is his primary director of procurement and she has been in the hospital at another facility for the past 24 hours. His younger brother, Ok, is on leave this weekend from the and has been staying with Dallas however he is not familiar with his care routine and has not been able to give him his medications or tube feedings. Ok called 911 today after Dallas had a coughing fit. According to EMS documentation, Dallas he was in no distress on their arrival with stable vital signs. He has been tachycardic in the ED and has tremors, both which appear to be due to anxiety. CMP and CBC were pretty unremarkable. Lactic acid level was at the upper limit of normal but is felt to be related to lab draw technique. Chest x-ray was limited due to positioning but his lung sounds are clear on exam. The ED physician and neonatal critical care nurse were able to speak with the patient's mother via phone. While she would prefer Dallas to be at home, she understands that her younger son is not able to care for him and fulfill his needs while she is absent; he is due to return back to the in the next day or 2. Thus the patient is being admitted in this setting so that he may get his medications and tube feedings. At the time my evaluation, he is alert and awake and appears nontoxic. He does not answer question or but he does track me with his eyes and attempts to follow commands. Tube feeds were started in the emergency department and he had an episode of emesis about an hour later which was consistent with tube feedings. Abdomen was a bit distended on exam though KUB did not show any concerni
[2023-06-19 10:31] VITALS: BMI 14.5
[2023-06-19] MEDS: TIZANIDINE HCL 4 MG TABLET FEED TUBE (13:04)
[2023-06-19 15:52] VITALS: BP 113/68; PULSE 107; RESP 16; TEMP 36.9; O2SAT 94
[2023-06-19 20:13] VITALS: BP 148/85; PULSE 114; RESP 18; TEMP 37; O2SAT 93
[2023-06-19] MEDS: MELATONIN 5 MG TABLET PO (20:27)
[2023-06-20 05:19] VITALS: BP 128/77; PULSE 104; RESP 16; TEMP 36.6; O2SAT 97
[2023-06-20] MEDS: LANSOPRAZOLE ODT 30 MG TAB.RAP.DR FEED TUBE (06:12)
[2023-06-20] MEDS: METOCLOPRAMIDE HCL 10 MG/10 ML SOLN UDC FEED TUBE ×2 (06:12→12:03)
[2023-06-20 07:39] VITALS: BP 125/70; PULSE 103; RESP 18; TEMP 36.8; O2SAT 96
--- NOTE | 2023-06-20 08:42 | PM.IMPN ---
Subjective Date/time seen: 06/20/23 08:42 Objective Data Vital Signs Vital Signs: Vital Signs - 24 hr 06/19/23 10:15 06/19/23 15:52 06/19/23 20:13 Temperature 98.4 F 98.6 F Pulse Rate 107 H 114 H Respiratory Rate 16 18 Blood Pressure 113/68 148/85 H Pulse Oximetry 94 93 Oxygen Delivery Room Air 06/19/23 20:00 06/20/23 05:19 06/20/23 07:39 Temperature 97.8 F 98.2 F Pulse Rate 104 H 103 H Respiratory Rate 16 18 Blood Pressure 128/77 125/70 Pulse Oximetry 97 96 Oxygen Delivery Room Air Intake/Output Intake/Output: Intake & Output 06/17/23 06/18/23 06/19/23 06/20/23 23:59 23:59 23:59 23:59 Intake Total 1000 200 Balance 1000 200 Meds/Results Medications: Active Medications Generic Name Dose Route Start Last Admin Trade Name Freq PRN Reason Stop Dose Admin Acetaminophen 650 mg 06/18/23 22:47 Acetaminophen 325 Mg Tablet FEED TUBE Q6H PRN Mild Pain (1-3) or Fever Baclofen 20 mg 06/18/23 22:45 06/19/23 17:35 Baclofen 10 Mg Tablet FEED TUBE 20 mg TID VANDA Administration Clorazepate Dipotassium 3.75 mg 06/18/23 22:45 06/19/23 17:35 Clorazepate Dipotassium (*Crx) 3.75 Mg Tablet FEED TUBE 3.75 mg TID VANDA Administration Lansoprazole 30 mg 06/19/23 06:30 06/20/23 06:12 Lansoprazole Odt 30 Mg Tab.Rap.Dr FEED TUBE 30 mg DAILY@0630 VANDA Administration Melatonin 5 mg 06/19/23 21:00 06/19/23 20:27 Melatonin 5 Mg Tablet PO 5 mg HS VANDA Administration Metoclopramide HCl 10 mg 06/18/23 22:50 06/20/23 06:12 Metoclopramide Hcl 10 Mg/10 Ml Soln Udc FEED TUBE 10 mg ACHS VANDA Administration Miscellaneous Information 1 each 06/19/23 00:01 Med Rec Order Clarification XX 07/19/23 00:00 CLARIFY VANDA Miscellaneous Information 1 each 06/19/23 00:01 Med Rec Order Clarification XX 07/19/23 00:00 CLARIFY VANDA Non-Formulary Medication 2 mg 06/18/23 22:45 Prucalopride FEED TUBE 07/18/23 22:44 .hs VANDA Non-Formulary Medication 20 mg 06/19/23 09:00 Sertraline PO 07/19/23 08:59 DAILY VANDA Ondansetron HCl 4 mg 06/18/23 22:35 06/19/23 00:51 Ondansetron Inj 4 Mg/2 Ml Vial IV PUSH 4 mg Q6H PRN Administration Nausea And Vomiting Scopolamine 1 patch 06/18/23 22:40 06/19/23 00:47 Scopolamine 1 Mg Patch TRANSDERM 1 patch Q3D VANDA Administration Tizanidine HCl 4 mg 06/18/23 22:40 06/19/23 13:04 Tizanidine Hcl 4 Mg Tablet FEED TUBE 4 mg TID PRN Administration MUSCLE SPASMS Valproate Sodium 250 mg 06/18/23 22:40 06/19/23 20:27 Valproic Acid Liq 250 Mg/5 Ml Oral Solution Udc FEED TUBE 250 mg Q12HR VANDA Administration Radiology Results: ITS Impressions Chest X-Ray 06/18/23 14:39 IMPRESSION: Nondiagnostic study due to patient condition. Abdomen X-Ray 06/18/23 19:59 IMPRESSION: No radiographic evidence of obstruction or ileus.
[2023-06-20] MEDS: BACLOFEN 10 MG TABLET 20 MG FEED TUBE ×2 (10:02→14:38)
[2023-06-20] MEDS: CLORAZEPATE DIPOTASSIUM (*CRX) 3.75 MG TABLET FEED TUBE ×2 (10:03→14:38)
[2023-06-20] MEDS: VALPROIC ACID LIQ 250 MG/5 ML ORAL SOLUTION UDC FEED TUBE (10:03)
--- NOTE | 2023-06-20 11:26 | PCNFU ---
Nutrition Follow-Up Complete: Inability to swallow related to chronic cerebral palsy as evidenced by PEG tube, need for full nutrition support to meet nutrition needs. Meet estimated nutrition and hydration needs - meeting needs with tube feedings Goal: Pt current nutrition is Vital 1.5 @ 35 ml/h (1155 kcal, 52 g protein, 1188 ml free water.) Flush 100 ml water q 4 hours Nutrition recommendation: No new nutrition recommendations. Tolerating continuous feedings. Continue current nutrition care plan. Last recorded weight is 44.7 kg. Bowel Motility: +1 BM 06/19/23 Labs Reviewed: No new labs today Meds Noted: Beto Cabral Skin: WNL Additional Notes: Pt is tolerating continuous feeds better than bolus. On a previous visit I discussed this with his mother, she did not really want to put him on a continuous feeding at home because he is mobile in a wheelchair. NIGHT feedings may be an option: continuous feedings at 64 ml/h for 12 hours (usually 8pm-8am) would be the equivalent of the current rate of 35 ml/h (22 hours): 1155 kcal, 52 g protein, 1188 ml free water. Could use either Vital 1.5 or home formula of Peptamen 1.5, but would need to acquire a ready to hang bottle rather than 8 oz containers. Monitoring tube feeding tolerance, labs, weights, plan of care Follow up Tuesdays and Fridays per policy
[2023-06-20 12:48] VITALS: BP 101/87; PULSE 117; RESP 18; TEMP 36.8; O2SAT 95
--- NOTE | 2023-06-20 12:54 | PM.DS ---
DS: Admitting Diagnosis Discharge Date 06/20/2023 Admitting Diagnosis Vomiting and coughing episode DS: Discharge Diagnosis Discharge Diagnosis (1) Dependence on care provider: Code(s): Z74.9 - Problem related to care provider dependency, unspecified Status: Acute (2) Adult failure to thrive: Code(s): R62.7 - Adult failure to thrive Status: Acute (3) Unable to manage residence-related activities: Code(s): R68.89 - Other general symptoms and signs Status: Acute (4) Vomiting: Code(s): R11.10 - Vomiting, unspecified Status: Acute (5) Cerebral palsy: Code(s): G80.9 - Cerebral palsy, unspecified Status: Chronic Plan long discussion Via telephone with primary care provider who reports she is able to continue to care for patient at this time, she has reported she does not want patient to go to SNF. -Primary caregiver reports she has a consultation with palliative care DS: Summary Hospital Course Reason for hospitalization: failure to thrive Hospital Course: 37-year-old male with a PMHx: Of seizures cerebral palsy and chronic aspiration presented to the emergency room for evaluation after witnessed coughing episode by family. Patient is nonverbal all history obtained via a review of electronic medical records and conversation with patient's primary caregiver mother. Case has history of tachycardia in the ED he was observed to have tremors, mild anxiety was thought to be secondary. CMP/ CBC were unremarkable Dallas was initially admitted in the setting suspected SNF placement, due to primary caregiver being hospitalized in undergoing testing. Patient has a history of chronic aspiration and vomiting suspect this is due to tube feedings given bolus At home and patient is not able to tolerate. Status at Discharge Functional status at discharge: bed bound Time Spent with Patient Time attestation: Total time spent providing and/or coordinating discharge services: Time spent: Less than 30 minutes Exam Narrative: General:?Nontoxic-appearing, chronically debilitated male sitting up in bed. He is well groomed. HEENT:?Atraumatic. Pupils are reactive.?Extraocular motions appear to be intact. Sclera anicteric. Tacky mucous membranes. Fair dentition.? Oropharynx not visualized. Neck:??Supple. No lymphadenopathy. Respiratory:?Respirations appear nonlabored and lungs are clear to auscultation. Cardiovascular:?Tachycardic with S1-S2. Gastrointestinal:??Abdomen is soft and slightly distended. G-tube button is clean, dry, and intact. Bowel sounds present. No guarding or rebound tenderness. Skin:??Warm and dry. Generalized pallor. Extremities:?No cyanosis, clubbing, or edema. Normal capillary refill. Peripheral pulses intact. Neurological:??Alert.? Cranial nerves 2-12 are grossly intact. He is nonverbal. 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 He does follow some commands. Psychiatric:?Cooperative. He seems anxious. DS: Data Data Completed and Pending Labs on day of discharge: Preliminary micro results at discharge 06/18/23 14:59 Blood Culture - Preliminary Blood 06/18/23 20:31 Blood Culture - Preliminary Blood Discharge Plan Discharge Attending physician on discharge: Vicky Khan Consulting providers: Huyen Ngo; Vicky Khan; Yoandy Walters; Royer Rao Discharging Clinician: Vicky Khan Anticipated Discharge Date/Time: 06/20/23 17:11 Patient Disposition: Home, Self-Care Activity: may shower and as tolerated Diet: tube feeding Discharge Instructions: Please follow up closely with your primary care provider within one week after discharge. -If you experience sudden chest pain, fever>100.9, chills, nausea or vomiting, please return to the emergency room or call 911 in the event of an emergency. Thank you for allowing [facility] Staff to care for you
[2023-06-20 15:32] VITALS: BP 110/75; PULSE 90; RESP 17; TEMP 36.7; O2SAT 90
== END 2023-06-20 16:30 | disposition home or self-care (01) ==
LOC: ANHED 17:05 → ANH2MED 19:46
PROVIDERS: Physician Assistant; Admitting Provider General Practice; Emergency Provider Emergency Medicine; PCP Family Medicine; Visit Provider General Practice
DX: R62.7 Adult failure to thrive (principal); Z74.9 Problem related to care provider dependency, unspecified; R13.10 Dysphagia, unspecified; R11.10 Vomiting, unspecified; G80.9 Cerebral palsy, unspecified; Z93.1 Gastrostomy status; G40.909 Epilepsy, unspecified, not intractable, without status epilepticus; F41.9 Anxiety disorder, unspecified; Z99.3 Dependence on wheelchair; Z98.1 Arthrodesis status; Z68.1 Body mass index [BMI] 19.9 or less, adult; Z20.822 Contact with and (suspected) exposure to COVID-19
CPT/HCPCS: 36415; 71046; 74018; 80048; 80053; 80164; 83605; 83735; 85025; 85027; 85610; 85730; 86140; 87040; 87637; 93005; 96361; 96374; 99285; A9270; G0378; J2405; J7030

== ENCOUNTER 2023-08-15 00:52 | Day surgery (SDC) | payer MEDICARE, MEDICAID, SELFPAY ==
[2023-08-15 11:22] VITALS: BP 113/70; PULSE 80; RESP 18; TEMP 36.6; O2SAT 98
--- NOTE | 2023-08-15 11:55 | PM.HPGS ---
History of Present Illness History of Present Illness Consent: Risks, benefits, and alternatives have been discussed and questions answered. Patient agrees to proceed with procedure. Chief complaint: attention to gastrostomy, Cerebral palsy Narrative: Dallas Slaughter is a 37 year old male with cerebral palsy here for G-tube exchange, normally it is done every 4 months (current tube is working though) Review of Systems Review of Systems: All systems reviewed & are unremarkable except as noted in HPI and below PMFSH Past Medical History Medical History Anxiety Cerebral palsy Dysphagia Chronic. G-tube in place. Esophagitis with gastritis Hematemesis History of GI bleed History of pulmonary aspiration Seizure disorder Urinary retention Surgical History Surgical History Gastrointestinal tube present History of orthopedic surgery Multiple surgeries related to his cerebra palsy including tendon surgeries and Green transfer. History of spinal fusion Family History Family History Father Family history of elevated blood lipids Family history of diabetes mellitus in first degree relative Hypertension Chronic obstructive pulmonary disease Other Lung cancer Social History Social History Social History: Surrogate decision maker: Leonora Slaughter, mother. Code status: Full code. Smoking status: Never smoker Second hand tobacco smoke exposure: No Alcohol intake: never Substance use: never Substance use type: does not use Do You Feel Safe in your Home?: Yes Lack of Transportation: No Lack of Food: Never True Current Housing: I Have Housing Concerned About Future Housing: No Difficulty Paying Gas/Electric Bills: No Difficulty Paying for Meds: No Currently Unemployed: No Education: Don't Know Difficulty w/ Childcare or Family Care: No Living arrangements: with family Additional living arrangements comments: The patient lives with his mother and brother in [place]. His father in November 2022. He is wheelchair-dependent and uses an electric wheelchair which he can manage quite nicely. In fact he likes to spend a lot of his time out in their [place] where they have cars and motorcycles, which he really enjoys. He is dependent on most activities of daily living. Occupation/Education: unemployed Additional occupation/education comments: Disabled. Spiritual care concerns: No Meds Home Medications and Allergies Home Medications Medication Instructions Recorded Confirmed Type prucalopride [Motegrity] 2 mg feeding tube .hs 05/04/23 08/15/23 History baclofen 20 mg tablet 20 mg feeding tube TID 05/11/23 08/15/23 History omeprazole magnesium 10 mg oral 10 mg feeding tube DAILY #30 ea 05/20/23 08/15/23 Rx suspension,delayed release (Prilosec) metoclopramide HCl 5 mg/5 mL oral See Rx Instructions .Route 05/31/23 08/15/23 Rx solution .COMPLEX #1,200 mL tizanidine 4 mg tablet See Rx Instructions .Route 06/12/23 08/15/23 Rx .COMPLEX #270 tabs scopolamine base 1 mg over 3 days See Rx Instructions .Route 06/24/23 08/15/23 Rx transdermal patch .COMPLEX #24 patches clorazepate dipotassium 3.75 mg 3.75 mg feeding tube TID #90 tabs 07/19/23 08/15/23 Rx tablet diazepam 5 mg tablet See Rx Instructions .Route 07/24/23 08/15/23 Rx .COMPLEX muscle spasm #90 tabs valproic acid (as sodium salt) 250 See Rx Instructions .Route 07/24/23 08/15/23 Rx mg/5 mL oral solution .COMPLEX #300 mL famotidine 40 mg/5 mL (8 mg/mL) 20 mg PO DAILY 07/28/23 08/15/23 History oral suspension cetirizine 1 mg/mL oral solution 10 mg (10 mL) PO DAILY #480 mL 08/03/23 08/15/23 Rx (Children's Zyrtec Allergy) Allergies Allergy/AdvReac Type Severity Reaction Status Carlos
--- NOTE | 2023-08-15 11:56 | W.PM.PROC2 ---
Procedure Note - Detailed Date of Procedure 08/15/23 Pre-op Diagnosis gastrostomy, Cerebral palsy Post-op Diagnosis Same Procedure Performed Previous button type gastrostomy tube is noted be in place.? Appears to be well healed.? The tube internal bumper is decompressed 5cc of fluid is withdrawn from the internal bumper an old G-tube is withdrawn and removed.? A new ALDO-CAMPBELL 24 Fr gastrostomy tube was replaced into the existing gastrocutaneous fistula.? The internal bumper is inflated with 5cc of sterile water.? Tolerated well by patient.? He can resume tube feedings today. Surgeon Carloz Valenzuela MD Anesthesia None Description of Procedure as above
--- NOTE | 2023-08-15 13:48 | SUR.PREOP ---
Times - Time Out Called: 1135 Procedure Start: 1134 Procedure End:113 Position and Devices - Position: supine in patients own wheelchair Positioning Devices: mother at bedside Pre-Procedure Assessment - Site and Procedure Verified w Patient and/or Others as Appropriate: yes Verification Coincides w Consent, H&P, Endoscopy Schedule, and Pre-Op Orders:yes X-Rays/Imaging Studies in Room and/or Implants on Site:yes Verified Operative Side Marked YES When Applicable:NA Preop Assessment Completed By:Archana Caro Out - 4 Entire Operative Team Participates and Confirms:yes Correct Patient, Procedure, Side/Site and Position: yes Availability of Implants, Special Equipment and Requests:yes Preop Antibiotics Given within 1 Hour of Incision:NA Assessment of Skin Prep Dry Time:NA Prep = NA Surgery Prep Solution: Site Prepped: Prepped By: Staff - Windows Mobile Developer:Emma Magaña Computer Systems Auditor:NA Non Pharmacy Medications - NA Time: Name: Strength: Dose: Route: Site: Given By: Lot Number: Expiration Date: Actual Procedures - Description: Gastrostomy tube replacement Side: Wound Class:Clean contaminated Surgeon:Michael Severity: Preop Diagnosis:G tube replacement Postop Diagnosis:G tube replacement Transfer Data - Destination:HOME Transfer Method: personal wheelchair Complications:NA Untoward Events: Report Given To: Completed Date/Time:08/15/23 Completed By: [id number]
== END 2023-08-15 11:40 | disposition home or self-care (01) ==
PROVIDERS: PCP Family Medicine; Visit Provider Internal Medicine Gastroenterology
PROC: 0DH63UZ Insertion of Feeding Device into Stomach, Percutaneous Approach (ICD-10-PCS; CPT 43246; principal; 2023-08-15 12:00)
DX: Z43.1 Encounter for attention to gastrostomy (principal); G80.9 Cerebral palsy, unspecified
CPT/HCPCS: 99211; G0463

== ENCOUNTER 2023-12-18 06:48 | Outpatient (CLI) | payer MEDICARE, MEDICAID, SELFPAY ==
[2023-12-14 12:12] VITALS: BMI 18.5
[2023-12-18 11:50] VITALS: BP 126/74; PULSE 82; RESP 16; TEMP 36.8; O2SAT 100
--- NOTE | 2023-12-18 12:05 | PM.HPGS ---
History of Present Illness History of Present Illness Consent: Risks, benefits, and alternatives have been discussed and questions answered. Patient agrees to proceed with procedure. Chief complaint: Attention to gastrostomy, cerebral palsy Narrative: Dallas Slaughter is a 38 year old male with cerebral palsy here for G-tube exchange, normally it is done every 4 months (current tube is working though) Review of Systems Review of Systems: All systems reviewed & are unremarkable except as noted in HPI and below PMFSH Past Medical History Medical History Anxiety Cerebral palsy Dysphagia Chronic. G-tube in place. Esophagitis with gastritis Hematemesis History of GI bleed History of pulmonary aspiration Seizure disorder Urinary retention Surgical History Surgical History Gastrointestinal tube present History of orthopedic surgery Multiple surgeries related to his cerebra palsy including tendon surgeries and Green transfer. History of spinal fusion Family History Family History Father Family history of elevated blood lipids Family history of diabetes mellitus in first degree relative Hypertension Chronic obstructive pulmonary disease Other Lung cancer Social History Social History Social History: Surrogate decision maker: Leonora Slaughter, mother. Code status: Full code. Smoking status: Never smoker Second hand tobacco smoke exposure: No Alcohol intake: never Substance use: never Substance use type: does not use Do You Feel Safe in your Home?: Yes Lack of Transportation: No Lack of Food: Never True Current Housing: I Have Housing Concerned About Future Housing: No Difficulty Paying Gas/Electric Bills: No Difficulty Paying for Meds: No Currently Unemployed: No Education: Don't Know Difficulty w/ Childcare or Family Care: No Living arrangements: with family Additional living arrangements comments: The patient lives with his mother and brother in [place]. His father in November 2022. He is wheelchair-dependent and uses an electric wheelchair which he can manage quite nicely. In fact he likes to spend a lot of his time out in their [place] where they have cars and motorcycles, which he really enjoys. He is dependent on most activities of daily living. Occupation/Education: unemployed Additional occupation/education comments: Disabled. Spiritual care concerns: No Meds Home Medications and Allergies Home Medications Medication Instructions Recorded Confirmed Type prucalopride [Motegrity] 2 mg feeding tube .hs 05/04/23 12/14/23 History omeprazole magnesium 10 mg oral 10 mg feeding tube DAILY #30 ea 05/20/23 12/14/23 Rx suspension,delayed release (Prilosec) metoclopramide HCl 5 mg/5 mL oral See Rx Instructions .Route 05/31/23 12/14/23 Rx solution .COMPLEX #1,200 mL tizanidine 4 mg tablet See Rx Instructions .Route 06/12/23 12/14/23 Rx .COMPLEX #270 tabs clorazepate dipotassium 3.75 mg 3.75 mg feeding tube TID #90 tabs 07/19/23 12/14/23 Rx tablet valproic acid (as sodium salt) 250 See Rx Instructions .Route 07/24/23 12/14/23 Rx mg/5 mL oral solution .COMPLEX #300 mL famotidine 40 mg/5 mL (8 mg/mL) 20 mg PO DAILY 07/28/23 12/14/23 History oral suspension baclofen 20 mg tablet 20 mg feeding tube TID #90 tabs 09/19/23 12/14/23 Rx cetirizine 1 mg/mL oral solution 10 mg (10 mL) PO DAILY #900 mL 09/20/23 12/14/23 Rx (Children's Zyrtec Allergy) diazepam 5 mg tablet See Rx Instructions .Route 10/31/23 12/14/23 Rx .COMPLEX muscle spasm #90 tabs scopolamine base 1 mg over 3 days See Rx Instructions .Route 12/14/23 12/18/23 Rx transdermal patch .COMPLEX #24 patches Allergies Allergy/AdvReac Type Severity Reaction Status
--- NOTE | 2023-12-18 12:07 | W.PM.PROC2 ---
Procedure Note - Detailed Date of Procedure 12/18/23 Pre-op Diagnosis Attention to gastrostomy, cerebral palsy Post-op Diagnosis Same Procedure Performed replacement g-tube at bedside Surgeon Carloz Valenzuela MD Anesthesia None Description of Procedure Previous button type gastrostomy tube is noted be in place.? Appears to be well healed.? The tube internal bumper is decompressed 5cc of fluid is withdrawn from the internal bumper an old G-tube is withdrawn and removed.? A new ALDO-CAMPBELL 24 Fr gastrostomy tube was replaced into the existing gastrocutaneous fistula.? The internal bumper is inflated with 5cc of sterile water.? Tolerated well.? He can resume tube feedings today. Will exchange again in 4 months
--- NOTE | 2023-12-18 12:28 | SUR.PREOP ---
Times - Time Out Called: 1200 Procedure Start: 1201 Procedure End:1205 Position and Devices - Position: patient remained in his own personal wheelchair Positioning Devices: none Pre-Procedure Assessment - Site and Procedure Verified w Patient and/or Others as Appropriate: yes- with mother at bedside Verification Coincides w Consent, H&P, Endoscopy Schedule, and Pre-Op Orders: yes X-Rays/Imaging Studies in Room and/or Implants on Site: N/A Verified Operative Side Marked YES When Applicable:N/A Preop Assessment Completed By: Archana Caro Out - Entire Operative Team Participates and Confirms: Yes Correct Patient, Procedure, Side/Site and Position: Yes Availability of Implants, Special Equipment and Requests: Yes Preop Antibiotics Given within 1 Hour of Incision: N/A Assessment of Skin Prep Dry Time:N/A Prep = Surgery Prep Solution: Site Prepped: Prepped By: Staff - Medical Physics Researcher: Emma Magaña Public Accountant: Non Pharmacy Medications - Time: Name: Strength: Dose: Route: Site: Given By: Lot Number: Expiration Date: Actual Procedures - Description: Replacement of gastrostomy tube Side: Wound Class: clean contaminated Surgeon:Michael Severity: Preop Diagnosis: cerebral palsy; gastrostomy tube replacement Postop Diagnosis: cerebral palsy; gastrostomy tube replacement Transfer Data - Destination: post op Transfer Method: remained in own wheelchair Complications:none Untoward Events: Report Given To: Completed Date/Time: 12/18/23 Completed By:1202
--- NOTE | 2023-12-18 12:40 | SUR.PREOP ---
ALDO-CAMPBELL low profile G tube LOT [id number] EXP 10-17-2025
== END 2023-12-18 12:11 | disposition home or self-care (01) ==
PROVIDERS: PCP Family Medicine; Visit Provider Internal Medicine Gastroenterology
PROC: 0DJ08ZZ Inspection of Upper Intestinal Tract, Via Natural or Artificial Opening Endoscopic (ICD-10-PCS; CPT 43235; principal; 2023-12-18 12:30)
PROC: 0DH63UZ Insertion of Feeding Device into Stomach, Percutaneous Approach (ICD-10-PCS; CPT 43246; 2023-12-18 12:30)
DX: G80.9 Cerebral palsy, unspecified (principal); Z43.1 Encounter for attention to gastrostomy
CPT/HCPCS: 99211; G0463

== ENCOUNTER 2024-05-01 05:28 | Day surgery (SDC) | payer MEDICARE, MEDICAID, SELFPAY ==
[2024-04-29 12:15] VITALS: BMI 18.3
--- OUTSIDE RECORDS SUMMARY | 2024-05-01 05:31 | XMS_ITS | Referral Summary ---
Author Organization [facility] Address [address] [place] [address] Care Team Providers Care Structural Steel Worker Name Role Phone Amrik Ackerman MD Primary Care Provider [phone] Allergies No known active allergies Medications valproate 50 mg/mL syrupIndications :seizures Take by mouth 2 (two) times a day 3 Active tiZANidine (ZANAFLEX) 4 mg tablet Take 1 tablet (4 mg total) by mouth 3 (three) times a day as needed for muscle spasms 3 Active scopolamine 1 mg over 3 days patch [address] 1 patch on the skin every third day 3 Active nystatin cream APPLY TOPICALLY TO THE AFFECTED AREA THREE TIMES DAILY 3 Active metoclopramide (REGLAN) solution 5 mg/5 mL Take 10 mL (10 mg total) by mouth 3 (three) times a day 3 Active famotidine (PEPCID) oral suspension 40 mg/5 mL Take by mouth as needed for indigestion 3 Active diazePAM (VALIUM) 5 mg tabletIndication s:Muscle Spasm,anxiety Take 2 tablets (10 mg total) by mouth nightly 3 Active clorazepate (TRANXENE) 3.75 mg tabletIndication s:anxiety Take 1 tablet (3.75 mg total) by mouth 3 (three) times a day 3 Active baclofen (LIORESAL) 20 mg tabletIndication s:Muscle Spasticity of Spinal Origin Take 1 tablet (20 mg total) by mouth 2 (two) times a day 3 Active mupirocin (BACTROBAN) 2 % ointment APPLY TOPICALLY TO THE AFFECTED AREA TWICE DAILY NEEDED FOR EDEMA AT GIVE-TUBE SITE 4 Active acetaminophen (TYLENOL) oral liquid 325 mg/10.15 mL Take 20.3 mL (650 mg total) by mouth every 6 (six) hours as needed for pain Active omeprazole (PriLOSEC) 40 mg capsuleIndicatio ns:Gastroesophag eal reflux disease, unspecified whether esophagitis present Take 1 capsule (40 mg total) by mouth daily Medication is to be taken daily through GI Tube 30 capsule 11 4 Active famotidine (PEPCID) oral suspension 40 mg/5 mLIndications:Ga stroesophageal reflux disease, unspecified whether esophagitis present Administer per tube 5 mL (40 mg total) nightly 150 mL 11 4 Active Motegrity 2 mg tabletIndication s:Gastroparesis, Chronic idiopathic constipation TAKE 1 TABLET(2 MG) BY MOUTH DAILY 30 tablet 2 4 Active Active Problems Problem Noted Date Diagnosed Date Abdominal distention 03/13/2023 Gastroesophageal reflux disease 03/13/2023 Gastroparesis 03/13/2023 Social History Tobacco Use Types Packs/Day Years Used Date Smoking Tobacco: Never Smokeless Tobacco: Never AUDIT-C Answer Date Recorded Frequency of Alcohol Consumption Not on file 04/27/2023 Q2: How many drinks containi ng alcohol do you have on a typical day when you are drinking? Patient does not drink 4 Frequency of Binge Drinking Not on file 03/2023 Personal Safety Answer Date Recorded Have you ever been in or are you currently in a harmful physical or emotional relationship or is someone making you feel afraid or unsafe? Patient unable to answer 04/27/2023 Sex and Gender Information Value Date Recorded Sex Assigned at Not on file Legal Sex Male 12:19 PM MARKETING INFORMATION MANAGER Gender Identity Not on file Sexual Orientation Not on file Last Filed Vital Signs Vital Sign Reading Time Taken Comments Blood Pressure 124/74 04/27/2023 1:34 PM MARKETING INFORMATION MANAGER Pulse 103 04/27/2023 1:34 PM MARKETING INFORMATION MANAGER Temperature 36.5 ??C (97.7 ??F) 04/27/2023 1:20 PM CS T Respiratory Rate 20 04/27/2023 1:34 PM MARKETING INFORMATION MANAGER Oxygen Saturation 93% 04/27/2023 1:34 PM MARKETING INFORMATION MANAGER Inhaled Oxygen Concentration - - Weight 44.5 kg (98 lb) 04/27/2023 11:00 AM MARKETING INFORMATION MANAGER Height 157.5 cm (5' 2 ) 04/27/2023 11:00 AM MARKETING INFORMATION MANAGER Body Mass Index 17.92 04/27/2023 11:00 AM MARKETING INFORMATION MANAGER Plan of Treatment Not on file Insurance MEDICARE [facility] MEDICARE IDPA Advance Directives For more information, please contact: [phone] Documents on File Type Date Recorded Patient Pick Up And Delivery Driver Expl anation ADVANCE DIRECTIVE 04/24/2023 10:30 AM EVIN R OF REPAIRER SWITCHGEAR[employer]MED[employer] Advance Directives and Living Will 03/13/2023 9:46 AM * Full Code (Latest Code Status on File) Date Activated Date Inactivated Comments 04/27/2023 10:55 AM 04/27/2023 6:06 PM Care Teams Structural Steel Worker Relationship Specialty Start Date End Date Amrik Ackerman MD PCP - General Family Practice 11/24/22
--- OUTSIDE RECORDS SUMMARY | 2024-05-01 05:31 | XMS_ITS | Continuity of Care Document ---
Author Organization [facility] Address [address] [place] [address] [place] [address] Phone Care Team Providers Care Ediphone Operator Name Role Phone Paul MARTINEZ, Ricki Unavailable [...] Diagnoses Date Provider Providers Copied on Encounter [facility], [address], [place], [place], [address], tel:[phone] [facility] No Information 0 Paul Phoenix [address], [address], [place], [place], [address] , [place]. [phone] OFFICE/OUTPA TIENT VISIT, [facility], [address], [place], [place], [address], [place] tel:[phone] [facility] cerebral palsy (chief complaint) dark urine1 (chief complaint) Urinary tract infectionCerebral palsyOther abnormalities of gait and mobility 0 Paul Phoenix [address], [address], [place], [place], [address] , [place]. [phone] OFFICE/OUTPA TIENT VISIT, [facility], [address], [place], [place], [address], [place] tel:[phone] [facility] physical (chief complaint) Encounter for general adult medical exam w abnormal findingsCerebral palsyCoughGastritis , unspecified, without bleeding 0 Paul Robison. [address], [address], [place], [place], [address] , [place]. tel:[phone] OFFICE/OUTPA TIENT VISIT, [facility], [address], [place], [place], [address], [place] tel:[phone] [facility] cough1 (chief complaint) cerebral palsy1 (chief complaint) Cerebral palsyCough 0 Paul Robison. [address], [address], [place], [place], [address] , [place]. [phone] OFFICE/OUTPA TIENT VISIT, [facility], [address], [place], [place], [address], [place] [phone] [facility] fever1 (chief complaint) Aspiration pneumonia 0 Paul Robison. [address], [address], [place], [place], [address] , [place]. tel:[phone] Referring Provider: Vishnu Villav[address], [place], [place], [address]. tel:[phone] OFFICE/OUTPA TIENT VISIT, [facility], [address], [place], [place], [address], [place] tel:[phone] [facility] cough1 (chief complaint) cerebral palsy1 (chief complaint) Cerebral palsyCoughAcute bronchitis Fe 0 Paul Robison. [address], [place], [place], [address] , [place]. [phone] Referring Provider: Ricki Miller, [address], [place], [place], [address]. tel:[phone] OFFICE/OUTPA TIENT VISIT, [facility], [address], [place], [place], [address], [place] tel:[phone] [facility] mucous1 (chief complaint) Acute bronchitisCerebral palsy 0 Paul Robison. [address], [place], [place], [address] , [place]. tel:[phone] Referring Provider: Ricki Miller, [address], [place], [place], [address]. tel:[phone] OFFICE/OUTPA TIENT VISIT, [facility], [address], [place], [place], [address], [place] tel:[phone] [facility] sick (chief complaint) hematuria1 (chief complaint) Gtube (chief complaint) HematuriaAcute bronchitis, unspecifiedCerebral palsyCellulitis of abdominal wall 9 Paul Robison. [address], [place], [place], [address] , [place]. tel:[phone] Referring Provider: Vishnu Villavicenc[address], [place], [place], [address]. tel:[phone] OFFICE/OUTPA TIENT VISIT, [facility], [address], [place], [place], [address], [place] tel:[phone] [facility] anemia1 (chief complaint) globulin (chief complaint) pneumonia1 (chief complaint) hematuria1 (chief complaint) Aspiration pneumoniaAnemiaAbno rmality of globulinHyperlipide miaHematuriaIron deficiency 9 Paul Robison. [address], [place], [place], [address] , [place]. tel:[phone] Referring Provider: Vishnu Villavic[address], [place], [place], [address]. tel:[phone] [facility], [address], [place], [place], [address], [place] tel:[phone] [facility] No Information 9 Paul Robison. [address], [place], [place], [address] , [place]. tel:[phone] OFFICE/OUTPA TIENT VISIT, [facility], [address], [place], [place], [address], [place] tel:[phone] [facility] pneumonia1 (chief complaint) anemia1 (chief complaint) Gastirc (chief complaint) malnutriti on (chief complaint) Aspiration pneumoniaHematuriaA nemiaCerebral palsy Nov-0 9 Paul Robison. [address], [address], [place], [place], [address] , [place]. tel:[phone] Referring Provider: Vishnu [address], [place], [place], [address]. tel:[phone] OFFICE/OUTPA TIENT VISIT, [facility], [address], [place], [place], [address], tel:[phone] [facility] Family Medicine Physical (chief complaint) Encounter for general adult medical exam w abnormal findingsAspiration pneumoniaEpilepsyCe rebral palsy 9 Paul Robison. [address], [place], [place], [address] , [place]. tel:[phone] Referring Provider: Ricki Miller, [address], [place], [place], [address]. tel:[phone] Family History Family Member Type Diagnosis Age [...] . Pt does not have anymore secretions. cerebral palsy1 Pt has cerebral palsy and he has increase respiratory tract secretion chronically Pt needs scopolamine patch refilled cough1 Pt c/o acute ons et of productive coughing, increasing congestion since yesterday Pt has cerebral palsy with frequent pneumonia due to aspiration ,Pt feels more irritable. his appetite is still good Pt does not have any fever Pt does not have any respiratory distress per mom mucous1 Pt has been havi ng more [...]
--- OUTSIDE RECORDS SUMMARY | 2024-05-01 05:31 | XMS_ITS | Encounter Summary ---
Author Organization [facility] Address [address] [place] [address] Care Team Providers Care Manager It Security Name Role Phone Unavailable Primary Care Provider Unavailabl e Encounter Details Date Type Department Care Team (Late st Contact Info) Description 12/25/2012 Abstract [facility] CONVERSION [address] [place], [place] [id number] , Generic Conversion, Social History Tobacco Use Types Packs/Day Years Used Date Smoking Tobacco: Never Assessed Sex and Gender Information Value Date Recorded Sex Assigned at Not on file Legal Sex Male 7:17 PM CDT Gender Identity Not on file Sexual Orientation Not on file documented as of this encounter Plan of Treatment Not on file documented as of this encounter Visit Diagnoses Not on filedocumented in this encounter
--- OUTSIDE RECORDS SUMMARY | 2024-05-01 05:31 | XMS_ITS | Clinical Summary ---
Author Organization [facility] Address [address] [place] [address] Care Team Providers Care Assurance Assistant Name Role Phone Unavailable Primary Care Provider Unavailabl e Social History Tobacco Use Types Packs/Day Years Used Date Smoking Tobacco: Never Assessed Sex and Gender Information Value Date Recorded Sex Assigned at Not on file Legal Sex Male 7:17 PM CDT Gender Identity Not on file Sexual Orientation Not on file Plan of Treatment Health Maintenance Due Date Last Done Comments Annual Physical 10/18/1986 Hepatitis C 10/18/2001 DTaP, Tdap and Td Vaccines ( 1 - Tdap) 10/18/2002 Hepatitis B Vaccines (1 of 3 - 19+ 3-dose series) 10/18/2002 COVID-19 Vaccine (2023-2 5 season) 2023 Influenza Adult (#1) 2023 HPV Vaccines Aged Out No longer eligi ble based on patient's age to complete this topic Meningococcal B Vaccine Aged Out No l onger eligible based on patient's age to complete this topic Meningococcal Vaccine Aged Out No kimberlyn charlie eligible based on patient's age to complete this topic Pneumococcal Vaccine: Pediat rics (0 to 5 Years) and At-Risk Patients (6 to 64 Years) Aged Out No longer eligible b ased on patient's age to complete this topic RSV Immunizations Under 20 Months Aged Out No longer eligible based on patient's age to complete this topic
--- OUTSIDE RECORDS SUMMARY | 2024-05-01 05:31 | XMS_ITS | Clinical Summary ---
Author Organization [facility] Address [address] [place] [address] Care Team Providers Care Combination Machine Tool Operator Name Role Phone Amrik Ackerman MD Primary Care Provider [phone] Allergies No known active allergies Medications valproate [...] 03/13/2023 Gastroesophageal reflux disease 03/13/2023 Gastroparesis 03/13/2023 Surgical History Surgery Date Site/Laterality Comments SPINAL FUSION GASTROSTOMY TUBE PLACEMENT excahnged every 4 months APPENDECTOMY ARM SURGERY Bilateral FOOT SURGERY Bilateral Medical History Medical History Date Comments Cerebral palsy (HCC) Seizure disorder (CMS/HCC) (HCC) Cerebral palsy (HCC) Family History Medical History Relation Name Comments Anesthesia problems Neg Hx Social History Tobacco Use Types Packs/Day Years [...] on file Legal Sex Male 12:19 PM ADDICTION COUNSELOR Gender Identity Not on file Sexual Orientation Not on file Obstetrics History Last Filed Vital Signs Vital Sign Reading Time Taken Comments Blood Pressure 124/74 04/27/2023 1:34 PM ADDICTION COUNSELOR Pulse 103 04/27/2023 1:34 PM ADDICTION COUNSELOR Temperature 36.5 ??C (97.7 ??F) 04/27/2023 1:20 PM CS T Respiratory Rate 20 04/27/2023 1:34 PM ADDICTION COUNSELOR Oxygen Saturation 93% 04/27/2023 1:34 PM ADDICTION COUNSELOR Inhaled Oxygen Concentration - - Weight 44.5 kg (98 lb) 04/27/2023 11:00 AM ADDICTION COUNSELOR Height 157.5 cm (5' 2 ) 04/27/2023 11:00 AM ADDICTION COUNSELOR Body Mass Index 17.92 04/27/2023 11:00 AM ADDICTION COUNSELOR Plan of Treatment Health Maintenance Due Date Last Done Comments Depression Screening 1983 Hepatitis C Screening 1983 DTaP/Tdap/Td Vaccine (1 - Tdap) 10/18/1994 Varicella Vaccines (1 of 2 - 13+ 2-dose series) 10/18/1996 Hepatitis B Screening 10/18/2001 Regular Well Visit/Exam 18-64 10/18/2001 Influenza Vaccine (#1) 2023 , 02/11/2021, 02/11/2016, Additional history exists Pneumococcal vaccine <65 Aged Out 01/21/2022 No longer eligible based on patient's age to complete this topic HPV Vaccines Aged Out No longer eligi ble based on patient's age to complete this topic Insurance MEDICARE [employer]PA MEDICARE [facility] Address: [address] [place] [address] [employer] Advance Directives For more information, please contact: [phone] Documents on File Type Date Recorded Patient Cooking Casing And Drying Supervisor Expl anation ADVANCE DIRECTIVE 04/24/2023 10:30 AM EVIN R OF GEOPHYSICAL COMPUTER-MEDICAL Advance Directives and Living Will 03/13/2023 9:46 AM * Full Code (Latest Code Status on File) Date Activated Date Inactivated Comments 04/27/2023 10:55 AM 04/27/2023 6:06 PM Care Teams Combination Machine Tool Operator Relationship Specialty Start Date End Date Amrik Ackerman MD PCP - General Family Practice 11/24/22
[2024-05-01 12:20] VITALS: BP 118/78; PULSE 78; RESP 18; O2SAT 99
--- NOTE | 2024-05-01 12:35 | P.HP_ITS ---
History of Present Illness History of Present Illness Consent: Risks, benefits, and alternatives have been discussed and questions answered. Patient agrees to proceed with procedure. Chief complaint: Cerebral palsy, gastrostomy Narrative: Dallas Slaughter is a 38 year old male with cerebral palsy here for G-tube exchange, normally it is done every 4 months (current tube is working though) Review of Systems Review of Systems: All systems reviewed & are unremarkable except as noted in HPI and below PMFSH Past Medical History Medical History Anxiety Cerebral palsy Dysphagia Chronic. G-tube in place. Esophagitis with gastritis Hematemesis History of GI bleed History of pulmonary aspiration Seizure disorder Urinary retention Surgical History Surgical History Gastrointestinal tube present History of orthopedic surgery Multiple surgeries related to his cerebra palsy including tendon surgeries and Green transfer. History of spinal fusion Family History Family History Father Family history of elevated blood lipids Family history of diabetes mellitus in first degree relative Hypertension Chronic obstructive pulmonary disease Other Lung cancer Social History Social History Social History: Surrogate decision maker: Leonora Slaughter, mother. Code status: Full code. Smoking status: Never smoker Second hand tobacco smoke exposure: No Alcohol intake: never Substance use: never Substance use type: does not use Do You Feel Safe in your Home?: Yes Lack of Transportation: No Lack of Food: Never True Current Housing: I Have Housing Concerned About Future Housing: No Difficulty Paying Gas/Electric Bills: No Difficulty Paying for Meds: No Currently Unemployed: No Education: Don't Know Difficulty w/ Childcare or Family Care: No Living arrangements: with family Additional living arrangements comments: The patient lives with his mother and brother in [place]. His father in November 2022. He is wheelchair- dependent and uses an electric wheelchair which he can manage quite nicely. In fact he likes to spend a lot of his time out in their [place] where they have cars and motorcycles, which he really enjoys. He is dependent on most activities of daily living. Occupation/Education: unemployed Additional occupation/education comments: Disabled. Spiritual care concerns: No Meds Home Medications and Allergies Home Medications ?Medication ?Instructions ?Recorded ?Confirmed ?Type prucalopride [Motegrity] 2 mg feeding tube .hs 05/04/23 05/01/24 History omeprazole magnesium 10 mg oral 10 mg feeding tube DAILY #30 ea 05/20/23 05/01/24 Rx suspension,delayed release (Prilosec) famotidine 40 mg/5 mL (8 mg/mL) 20 mg PO DAILY 07/28/23 05/01/24 History oral suspension baclofen 20 mg tablet 20 mg feeding tube TID #90 tabs 12/25/23 05/01/24 Rx metoclopramide HCl 5 mg/5 mL oral See Rx Instructions .Route 02/26/24 05/01/24 Rx solution .COMPLEX #1,200 mL valproic acid (as sodium salt) 250 See Rx Instructions .Route 03/13/24 05/01/24 Rx mg/5 mL oral solution .COMPLEX #300 mL cetirizine 1 mg/mL oral solution See Rx Instructions .Route 03/28/24 05/01/24 Rx .COMPLEX #900 mL tizanidine 4 mg tablet See Rx Instructions .Route 03/28/24 05/01/24 Rx .COMPLEX #270 tabs scopolamine base 1 mg over 3 days See Rx Instructions .Route 04/02/24 04/29/24 Rx transdermal patch .COMPLEX #24 patches clorazepate dipotassium 3.75 mg 3.75 mg feeding tube TID #90 tabs 04/23/24 05/01/24 Rx tablet diazepam 5 mg tablet See Rx Instructions .Route 04/23/24 05/01/24 Rx .COMPLEX muscle spasm #90 tabs Allergies Allergy/AdvReac Type Severity Reaction Status Date / Time Sulfa (Sulfonamide Allergy Unknown LIPS AND Verified 05/01/24 12:36 Antibiotics) GENITAL PEELING SKIN Exam Narrative: APPEARANCE: cerebral palsy Head: atraumatic. EYES: EOMI, NOSE: Atraumatic NECK: Trachea midline RESPIRATORY: No increased rate of breathing CARDIOVASCULAR: RRR, ABDOMINAL: G-tube is in place. Abdomen not tender with no guarding. MUSCULOSKELETAl: No obvious deformities NEURO: Alert. SKIN:: Warm, dry. Normal color PSYCHIATRIC: Normal affect Assessment and Plan Assessment and plan (1) Dysphagia: Qualifiers: Dysphagia type: unspecified Qualified Code(s): R13.10 - Dysphagia, unspecified Code(s): R13.10 - Dysphagia, unspecified Status: Chronic (2) PEG (percutaneous endoscopic gastrostomy) adjustment/replacement/removal: Code(s): Z43.1 - Encounter for attention to gastrostomy Status: Acute Assessment and Plan: will exchange for a new one
--- NOTE | 2024-05-01 12:37 | W.PM.PROC2 ---
Procedure Note - Detailed Date of Procedure 05/01/24 Pre-op Diagnosis Cerebral palsy, gastrostomy Post-op Diagnosis Same Procedure Performed exchange new G-tube Surgeon Carloz Valenzuela MD Anesthesia None Description of Procedure Previous button type gastrostomy tube is noted be in place.? Appears to be well healed.? The tube internal bumper is decompressed 5cc of fluid is withdrawn from the internal bumper an old G-tube is withdrawn and removed.? A new ALDO-CAMPBELL 24 Fr gastrostomy tube was replaced into the existing gastrocutaneous fistula.? The internal bumper is inflated with 5cc of sterile water.? Tolerated well.? He can resume tube feedings today. Will exchange again in 4 months
--- NOTE | 2024-05-02 06:08 | SUR.PREOP ---
Times - 122 Time Out Called: 1225 Procedure Start: 1225 Procedure End:1226 Position and Devices - personal wheelchair Position: Positioning Devices: Pre-Procedure Assessment - Y Site and Procedure Verified w Patient and/or Others as Appropriate: Y Verification Coincides w Consent, H&P, Endoscopy Schedule, and Pre-Op Orders: Y X-Rays/Imaging Studies in Room and/or Implants on Site:Y Verified Operative Side Marked YES When Applicable: N/A Preop Assessment Completed By: Archana Time Out - 1224 Entire Operative Team Participates and Confirms:Rebekah Magaña and Michael Correct Patient, Procedure, Side/Site and Position: Yes Availability of Implants, Special Equipment and Requests:Yes Preop Antibiotics Given within 1 Hour of Incision: None Assessment of Skin Prep Dry Time: None Prep = Surgery Prep Solution: Site Prepped: Prepped By: Staff - Dogger:Rebekah Magaña Longwall Machine Operator Helper: Non Pharmacy Medications - Time: Name: Strength: Dose: Route: Site: Given By: Lot Number: Expiration Date: Actual Procedures - Removal and Exchange of gastrsotomy tube Description: Side: Wound Class: Surgeon:Michael Severity: Preop Diagnosis: chronic Gastrostomy tube Postop Diagnosis: Successful replacement of gastrostomy tube Transfer Data - Destination: Home Transfer Method: personal wheel chair Complications: Untoward Events: Report Given To: Completed Date/Time:05-01-231224 Completed By: Rebekah Magaña
--- OUTSIDE RECORDS SUMMARY | 2024-05-06 15:12 | XMS_ITS | Continuity of Care Document ---
Author Organization [facility] Address [address] [place] [address] Phone Care Team Providers Care Nutrition Instructor Name Role Phone Paul MARTINEZ, Ricki Unavailable [...] Provider Providers Copied on Encounter [facility], [address], [place], [place], [address], tel:[phone] [facility] No Information 0 Paul Phoenix [address], [place], [place], [address] , [place]. [phone] OFFICE/OUTPA TIENT VISIT, [facility], [address], [place], [place], [address], [place] tel:[phone] [facility] cerebral palsy (chief complaint) dark urine1 (chief complaint) Urinary tract infectionCerebral palsyOther abnormalities of gait and mobility 0 Paul Phoenix [address], [address], [place], [place], [address] , [place]. [phone] OFFICE/OUTPA TIENT VISIT, [facility], [address], [place], [place], [address], [place] tel:[phone] [facility] physical (chief complaint) Encounter for general adult medical exam w abnormal findingsCerebral palsyCoughGastritis , unspecified, without bleeding 0 Paul Robison. [address], [address], [place], [place], [address] , [place]. tel:[phone] OFFICE/OUTPA TIENT VISIT, [facility], [address], [place], [place], [address], [place] tel:[phone] [facility] cough1 (chief complaint) cerebral palsy1 (chief complaint) Cerebral palsyCough 0 Paul Robison. [address], [address], [place], [place], [address] , [place]. [phone] OFFICE/OUTPA TIENT VISIT, [facility], [address], [place], [place], [address], [place] [phone] [facility] fever1 (chief complaint) Aspiration pneumonia 0 Paul Robison. [address], [place], [place], [address] , [place]. tel:[phone] Referring Provider: Vishnu Villavicencio [address], [place], [place], [address]. tel:[phone] OFFICE/OUTPA TIENT VISIT, [facility], [address], [place], [place], [address], [place] tel:[phone] [facility] cough1 (chief complaint) cerebral palsy1 (chief complaint) Cerebral palsyCoughAcute bronchitis Fe 0 Paul Robison. [address], [place], [place], [address] , [place]. [phone] Referring Provider: Ricki Miller, [address], [place], [place], [address]. tel:[phone] OFFICE/OUTPA TIENT VISIT, [facility], [address], [place], [place], [address], [place] tel:[phone] [facility] mucous1 (chief complaint) Acute bronchitisCerebral palsy 0 Paul Robison. [address], [address], [place], [place], [address] , [place]. tel:[phone] Referring Provider: Ricki Miller, [address], [place], [place], [address]. tel:[phone] OFFICE/OUTPA TIENT VISIT, [facility], [address], [place], [place], [address], [place] tel:[phone] [facility] sick (chief complaint) hematuria1 (chief complaint) Gtube (chief complaint) HematuriaAcute bronchitis, unspecifiedCerebral palsyCellulitis of abdominal wall 9 Paul Robison. [address], [place], [place], [address] , [place]. tel:[phone] Referring Provider: Vishun Villavicencio [address], [place], [place], [address]. tel:[phone] OFFICE/OUTPA TIENT VISIT, [facility], [address], [place], [place], [address], [place] tel:[phone] [facility] anemia1 (chief complaint) globulin (chief complaint) pneumonia1 (chief complaint) hematuria1 (chief complaint) Aspiration pneumoniaAnemiaAbno rmality of globulinHyperlipide miaHematuriaIron deficiency 9 Paul Robison. [address], [place], [place], [address] , [place]. tel:[phone] Referring Provider: Vishnu Villavicencio [address], [place], [place], [address]. tel:[phone] [facility], [address], [place], [place], [address], [place] tel:[phone] [facility] No Information 9 Paul Robison. [address], [place], [place], [address] , [place]. tel:[phone] OFFICE/OUTPA TIENT VISIT, [facility], [address], [place], [place], [address], [place] tel:[phone] [facility] pneumonia1 (chief complaint) anemia1 (chief complaint) Gastirc (chief complaint) malnutriti on (chief complaint) Aspiration pneumoniaHematuriaA nemiaCerebral palsy Nov-0 9 Paul Robison. [address], [place], [place], [address] , [place]. tel:[phone] Referring Provider: Vishnu [address], [place], [place], [address]. tel:[phone] OFFICE/OUTPA TIENT VISIT, [facility], [address], [place], [place], [address], tel:[phone] [facility] Physical (chief complaint) Encounter for general adult medical exam w abnormal findingsAspiration pneumoniaEpilepsyCe rebral palsy 9 Paul Robison. [address], [place], [place], [address] , [place]. tel:[phone] Referring Provider: Ricki Miller, [address] [facility] [address], [place], [place], [address]. tel:[phone] Family History Family Member Type Diagnosis Age [...]
--- OUTSIDE RECORDS SUMMARY | 2024-05-06 15:12 | XMS_ITS | Referral Summary ---
Author Organization [facility] Address [address] [place] [address] Care Team Providers Care Correctional Medicine Physician Name Role Phone Amrik Ackerman MD Primary Care Provider [phone] Allergies No known active allergies Medications valproate [...] on file Legal Sex Male 12:19 PM HYDRAULIC TECHNICIAN Gender Identity Not on file Sexual Orientation Not on file Last Filed Vital Signs Vital Sign Reading Time Taken Comments Blood Pressure 124/74 04/27/2023 1:34 PM HYDRAULIC TECHNICIAN Pulse 103 04/27/2023 1:34 PM HYDRAULIC TECHNICIAN Temperature 36.5 C (97.7 F) 04/27/2023 1:20 PM HYDRAULIC TECHNICIAN Respiratory Rate 20 04/27/2023 1:34 PM HYDRAULIC TECHNICIAN Oxygen Saturation 93% 04/27/2023 1:34 PM HYDRAULIC TECHNICIAN Inhaled Oxygen Concentration - - Weight 44.5 kg (98 lb) 04/27/2023 11:00 AM HYDRAULIC TECHNICIAN Height 157.5 cm (5' 2 ) 04/27/2023 11:00 AM HYDRAULIC TECHNICIAN Body Mass Index 17.92 04/27/2023 11:00 AM HYDRAULIC TECHNICIAN Plan of Treatment Not on file Insurance MEDICARE [facility] MEDICARE [place] Advance Directives For more information, please contact: [phone] Documents on File Type Date Recorded Patient Director Consumer Expl anation ADVANCE DIRECTIVE 04/24/2023 10:30 AM EVIN R OF SPORTS THERAPIST-MEDICAL Advance Directives and Living Will 03/13/2023 9:46 AM * Full Code (Latest Code Status on File) Date Activated Date Inactivated Comments 04/27/2023 10:55 AM 04/27/2023 6:06 PM Care Teams Correctional Medicine Physician Relationship Specialty Start Date End Date Amrik Ackerman MD PCP - General Family Practice 11/24/22
--- OUTSIDE RECORDS SUMMARY | 2024-05-06 15:12 | XMS_ITS | Encounter Summary ---
Author Organization [facility] Address [address] [place] [address] Care Team Providers Care Soil Surveyor Name Role Phone Unavailable Primary Care Provider Unavailabl e Encounter Details Date Type Department Care Team (Late st Contact Info) Description 12/25/2012 Abstract [facility] CONVERSION [address] [place], [place] [id number] , Generic Conversion, Social History Tobacco Use [...]
--- OUTSIDE RECORDS SUMMARY | 2024-05-06 15:12 | XMS_ITS | Clinical Summary ---
Author Organization [facility] Address [address] [place] [address] Care Team Providers Care Central Office Operator Supervisor Name Role Phone Amrik Ackerman MD Primary Care Provider [phone] Allergies No known active allergies Medications valproate [...] on file Legal Sex Male 12:19 PM DIRECTOR OF SOCIAL MEDIA MARKETING Gender Identity Not on file Sexual Orientation Not on file Obstetrics History Last Filed Vital Signs Vital Sign Reading Time Taken Comments Blood Pressure 124/74 04/27/2023 1:34 PM DIRECTOR OF SOCIAL MEDIA MARKETING Pulse 103 04/27/2023 1:34 PM DIRECTOR OF SOCIAL MEDIA MARKETING Temperature 36.5 C (97.7 F) 04/27/2023 1:20 PM DIRECTOR OF SOCIAL MEDIA MARKETING Respiratory Rate 20 04/27/2023 1:34 PM DIRECTOR OF SOCIAL MEDIA MARKETING Oxygen Saturation 93% 04/27/2023 1:34 PM DIRECTOR OF SOCIAL MEDIA MARKETING Inhaled Oxygen Concentration - - Weight 44.5 kg (98 lb) 04/27/2023 11:00 AM DIRECTOR OF SOCIAL MEDIA MARKETING Height 157.5 cm (5' 2 ) 04/27/2023 11:00 AM DIRECTOR OF SOCIAL MEDIA MARKETING Body Mass Index 17.92 04/27/2023 11:00 AM DIRECTOR OF SOCIAL MEDIA MARKETING Plan of Treatment Health Maintenance Due Date Last Done Comments Depression Screening 1983 Hepatitis C Screening 1985 DTaP/Tdap/Td Vaccine (1 - Tdap) 10/18/1994 Varicella Vaccines (1 of 2 - 13+ 2-dose series) 10/18/1996 Hepatitis B Screening 10/18/2001 Regular Well Visit/Exam 18-64 10/18/2001 Influenza Vaccine (#1) 2023 2, 02/11/2021, 02/11/2016, Additional history exists Pneumococcal vaccine <65 Aged Out 01/21/2022 No longer eligible based on patient's age to complete this topic HPV Vaccines Aged Out No longer eligi ble based on patient's age to complete this topic Insurance MEDICARE [place] MEDICARE [place] Advance Directives For more information, please contact: [phone] Documents on File Type Date Recorded Patient Fitness Consultant Expl anation ADVANCE DIRECTIVE 04/24/2023 10:30 AM EVIN R OF PRODUCE SHIPPER-MEDICAL Advance Directives and Living Will 03/13/2023 9:46 AM * Full Code (Latest Code Status on File) Date Activated Date Inactivated Comments 04/27/2023 10:55 AM 04/27/2023 6:06 PM Care Teams Central Office Operator Supervisor Relationship Specialty Start Date End Date Amrik Ackerman MD PCP - General Family Practice 11/24/22
--- OUTSIDE RECORDS SUMMARY | 2024-05-06 15:12 | XMS_ITS | Clinical Summary ---
Author Organization [facility] Address [address] [place] [address] Care Team Providers Care Camera Control Operator Name Role Phone Unavailable Primary Care Provider [...]
== END 2024-05-01 12:34 | disposition home or self-care (01) ==
PROVIDERS: PCP Family Medicine; Visit Provider Internal Medicine Gastroenterology
PROC: 0DH63UZ Insertion of Feeding Device into Stomach, Percutaneous Approach (ICD-10-PCS; CPT 43246; 2024-05-01 13:00)
DX: Z43.1 Encounter for attention to gastrostomy (principal); G80.9 Cerebral palsy, unspecified; R13.10 Dysphagia, unspecified
CPT/HCPCS: 43762; 99211; G0463

== ENCOUNTER 2024-05-22 13:13 | Outpatient (CLI) | payer MEDICARE, MEDICAID, SELFPAY ==
[2024-05-22 13:35] LABS: Hematocrit 43.5 % (42.0-52.0); Hemoglobin 14.7 g/dL (14.0-18.0); Mean Corpuscular HGB Conc 33.8 g/dl (32-36); Mean Corpuscular Hemoglobin 31.6 pg (26-34); Mean Corpuscular Volume 93.5 fl (80-100); Mean Platelet Volume 9.1 fl (7.4-10.4); Platelet Count Result 296 k/mm3 (150-375); Red Blood Count 4.65 M/mm3 (4.6-6.20); Red Cell Distribution Width 12.8 % (11.5-14.5); White Blood Count 6.7 K/mm3 (4.5-10.0)
[2024-05-22 13:48] LABS: Alanine Aminotransferase 30 U/L (6-50); Albumin Level 4.3 g/dL (3.5-5.1); Alkaline Phosphatase 55 U/L (38-126); Anion Gap 10 mmol/L (4-12); Aspartate Amino Transferase 26 U/L (17-59); Bilirubin,Total 0.4 mg/dL (0.2-1.3); Blood Urea Nitrogen 23 mg/dL (9-20); Calcium 9.1 mg/dL (8.4-10.2); Carbon Dioxide 26 mmol/L (22-30); Chloride 102 mmol/L (98-107); Cholesterol 172 mg/dL (0-200); Estimated Glomerular Filt Rate > 60; Glucose 117 mg/dL (65-110); HDL Direct 34 mg/dL; Potassium 4.1 mmol/L (3.4-5.0); Sodium 138 mmol/L (137-145); Triglycerides 291 mg/dL (<150)
[2024-05-22 13:59] LABS: LDL Cholesterol Direct 75 mg/dL
[2024-05-22 14:11] LABS: Vitamin D 25 Hydroxy 57.9 ng/mL
--- OUTSIDE RECORDS SUMMARY | 2024-05-22 14:55 | XMS_ITS | Clinical Summary ---
Author Organization [facility] Address [address] [place] [address] Care Team Providers Care Product Craftsman Name Role Phone Amrik Ackerman MD Primary Care Provider [phone] Allergies No known active allergies Medications valproate [...] on file Legal Sex Male 12:19 PM CASKET ASSEMBLER METAL Gender Identity Not on file Sexual Orientation Not on file Obstetrics History Last Filed Vital Signs Vital Sign Reading Time Taken Comments Blood Pressure 124/74 04/27/2023 1:34 PM CASKET ASSEMBLER METAL Pulse 103 04/27/2023 1:34 PM CASKET ASSEMBLER METAL Temperature 36.5 C (97.7 F) 04/27/2023 1:20 PM CASKET ASSEMBLER METAL Respiratory Rate 20 04/27/2023 1:34 PM CASKET ASSEMBLER METAL Oxygen Saturation 93% 04/27/2023 1:34 PM CASKET ASSEMBLER METAL Inhaled Oxygen Concentration - - Weight 44.5 kg (98 lb) 04/27/2023 11:00 AM CASKET ASSEMBLER METAL Height 157.5 cm (5' 2 ) 04/27/2023 11:00 AM CASKET ASSEMBLER METAL Body Mass Index 17.92 04/27/2023 11:00 AM CASKET ASSEMBLER METAL Plan of Treatment Health Maintenance Due Date [...] complete this topic Insurance MEDICARE [place] MEDICARE [place] Advance Directives For more information, please contact: [phone] Documents on File Type Date Recorded Patient Dredge Master Expl anation ADVANCE DIRECTIVE 04/24/2023 10:30 AM EVIN R OF ENTERPRISE RESOURCE PLANNER-MEDICAL Advance Directives and Living Will 03/13/2023 9:46 AM * Full Code (Latest Code Status on File) Date Activated Date Inactivated Comments 04/27/2023 10:55 AM 04/27/2023 6:06 PM Care Teams Product Craftsman Relationship Specialty Start Date End Date Amrik Ackerman MD PCP - General Family Practice 11/24/22
--- OUTSIDE RECORDS SUMMARY | 2024-05-22 14:55 | XMS_ITS | Encounter Summary ---
Author Organization [facility] Address [address] [place] [address] Care Team Providers Care Tree Trimming Line Technician Name Role Phone Unavailable Primary Care Provider Unavailabl e Encounter Details Date Type Department Care Team (Late st Contact Info) Description 12/25/2012 Abstract [facility] CONVERSION [address] [place], [place] [id number] , Generic Conversion, Social History Tobacco Use [...]
--- OUTSIDE RECORDS SUMMARY | 2024-05-22 14:55 | XMS_ITS | Clinical Summary ---
Author Organization [facility] Address [address] [place] [address] Care Team Providers Care Claims Adjudicator Name Role Phone Unavailable Primary Care Provider [...]
--- OUTSIDE RECORDS SUMMARY | 2024-05-22 14:55 | XMS_ITS | Referral Summary ---
Author Organization [facility] Address [address] [place] [address] Care Team Providers Care Director Child Abuse Therapy Name Role Phone Amrik Ackerman MD Primary Care Provider [phone] Allergies No known active allergies Medications valproate [...] on file Legal Sex Male 12:19 PM REAL ESTATE UNDERWRITER Gender Identity Not on file Sexual Orientation Not on file Last Filed Vital Signs Vital Sign Reading Time Taken Comments Blood Pressure 124/74 04/27/2023 1:34 PM REAL ESTATE UNDERWRITER Pulse 103 04/27/2023 1:34 PM REAL ESTATE UNDERWRITER Temperature 36.5 C (97.7 F) 04/27/2023 1:20 PM REAL ESTATE UNDERWRITER Respiratory Rate 20 04/27/2023 1:34 PM REAL ESTATE UNDERWRITER Oxygen Saturation 93% 04/27/2023 1:34 PM REAL ESTATE UNDERWRITER Inhaled Oxygen Concentration - - Weight 44.5 kg (98 lb) 04/27/2023 11:00 AM REAL ESTATE UNDERWRITER Height 157.5 cm (5' 2 ) 04/27/2023 11:00 AM REAL ESTATE UNDERWRITER Body Mass Index 17.92 04/27/2023 11:00 AM REAL ESTATE UNDERWRITER Plan of Treatment Not on file Insurance MEDICARE [facility] MEDICARE [place] Advance Directives For more information, please contact: [phone] Documents on File Type Date Recorded Patient Admissions Officer Expl anation ADVANCE DIRECTIVE 04/24/2023 10:30 AM EVIN R OF ASSEMBLY STOCK SUPERVISOR-MEDICAL Advance Directives and Living Will 03/13/2023 9:46 AM * Full Code (Latest Code Status on File) Date Activated Date Inactivated Comments 04/27/2023 10:55 AM 04/27/2023 6:06 PM Care Teams Director Child Abuse Therapy Relationship Specialty Start Date End Date Amrik Ackerman MD PCP - General Family Practice 11/24/22
--- OUTSIDE RECORDS SUMMARY | 2024-05-22 14:55 | XMS_ITS | Continuity of Care Document ---
Author Organization [facility] Address [address] [place] [address] [place] [address] Phone Care Team Providers Care Personal Lines Insurance Advisor Name Role Phone Paul MARTINEZ, Ricki Unavailable [...] Diagnoses Date Provider Providers Copied on Encounter [facility], [address], [place], [place], [address], tel:[phone] [facility] No Information 0 Paul Phoenix [address], [place], [place], [address] , [place]. [phone] OFFICE/OUTPA TIENT VISIT, [facility], [address], [place], [place], [address], [place] tel:[phone] [facility] cerebral palsy (chief complaint) dark urine1 (chief complaint) Urinary tract infectionCerebral palsyOther abnormalities of gait and mobility 0 Paul Phoenix [address], [place], [place], [address] , [place]. [phone] OFFICE/OUTPA TIENT VISIT, [facility], [address], [place], [place], [address], [place] tel:[phone] [facility] physical (chief complaint) Encounter for general adult medical exam w abnormal findingsCerebral palsyCoughGastritis , unspecified, without bleeding 0 Paul Robison. [address], [place], [place], [address] , [place]. tel:[phone] OFFICE/OUTPA TIENT VISIT, [facility], [address], [place], [place], [address], [place] tel:[phone] [facility] cough1 (chief complaint) cerebral palsy1 (chief complaint) Cerebral palsyCough 0 Paul Robison. [address], [place], [place], [address] , [place]. [phone] OFFICE/OUTPA TIENT VISIT, [facility], [address], [place], [address], [place] [phone] [facility] fever1 (chief complaint) Aspiration pneumonia 0 Paul Robison. [address], [place], [place], [address] , [place]. tel:[phone] Referring Provider: Vishnu Villavicencio [address], [place], [place], [address]. tel:[phone] OFFICE/OUTPA TIENT VISIT, [facility], [address], [place], [address], [place] tel:[phone] [facility] cough1 (chief complaint) cerebral palsy1 (chief complaint) Cerebral palsyCoughAcute bronchitis Fe 0 Paul Robison. [address], [place], [place], [address] , [place]. [phone] Referring Provider: Ricki Miller, [address], [place], [address]. tel:[phone] OFFICE/OUTPA TIENT VISIT, [facility], [address], [place], [address], [place] tel:[phone] [facility] mucous1 (chief complaint) Acute bronchitisCerebral palsy 0 Paul Robison. [address], [place], [place], [address] , [place]. tel:[phone] Referring Provider: Ricki Miller, [address], [place], [place], [address]. tel:[phone] OFFICE/OUTPA TIENT VISIT, [facility], [address], [place], [address], [place] tel:[phone] [facility] sick (chief complaint) hematuria1 (chief complaint) Gtube (chief complaint) HematuriaAcute bronchitis, unspecifiedCerebral palsyCellulitis of abdominal wall 9 Paul Robison. [address], [place], [place], [address] , [place]. tel:[phone] Referring Provider: Vishnu Villavicencio [address], [place], [place], [address]. tel:[phone] OFFICE/OUTPA TIENT VISIT, [facility], [address], [place], [place], [address], [place] tel:[phone] [facility] anemia1 (chief complaint) globulin (chief complaint) pneumonia1 (chief complaint) hematuria1 (chief complaint) Aspiration pneumoniaAnemiaAbno rmality of globulinHyperlipide miaHematuriaIron deficiency 9 Paul Robison. [address], [place], [place], [address] , [place]. tel:[phone] Referring Provider: Vishnu Villavicencio [address], [place], [place], [address]. tel:[phone] [facility], [address], [place], [place], [address], [place] tel:[phone] [facility] No Information 9 Paul Robison. [address], [place], [address] , [place]. tel:[phone] OFFICE/OUTPA TIENT VISIT, [facility], [address], [place], [place], [address], [place] tel:[phone] [facility] pneumonia1 (chief complaint) anemia1 (chief complaint) Gastirc (chief complaint) malnutriti on (chief complaint) Aspiration pneumoniaHematuriaA nemiaCerebral palsy Nov-0 9 Paul Robison. [address], [place], [place], [address] , [place]. tel:[phone] Referring Provider: Vishnu [address], [place], [place], [address]. tel:[phone] OFFICE/OUTPA TIENT VISIT, [facility], [address], [place], [place], [address], tel:[phone] [facility] Physical (chief complaint) Encounter for general adult medical exam w abnormal findingsAspiration pneumoniaEpilepsyCe rebral palsy 9 Paul Robison. [address], [place], [place], [address] , [place]. tel:[phone] Referring Provider: Ricki Miller, [address] [facility] [address], [place], [place], [address]. tel:[phone] Family History Family Member Type Diagnosis Age [...]
== END 2024-05-22 13:14 | disposition home or self-care (01) ==
PROVIDERS: PCP Family Medicine; Visit Provider Family Medicine
DX: F41.9 Anxiety disorder, unspecified (principal); G40.909 Epilepsy, unspecified, not intractable, without status epilepticus; R21 Rash and other nonspecific skin eruption; G80.9 Cerebral palsy, unspecified; Z93.1 Gastrostomy status; Z79.899 Other long term (current) drug therapy
CPT/HCPCS: 36415; 80053; 80061; 82306; 82607; 85027

== ENCOUNTER 2024-08-30 05:32 | Outpatient (CLI) | payer MEDICARE, MEDICAID, SELFPAY ==
[2024-08-26 14:25] VITALS: BMI 20.1
--- OUTSIDE RECORDS SUMMARY | 2024-08-30 05:36 | XMS_ITS | Referral Summary ---
Author Organization [facility] Address [address] [place] [address] Care Team Providers Care Customs Inspector Name Role Phone Amrik Ackerman MD Primary Care Provider [phone] Allergies No known active allergies Medications valproate [...] on file Legal Sex Male 12:19 PM STONEWORKER Gender Identity Not on file Sexual Orientation Not on file Last Filed Vital Signs Vital Sign Reading Time Taken Comments Blood Pressure 124/74 04/27/2023 1:34 PM STONEWORKER Pulse 103 04/27/2023 1:34 PM STONEWORKER Temperature 36.5 C (97.7 F) 04/27/2023 1:20 PM STONEWORKER Respiratory Rate 20 04/27/2023 1:34 PM STONEWORKER Oxygen Saturation 93% 04/27/2023 1:34 PM STONEWORKER Inhaled Oxygen Concentration - - Weight 44.5 kg (98 lb) 04/27/2023 11:00 AM STONEWORKER Height 157.5 cm (5' 2) 04/27/2023 11:00 AM STONEWORKER Body Mass Index 17.92 04/27/2023 11:00 AM STONEWORKER Plan of Treatment Not on file Insurance MEDICARE [facility] MEDICARE IDPA Advance Directives For more information, please contact: [phone] Documents on File Type Date Recorded Patient Stave Saw Operator Expl anation ADVANCE DIRECTIVE 04/24/2023 10:30 AM EVIN R OF VEGETABLE HARVEST WORKER-MEDICAL Advance Directives and Living Will 03/13/2023 9:46 AM * Full Code (Latest Code Status on File) Date Activated Date Inactivated Comments 04/27/2023 10:55 AM 04/27/2023 6:06 PM Care Teams Customs Inspector Relationship Specialty Start Date End Date Amrik Ackerman MD PCP - General Family Practice 11/24/22
--- OUTSIDE RECORDS SUMMARY | 2024-08-30 05:36 | XMS_ITS | Clinical Summary ---
Author Organization [facility] Address [address] [place] [address] Care Team Providers Care Extractor Operator Solvent Process Name Role Phone Amrik Ackerman MD Primary Care Provider [phone] Allergies No known active allergies Medications valproate [...] Date Comments Cerebral palsy (HCC) Seizure disorder (HCC) Cerebral palsy (HCC) Family History Medical [...] on file Legal Sex Male 12:19 PM IT INSTRUCTOR Gender Identity Not on file Sexual Orientation Not on file Obstetrics History Last Filed Vital Signs Vital Sign Reading Time Taken Comments Blood Pressure 124/74 04/27/2023 1:34 PM IT INSTRUCTOR Pulse 103 04/27/2023 1:34 PM IT INSTRUCTOR Temperature 36.5 C (97.7 F) 04/27/2023 1:20 PM IT INSTRUCTOR Respiratory Rate 20 04/27/2023 1:34 PM IT INSTRUCTOR Oxygen Saturation 93% 04/27/2023 1:34 PM IT INSTRUCTOR Inhaled Oxygen Concentration - - Weight 44.5 kg (98 lb) 04/27/2023 11:00 AM IT INSTRUCTOR Height 157.5 cm (5' 2) 04/27/2023 11:00 AM IT INSTRUCTOR Body Mass Index 17.92 04/27/2023 11:00 AM IT INSTRUCTOR Plan of Treatment Health Maintenance Due Date Last Done Comments Depression Screening 1983 Hepatitis C Screening 1983 DTaP/Tdap/Td Vaccine (1 - Tdap) 10/18/1994 Varicella Vaccines (1 of 2 - 13+ 2-dose series) 10/18/1996 Hepatitis B Screening 10/18/2001 Regular Well Visit/Exam 18-64 10/18/2001 Influenza Vaccine (Season Ended) 2024 01/21/2022, 02/11/2021, 02/11/2016, Additional history exists Pneumococcal vaccine <65 Aged Out 01/21/2022 No longer eligible based on patient's age to complete this topic HPV Vaccines Aged Out No longer eligi ble based on patient's age to complete this topic Insurance MEDICARE [employer] MEDICARE [employer] Advance Directives For more information, please contact: [phone] Documents on File Type Date Recorded Patient Geriatric Care Manager Expl anation ADVANCE DIRECTIVE 04/24/2023 10:30 AM EVIN R OF DRAMATIC ARTS HISTORIAN-MEDICAL Advance Directives and Living Will 03/13/2023 9:46 AM * Full Code (Latest Code Status on File) Date Activated Date Inactivated Comments 04/27/2023 10:55 AM 04/27/2023 6:06 PM Care Teams Extractor Operator Solvent Process Relationship Specialty Start Date End Date Amrik Ackerman MD PCP - General Family Practice 11/24/22
--- OUTSIDE RECORDS SUMMARY | 2024-08-30 05:36 | XMS_ITS | Continuity of Care Document ---
Author Organization [facility] Address [address] [place] [address] Phone Care Team Providers Care Convention Planner Name Role Phone Paul MARTINEZ, Ricki Unavailable [...] Diagnoses Date Provider Providers Copied on Encounter [facility], [address], [place], [place], [address], tel:[phone] [facility] No Information 0 Paul Phoenix [address], [place], [place], [address] , [place]. [phone] OFFICE/OUTPA TIENT VISIT, [facility], [address], [place], [place], [address], [place] tel:[phone] [facility] cerebral palsy (chief complaint) dark urine1 (chief complaint) Urinary tract infectionCerebral palsyOther abnormalities of gait and mobility 0 Paul Phoenix [address], [place], [place], [address] , [place]. [phone] OFFICE/OUTPA TIENT VISIT, [facility], [address], [place], [place], [address], [place] tel:[phone] [facility] physical (chief complaint) Encounter for general adult medical exam w abnormal findingsCerebral palsyCoughGastritis , unspecified, without bleeding 0 Paul Robison. [address], [place], [place], [address] , [place]. tel:[phone] OFFICE/OUTPA TIENT VISIT, [facility], [address], [place], [place], [address], [place] tel:[phone] [facility] cough1 (chief complaint) cerebral palsy1 (chief complaint) Cerebral palsyCough 0 Paul Robison. [address], [place], [place], [address] , [place]. [phone] OFFICE/OUTPA TIENT VISIT, [facility], [address], [place], [place], [address], [place] [phone] [facility] fever1 (chief complaint) Aspiration pneumonia 0 Paul Robison. [address], [place], [place], [address] , [place]. tel:[phone] Referring Provider: Vishnu Villavicencio [address], [place], [place], [address]. tel:[phone] OFFICE/OUTPA TIENT VISIT, [facility], [address], [place], [place], [address], [place] tel:[phone] [facility] cough1 (chief complaint) cerebral palsy1 (chief complaint) Cerebral palsyCoughAcute bronchitis Fe 0 Paul Robison. [address], [place], [place], [address] , [place]. [phone] Referring Provider: Ricki Miller, [address], [place], [place], [address]. tel:[phone] OFFICE/OUTPA TIENT VISIT, [facility], [address], [place], [place], [address], [place] tel:[phone] [facility] mucous1 (chief complaint) Acute bronchitisCerebral palsy 0 Paul Robison. [address], [place], [place], [address] , [place]. tel:[phone] Referring Provider: Ricki Miller, [address], [place], [place], [address]. tel:[phone] OFFICE/OUTPA TIENT VISIT, [facility], [address], [place], [place], [address], [place] tel:[phone] [facility] sick (chief complaint) hematuria1 (chief complaint) Gtube (chief complaint) HematuriaAcute bronchitis, unspecifiedCerebral palsyCellulitis of abdominal wall 9 Paul Robison. [address], [place], [place], [address] , [place]. tel:[phone] Referring Provider: Vishnu Villavicencio [address], [place], [place], [address]. tel:[phone] OFFICE/OUTPA TIENT VISIT, [facility], [address], [place], [place], [address], [place] tel:[phone] [facility] anemia1 (chief complaint) globulin (chief complaint) pneumonia1 (chief complaint) hematuria1 (chief complaint) Aspiration pneumoniaAnemiaAbno rmality of globulinHyperlipide miaHematuriaIron deficiency 9 Paul Robison. [address], [place], [place], [address] , [place]. tel:[phone] Referring Provider: Vishnu Villavicencio [address], [place], [place], [address]. tel:[phone] [facility], [address], [place], [place], [address], [place] tel:[phone] [facility] No Information 9 Paul Robison. [address], [place], [place], [address] , [place]. tel:[phone] OFFICE/OUTPA TIENT VISIT, [facility], [address], [place], [place], [address], [place] tel:[phone] [facility] pneumonia1 (chief complaint) anemia1 (chief complaint) Gastirc (chief complaint) malnutriti on (chief complaint) Aspiration pneumoniaHematuriaA nemiaCerebral palsy Nov-0 9 Paul Robison. [address], [place], [place], [address] , [place]. tel:[phone] Referring Provider: Vishnu [address], [place], [place], [address]. tel:[phone] OFFICE/OUTPA TIENT VISIT, [facility], [address], [place], [place], [address], tel:[phone] [facility] Physical (chief complaint) Encounter for general adult medical exam w abnormal findingsAspiration pneumoniaEpilepsyCe rebral palsy 9 Paul Robison. [address], [place], [place], [address] , [place]. tel:[phone] Referring Provider: Ricki Miller, [address], [place], [place], [address]. tel:[phone] Family History Family Member Type Diagnosis Age At Onset Mother Problem (finding) Alive and well Father Problem (finding) Alive and well Payers Payer name Insurance type Covered green party ID Authoriza tion(s) No Information Social [...]
--- NOTE | 2024-08-30 11:55 | SUR.PREOP ---
Patient refused vital signs to be taken.
--- NOTE | 2024-08-30 12:28 | P.HP_ITS ---
History of Present Illness History of Present Illness Consent: Risks, benefits, and alternatives have been discussed and questions answered. Patient agrees to proceed with procedure. Chief complaint: Encounter for attention to gastrostomy Narrative: Dallas Slaughter is a 38 year old male with cerebral palsy here for G-tube exchange, normally it is done every 4 months (current tube is working though), mother is here and noted some irritation about site with drainage, wonder if may need antibiotic Review of Systems Review of Systems: All systems reviewed & are unremarkable except as noted in HPI and below PMFSH Past Medical History Medical History (Updated 07/30/24 @ 14:20 by Bibi Lima MD) Static encephalopathy Hematemesis Urinary retention Esophagitis with gastritis History of GI bleed Anxiety Dysphagia Chronic. G-tube in place. History of pulmonary aspiration Seizure disorder Cerebral palsy Surgical History Surgical History History of orthopedic surgery Multiple surgeries related to his cerebra palsy including tendon surgeries and Green transfer. History of spinal fusion Gastrointestinal tube present Family History Family History Father Family history of elevated blood lipids Family history of diabetes mellitus in first degree relative Hypertension Chronic obstructive pulmonary disease Other Lung cancer Social History Social History Social History: Surrogate decision maker: Leonora Slaughter, mother. Code status: Full code. Smoking status: Never smoker Second hand tobacco smoke exposure: No Alcohol intake: never Substance use: never Substance use type: does not use Do You Feel Safe in your Home?: Yes Lack of Transportation: No Lack of Food: Never True Current Housing: I Have Housing Concerned About Future Housing: No Difficulty Paying Gas/Electric Bills: No Difficulty Paying for Meds: No Currently Unemployed: No Education: Don't Know Difficulty w/ Childcare or Family Care: No Living arrangements: with family Additional living arrangements comments: The patient lives with his mother and brother in [place]. His father in November 2022. He is wheelchair- dependent and uses an electric wheelchair which he can manage quite nicely. In fact he likes to spend a lot of his time out in their [place] where they have cars and motorcycles, which he really enjoys. He is dependent on most activities of daily living. Occupation/Education: unemployed Additional occupation/education comments: Disabled. Spiritual care concerns: No Meds Home Medications and Allergies Home Medications ?Medication ?Instructions ?Recorded ?Confirmed ?Type metoclopramide HCl 5 mg/5 mL oral See Rx Instructions .Route 02/26/24 08/26/24 Rx solution .COMPLEX #1,200 mL famotidine 40 mg/5 mL (8 mg/mL) 40 mg (5 mL) PO DAILY #450 mL 05/09/24 08/26/24 Rx oral suspension omeprazole magnesium 10 mg oral 10 mg feeding tube DAILY #30 ea 06/06/24 08/26/24 Rx suspension,delayed release (Prilosec) cetirizine 1 mg/mL oral solution See Rx Instructions .Route 06/27/24 08/26/24 Rx .COMPLEX #900 mL tizanidine 4 mg tablet See Rx Instructions .Route 06/27/24 08/26/24 Rx .COMPLEX #270 tabs baclofen 20 mg tablet 20 mg feeding tube TID #90 tabs 07/30/24 08/26/24 Rx clorazepate dipotassium 3.75 mg 3.75 mg feeding tube TID #90 tabs 07/30/24 08/26/24 Rx tablet diazepam 5 mg tablet See Rx Instructions .Route 07/30/24 08/26/24 Rx .COMPLEX muscle spasm #90 tabs valproic acid (as sodium salt) 250 See Rx Instructions .Route 07/30/24 08/26/24 Rx mg/5 mL oral solution .COMPLEX #300 mL prucalopride 2 mg tablet 2 mg PO DAILY #90 tabs 08/26/24 08/26/24 Rx (Motegrity) scopolamine base 1 mg over 3 days See Rx Instructions .Route 08/27/24 Rx transdermal patch .COMPLEX #24 patches amoxicillin 250 mg/5 mL oral 750 mg (15 mL) PO Q8H 5 days #225 08/30/24 Rx suspension mL Allergies Allergy/AdvReac Type Severity Reaction Status Date / Time Sulfa (Sulfonamide Allergy Unknown LIPS AND Verified 08/30/24 12:21 Antibiotics) GENITAL PEELING SKIN Exam Narrative: APPEARANCE: cerebral palsy Head: atraumatic. EYES: EOMI, NOSE: Atraumatic NECK: Trachea midline RESPIRATORY: No increased rate of breathing CARDIOVASCULAR: RRR, ABDOMINAL: G-tube is in place. Abdomen not tender with no guarding. MUSCULOSKELETAl: No obvious deformities NEURO: Alert. SKIN:: Warm, dry. Normal color PSYCHIATRIC: Normal affect Assessment and Plan Assessment and plan (1) Gastrointestinal tube present: Code(s): Z93.1 - Gastrostomy status Status: Acute Assessment and Plan: exchange g-tube (2) Dysphagia: Qualifiers: Dysphagia type: unspecified Qualified Code(s): R13.10 - Dysphagia, unspecified Code(s): R13.10 - Dysphagia, unspecified Status: Chronic
--- NOTE | 2024-08-30 12:29 | SUR.PREOP ---
Times - Time Out Called: 1158 Procedure Start: 1200 Procedure End: 1203 Position and Devices - Position: sitting in personal wheelchair Positioning Devices: none Pre-Procedure Assessment - Site and Procedure Verified w Patient and/or Others as Appropriate: yes Verification Coincides w Consent, H&P, Endoscopy Schedule, and Pre-Op Orders: yes X-Rays/Imaging Studies in Room and/or Implants on Site: yes Verified Operative Side Marked YES When Applicable: N/A Preop Assessment Completed By: Du Matias RN Time Out - Entire Operative Team Participates and Confirms: Yes Correct Patient, Procedure, Side/Site and Position: Yes Availability of Implants, Special Equipment and Requests: Yes Preop Antibiotics Given within 1 Hour of Incision: N/A Assessment of Skin Prep Dry Time: N/A Prep = Surgery Prep Solution: none Site Prepped: N/A Prepped By: Staff - Fiberglass Model Maker: Du Matias RN Actual Procedures - Description: Removal and replacement of gastrostomy tube (ALDO-CAMPBELL feeding tube lot:[id number] exp:03/13/26) Surgeon: Preop Diagnosis: encounter for attention to gastrostomy Postop Diagnosis: Removal and replacement of G-tube Transfer Data - Destination: Home Transfer Method: wheelchair Complications: none Completed Date/Time: 08/30/24 1215 Completed By: Du Matias RN
--- NOTE | 2024-08-30 12:30 | W.PM.PROC2 ---
Procedure Note - Detailed Date of Procedure 08/30/24 Pre-op Diagnosis Encounter for attention to gastrostomy Post-op Diagnosis Same Procedure Performed exchange g-tube Surgeon Carloz Valenzuela MD Anesthesia None Description of Procedure Previous button type gastrostomy tube is noted be in place.? Appears to be well healed.? The tube internal bumper is decompressed 5cc of fluid is withdrawn from the internal bumper an old G-tube is withdrawn and removed.? A new ALDO-CAMPBELL 24 Fr gastrostomy tube was replaced into the existing gastrocutaneous fistula.? The internal bumper is inflated with 5cc of sterile water.? Tolerated well.? He can resume tube feedings today. Will exchange again in 4 months will also prescribe amoxicillin for 5 days
== END 2024-08-30 12:15 | disposition home or self-care (01) ==
PROVIDERS: PCP Family Medicine; Referring Provider Internal Medicine Gastroenterology; Visit Provider Internal Medicine Gastroenterology
PROC: 0DH63UZ Insertion of Feeding Device into Stomach, Percutaneous Approach (ICD-10-PCS; CPT 43246; principal; 2024-08-30 13:00)
DX: Z01.818 Encounter for other preprocedural examination (principal); Z93.1 Gastrostomy status
CPT/HCPCS: 99212; G0463

== ENCOUNTER 2024-11-20 22:48 | Emergency (ER) | payer MEDICARE, MEDICAID, SELFPAY ==
--- OUTSIDE RECORDS SUMMARY | 2020-02-18 04:00 | XMS_ITS | Continuity of Care Document ---
Author Organization [facility] Address [address] [place] [address] [place] [address] Phone Care Team Providers Care Electrical Timing Device Calibrator Name Role Phone Paul MARTINEZ, Ricki Unavailable Unavailable Allergies, Adverse Reactions, Alerts Substance Reaction Status Criticality Sulfa (Sulfonamide Antibiotics) Active No Information Medications Medication Instructions Dosage Effective Dates (start - stop) Status Comments tizanidine 4 mg tablet take 2 mg in AM and 2 mg around afternoon and 4 mg at night as needed - Active PRN for muscl e spasm Tessalon Perles 100 mg capsule take 1 capsule by oral route 3 times every day as needed - Active PRN for coug h, omeprazole 20 mg tablet,delayed release take 1 tablet by oral route every day 1 tablet - Active Transderm-Scop 1.5 mg transdermal patch (1 mg over 3 days) apply 1 patch by transdermal route to the hairless area behind 1 ear at least 4 hr before effect is required; reapply every 3 days as needed 1.00 patch - Active clorazepate dipotassium 3.75 mg tablet take 1 tablet by oral route 3 times every day 3.75 MG - Active Valium 5 mg tablet take 1 tablet by oral route 3 times every day 5 MG - Active Depakote Sprinkles 125 mg capsule,delayed release take 2 capsule by oral route 2 times every day and sprinkle entire contents on a small amount (teaspoonful) of soft food and take 250 MG - Active baclofen 20 mg tablet take 1 tablet by oral route 2 times every day 20 MG - Active Procedures Procedure Date OFFICE/OUTPATIENT VISIT, EST PPPS, subseq visit OFFICE/OUTPATIENT VISIT, EST OFFICE/OUTPATIENT VISIT, EST OFFICE/OUTPATIENT VISIT, EST OFFICE/OUTPATIENT VISIT, EST OFFICE/OUTPATIENT VISIT, EST OFFICE/OUTPATIENT VISIT, EST OFFICE/OUTPATIENT VISIT, EST OFFICE/OUTPATIENT VISIT, EST PPPS, initial visit OFFICE/OUTPATIENT VISIT, NEW Advance Directives Directive Yes / No Effective Date File Name No Information Encounters Encounter Description Practice Location Reason(s) For Visit Diagnoses Date Provider Providers Copied on Encounter [facility], [address], [place], [place], [address], tel:[phone] [facility] No Information 0 Paul Phoenix [address], [place], [place], [address] , [place]. [phone] OFFICE/OUTPA TIENT VISIT, [facility], [address], [place], [place], [address], [place] tel:[phone] [facility] cerebral palsy (chief complaint) dark urine1 (chief complaint) Urinary tract infectionCerebral palsyOther abnormalities of gait and mobility 0 Paul Phoenix [address], [place], [place], [address] , [place]. [phone] OFFICE/OUTPA TIENT VISIT, [facility], [address], [place], [place], [address], [place] tel:[phone] [facility] physical (chief complaint) Encounter for general adult medical exam w abnormal findingsCerebral palsyCoughGastritis , unspecified, without bleeding 0 Paul Robison. [address], [place], [place], [address] , [place]. tel:[phone] OFFICE/OUTPA TIENT VISIT, [facility], [address], [place], [place], [address], [place] tel:[phone] [facility] cough1 (chief complaint) cerebral palsy1 (chief complaint) Cerebral palsyCough 0 Paul Robison. [address], [place], [place], [address] , [place]. [phone] OFFICE/OUTPA TIENT VISIT, [facility], [address], [place], [place], [address], [place] [phone] [facility] fever1 (chief complaint) Aspiration pneumonia 0 Paul Robison. [address], [address], [place], [place], [address] , [place]. [phone] Referring Provider: Vishnu Villavicencio [address], [place], [place], [address]. tel:[phone] OFFICE/OUTPA TIENT VISIT, [facility], [address], [place], [place], [address], [place] tel:[phone] [facility] cough1 (chief complaint) cerebral palsy1 (chief complaint) Cerebral palsyCoughAcute bronchitis Fe 0 Paul Robison. [address], [place], [place], [address] , [place]. [phone] Referring Provider: Ricki Miller, [address], [place], [place], [address]. tel:[phone] OFFICE/OUTPA TIENT VISIT, [facility], [address], [place], [place], [address], [place] tel:[phone] [facility] mucous1 (chief complaint) Acute bronchitisCerebral palsy 0 Paul Robison. [address], [place], [place], [address] , [place]. tel:[phone] Referring Provider: Ricki Miller, [address], [place], [place], [address]. tel:[phone] OFFICE/OUTPA TIENT VISIT, [facility], [address], [place], [place], [address], [place] tel:[phone] [facility] sick (chief complaint) hematuria1 (chief complaint) Gtube (chief complaint) HematuriaAcute bronchitis, unspecifiedCerebral palsyCellulitis of abdominal wall 9 Paul Robison. [address], [place], [place], [address] , [place]. tel:[phone] Referring Provider: Vishnu Villavicencio [address], [place], [place], [address]. tel:[phone] OFFICE/OUTPA TIENT VISIT, [facility], [address], [place], [place], [address], [place] tel:[phone] [facility] anemia1 (chief complaint) globulin (chief complaint) pneumonia1 (chief complaint) hematuria1 (chief complaint) Aspiration pneumoniaAnemiaAbno rmality of globulinHyperlipide miaHematuriaIron deficiency 9 Paul Robison. [address], [place], [place], [address] , [place]. tel:[phone] Referring Provider: Vishnu Villavicencio [address], [place], [place], [address]. tel:[phone] [facility], [address], [place], [place], [address], [place] tel:[phone] [facility] No Information 9 Paul Robison. [address], [place], [place], [address] , [place]. tel:[phone] OFFICE/OUTPA TIENT VISIT, [facility], [address], [place], [place], [address], [place] tel:[phone] [facility] pneumonia1 (chief complaint) anemia1 (chief complaint) Gastirc (chief complaint) malnutriti on (chief complaint) Aspiration pneumoniaHematuriaA nemiaCerebral palsy Nov-0 9 Paul Robison. [address], [place], [place], [address] , [place]. tel:[phone] Referring Provider: Vishnu [address], [place], [place], [address]. tel:[phone] OFFICE/OUTPA TIENT VISIT, [facility], [address], [place], [place], [address], tel:[phone] [facility] Physical (chief complaint) Encounter for general adult medical exam w abnormal findingsAspiration pneumoniaEpilepsyCe rebral palsy 9 Paul Robison. [address], [place], [place], [address] , [place]. tel:[phone] Referring Provider: Ricki Miller, [address], [place], [place], [address]. tel:[phone] Family History Family Member Type Diagnosis Age At Onset Mother Problem (finding) Alive and well Father Problem (finding) Alive and well Payers Payer name Insurance type Covered libertarian ID Authoriza tion(s) No Information Social History Type Description Quantity Date Captured Comments Sex Male Smoking Status No Information Chief Complaint And Reason For Visit No Information Plan Of Treatment Date Type Action Status Referral Ordered: CHEST X-RAY PA/LAT TWO-VIEWS ordered Referral Ordered: [facility] KIDNEY ordered History Of Present Illness Encounter Date Complaint History Of Prese nt Illness dark urine1 mom notices that his urine appears very concentrate and smell very strong of ammonium for 2-3 days. Mom states that his urine output is usual amount and she has been pushing fluid for him through mouth and also using G-tube. Pt denies any appetite loss, fever or mental status change cerebral palsy Pt has cerebral palsy and he is wheel chair dependent. pt currently uses power wheel chair and it has been 5 years old and mom states that it was custom build wrong and he needs a new one. mOm states that he tends to lean on one side and the wheelchair was build that unfit for him. physical Pt needs annual physical. Pt has cerebral palsy. Pt has G tube with history of GI bleeding due to erosions. Pt takes omeprazole 40 mg daily. Pt is not able to take care of ADLs. Pt eat oral meal once per day and rest of the time, he gets G tube feeding. Pt has excessive secretions, with history of aspiration pneumonia. Pt uses scopolamine patch ,Pt takes zanaflex and tessalon. Pt also sees neurologist and he gets valium, baclofen, depakote and clorazepate. Mom notices that patient has been coughing slightly more lately with some clear phlegm but he does not have any fever and he does not have any mental status change suggestive of aspiration pneumonia. Pt does not appear to be sob. cough1 Pt c/o mild prod uctive cough for one week. Pt denies any green phlegm. Pt denies any fever. Pt denies any sob. Pt uses scopolamine patch every 3 days due to frequent secretions. mom has to suction him regularly. mom wants to see if he can change scopolamine patch every 2 days . Mom states that pt has normal appetite and does not appear sick. Pt does not have any tachypnea per mom cerebral palsy1 Pt has cerebral palsy with chronic muscle spasm. Pt takes tizanidine and doing ok Pt needs refill. fever1 Pt has fever as high as 102. mild productive coughing, which is similar to aspiration pneumonia. Pt has normal appetite. He is getting more tube feeding now .He is not in acute distress . Pt does not have anymore secretions. cough1 Pt c/o acute ons et of productive coughing, increasing congestion since yesterday Pt has cerebral palsy with frequent pneumonia due to aspiration ,Pt feels more irritable. his appetite is still good Pt does not have any fever Pt does not have any respiratory distress per mom cerebral palsy1 Pt has cerebral palsy and he has increase respiratory tract secretion chronically Pt needs scopolamine patch refilled mucous1 Pt has been havi ng more mucous lately father has to suction him a lot Pt has been coughing, pt has low grade temp around 99 Pt has frequent and recurrent aspiration pneumonia Pt has cerebral palsy with chronic wheel chair bound and he uses feeding tube but he does demand oral intake sometimes. Gtube Pt wants some oi ntment for G tube site infection. Pt has some redness around the G tube site on and off. Pt currently has some mild erythema around the tube site without any drainage Pt used to use bactroban ointment. Pt denies any fever hematuria1 Pt denies any UT i symptoms. renal ultrasound ok. UA ok sick Pt c/o sinus con gestion, sneezing, productive coughing with phlegm x 1 week. Pt eating ok Pt denies any vomiting. Pt has normal mental status. Pt has fever as high as 101 hematuria1 mom states that his urine smells like ammonia recently. Unfortunately it is very difficult to collect urine from him as he wear diapers and is not able to control his bladder. He denies any flank pain. His renal ultrasound is normal. He did have hematuria from ER after manual cath pneumonia1 Pt is s/p recent episode of aspiration pneumonia Pt is s/p abx and he is back to his baseline now He denies any coughing or excessive secretions His chest x ray is normal globulin Pt has borderlin e high globulin, TG and low ferritin. His labs are just borderline abnormal. Pt has cerebral palsy and is chronically wheelchair bound. Pt denies any fever, or illness anemia1 His anemia resol hong. Pt denies any bleeding. pneumonia1 Pt has chronic r ecurrent aspiration pneumonia Pt is on certain bland food and he does getting feeding twice per day from G tube and one meal fro mouth. he grullon been coughing again. pt finished augmentin recently from hospital. Pt still has low grade temp per mom. Pt does not have any acute respiratory distress. malnutrition Pt appears to be malnourished His albumin level is low Gastirc Pt has gastric e rosion Pt takes omeprazole daily anemia1 Pt has mild anem ia and hematuria from hospital lab. Pt denies any flank pain Physical PT needs annual physical Pt has cerebral palsy. Pt is wheelchair bound Pt is on multiple meds. Pt use G tube for feeding. Pt has been moaning for the past several days with coughing and also mom thinks that he is aspirating. Pt has some low grade fever without any measurement. Pt has chronic seizure disorder pt is on multiple medication for seizure and also sedation Pt is nonverbal and he responds by moaning when he is not comfortable. Mom notices that he has been more agitated for the past 2-3 days with increasing amount of secretions. Pt receive majority of feeding via G tube but he demands oral ingestion of food at least once per day. Instructions Date Instruction Additional Infor mation Weight gain advised Related to B mecca mass index (BMI) 19.9 or less, adult Compliant with medication instru ction Related to Aspiration pneumonia Weight gain advised Related to B mecca mass index (BMI) 19.9 or less, adult Compliant with medication instru ction Related to Aspiration pneumonia Increase physical activity Relat ed to Aspiration pneumonia Compliant with medication instru ction Related to Encounter for general adult medical exam w abnormal findings Assessments Type Assessment Date No Information
--- NOTE | ~2024-11-20 | XR_ITS ---
XR abdomen gastric tube insert 11/21/2024 00:55 Indication: G-tube insertion Procedure: AP portable chest Comparison: No prior studies for comparison. Findings: G-tube present in the stomach. No evidence for extravasation of contrast. Visualized bowel gas pattern nonobstructive. There are Mckeon rods overlying the thoracic and lumbar spine. Impression: 1: G-tube present with tip in the stomach. No extravasation of contrast. Reviewed, dictated and finalized at location O. Impression: 1: G-tube present with tip in the stomach. No extravasation of contrast.
[2024-11-20 22:51] VITALS: BP 132/90; PULSE 90; RESP 23; TEMP 36.9; O2SAT 100
--- OUTSIDE RECORDS SUMMARY | 2024-11-20 23:28 | XMS_ITS | Clinical Summary ---
Author Organization [facility] Address [address] [place] [address] Care Team Providers Care Pressure Test Operator Name Role Phone Unavailable Primary Care [...] of 3 - 19+ 3-dose series) 10/18/2002 HPV Vaccines (1 - 3-dose SCD M series) 10/18/2010 COVID-19 Vaccine ( - 2023-2 5 season) 2023 Meningococcal B Vaccine Aged Out No l onger eligible based on patient's age to complete this topic Meningococcal Vaccine Aged Out No kimberlyn charlie eligible based on patient's age to complete this topic Pneumococcal Vaccine: Pediat rics (0 to 5 Years) and At-Risk Patients (6 to 49 Years) Aged Out No longer eligible b ased on patient's age to complete this topic RSV Immunizations Under 20 Months Aged Out No longer eligible based on patient's age to complete this topic
--- OUTSIDE RECORDS SUMMARY | 2024-11-20 23:28 | XMS_ITS | Encounter Summary ---
Author Organization [facility] Address [address] [place] [address] Care Team Providers Care Roller Stitcher Name Role Phone Unavailable Primary Care Provider Unavailabl e Encounter Details Date Type Department Care Team (Late st Contact Info) Description 12/25/2012 Abstract [facility] CONVERSION [address] [place], [place] [id number] , Generic Conversion, Social History Tobacco Use [...]
--- OUTSIDE RECORDS SUMMARY | 2024-11-20 23:28 | XMS_ITS | Clinical Summary ---
Author Organization [facility] Address [address] [place] [address] Care Team Providers Care Golf Club Maker Name Role Phone Amrik Ackerman MD Primary Care Provider [phone] Allergies No known active allergies Medications valproate [...] History Medical History Date Comments Cerebral palsy Seizure disorder (HCC) Cerebral palsy Family History Medical History Relation Name Comments [...] on file Legal Sex Male 12:19 PM LICENSED SURVEYOR Gender Identity Not on file Sexual Orientation Not on file Obstetrics History Last Filed Vital Signs Vital Sign Reading Time Taken Comments Blood Pressure 124/74 04/27/2023 1:34 PM LICENSED SURVEYOR Pulse 103 04/27/2023 1:34 PM LICENSED SURVEYOR Temperature 36.5 C (97.7 F) 04/27/2023 1:20 PM LICENSED SURVEYOR Respiratory Rate 20 04/27/2023 1:34 PM LICENSED SURVEYOR Oxygen Saturation 93% 04/27/2023 1:34 PM LICENSED SURVEYOR Inhaled Oxygen Concentration - - Weight 44.5 kg (98 lb) 04/27/2023 11:00 AM LICENSED SURVEYOR Height 157.5 cm (5' 2) 04/27/2023 11:00 AM LICENSED SURVEYOR Body Mass Index 17.92 04/27/2023 11:00 AM LICENSED SURVEYOR Plan of Treatment Health Maintenance Due Date Last Done Comments Depression Screening 1983 Hepatitis C Screening 1983 DTaP/Tdap/Td Vaccine (1 - Tdap) 10/18/1994 Varicella Vaccines (1 of 2 - 13+ 2-dose series) 10/18/1996 Hepatitis B Screening 10/18/2001 Regular Well Visit/Exam 18-64 10/18/2001 HPV Vaccines (1 - 3-dose SCDM series) 10/18/2010 Influenza Vaccine (#1) 2024 , 02/11/2021, 02/11/2016, Additional history exists Pneumococcal vaccine <65 Aged Out 01/21/2022 No longer eligible based on patient's age to complete this topic Insurance MEDICARE [place] MEDICARE [facility] Address: [id number] [place] [id number] [facility] Advance Directives For more information, please contact: [phone] Documents on File Type Date Recorded Patient Audit Mgr Expl anation ADVANCE DIRECTIVE 04/24/2023 10:30 AM EVIN R OF ENAMEL PULVERIZER-MEDICAL Advance Directives and Living Will 03/13/2023 9:46 AM * Full Code (Latest Code Status on File) Date Activated Date Inactivated Comments 04/27/2023 10:55 AM 04/27/2023 6:06 PM Care Teams Golf Club Maker Relationship Specialty Start Date End Date Amrik Ackerman MD PCP - General Family Practice 11/24/22
--- NOTE | 2024-11-21 00:15 | ED.GENADULT ---
HPI - General Adult General Chief complaint: Unspecified Stated complaint: Feeding tube problems Time Seen by Provider: 11/20/24 23:12 History of Present Illness HPI narrative: Patient is a 39-year-old male who presents to the emergency department this evening accompanied by caregiver after pulling out his G-tube approximately 10 minutes prior to arrival. Per chart review, patient has a 24 Vincentian G-tube. Otherwise no additional symptoms or concerns. Related Data Home Medications ?Medication ?Instructions ?Recorded ?Confirmed ?Last Taken ?Type amoxicillin 200 mg/5 mL oral 250 mg PO Q8H 09/05/24 Unknown History suspension Allergies Allergy/AdvReac Type Severity Reaction Status Date / Time Sulfa (Sulfonamide Allergy Unknown LIPS AND Verified 11/20/24 22:57 Antibiotics) GENITAL PEELING SKIN Review of Systems Review of Systems: All systems are reviewed and are negative unless stated otherwise in the HPI. [facility] Past Medical History Medical History Static encephalopathy Hematemesis Urinary retention Esophagitis with gastritis History of GI bleed Anxiety Dysphagia Chronic. G-tube in place. History of pulmonary aspiration Seizure disorder Cerebral palsy Surgical History Surgical History History of orthopedic surgery Multiple surgeries related to his cerebra palsy including tendon surgeries and Green transfer. History of spinal fusion Gastrointestinal tube present Family History Family History Father Family history of elevated blood lipids Family history of diabetes mellitus in first degree relative Hypertension Chronic obstructive pulmonary disease Other Lung cancer Social History Social History Social History: Surrogate decision maker: Leonora Slaughter, mother. Code status: Full code. Smoking status: Never smoker Second hand tobacco smoke exposure: No Alcohol intake: never Substance use: never Substance use type: does not use Do You Feel Safe in your Home?: Yes Lack of Transportation: No Lack of Food: Never True Current Housing: I Have Housing Concerned About Future Housing: No Difficulty Paying Gas/Electric Bills: No Difficulty Paying for Meds: No Currently Unemployed: No Education: Don't Know Difficulty w/ Childcare or Family Care: No Living arrangements: with family Additional living arrangements comments: The patient lives with his mother and brother in [place]. His father in November 2022. He is wheelchair-dependent and uses an electric wheelchair which he can manage quite nicely. In fact he likes to spend a lot of his time out in their pole barn where they have cars and motorcycles, which he really enjoys. He is dependent on most activities of daily living. Occupation/Education: unemployed Additional occupation/education comments: Disabled. Spiritual care concerns: No Exam Narrative: General: Alert, awake, afebrile, in no acute distress, nonverbal. HEENT: PERRL, no rhinorrhea, no post nasal drip, oropharynx clear. Neck: Trachea midline, no JVD, no lymphadenopathy. Cardiovascular: Regular rate and rhythm, no murmurs, rubs or gallops, no peripheral edema. Respiratory: Clear to auscultation bilaterally, no tachypnea, no wheezing, no rhonchi, no rubs, no respiratory distress. Abdomen: Soft, nontender, nondistended, no rebound, no guarding, no peritoneal signs, mild erythema surrounding G-tube insertion site otherwise no acute process, no evidence of cellulitis or infection. Musculoskeletal: No joint swelling or deformity, normal muscle tone. Skin: No rashes or petechia, no signs of infection. Psychiatric: Nonverbal at baseline otherwise normal behavior and judgment for situation. Neurological: Nonverbal at baseline. Otherwise no focal deficits, speech is clear and fluent. Course Vital Signs Vital signs: Vital Signs Temperature 98.4 F 11/20/24 22:51 Pulse Rate 90 11/20/24 22:51 Respiratory Rate 23 H 11/20/24 22:51 Blood Pressure 132/90 11/20/24 22:51 Pulse Oximetry 100 11/20/24 22:51 Oxygen Delivery Room Air 11/20/24 22:51 Temperature 98.4 F 11/20/24 22:51 Pulse Rate 86 11/21/24 01:32 Respiratory Rate 20 11/21/24 01:32 Blood Pressure 130/84 11/21/24 01:32 Pulse Oximetry 100 11/21/24 01:32 Oxygen Delivery Room Air 11/20/24 22:51 Procedures Feeding Tube Replacement Feeding Tube #1: Feeding Tube Placement Date: 11/21/24 Feeding Tube Placement Time: :26 Type of Tube: gastrostomy Insertion Site Prior to Procedure: clean Tube Used for Reinsertion: other Vincentian Tube Size (F): 20 Balloon size (mL): 10 Verification of Placement: KUB and gastrografin injection Tube Secured by: tape/dressing Patient Tolerated Procedure: well and no complications Medical Decision Making MDM Narrative Medical decision making narrative: The patient was evaluated by myself in the emergency department. History is obtained from caregiver present with patient at bedside and physical exam was performed. External medical records were reviewed at this time. Caregiver was informed that we do not have a 24 Vincentian size G-tube in the hospital that we do have the closest size which is the 20 Vincentian. Imaging studies obtained included abdominal x-ray which was independently interpreted by me revealing appropriate G-tube positioning, which is pending final radiology interpretation. Differential diagnosis considerations include G-tube dislodgement, G-tube malfunction. Comorbidities impacting this visit include G-tube dependence. I have evaluated and discussed social determinants of health with the patient that could potentially impact subsequent diagnosis and treatment plans. On repeat assessment of the patient, reevaluation revealed that the patient is doing well and is in no acute distress. Patient symptoms have improved since he arrived to our emergency department. Repeat vital signs were all reviewed and noted to be stable. Differential diagnosis and treatment plan were discussed with the patient at bedside. Patient agrees with discussion and after shared medical decision making agrees with discharge. All questions were answered to the patient's satisfaction. Patient will follow up with his university teacher 1st thing in the morning for the appropriate G-tube size. Patient was provided with strict return precautions and instructed to return to the emergency department if any new or worsening symptoms develop. The patient was discharged in stable condition. Vital Signs Vital Signs: Vital Signs Temperature 98.4 F 11/20/24 22:51 Pulse Rate 90 11/20/24 22:51 Respiratory Rate 23 H 11/20/24 22:51 Blood Pressure 132/90 11/20/24 22:51 Pulse Oximetry 100 11/20/24 22:51 Oxygen Delivery Room Air 11/20/24 22:51 Temperature 98.4 F 11/20/24 22:51 Pulse Rate 86 11/21/24 01:32 Respiratory Rate 20 11/21/24 01:32 Blood Pressure 130/84 11/21/24 01:32 Pulse Oximetry 100 11/21/24 01:32 Oxygen Delivery Room Air 11/20/24 22:51 Discharge Plan Discharge Clinical Impression: Gastrojejunostomy tube dislodgement Patient Disposition: Home Condition: Improved Instructions: Antibiotic Form, How to Use and Care for Your PEG Tube (DC), PEG (Percutaneous Endoscopic Gastrostomy) Tube Insertion (DC) Additional Instructions: Please follow-up with your GI doctor within the next 24 hours. Call the office 1st thing in the morning to see if the have the appropriate 24 Vincentian G-tube since we only had a 20 Vincentian in the hospital. He Patient Language: Italian Prescriptions: No Action clorazepate dipotassium 3.75 mg tablet 3.75 mg feeding tube TID Qty: 90 3RF valproic acid (as sodium salt) 250 mg/5 mL solution See Rx Instructions .ROUTE .COMPLEX Qty: 300 5RF Dose Instruction: TAKE 5 ML VIA FEEDING TUBE EVERY 12 HOURS Rx Instructions: TAKE 5 ML VIA FEEDING TUBE EVERY 12 HOURS amoxicillin 200 mg/5 mL suspension for reconstitution 250 mg PO Q8H metoclopramide HCl 5 mg/5 mL solution See Rx Instructions .ROUTE .COMPLEX Qty: 1200 3RF Dose Instruction: TAKE 10ML VIA FEEDING TUBE BEFORE MEALS AND AT BEDTIME Rx Instructions: TAKE 10ML VIA FEEDING TUBE BEFORE MEALS AND AT BEDTIME Prilosec 10 mg susp,delayed release for recon 10 mg feeding tube DAILY Qty: 30 5RF tizanidine 4 mg tablet See Rx Instructions .ROUTE .COMPLEX Qty: 270 0RF Dose Instruction: TAKE 1 TABLET BY MOUTH THREE TIMES DAILY NEEDED FOR MUSCLE SPASMS Rx Instructions: TAKE 1 TABLET BY MOUTH THREE TIMES DAILY NEEDED FOR MUSCLE SPASMS prucalopride [Motegrity] 2 mg tablet 2 mg PO DAILY Qty: 90 1RF Rx Instructions: feeding tube scopolamine base 1 mg over 3 days patch 3 day See Rx Instructions .ROUTE .COMPLEX Qty: 24 1RF Dose Instruction: APPLY 1 PATCH TOPICALLY TO THE SKIN EVERY 3 TO 4 DAYS Rx Instructions: APPLY 1 PATCH TOPICALLY TO THE SKIN EVERY 3 TO 4 DAYS cetirizine 1 mg/mL solution See Rx Instructions .ROUTE .COMPLEX Qty: 900 3RF Dose Instruction: TAKE 10 ML(10 MG) BY MOUTH DAILY Rx Instructions: TAKE 10 ML(10 MG) BY MOUTH DAILY famotidine 40 mg/5 mL (8 mg/mL) suspension for reconstitution 40 mg PO DAILY Qty: 450 1RF baclofen 20 mg tablet 20 mg feeding tube TID Qty: 90 6RF Rx Instructions: TAKE 1 TABLET BY MOUTH EVERY 8 HOURS diazepam 5 mg tablet See Rx Instructions .ROUTE .COMPLEX Qty: 90 1RF Rx Instructions: 2.5MG IN AM, 2.5MG IN AFTERNOON, 10MG AT NIGHT Follow-up/Referrals: Amrik Ackerman MD [Primary Care Provider, Family Practice] Carloz Valenzuela MD [Physician, Gastroenterology] - 1 Day Time of Disposition: 00:46
[2024-11-21 01:32] VITALS: BP 130/84; PULSE 86; RESP 20; O2SAT 100
--- NOTE | 2024-11-21 01:48 | PC.NURSE ---
pt has a 20 sammarinese G tube in.
[2024-11-21 01:49] VITALS: BP 130/84; PULSE 86; RESP 20; O2SAT 100
== END 2024-11-21 01:51 | disposition home or self-care (01) ==
PROVIDERS: Emergency Provider Emergency Medicine; PCP Family Medicine
DX: Z43.1 Encounter for attention to gastrostomy (principal); R13.10 Dysphagia, unspecified; G40.909 Epilepsy, unspecified, not intractable, without status epilepticus; G80.9 Cerebral palsy, unspecified; F41.9 Anxiety disorder, unspecified; Z98.1 Arthrodesis status; Z99.3 Dependence on wheelchair; Z79.899 Other long term (current) drug therapy
CPT/HCPCS: 43762; 99283

== ENCOUNTER 2024-11-22 01:05 | Outpatient (CLI) | payer MEDICARE, MEDICAID, SELFPAY ==
--- OUTSIDE RECORDS SUMMARY | 2020-02-18 04:00 | XMS_ITS | Continuity of Care Document ---
Author Organization [facility] Address [address] [address] [place] [address] Phone Care Team Providers Care Delivery Table Feeder Name Role Phone Paul MARTINEZ, Ricki Unavailable [...] days as needed 1.00 patch - Active Valium 5 mg tablet take 1 tablet by oral route 3 times every day 5 MG - Active clorazepate dipotassium 3.75 mg tablet take 1 tablet by oral route 3 times every day 3.75 MG - Active Depakote Sprinkles 125 mg [...] Diagnoses Date Provider Providers Copied on Encounter [facility], [address], [place], [place], [address], tel:[phone] [facility] No Information 0 Paul Phoenix [address], [place], [place], [address] , [place]. [phone] OFFICE/OUTPA TIENT VISIT, [facility], [address], [place], [place], [address], [place] tel:[phone] [facility] cerebral palsy (chief complaint) dark urine1 (chief complaint) Urinary tract infectionCerebral palsyOther abnormalities of gait and mobility 0 Paul Phoenix [address], [place], [place], [address] , [place]. [phone] OFFICE/OUTPA TIENT VISIT, [facility], [address], [place], [place], [address], [place] tel:[phone] [facility] physical (chief complaint) Encounter for general adult medical exam w abnormal findingsCerebral palsyCoughGastritis , unspecified, without bleeding 0 Paul Robison. [address], [place], [place], [address] , [place]. tel:[phone] OFFICE/OUTPA TIENT VISIT, [facility], [address], [place], [place], [address], [place] tel:[phone] [facility] cough1 (chief complaint) cerebral palsy1 (chief complaint) Cerebral palsyCough 0 Paul Robison. [address], [place], [place], [address] , [place]. [phone] OFFICE/OUTPA TIENT VISIT, [facility], [address], [place], [place], [address], [place] [phone] [facility] fever1 (chief complaint) Aspiration pneumonia 0 Paul Robison. [address], [place], [place], [address] , [place]. tel:[phone] Referring Provider: Vishnu Villavicencio [address], [place], [place], [address]. tel:[phone] OFFICE/OUTPA TIENT VISIT, [facility], [address], [place], [place], [address], [place] tel:[phone] [facility] cough1 (chief complaint) cerebral palsy1 (chief complaint) Cerebral palsyCoughAcute bronchitis Fe 0 Paul Robison. [address], [place], [place], [address] , [place]. [phone] Referring Provider: Ricki Miller, [address], [place], [place], [address]. tel:[phone] OFFICE/OUTPA TIENT VISIT, [facility], [address], [place], [place], [address], [place] tel:[phone] [facility] mucous1 (chief complaint) Acute bronchitisCerebral palsy 0 Paul Robison. [address], [place], [place], [address] , [place]. tel:[phone] Referring Provider: Ricki Miller, [address], [place], [place], [address]. tel:[phone] OFFICE/OUTPA TIENT VISIT, [facility], [address], [place], [place], [address], [place] tel:[phone] [facility] sick (chief complaint) hematuria1 (chief complaint) Gtube (chief complaint) HematuriaAcute bronchitis, unspecifiedCerebral palsyCellulitis of abdominal wall 9 Paul Robison. [address], [place], [place], [address] , [place]. tel:[phone] Referring Provider: Vishnu Villavicencio [address], [place], [place], [address]. tel:[phone] OFFICE/OUTPA TIENT VISIT, [facility], [address], [place], [address], [place] tel:[phone] [facility] anemia1 (chief complaint) globulin (chief complaint) pneumonia1 (chief complaint) hematuria1 (chief complaint) Aspiration pneumoniaAnemiaAbno rmality of globulinHyperlipide miaHematuriaIron deficiency 9 Paul Robison. [address], [place], [place], [address] , [place]. tel:[phone] Referring Provider: Vishnu Villavicencio [address], [place], [place], [address]. tel:[phone] [facility], [address], [place], [address], [place] tel:[phone] [facility] No Information 9 Paul Robison. [address], [place], [address] , [place]. tel:[phone] OFFICE/OUTPA TIENT VISIT, [facility], [address], [place], [place], [address], [place] tel:[phone] [facility] pneumonia1 (chief complaint) anemia1 (chief complaint) Gastirc (chief complaint) malnutriti on (chief complaint) Aspiration pneumoniaHematuriaA nemiaCerebral palsy Nov-0 9 Paul Robison. [address], [place], [place], [address] , [place]. tel:[phone] Referring Provider: Vishnu Villavicenc[address], [place], [place], [address]. tel:[phone] OFFICE/OUTPA TIENT VISIT, [facility], [address], [place], [place], [address], tel:[phone] [facility] Physical (chief complaint) Encounter for general adult medical exam w abnormal findingsAspiration pneumoniaEpilepsyCe rebral palsy 9 Paul Robison. [address], [place], [place], [address] , [place]. tel:[phone] Referring Provider: Ricki Miller, [address] [facility] [address], [place], [place], [address]. tel:[phone] Family History Family Member Type Diagnosis Age [...] Date Complaint History Of Prese nt Illness cerebral palsy Pt has cerebral palsy and he is wheel chair dependent. pt currently uses power wheel chair and it has been 5 years old and mom states that it was custom build wrong and he needs a new one. mOm states that he tends to lean on one side and the wheelchair was build that unfit for him. dark urine1 mom notices that his urine appears very concentrate and smell very strong of ammonium for 2-3 days. Mom states that his urine output is usual amount and she has been pushing fluid for him through mouth and also using G-tube. Pt denies any appetite loss, fever or mental status change physical Pt needs annual physical. Pt has [...] Pt does not appear to be sob. cerebral palsy1 Pt has cerebral palsy with chronic muscle spasm. Pt takes tizanidine and doing ok Pt needs refill. cough1 Pt c/o mild prod uctive cough [...] does not have any tachypnea per mom fever1 Pt has fever as high as [...] but he does demand oral intake sometimes. sick Pt c/o sinus con gestion, sneezing, productive coughing with phlegm x 1 week. Pt eating ok Pt denies any vomiting. Pt has normal mental status. Pt has fever as high as 101 hematuria1 Pt denies any UT i symptoms. renal ultrasound ok. UA ok Gtube Pt wants some oi ntment for G tube site infection. Pt has some redness around the G tube site on and off. Pt currently has some mild erythema around the tube site without any drainage Pt used to use bactroban ointment. Pt denies any fever anemia1 His anemia resol hong. Pt denies any bleeding. globulin Pt has borderlin e high globulin, TG and low ferritin. His labs are just borderline abnormal. Pt has cerebral palsy and is chronically wheelchair bound. Pt denies any fever, or illness pneumonia1 Pt is s/p recent episode of aspiration pneumonia Pt is s/p abx and he is back to his baseline now He denies any coughing or excessive secretions His chest x ray is normal hematuria1 mom states that his urine smells like ammonia recently. Unfortunately it is very difficult to collect urine from him as he wear diapers and is not able to control his bladder. He denies any flank pain. His renal ultrasound is normal. He did have hematuria from ER after manual cath anemia1 Pt has mild anem ia and hematuria from hospital lab. Pt denies any flank pain Gastirc Pt has gastric e rosion Pt takes omeprazole daily malnutrition Pt appears to be malnourished His albumin level is low pneumonia1 Pt has chronic r ecurrent aspiration pneumonia Pt is on certain bland food and he does getting feeding twice per day from G tube and one meal fro mouth. he grullon been coughing again. pt finished augmentin recently from hospital. Pt still has low grade temp per mom. Pt does not have any acute respiratory distress. Physical PT needs annual physical Pt has [...]
--- OUTSIDE RECORDS SUMMARY | 2020-02-18 04:00 | XMS_ITS | Continuity of Care Document ---
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 [phone] OFFICE/OUTPA TIENT VISIT, [facility], [address], [place], [place], [address], [place] tel:[phone] [facility] cerebral palsy (chief complaint) dark urine1 (chief complaint) Urinary tract infectionCerebral palsyOther abnormalities of gait and mobility 0 Paul Phoenix [address], [place], [place], [address] , [place]. [phone] OFFICE/OUTPA TIENT VISIT, [facility], [address], [place], [place], [address], [place] tel:[phone] [facility] physical (chief complaint) Encounter for general adult medical exam w abnormal findingsCerebral palsyCoughGastritis , unspecified, without bleeding 0 Paul Robison. [address], [place], [place], [address] , [place]. tel:[phone] OFFICE/OUTPA TIENT VISIT, [facility], [address], [place], [place], [address], [place] tel:[phone] [facility] cough1 (chief complaint) cerebral palsy1 (chief complaint) Cerebral palsyCough 0 Paul Robison. [address], [place], [place], [address] , [place]. [phone] OFFICE/OUTPA TIENT VISIT, [facility], [address], [place], [place], [address], [place] [phone] [facility] fever1 (chief complaint) Aspiration pneumonia 0 Paul Robison. [address], [place], [place], [address] , [place]. tel:[phone] Referring Provider: Vishnu Villavicencio [address], [place], [place], [address]. tel:[phone] OFFICE/OUTPA TIENT VISIT, [facility], [address], [place], [place], [address], [place] tel:[phone] [facility] cough1 (chief complaint) cerebral palsy1 (chief complaint) Cerebral palsyCoughAcute bronchitis Fe 0 Paul Robison. [address], [place], [place], [address] , [place]. [phone] Referring Provider: Ricki Miller, [address], [place], [place], [address]. tel:[phone] OFFICE/OUTPA TIENT VISIT, [facility], [address], [place], [place], [address], [place] tel:[phone] [facility] mucous1 (chief complaint) Acute bronchitisCerebral palsy 0 Paul Robison. [address], [place], [place], [address] , [place]. tel:[phone] Referring Provider: Ricki Miller, [address], [place], [place], [address]. tel:[phone] OFFICE/OUTPA TIENT VISIT, [facility], [address], [place], [place], [address], [place] tel:[phone] [facility] sick (chief complaint) hematuria1 (chief complaint) Gtube (chief complaint) HematuriaAcute bronchitis, unspecifiedCerebral palsyCellulitis of abdominal wall 9 Paul Robison. [address], [place], [place], [address] , [place]. tel:[phone] Referring Provider: Vishnu Villavicencio [address], [place], [place], [address]. tel:[phone] OFFICE/OUTPA TIENT VISIT, [facility], [address], [place], [place], [address], [place] tel:[phone] [facility] anemia1 (chief complaint) globulin (chief complaint) pneumonia1 (chief complaint) hematuria1 (chief complaint) Aspiration pneumoniaAnemiaAbno rmality of globulinHyperlipide miaHematuriaIron deficiency 9 Paul Robison. [address], [place], [place], [address] , [place]. tel:[phone] Referring Provider: Vishnu Villavicencio [address], [place], [place], [address]. tel:[phone] [facility], [address], [place], [place], [address], [place] tel:[phone] [facility] No Information 9 Paul Robison. [address], [place], [place], [address] , [place]. tel:[phone] OFFICE/OUTPA TIENT VISIT, [facility], [address], [place], [place], [address], [place] tel:[phone] [facility] pneumonia1 (chief complaint) anemia1 (chief complaint) Gastirc (chief complaint) malnutriti on (chief complaint) Aspiration pneumoniaHematuriaA nemiaCerebral palsy Nov-0 9 Paul Robison. [address], [place], [place], [address] , [place]. tel:[phone] Referring Provider: Vishnu [address], [place], [place], [address]. tel:[phone] OFFICE/OUTPA TIENT VISIT, [facility], [address], [place], [place], [address], tel:[phone] [facility] Physical (chief complaint) Encounter for general adult medical exam w abnormal findingsAspiration pneumoniaEpilepsyCe rebral palsy 9 Paul Robison. [address], [place], [place], [address] , [place]. tel:[phone] Referring Provider: Ricki Miller, [address] [facility] [address], [place], [place], [address]. tel:[phone] Family History Family Member Type Diagnosis Age At Onset Mother Problem (finding) Alive and well Father Problem (finding) Alive and well Payers Payer name Insurance type Covered republican ID Authoriza tion(s) No Information Social History [...]
[2024-11-21 16:04] VITALS: BMI 20.1
--- OUTSIDE RECORDS SUMMARY | 2024-11-22 01:11 | XMS_ITS | Encounter Summary ---
Author Organization [facility] Address [address] [place] [address] Care Team Providers Care Calibration Tester Name Role Phone Unavailable Primary Care Provider Unavailabl e Encounter Details Date Type Department Care Team (Late st Contact Info) Description 12/25/[address] [facility] CONVERSION [address] [place], [place] [id number] , Generic Conversion, Social History Tobacco Use [...]
--- OUTSIDE RECORDS SUMMARY | 2024-11-22 01:11 | XMS_ITS | Clinical Summary ---
Author Organization [facility] Address [address] [place] [address] Care Team Providers Care Financial Services Internship Name Role Phone Unavailable Primary Care Provider [...]
--- OUTSIDE RECORDS SUMMARY | 2024-11-22 08:44 | XMS_ITS | Clinical Summary ---
Author Organization [facility] Address [address] [place] [address] Care Team Providers Care Instrument Repairer Helper Name Role Phone Amrik Ackerman MD Primary Care Provider [phone] Allergies No known active allergies Medications valproate [...] on file Legal Sex Male 12:19 PM MANAGER OF SOFTWARE DEVELOPMENT Gender Identity Not on file Sexual Orientation Not on file Obstetrics History Last Filed Vital Signs Vital Sign Reading Time Taken Comments Blood Pressure 124/74 04/27/2023 1:34 PM MANAGER OF SOFTWARE DEVELOPMENT Pulse 103 04/27/2023 1:34 PM MANAGER OF SOFTWARE DEVELOPMENT Temperature 36.5 C (97.7 F) 04/27/2023 1:20 PM MANAGER OF SOFTWARE DEVELOPMENT Respiratory Rate 20 04/27/2023 1:34 PM MANAGER OF SOFTWARE DEVELOPMENT Oxygen Saturation 93% 04/27/2023 1:34 PM MANAGER OF SOFTWARE DEVELOPMENT Inhaled Oxygen Concentration - - Weight 44.5 kg (98 lb) 04/27/2023 11:00 AM MANAGER OF SOFTWARE DEVELOPMENT Height 157.5 cm (5' 2) 04/27/2023 11:00 AM MANAGER OF SOFTWARE DEVELOPMENT Body Mass Index 17.92 04/27/2023 11:00 AM MANAGER OF SOFTWARE DEVELOPMENT Plan of Treatment Health Maintenance Due Date [...] age to complete this topic Insurance MEDICARE [place] MEDICARE [facility] Member Subscriber Plan / Payer (Ef fective 2023-Present) Name:Dallas Slaughter Relation to Subscriber:Self Name:Dallas Slaughter Payer ID:[id number] Group ID:Not on file Type:[place]ICAID [place] Address: [facility] [id number] [place] [id number] Advance Directives For more information, please contact: [phone] Documents on File Type Date Recorded Patient Sack Sewer Machine Expl anation ADVANCE DIRECTIVE 04/24/2023 10:30 AM EVIN R OF [employer]ODU[employer] MACHINE OPERATOR-MEDICAL Advance Directives and Living Will 03/13/2023 9:46 AM * Full Code (Latest Code Status on File) Date Activated Date Inactivated Comments 04/27/2023 10:55 AM 04/27/2023 6:06 PM Care Teams Instrument Repairer Helper Relationship Specialty Start Date End Date Amrik Ackerman MD PCP - General Family Practice 11/24/22
--- NOTE | 2024-11-22 12:01 | P.HP_ITS ---
History of Present Illness History of Present Illness Consent: Risks, benefits, and alternatives have been discussed and questions answered. Patient agrees to proceed with procedure. Chief complaint: Displacement of other gastrointestinal prosthetic Narrative: Dallas Slaughter is a 39 year old male with cerebral palsy for which we had been exchanging his G-tube every 3-4 months but came out so he came to ER and 20 Fr G-tube was placed, here to have 24 Fr size placed. Review of Systems Review of Systems: All systems reviewed & are unremarkable except as noted in HPI and below PMFSH Past Medical History Medical History Static encephalopathy Hematemesis Urinary retention Esophagitis with gastritis History of GI bleed Anxiety Dysphagia Chronic. G-tube in place. History of pulmonary aspiration Seizure disorder Cerebral palsy Surgical History Surgical History History of orthopedic surgery Multiple surgeries related to his cerebra palsy including tendon surgeries and Green transfer. History of spinal fusion Gastrointestinal tube present Family History Family History Father Family history of elevated blood lipids Family history of diabetes mellitus in first degree relative Hypertension Chronic obstructive pulmonary disease Other Lung cancer Social History Social History Social History: Surrogate decision maker: Leonora Slaughter, mother. Code status: Full code. Smoking status: Never smoker Second hand tobacco smoke exposure: No Alcohol intake: never Substance use: never Substance use type: does not use Do You Feel Safe in your Home?: Yes Lack of Transportation: No Lack of Food: Never True Current Housing: I Have Housing Concerned About Future Housing: No Difficulty Paying Gas/Electric Bills: No Difficulty Paying for Meds: No Currently Unemployed: No Education: Don't Know Difficulty w/ Childcare or Family Care: No Living arrangements: with family Additional living arrangements comments: The patient lives with his mother and brother in [place]. His father in November 2022. He is wheelchair- dependent and uses an electric wheelchair which he can manage quite nicely. In fact he likes to spend a lot of his time out in their pole barn where they have cars and motorcycles, which he really enjoys. He is dependent on most activities of daily living.Mother is currently on Hospice and bedridden due to stage 4 brain cancer. Occupation/Education: unemployed Additional occupation/education comments: Disabled. Spiritual care concerns: No Meds Home Medications and Allergies Home Medications ?Medication ?Instructions ?Recorded ?Confirmed ?Type metoclopramide HCl 5 mg/5 mL oral See Rx Instructions .Route 02/26/24 11/21/24 Rx solution .COMPLEX #1,200 mL omeprazole magnesium 10 mg oral 10 mg feeding tube SHANELLE LY #30 ea 06/06/24 11/21/24 Rx suspension,delayed release (Prilosec) tizanidine 4 mg tablet See Rx Instructions .Route 0 06/27/24 11/21/24 Rx .COMPLEX #270 tabs clorazepate dipotassium 3.75 mg 3.75 mg feeding tube T ID #90 tabs 07/30/24 11/21/24 Rx tablet valproic acid (as sodium salt) 250 See Rx Instructions .Route 07/30/24 11/21/24 Rx mg/5 mL oral solution .COMPLEX #300 mL prucalopride 2 mg tablet 2 mg PO DAILY #90 tabs 08/2611/21/24 Rx (Motegrity) scopolamine base 1 mg over 3 days See Rx Instructions .Route 08/27/24 11/21/24 Rx transdermal patch .COMPLEX #24 patches cetirizine 1 mg/mL oral solution See Rx Instructions . Route 09/23/24 11/21/24 Rx .COMPLEX #900 mL famotidine 40 mg/5 mL (8 mg/mL) 40 mg (5 mL) PO DAILY #450 mL 10/21/24 11/21/24 Rx oral suspension baclofen 20 mg tablet 20 mg feeding tube TID #90 t abs 10/22/24 11/21/24 Rx diazepam 5 mg tablet See Rx Instructions .Route 0 11/05/24 11/21/24 Rx .COMPLEX muscle spasm #90 tabs Allergies Allergy/AdvReac Type Severity Reaction Status Date / Time Sulfa (Sulfonamide Allergy Unknown LIPS AND Verified 11/20/24 22:57 Antibiotics) GENITAL PEELING SKIN Exam Narrative: APPEARANCE: cerebral palsy Head: atraumatic. EYES: EOMI, NOSE: Atraumatic NECK: Trachea midline RESPIRATORY: No increased rate of breathing CARDIOVASCULAR: RRR, ABDOMINAL: G-tube is in place. Abdomen not tender with no guarding. MUSCULOSKELETAl: No obvious deformities NEURO: Alert. SKIN:: Warm, dry. Normal color PSYCHIATRIC: Normal affect Assessment and Plan Assessment and plan (1) PEG (percutaneous endoscopic gastrostomy) adjustment/replacement/removal: Code(s): Z43.1 - Encounter for attention to gastrostomy Status: Acute Assessment and Plan: will placed 24 fr- one used in ER is 20 Fr and has been leaking (2) Cerebral palsy: Code(s): G80.9 - Cerebral palsy, unspecified Status: Chronic
--- NOTE | 2024-11-22 12:03 | W.PM.PROC2 ---
Procedure Note - Detailed Date of Procedure 11/22/24 Pre-op Diagnosis Displacement of other gastrointestinal prosthetic Post-op Diagnosis Same Procedure Performed g-tube exchanged Surgeon Carloz Valenzuela MD Anesthesia None Indications g-tube malfunctioning Findings remove previous g-tube Description of Procedure Previous G-tube was removed and internal bumper is decompressed after removing 8cc of fluid from the internal bumper an old G-tube is withdrawn and removed.? A new ALDO-CAMPBELL 24 Fr gastrostomy tube was replaced into the existing gastrocutaneous fistula.? The internal bumper is inflated with 5cc of sterile water.? Tolerated well.? He can resume tube feedings today. Will exchange again in 4 months
--- NOTE | 2024-11-22 12:10 | SUR.PREOP ---
Times - Time Out Called: 1155 Procedure Start: 1556 Procedure End: 1158 Position and Devices - Position: Positioning Devices: Pre-Procedure Assessment - Site and Procedure Verified w Patient and/or Others as Appropriate: Verification Coincides w Consent, H&P, Endoscopy Schedule, and Pre-Op Orders: X-Rays/Imaging Studies in Room and/or Implants on Site: Verified Operative Side Marked YES When Applicable: Preop Assessment Completed By: Time Out - 1150 Entire Operative Team Participates and Confirms: Y Correct Patient, Procedure, Side/Site and Position: Y Availability of Implants, Special Equipment and Requests:Y Preop Antibiotics Given within 1 Hour of Incision: N Assessment of Skin Prep Dry Time:N Prep = Surgery Prep Solution: Site Prepped: Prepped By: Staff - Manager Forms:Rebekah GUALLPA Shear Operator: Non Pharmacy Medications - Time: Name: Strength: Dose: Route: Site: Given By: Lot Number: Expiration Date: Actual Procedures - PERCUTANEOUS GASTROSTOMY TUBE REPLACEMENT Description: Side: Wound Class: Surgeon: Severity: Preop Diagnosis: Postop Diagnosis: Transfer Data - Destination: HOME Transfer Method: PERSONAL WHEELCHAIR Complications: Untoward Events: Report Given To: Completed Date/Time: 11/22/24 Completed By: [id number]
--- NOTE | 2024-11-22 12:13 | SUR.PREOP ---
ALDO-CAMPBELL Low Profile G tube LOT [id number] EXP 07-23-26
== END 2024-11-22 12:07 | disposition home or self-care (01) ==
PROVIDERS: PCP Family Medicine; Visit Provider Internal Medicine Gastroenterology
PROC: 0DH63UZ Insertion of Feeding Device into Stomach, Percutaneous Approach (ICD-10-PCS; CPT 43246; principal; 2024-11-22 13:30)
DX: Z01.818 Encounter for other preprocedural examination (principal)
CPT/HCPCS: 99211; G0463

== ENCOUNTER 2024-12-06 14:00 | Emergency (ER) | payer MEDICARE, MEDICAID, SELFPAY ==
--- OUTSIDE RECORDS SUMMARY | 2020-02-18 04:00 | XMS_ITS | Continuity of Care Document ---
Author Organization [facility] Address [address] [place] [address] Phone Care Team Providers Care Payroll Analyst Name Role Phone Paul MARTINEZ, Ricki Unavailable [...] times every day 5 MG - Active baclofen 20 mg tablet take 1 tablet by oral route 2 times every day 20 MG - Active Depakote Sprinkles 125 mg capsule,delayed release take 2 capsule by oral route 2 times every day and sprinkle entire contents on a small amount (teaspoonful) of soft food and take 250 MG - Active Procedures Procedure Date OFFICE/OUTPATIENT [...] Diagnoses Date Provider Providers Copied on Encounter [facility] [place], [address], [place], [place], [address], tel:[phone] [facility] [place] No Information 0 Paul Phoenix [address], [place], [place], [address] , [place]. [phone] OFFICE/OUTPA TIENT VISIT, [facility], [address], [place], [place], [address], [place] tel:[phone] [facility] [place] cerebral palsy (chief complaint) dark urine1 (chief complaint) Urinary tract infectionCerebral palsyOther abnormalities of gait and mobility 0 Paul Phoenix [address], [place], [place], [address] , [place]. [phone] OFFICE/OUTPA TIENT VISIT, [facility], [address], [place], [place], [address], [place] tel:[phone] [facility] [place] physical (chief complaint) Encounter for general adult medical exam w abnormal findingsCerebral palsyCoughGastritis , unspecified, without bleeding 0 Paul Robison. [address], [place], [place], [address] , [place]. tel:[phone] OFFICE/OUTPA TIENT VISIT, [facility], [address], [place], [place], [address], [place] tel:[phone] [facility] [place] cough1 (chief complaint) cerebral palsy1 (chief complaint) Cerebral palsyCough 0 Paul Robison. [address], [place], [place], [address] , [place]. [phone] OFFICE/OUTPA TIENT VISIT, [facility], [address], [place], [place], [address], [place] [phone] [facility] [place] fever1 (chief complaint) Aspiration pneumonia 0 Paul Robison. [address], [place], [place], [address] , [place]. tel:[phone] Referring Provider: Vishnu Villavicenc[address], [place], [place], [address]. tel:[phone] OFFICE/OUTPA TIENT VISIT, [facility], [address], [place], [place], [address], [place] tel:[phone] [facility] [place] cough1 (chief complaint) cerebral palsy1 (chief complaint) Cerebral palsyCoughAcute bronchitis Fe 0 Paul Robison. [address], [place], [place], [address] , [place]. [phone] Referring Provider: Ricki Miller, [address], [place], [place], [address]. tel:[phone] OFFICE/OUTPA TIENT VISIT, [facility], [address], [place], [place], [address], [place] tel:[phone] [facility] [place] mucous1 (chief complaint) Acute bronchitisCerebral palsy 0 Paul Robison. [address], [place], [place], [address] , [place]. tel:[phone] Referring Provider: Ricki Miller, [address], [place], [place], [address]. tel:[phone] OFFICE/OUTPA TIENT VISIT, [facility], [address], [place], [place], [address], [place] tel:[phone] [facility] [place] sick (chief complaint) hematuria1 (chief complaint) Gtube (chief complaint) HematuriaAcute bronchitis, unspecifiedCerebral palsyCellulitis of abdominal wall 9 Paul Robison. [address], [place], [place], [address] , [place]. tel:[phone] Referring Provider: Vishnu Villav[address]enc[address], [place], [place], [address]. tel:[phone] OFFICE/OUTPA TIENT VISIT, [facility], [address], [place], [place], [address], [place] tel:[phone] [facility] [place] anemia1 (chief complaint) globulin (chief complaint) pneumonia1 (chief complaint) hematuria1 (chief complaint) Aspiration pneumoniaAnemiaAbno rmality of globulinHyperlipide miaHematuriaIron deficiency 9 Paul Robison. [address], [place], [place], [address] , [place]. tel:[phone] Referring Provider: Vishnu Villavicenc[address], [place], [place], [address]. tel:[phone] [facility] [place], [address], [place], [place], [address], [place] tel:[phone] [facility] [place] No Information 9 Paul Robison. [address], [place], [place], [address] , [place]. tel:[phone] OFFICE/OUTPA TIENT VISIT, [facility], [address], [place], [place], [address], [place] tel:[phone] [facility] [place] pneumonia1 (chief complaint) anemia1 (chief complaint) Gastirc (chief complaint) malnutriti on (chief complaint) Aspiration pneumoniaHematuriaA nemiaCerebral palsy Nov-0 9 Paul Robison. [address], [place], [place], [address] , [place]. tel:[phone] Referring Provider: Vishnu [address], [place], [place], [address]. tel:[phone] OFFICE/OUTPA TIENT VISIT, [facility], [address], [place], [place], [address], tel:[phone] [facility] Physical (chief complaint) Encounter for general adult medical exam w abnormal findingsAspiration pneumoniaEpilepsyCe rebral palsy 9 Paul Robison. [address], [place], [place], [address] , [place]. tel:[phone] Referring Provider: Ricki Miller, [address] [facility] [address], [place], [place], [address]. tel:[phone] Family History Family Member Type Diagnosis Age At Onset Mother Problem (finding) Alive and well Father Problem (finding) Alive and well Payers Payer name Insurance type Covered alliance party ID Authoriza tion(s) No Information Social History [...]
--- OUTSIDE RECORDS SUMMARY | 2020-02-18 04:00 | XMS_ITS | Continuity of Care Document ---
Author Organization [facility] Address [address] [place] [address] Phone Care Team Providers Care Fluorescent Solution Mixer Name Role Phone Paul MARTINEZ, Ricki Unavailable Unavailable Allergies, Adverse Reactions, Alerts Substance Reaction Status Criticality Sulfa (Sulfonamide Antibiotics) Active No Information Medications Medication Instructions Dosage Effective Dates (start - stop) Status Comments Transderm-Scop 1.5 mg transdermal patch (1 mg over 3 days) apply 1 patch by transdermal route to the hairless area behind 1 ear at least 4 hr before effect is required; reapply every 3 days as needed 1.00 patch - Active omeprazole 20 mg tablet,delayed release take 1 tablet by oral route every day 1 tablet - Active Tessalon Perles 100 mg capsule take 1 capsule by oral route 3 times every day as needed - Active PRN for coug h, tizanidine 4 mg tablet take 2 mg in AM and 2 mg around afternoon and 4 mg at night as needed - Active PRN for muscl e spasm Valium 5 mg tablet take 1 tablet by oral route 3 times every day 5 MG - Active clorazepate dipotassium 3.75 mg tablet take 1 tablet by oral route 3 times every day 3.75 MG - Active baclofen 20 mg tablet [...] Diagnoses Date Provider Providers Copied on Encounter [facility], [address], [place], [place], [address], tel:[phone] [facility] No Information 0 Paul Phoenix [address], [place], [place], [address] , [place]. [phone] OFFICE/OUTPA TIENT VISIT, [facility], [address], [place], [place], [address], [place] tel:[phone] [facility] cerebral palsy (chief complaint) dark urine1 (chief complaint) Urinary tract infectionCerebral palsyOther abnormalities of gait and mobility 0 Paul Phoenix [address], [place], [place], [address] , [place]. [phone] OFFICE/OUTPA TIENT VISIT, [facility], [address], [place], [place], [address], [place] tel:[phone] [facility] physical (chief complaint) Encounter for general adult medical exam w abnormal findingsCerebral palsyCoughGastritis , unspecified, without bleeding 0 Paul Robison. [address], [place], [place], [address] , [place]. tel:[phone] OFFICE/OUTPA TIENT VISIT, [facility], [address], [place], [place], [address], [place] tel:[phone] [facility] cough1 (chief complaint) cerebral palsy1 (chief complaint) Cerebral palsyCough 0 Paul Robison. [address], [place], [place], [address] , [place]. [phone] OFFICE/OUTPA TIENT VISIT, [facility], [address], [place], [place], [address], [place] [phone] [facility] fever1 (chief complaint) Aspiration pneumonia 0 Paul Robison. [address], [place], [place], [address] , [place]. tel:[phone] Referring Provider: Vishnu Villavicenc[address], [place], [place], [address]. tel:[phone] OFFICE/OUTPA TIENT VISIT, [facility], [address], [place], [place], [address], [place] tel:[phone] [facility] cough1 (chief complaint) cerebral palsy1 (chief complaint) Cerebral palsyCoughAcute bronchitis Fe 0 Paul Robison. [address], [place], [place], [address] , [place]. [phone] Referring Provider: Ricki Miller, [address], [place], [place], [address]. tel:[phone] OFFICE/OUTPA TIENT VISIT, [facility], [address], [place], [place], [address], [place] tel:[phone] [facility] mucous1 (chief complaint) Acute bronchitisCerebral palsy 0 Paul Robison. [address], [place], [place], [address] , [place]. tel:[phone] Referring Provider: Ricki Miller, [address], [place], [place], [address]. tel:[phone] OFFICE/OUTPA TIENT VISIT, [facility], [address], [place], [place], [address], [place] tel:[phone] [facility] sick (chief complaint) hematuria1 (chief complaint) Gtube (chief complaint) HematuriaAcute bronchitis, unspecifiedCerebral palsyCellulitis of abdominal wall 9 Paul Robison. [address], [place], [place], [address] , [place]. tel:[phone] Referring Provider: Vishnu Villavicenc[address], [place], [place], [address]. tel:[phone] OFFICE/OUTPA TIENT VISIT, [facility], [address], [place], [place], [address], [place] tel:[phone] [facility] anemia1 (chief complaint) globulin (chief complaint) pneumonia1 (chief complaint) hematuria1 (chief complaint) Aspiration pneumoniaAnemiaAbno rmality of globulinHyperlipide miaHematuriaIron deficiency 9 Paul Robison. [address], [place], [place], [address] , [place]. tel:[phone] Referring Provider: Vishnu Villavicenc[address], [place], [place], [address]. tel:[phone] [facility], [address], [place], [place], [address], [place] tel:[phone] [facility] No Information 9 Paul Robison. [address], [place], [place], [address] , [place]. tel:[phone] OFFICE/OUTPA TIENT VISIT, [facility], [address], [place], [place], [address], [place] tel:[phone] [facility] pneumonia1 (chief complaint) anemia1 (chief complaint) Gastirc (chief complaint) malnutriti on (chief complaint) Aspiration pneumoniaHematuriaA nemiaCerebral palsy Nov-0 9 Paul Robison. [address], [place], [place], [address] , [place]. tel:[phone] Referring Provider: Vishnu [address], [place], [place], [address]. tel:[phone] OFFICE/OUTPA TIENT VISIT, [facility], [address], [place], [place], [address], tel:[phone] [facility] Physical (chief complaint) Encounter for general adult medical exam w abnormal findingsAspiration pneumoniaEpilepsyCe rebral palsy 9 Paul Robison. [address], [place], [place], [address] , [place]. tel:[phone] Referring Provider: Ricki Miller, [address] [facility] [address], [place], [place], [address]. tel:[phone] Family History Family Member Type Diagnosis Age At Onset Mother Problem (finding) Alive and well Father Problem (finding) Alive and well Payers Payer name Insurance type Covered constitution party ID Authoriza tion(s) No Information Social [...]
--- NOTE | ~2024-12-06 | XR_ITS ---
EXAMINATION: XR abdomen obstructive series DATE: 12/06/2024 14:43 INDICATION: Vomiting TECHNIQUE: Supine and upright views of the abdomen. FINDINGS: 06/18/2023 The visualized lung parenchyma is normal.. There is a G-tube present. There are Mckeon rods overlying the spine and pelvis. There is a nonobstructive bowel gas pattern. Gas and stool are seen throughout the colon to the level of the rectum. There is no free air. There is moderate fecal loading of the rectum. Lung bases unremarkable. IMPRESSION: 1. No acute abdominal abnormality. Reviewed, dictated and finalized at location O.
[2024-12-06 14:09] VITALS: BP 126/91; PULSE 110; RESP 18; TEMP 36.8; O2SAT 96
--- OUTSIDE RECORDS SUMMARY | 2024-12-06 14:47 | XMS_ITS | Encounter Summary ---
Author Organization [facility] Address [address] [place] [address] Care Team Providers Care Knife Edger Name Role Phone Unavailable Primary Care Provider Unavailabl e Encounter Details Date Type Department Care Team (Late st Contact Info) Description 12/25/2012 Abstract [facility] CONVERSION [address] [place], [place] [id number] , Generic Conversion, Social History Tobacco Use [...]
--- OUTSIDE RECORDS SUMMARY | 2024-12-06 14:47 | XMS_ITS | Clinical Summary ---
Author Organization [facility] Address [address] [place] [address] Care Team Providers Care Drawer Liner Name Role Phone Amrik Ackerman MD Primary Care Provider [phone] Allergies No known active allergies Medications valproate [...] on file Legal Sex Male 12:19 PM HEARING AID TECHNICIAN Gender Identity Not on file Sexual Orientation Not on file Obstetrics History Last Filed Vital Signs Vital Sign Reading Time Taken Comments Blood Pressure 124/74 04/27/2023 1:34 PM HEARING AID TECHNICIAN Pulse 103 04/27/2023 1:34 PM HEARING AID TECHNICIAN Temperature 36.5 C (97.7 F) 04/27/2023 1:20 PM HEARING AID TECHNICIAN Respiratory Rate 20 04/27/2023 1:34 PM HEARING AID TECHNICIAN Oxygen Saturation 93% 04/27/2023 1:34 PM HEARING AID TECHNICIAN Inhaled Oxygen Concentration - - Weight 44.5 kg (98 lb) 04/27/2023 11:00 AM HEARING AID TECHNICIAN Height 157.5 cm (5' 2) 04/27/2023 11:00 AM HEARING AID TECHNICIAN Body Mass Index 17.92 04/27/2023 11:00 AM HEARING AID TECHNICIAN Plan of Treatment Health Maintenance Due Date [...] age to complete this topic Insurance MEDICARE [place] MEDICARE [facility] Address: [address] [place] [id number] [facility] Advance Directives For more information, please contact: [phone] Documents on File Type Date Recorded Patient Conflict Resolution Professional Expl anation ADVANCE DIRECTIVE 04/24/2023 10:30 AM EVIN R OF [employer] Advance Directives and Living Will 03/13/2023 9:46 AM * Full Code (Latest Code Status on File) Date Activated Date Inactivated Comments 04/27/2023 10:55 AM 04/27/2023 6:06 PM Care Teams Drawer Liner Relationship Specialty Start Date End Date Amrik Ackerman MD PCP - General Family Practice 11/24/22
--- OUTSIDE RECORDS SUMMARY | 2024-12-06 14:47 | XMS_ITS | Clinical Summary ---
Author Organization [facility] Address [address] [place] [address] Care Team Providers Care Orthopedically Impaired Teacher Name Role Phone Unavailable Primary Care Provider [...] 3-dose SCD M series) 10/18/2010 COVID-19 Vaccine (1 - 2023-2 5 season) 2024 Meningococcal B Vaccine Aged Out No l [...]
[2024-12-06 14:50] LABS: Hematocrit 45.7 % (42.0-52.0); Hemoglobin 15.1 g/dL (14.0-18.0); Immature Granulocyte Percent A 0.8 % (0-0.5); Lymphocytes Absolute Auto 2.56 K/mm3 (0.9-3.2); Mean Corpuscular HGB Conc 33.0 g/dl (32-36); Mean Corpuscular Hemoglobin 31.1 pg (26-34); Mean Corpuscular Volume 94.2 fl (80-100); Nucleated Red Blood Cells Absolute Auto 0.000 K/mm3 (0.0-0.012); Nucleated Red Blood Cells Perc 0.0 % (0.0-0.2); Platelet Count Result 339 k/mm3 (150-375); Red Blood Count 4.85 M/mm3 (4.6-6.20); White Blood Count 8.9 K/mm3 (4.5-10.0)
[2024-12-06] MEDS: ONDANSETRON INJ 4 MG/2 ML VIAL IV PUSH ×2 (14:51→16:31)
[2024-12-06] MEDS: SODIUM CHLORIDE 0.9% IV 1,000 ML 999 ML IV CONT (14:51)
[2024-12-06 14:55] LABS: Alanine Aminotransferase 29 U/L (6-50); Albumin Level 4.5 g/dL (3.5-5.1); Alkaline Phosphatase 64 U/L (38-126); Anion Gap 9 mmol/L (4-12); Aspartate Amino Transferase 37 U/L (17-59); Bilirubin,Total 0.3 mg/dL (0.2-1.3); Blood Urea Nitrogen 24 mg/dL (9-20); Calcium 9.3 mg/dL (8.4-10.2); Carbon Dioxide 27 mmol/L (22-30); Chloride 103 mmol/L (98-107); Estimated Glomerular Filt Rate > 60; Glucose 127 mg/dL (65-110); Lipase 60 U/L (23-300); Potassium 4.7 mmol/L (3.4-5.0); Sodium 139 mmol/L (137-145); Total Protein 8.3 g/dL (6.3-8.2)
--- OUTSIDE RECORDS SUMMARY | 2024-12-06 15:11 | XMS_ITS | Clinical Summary ---
Author Organization [facility] Address [address] [place] [address] Care Team Providers Care Physical Therapy Director Name Role Phone Unavailable Primary Care Provider [...]
--- OUTSIDE RECORDS SUMMARY | 2024-12-06 15:11 | XMS_ITS | Clinical Summary ---
Author Organization [facility] Address [address] [place] [address] Care Team Providers Care Word Processor Technician Name Role Phone Amrik Ackerman MD Primary Care Provider [phone] Allergies No known active allergies Medications valproate [...] on file Legal Sex Male 12:19 PM CUSTOMER SUCCESS ASSOCIATE Gender Identity Not on file Sexual Orientation Not on file Obstetrics History Last Filed Vital Signs Vital Sign Reading Time Taken Comments Blood Pressure 124/74 04/27/2023 1:34 PM CUSTOMER SUCCESS ASSOCIATE Pulse 103 04/27/2023 1:34 PM CUSTOMER SUCCESS ASSOCIATE Temperature 36.5 C (97.7 F) 04/27/2023 1:20 PM CUSTOMER SUCCESS ASSOCIATE Respiratory Rate 20 04/27/2023 1:34 PM CUSTOMER SUCCESS ASSOCIATE Oxygen Saturation 93% 04/27/2023 1:34 PM CUSTOMER SUCCESS ASSOCIATE Inhaled Oxygen Concentration - - Weight 44.5 kg (98 lb) 04/27/2023 11:00 AM CUSTOMER SUCCESS ASSOCIATE Height 157.5 cm (5' 2) 04/27/2023 11:00 AM CUSTOMER SUCCESS ASSOCIATE Body Mass Index 17.92 04/27/2023 11:00 AM CUSTOMER SUCCESS ASSOCIATE Plan of Treatment Health Maintenance Due Date [...] age to complete this topic Insurance MEDICARE [facility] MEDICARE [facility] Advance Directives For more information, please contact: [phone] Documents on File Type Date Recorded 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
--- OUTSIDE RECORDS SUMMARY | 2024-12-06 15:11 | XMS_ITS | Encounter Summary ---
Author Organization [facility] Address [address] [place] [address] Care Team Providers Care Palliative Medicine Physician Name Role Phone Unavailable Primary Care Provider Unavailabl e Encounter Details Date Type Department Care Team (Late st Contact Info) Description 12/25/[address] [facility] CONVERSION [address] [place], [place] [id number] , Generic Conversion, Social History Tobacco Use [...]
[2024-12-06 17:17] VITALS: BP 125/79; PULSE 109; RESP 18; O2SAT 98
--- NOTE | 2024-12-06 17:31 | ED_ITS ---
HPI - General Adult General Chief complaint: Nausea/Vomiting/Diarrhea Stated complaint: vomiting after every feeding Time Seen by Provider: 12/06/24 14:17 History of Present Illness HPI narrative: Patient is a 39-year-old male who presents ER with vomiting after his tube feeds. Recently had his Del button change. He has been having vomiting after tube feeds. He has been out of his couple mean patches for several days and just had 1 reapplied today but had typically been wearing 2 patches. He also receives Reglan before meals. His mother recently and caregiver provides the right gland directly before the meal. Patient has been having stools that seem formed. No reports of abdominal distension. Patient is in no outward distress and is cooperative and calm. Related Data Allergies Allergy/AdvReac Type Severity Reaction Status Date / Time Sulfa (Sulfonamide Allergy Unknown LIPS AND Verified 12/06/24 14:39 Antibiotics) GENITAL PEELING SKIN Review of Systems 2 Review of Systems: ROS unobtainable: Yes unobtainable due to medical condition PMFSH Past Medical History Medical History Static encephalopathy Hematemesis Urinary retention Esophagitis with gastritis History of GI bleed Anxiety Dysphagia Chronic. G-tube in place. History of pulmonary aspiration Seizure disorder Cerebral palsy Surgical History Surgical History History of orthopedic surgery Multiple surgeries related to his cerebra palsy including tendon surgeries and Green transfer. History of spinal fusion Gastrointestinal tube present Family History Family History Father Family history of elevated blood lipids Family history of diabetes mellitus in first degree relative Hypertension Chronic obstructive pulmonary disease Other Lung cancer Social History Social History Social History: Surrogate decision maker: Leonora Slaughter, mother. Code status: Full code. Smoking status: Never smoker Second hand tobacco smoke exposure: No Alcohol intake: never Substance use: never Substance use type: does not use Do You Feel Safe in your Home?: Yes Lack of Transportation: No Lack of Food: Never True Current Housing: I Have Housing Concerned About Future Housing: No Difficulty Paying Gas/Electric Bills: No Difficulty Paying for Meds: No Currently Unemployed: No Education: Don't Know Difficulty w/ Childcare or Family Care: No Living arrangements: with family Additional living arrangements comments: The patient lives with his mother and brother in [place]. His father in November 2022. He is wheelchair- dependent and uses an electric wheelchair which he can manage quite nicely. In fact he likes to spend a lot of his time out in their pole [place] where they have cars and motorcycles, which he really enjoys. He is dependent on most activities of daily living.Mother is currently on Hospice and bedridden due to stage 4 brain cancer. Occupation/Education: unemployed Additional occupation/education comments: Disabled. Spiritual care concerns: No Exam 2 Narrative: GENERAL: Chronically ill-appearing, well-nourished, and in no acute distress. HEAD: Normocephalic, atraumatic. EYES: PERRL and EOMI. ENT: Mucous membranes moist. CHEST: Clear to auscultation. No respiratory distress. HEART: Regular rate and rhythm. Normal peripheral pulses. ABDOMEN: Soft, nontender, nondistended. Feeding tube site with healthy pink stoma and no drainage. EXTREMITIES: Contractures well extremities. No edema. SKIN: Warm, dry, no rash. NEURO: Awake alert at neurologic baseline. Course Course Emergency Course: Imaging with moderate fecal loading. Patient has received soapsuds enema as well as Fleet's enema. Lab workup that was unremarkable. Appropriate for discharge. Vital Signs Vital signs: Vital Signs Temperature 98.2 F 12/06/24 14:09 Pulse Rate 110 H 12/06/24 14:09 Respiratory Rate 18 12/06/24 14:09 Blood Pressure 126/91 H 12/06/24 14:09 Pulse Oximetry 96 12/06/24 14:09 Oxygen Delivery Room Air 12/06/24 14:09 Temperature 98.2 F 12/06/24 14:09 Pulse Rate 109 H 12/06/24 17:17 Respiratory Rate 18 12/06/24 17:17 Blood Pressure 125/79 12/06/24 17:17 Pulse Oximetry 98 12/06/24 17:17 Oxygen Delivery Room Air 12/06/24 14:09 Medical Decision Making Vital Signs Vital Signs: Vital Signs Temperature 98.2 F 12/06/24 14:09 Pulse Rate 110 H 12/06/24 14:09 Respiratory Rate 18 12/06/24 14:09 Blood Pressure 126/91 H 12/06/24 14:09 Pulse Oximetry 96 12/06/24 14:09 Oxygen Delivery Room Air 12/06/24 14:09 Temperature 98.2 F 12/06/24 14:09 Pulse Rate 109 H 12/06/24 17:17 Respiratory Rate 18 12/06/24 17:17 Blood Pressure 125/79 12/06/24 17:17 Pulse Oximetry 98 12/06/24 17:17 Oxygen Delivery Room Air 12/06/24 14:09 Lab Data 12/06/24 14:33 12/06/24 14:33 Labs: Lab Results 12/06/24 Range/Units 14:33 WBC 8.9 (4.5-10.0) K/mm3 RBC 4.85 (4.6-6.20) M/mm3 Hgb 15.1 (14.0-18.0) g/dL Hct 45.7 (42.0-52.0) % MCV 94.2 (80-100) fl MCH 31.1 (26-34) pg MCHC 33.0 (32-36) g/dl RDW 12.8 (11.5-14.5) % Plt Count 339 (150-375) k/mm3 MPV 9.1 (7.4-10.4) fl Immature Gran % (Auto) 0.8 H (0-0.5) % Neut % (Auto) 58.4 (45.5-73.1) % Lymph % (Auto) 28.6 (18.3-44.2) % [place] % (Auto) 11.6 H (2.6-8.5) % Eos % (Auto) 0.2 (0-4.4) % Baso % (Auto) 0.4 (0.2-1.2) % Lymph # (Auto) 2.56 (0.9-3.2) K/mm3 [place] # (Auto) 1.0 H (0.1-0.6) K/mm3 Eos # (Auto) 0.0 (0-0.3) K/mm3 Baso # (Auto) 0.0 (0.0-0.1) K/mm3 Abs Immat Gran (auto) 0.07 H (0.00-0.031) K/mm3 Absolute Neuts (auto) 5.2 (1.3-6.7) K/mm3 Absolute Nucleated RBC 0.000 (0.0-0.012) K/mm3 Nucleated RBC % 0.0 (0.0-0.2) % Sodium 139 (137-145) mmol/L Potassium 4.7 (3.4-5.0) mmol/L Chloride 103 (98-107) mmol/L Carbon Dioxide 27 (22-30) mmol/L Anion Gap 9 (4-12) mmol/L BUN 24 H (9-20) mg/dL Creatinine 0.55 L (0.7-1.3) mg/dL Estim Creat Clear Calc Not Reportable Estimated GFR > 60 (59 - ) Glucose 127 H (65-110) mg/dL Calcium 9.3 (8.4-10.2) mg/dL Total Bilirubin 0.3 (0.2-1.3) mg/dL AST 37 (17-59) U/L ALT 29 (6-50) U/L Alkaline Phosphatase 64 (38-126) U/L Total Protein 8.3 H (6.3-8.2) g/dL Albumin 4.5 (3.5-5.1) g/dL Lipase 60 (23-300) U/L Imaging Data Radiologist's impression: ITS Impressions Abdomen X-Ray 12/06/24 14:48 IMPRESSION: 1. No acute abdominal abnormality. Discharge Plan Discharge Clinical Impression: Constipation, Vomiting Patient Disposition: Home Condition: Stable Instructions: Acute Nausea and Vomiting (ED) Additional Instructions: It is recommended you give the Reglan 20 minutes prior to meals. Continue to take her scopolamine. Also restart your Pepcid. Patient Language: Uzbek Prescriptions: New docusate sodium [Colace] 100 mg capsule 100 mg PO DAILY Qty: 14 0RF No Action clorazepate dipotassium 3.75 mg tablet 3.75 mg feeding tube TID Qty: 90 3RF valproic acid (as sodium salt) 250 mg/5 mL solution See Rx Instructions .ROUTE .COMPLEX Qty: 300 5RF Dose Instruction: TAKE 5 ML VIA FEEDING TUBE EVERY 12 HOURS Rx Instructions: TAKE 5 ML VIA FEEDING TUBE EVERY 12 HOURS metoclopramide HCl 5 mg/5 mL solution See Rx Instructions .ROUTE .COMPLEX Qty: 1200 3RF Dose Instruction: TAKE 10ML VIA FEEDING TUBE BEFORE MEALS AND AT BEDTIME Rx Instructions: TAKE 10ML VIA FEEDING TUBE BEFORE MEALS AND AT BEDTIME tizanidine 4 mg tablet See Rx Instructions .ROUTE .COMPLEX Qty: 270 0RF Dose Instruction: TAKE 1 TABLET BY MOUTH THREE TIMES DAILY NEEDED FOR MUSCLE SPASMS Rx Instructions: TAKE 1 TABLET BY MOUTH THREE TIMES DAILY NEEDED FOR MUSCLE SPASMS prucalopride [Motegrity] 2 mg tablet 2 mg PO DAILY Qty: 90 1RF Rx Instructions: feeding tube cetirizine 1 mg/mL solution See Rx Instructions .ROUTE .COMPLEX Qty: 900 3RF Dose Instruction: TAKE 10 ML(10 MG) BY MOUTH DAILY Rx Instructions: TAKE 10 ML(10 MG) BY MOUTH DAILY baclofen 20 mg tablet 20 mg feeding tube TID Qty: 90 6RF Rx Instructions: TAKE 1 TABLET BY MOUTH EVERY 8 HOURS diazepam 5 mg tablet See Rx Instructions .ROUTE .COMPLEX Qty: 90 1RF Rx Instructions: 2.5MG IN AM, 2.5MG IN AFTERNOON, 10MG AT NIGHT scopolamine base 1 mg over 3 days patch 3 day See Rx Instructions .ROUTE .COMPLEX Qty: 36 1RF Dose Instruction: APPLY 1 PATCH TOPICALLY TO THE SKIN EVERY 3 TO 4 DAYS Rx Instructions: APPLY ONE PATCH TOPICALLY TO THE SKIN EVERY 3 TO 4 DAYS famotidine 40 mg/5 mL (8 mg/mL) suspension for reconstitution 40 mg PO DAILY Qty: 450 1RF Prilosec 10 mg susp,delayed release for recon 10 mg feeding tube DAILY Qty: 30 5RF Follow-up/Referrals: Amrik Ackerman MD [Primary Care Provider, Family Practice] - 1 Week
== END 2024-12-06 18:22 | disposition home or self-care (01) ==
PROVIDERS: Emergency Provider Emergency Medicine; PCP Family Medicine
DX: K59.00 Constipation, unspecified (principal); R11.10 Vomiting, unspecified; G80.9 Cerebral palsy, unspecified; Z93.1 Gastrostomy status
CPT/HCPCS: 36415; 74019; 80053; 83690; 85025; 96361; 96374; 96376; 99284; J2405; J7030

== ENCOUNTER 2025-01-14 11:55 | Emergency (ER) | payer MEDICARE, SELFPAY ==
--- OUTSIDE RECORDS SUMMARY | 2025-01-12 12:43 | XMS_ITS | Encounter Summary ---
Author Organization [facility] Address [address] [place] [address] Care Team Providers Care Freelance Court Stenographer Name Role Phone Vicky Torres MD Primary Care Provider + Encounter Details Date Type Department Care Team (Latest Contact Info) Description 01/12/2025 12:43 PM CDT - 01/12/2025 11:59 PM CDT Hospital Encounter [facility] [address] [place] [address] Vicky Torres MD [facility] [place] [address] Discharge Disposition: Home or Self Care (Routine Discharge) Social History Tobacco Use Types Packs/Day Years Used Date Smoking Tobacco: Never Alcohol Use Standard Drinks/Week Comments Not Currently 0 (1 standard drink = 0.6 oz pur e alcohol) [facility] Utilities Answer Date Recorded In the past 12 months has e [employer], gas, oil, or water [employer] threatened to shut off services in your home? No 12/31/2024 Humiliation, Afraid, Rape, a nd Kick questionnaire Answer Date Recorded Within the last year, have y ou been afraid of your partner or ex-partner? Patient unable to answer 12/31/2024 Within the last year, have y ou been humiliated or emotionally abused in other ways by your partner or ex-partner? Patient unable to answer 12/31/2024 Within the last year, have y ou been kicked, hit, slapped, or otherwise physically hurt by your partner or ex-partner? Patient unable to answer 12/31/2024 Within the last year, have y ou been raped or forced to have any kind of sexual activity by your partner or ex-partner? Patient unable to answer 12/31/2024 Overall Financial Resource Strain (CARDIA) Answe r Date Recorded How hard is it for you to pa y for the very basics like food, housing, medical care, and heating? Not hard at all 12/31/2024 Hunger Vital Sign Answer Date Recorded Within the past 12 months, y ou worried that your food would run out before you got the money to buy more. Never true 01/01/20 25 Within the past 12 months, t he food you bought just didn't last and you didn't have money to get more. Never true 12/31/2024 PRAPARE - Transportation Answer Date Re corded In the past 12 months, has l ack of transportation kept you from medical appointments or from getting medications? No 09/2024 In the past 12 months, has l ack of transportation kept you from meetings, work, or from getting things needed for daily living? No 12/31/2024 Housing Stability Vital Sign Answer Carlos e Recorded In the last 12 months, was t here a time when you were not able to pay the mortgage or rent on time? No 12/31/2024 In the past 12 months, how m any times have you moved where you were living? 1 12/31/2024 At any time in the past 12 m [facility], were you homeless or living in a long term (including now)? No 12/31/2024 Sex and Gender Information Value Date Recorded Sex Assigned at Male 12/30/2024 2:15 PM CDT Legal Sex Male 7:17 PM CDT Gender Identity Not on file Sexual Orientation Not on file documented as of this encounter Functional Status * Are you deaf or do you have serious difficulty hearing Answer Date of Assessment Author Status No 12/31/2024 8:35 AM CDT Emma Herrera RN Active * Are you blind or do you have serious difficulty seeing, even when wearing glasses? Answer Date of Assessment Author Status No 12/31/2024 8:35 AM CDT Emma Herrera RN Active * Do you have serious difficulty walking or climbing stairs? Answer Date of Assessment Author Status Yes 12/31/2024 8:35 AM Emma Lozano RN Active * Do you have difficulty dressing or bathing? Answer Date of Assessment Author Status Yes 12/31/2024 8:35 AM Emma Lozano RN Active * Because of a physical, mental, or emotional condition, do you have difficulty doing errands alone such as visiting a doctor's office or shopping? Answer Date of Assessment Author Status Yes 12/31/2024 8:35 AM Emma Lozano RN Active documented as of this encounter Mental Status * Because of a physical, mental, or emotional condition, do you have serious difficulty concentrating, remembering, or making decisions? Answer Entry Date Author Status Yes 12/31/2024 8:35 AM Emma Lozano RN Active documented in this encounter Medications at Time of Discharge acetaminophen (TYLENOL) 500 MG tablet Take 1 tablet (500 mg total) by mouth every 6 (six) hours as needed for Pain. baclofen (LIORESAL) 20 MG tablet 1 tablet (20 mg total) by Per G Tube route 3 (three) times daily. cetirizine (ZYRTEC) 5 MG/5ML Solution 10 mLs (10 mg total) by Per G Tube route daily. clorazepate (TRANXENE) 3.75 MG tablet 1 tablet (3.75 mg total) by Per G Tube route 3 (three) times daily. diazePAM (VALIUM) 5 MG tabletIndications :Cerebral palsy (CMS/HCC [facility]) 0.5 tablets (2.5 mg total) by Per G Tube route 2 (two) times a day AND 2 tablets (10 mg total) every evening. 2.5 mg in AM and afternoon, then 10 mg at HS 30 tablet 01/08/2025 Docusate Sodium 100 MG Tab Take 100 mg by mouth 2 (two) times a day. famotidine (PEPCID) 40 MG/5ML suspension Take 5 mLs (40 mg total) by mouth nightly at bedtime. metoclopramide 1 mg/mL (REGLAN) 5 MG/5ML solution 10 mLs (10 mg total) by Per G Tube route 4 (four) times daily before meals and nightly. metoprolol tartrate (LOPRESSOR) 25 MG tablet 1 tablet (25 mg total) by Per G Tube route 2 (two) times daily. 60 tablet 01/08/2025 omeprazole (PRILOSEC) 2 mg/mL Suspension oral suspension 5 mLs (10 mg total) by Per G Tube route daily. Prucalopride Succinate 2 MG Tab 2 mg by Per G Tube route daily. scopolamine (TRANSDERM-SCOP) 1 MG/3DAYS patch Place 1 patch onto the skin every third day. tiZANidine (ZANAFLEX) 2 MG tablet 1 tablet (2 mg total) by Per G Tube route 2 (two) times a day. valproic acid (DEPAKENE) 250 MG/5ML solution 5 mLs (250 mg total) by Per G Tube route 2 (two) times daily. 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 URINE BACTERIA CULTURE Routine 01/12/2025 5:00 AM CDT Retention of urine Nontraumatic rupture of bladder 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 documented in this encounter Results * (ABNORMAL) URINALYSIS (01/12/2025 5:00 AM CDT) COLOR (U) LIGHT YELLOW 01/12/2025 1:03 PM CDT [facility] TRANSPARENCY CLEAR 01/12/2025 1:03 PM CDT [facility] SPECIFIC GRAVITY (U) 1.010 1.002 - 1.030 01/12/2025 1:03 PM CDT [facility] U PH 7.0 4.5 - 8.0 01/12/2025 1:03 PM CDT [facility] LEUKOCYTES (U) NEGATIVE NEGATIVE 01/12/2025 1:03 PM CDT [facility] NITRITES NEGATIVE NEGATIVE 01/12/2025 1:03 PM CDT [facility] PROTEIN RANDOM (U) 2+(A) NEGATIVE 01/12/2025 1:03 PM CDT [facility] GLUCOSE (U) NEGATIVE NEGATIVE 01/12/2025 1:03 PM CDT [facility] KETONES MG/DL (U) NEGATIVE NEGATIVE 01/12/2025 1:03 PM CDT [facility] UROBILINOGEN NORMAL NORMAL EU/DL 01/12/2025 1:03 PM CDT [facility] BILIRUBIN (U) NEGATIVE NEGATIVE 01/12/2025 1:03 PM CDT [facility] BLOOD (U) 5+(A) NEGATIVE 01/12/2025 1:03 PM CDT [facility] WBC/HPF 0-5 /HPF 01/12/2025 1:03 PM CDT [facility] RBC/HPF 20-50 /HPF 01/12/2025 1:03 PM CDT [facility] EPI/HPF 0-5 /HPF 01/12/2025 1:03 PM CDT [facility] BACTERIA (U) 1+ /HPF 01/12/2025 1:03 PM CDT [facility] MUCUS 1+ 01/12/2025 1:03 PM CDT [facility] URINE SPECIMEN OBTAINED BY CLEAN CATCH PROCEDURE / Unknown 01/12/2025 5:00 AM CDT us Vicky Sutherland MD URINE ORDERABLES Final R esult [facility] [address] [place] [address], documented in this encounter Visit Diagnoses Diagnosis Retention of urine 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
--- NOTE | ~2025-01-14 | XR_ITS ---
EXAMINATION: XR abdomen gastric tube insert DATE: 01/14/2025 12:55 INDICATION: Assess previous gastrostomy tube positioning TECHNIQUE: A supine view of the abdomen and pelvis was obtained for evaluation of feeding tube placement following injection of 50 mL Omnipaque 350 water- soluble contrast through the tube. COMPARISON: 11/21/24 FINDINGS: Percutaneous gastrostomy tube bulb surrounded by the injected contrast within the proximal body the stomach. No dilated loops of gas-filled bowel in the visualized abdomen. Thoracolumbar dextro scoliosis with extensive instrumented posterior spinal fusion with bilateral vertical hernesto extending from the cephalad margin of the field of imaging at the midthoracic spine to the proximal sacrum with multiple bilateral laminar hooks and multiple bilateral pedicle screws in the mid to lower lumbar spine and S1 along with bilateral iliac screws. IMPRESSION: 1. Percutaneous gastrostomy tube bulb and injected contrast in the body the stomach. Reviewed, dictated and finalized at location A. IMPRESSION: 1. Percutaneous gastrostomy tube bulb and injected contrast in the body the sto mach.
--- NOTE | 2025-01-14 12:11 | ED_ITS ---
HPI - General Adult General Chief complaint: Unspecified Stated complaint: dislodged G-tube Time Seen by Provider: 01/14/25 12:02 Source: family Mode of arrival: wheelchair Limitations: other (Mental disability) History of Present Illness HPI narrative: This is a 39-year-old male with history of cerebral palsy and J-tube dependency who presents the ED with family for G-tube dislodgement. Family states that this does happen occasionally and believe that he may have a had a sneeze and accidentally dislodged it. The G-tube trach was in place for years but was reached changed for a J-tube a week and half ago with . J-tube was a 24 Pakistani. No other complaints at this time. Related Data Home Medications ?Medication ?Instructions ?Recorded ?Confirmed ?Last Taken ?Type hepatitis B virus vacc.rec(PF) 20 1 ml IM ONCE 5 Unknown History mcg/mL intramuscular susp (Engerix-B (PF)) ondansetron HCl 4 mg tablet 4 mg PO Q6H 01/14/25 Unkn own History Allergies Allergy/AdvReac Type Severity Reaction Status Date / Time Sulfa (Sulfonamide Allergy Unknown LIPS AND Verified 01/14/25 14:03 Antibiotics) GENITAL PEELING SKIN Review of Systems Review of Systems: ROS unobtainable: Yes unobtainable due to mental status PMFSH Past Medical History Medical History Static encephalopathy Hematemesis Urinary retention Esophagitis with gastritis History of GI bleed Anxiety Dysphagia Chronic. G-tube in place. History of pulmonary aspiration Seizure disorder Cerebral palsy Surgical History Surgical History History of orthopedic surgery Multiple surgeries related to his cerebra palsy including tendon surgeries and Green transfer. History of spinal fusion Gastrointestinal tube present Family History Family History Father Family history of elevated blood lipids Family history of diabetes mellitus in first degree relative Hypertension Chronic obstructive pulmonary disease Other Lung cancer Social History Social History Social History: Surrogate decision maker: Leonora Slaughter, mother. Code status: Full code. Smoking status: Never smoker Second hand tobacco smoke exposure: No Alcohol intake: never Substance use: never Substance use type: does not use Do You Feel Safe in your Home?: Yes Lack of Transportation: No Lack of Food: Never True Current Housing: I Have Housing Concerned About Future Housing: No Difficulty Paying Gas/Electric Bills: No Difficulty Paying for Meds: No Currently Unemployed: No Education: Don't Know Difficulty w/ Childcare or Family Care: No Living arrangements: with family Additional living arrangements comments: The patient lives with his mother and brother in [place]. His father in November 2022. He is wheelchair- dependent and uses an electric wheelchair which he can manage quite nicely. In fact he likes to spend a lot of his time out in their [place] where they have cars and motorcycles, which he really enjoys. He is dependent on most activities of daily living.Mother is currently on Hospice and bedridden due to stage 4 brain cancer. Occupation/Education: unemployed Additional occupation/education comments: Disabled. Spiritual care concerns: No Exam Narrative: APPEARANCE: No acute distress, nontoxic, resting in bed HEENT: Normocephalic, atraumatic, OMM RESPIRATORY: No respiratory distress CARDIOVASCULAR: Appears well perfused ABDOMINAL: G-tube trach is in the epigastrium, no surrounding erythema or drain age, no tenderness to palpation. MUSCULOSKELETAl: Moves all extremities. No obvious deformities NEURO: Awake and alert. SKIN:: Warm, dry. No rashes lesions or abrasions PSYCHIATRIC: Normal affect/mood, Course Vital Signs Vital signs: Vital Signs Temperature 98.8 F 01/14/25 12:29 Pulse Rate 95 01/14/25 12:29 Respiratory Rate 16 01/14/25 12:29 Blood Pressure 125/91 H 01/14/25 12:29 Pulse Oximetry 97 01/14/25 12:29 Oxygen Delivery Room Air 01/14/25 12:29 Temperature 98.8 F 01/14/25 12:29 Pulse Rate 95 01/14/25 12:29 Respiratory Rate 16 01/14/25 12:29 Blood Pressure 125/91 H 01/14/25 12:29 Pulse Oximetry 97 01/14/25 12:29 Oxygen Delivery Room Air 01/14/25 12:29 Medical Decision Making MDM Narrative Medical decision making narrative: 39-year-old male presenting for J-tube dislodgement. On initial evaluation, patient was in no acute distress, afebrile, hemodynamically stable. Tract did appear to be intact. Staff reach out to , recommended placing a 24 Pakistani May to maintain the tract as the necessary J-tube is not available in the clinic at this time. Twenty-four Pakistani May was placed without any immediate complications. Confirmatory a KUB was obtained which showed appropriate placement. Family advised to coordinate with the patient's GI for pre placement of the J-tube. Patient and family were agreeable to this plan. Given strict return precautions. Differential Diagnosis Differential Diagnosis: J tube dislodgment, j tube malfunction Medical Records Medical records reviewed: Yes I reviewed the external patient's medical records. Vital Signs Vital Signs: Vital Signs Temperature 98.8 F 01/14/25 12:29 Pulse Rate 95 01/14/25 12:29 Respiratory Rate 16 01/14/25 12:29 Blood Pressure 125/91 H 01/14/25 12:29 Pulse Oximetry 97 01/14/25 12:29 Oxygen Delivery Room Air 01/14/25 12:29 Temperature 98.8 F 01/14/25 12:29 Pulse Rate 95 01/14/25 12:29 Respiratory Rate 16 01/14/25 12:29 Blood Pressure 125/91 H 01/14/25 12:29 Pulse Oximetry 97 01/14/25 12:29 Oxygen Delivery Room Air 01/14/25 12:29 Imaging Data Attestation: I personally reviewed and interpreted this imaging study as foll ows: My impression: KUB: appropriate placement of J tube Discharge Plan Discharge Clinical Impression: Dislodged jejunostomy tube Cerebral palsy Qualifiers: Cerebral palsy type: unspecified type Qualified Code(s): G80.9 - Cerebral palsy, unspecified Patient Disposition: Home Condition: Stable Instructions: Antibiotic Form Additional Instructions: Follow-up with as discussed for G-tube placement. Patient Language: Guatemalan Prescriptions: No Action clorazepate dipotassium 3.75 mg tablet 3.75 mg feeding tube TID Qty: 90 3RF ondansetron HCl 4 mg tablet 4 mg PO Q6H Engerix-B (PF) 20 mcg/mL suspension 1 ml IM ONCE Rx Instructions: as a single dose docusate sodium [Colace] 100 mg capsule 100 mg PO DAILY Qty: 14 0RF tizanidine 4 mg tablet See Rx Instructions .ROUTE .COMPLEX Qty: 270 0RF Dose Instruction: TAKE 1 TABLET BY MOUTH THREE TIMES DAILY NEEDED FOR MUSCLE SPASMS Rx Instructions: TAKE 1 TABLET BY MOUTH THREE TIMES DAILY NEEDED FOR MUSCLE SPASMS prucalopride [Motegrity] 2 mg tablet 2 mg PO DAILY Qty: 90 1RF Rx Instructions: feeding tube cetirizine 1 mg/mL solution See Rx Instructions .ROUTE .COMPLEX Qty: 900 3RF Dose Instruction: TAKE 10 ML(10 MG) BY MOUTH DAILY Rx Instructions: TAKE 10 ML(10 MG) BY MOUTH DAILY scopolamine base 1 mg over 3 days patch 3 day See Rx Instructions .ROUTE .COMPLEX Qty: 36 1RF Dose Instruction: APPLY 1 PATCH TOPICALLY TO THE SKIN EVERY 3 TO 4 DAYS Rx Instructions: APPLY ONE PATCH TOPICALLY TO THE SKIN EVERY 3 TO 4 DAYS famotidine 40 mg/5 mL (8 mg/mL) suspension for reconstitution 40 mg PO DAILY Qty: 450 1RF Prilosec 10 mg susp,delayed release for recon 10 mg feeding tube DAILY Qty: 30 5RF baclofen 20 mg tablet 20 mg feeding tube TID Qty: 90 6RF Rx Instructions: TAKE 1 TABLET BY MOUTH EVERY 8 HOURS diazepam 5 mg tablet See Rx Instructions .ROUTE .COMPLEX Qty: 90 1RF Rx Instructions: 2.5MG IN AM, 2.5MG IN AFTERNOON, 10MG AT NIGHT valproic acid (as sodium salt) 250 mg/5 mL solution See Rx Instructions .ROUTE .COMPLEX Qty: 300 5RF Dose Instruction: TAKE 5 ML VIA FEEDING TUBE EVERY 12 HOURS Rx Instructions: TAKE 5 ML VIA FEEDING TUBE EVERY 12 HOURS metoclopramide HCl 5 mg/5 mL solution See Rx Instructions .ROUTE .COMPLEX Qty: 1200 5RF Dose Instruction: TAKE 10 ML VIA FEEDING TUBE BEFORE MEALS AND AT BEDTIME Rx Instructions: TAKE 10 ML VIA FEEDING TUBE BEFORE MEALS AND AT BEDTIME Follow-up/Referrals: Amrik Ackerman MD [Primary Care Provider, Family Practice]
[2025-01-14 12:29] VITALS: BP 125/91; PULSE 95; RESP 16; TEMP 37.1; O2SAT 97
--- NOTE | 2025-01-14 12:29 | PC.NURSE ---
Family member James called me to let us know that Dallas's G/J tube had been mistakenly removed and [facility] was sending him to our ER. I called [facility] to get more information. I spoke with Nallely the nurse and she told me what happened and asked about getting his Gtube replaced. I explained that we don't keep his g tube on hand that I have to special order it but I can have it in the next day or two. We discussed the ER putting in a 24 or 26 fr darby catheter in the stoma site until I can get the tube here. I discussed with her Dallsa's long history with his G tube including him having a pig tail type tube and he didn't tolerate those so we went to the low profile type several years ago and he tolerated that tube well. Nallely talked about putting an abdominal binder on him to keep him from pulling at the tube and I told him we tried that in the past and he didn't tolerate the binder but what his Mom would do was put a long t shirt on him and tuck it in his pants and them put a button down shirt on over top of that and that seemed to work because he would fiddle with the buttons on his shirt versus is g tube. She voiced understanding. I then called and spoke with the Kip manzo charge nurse in the ER and told him that we would order Dallas a 24 fr g tube and as soon as it came in we would arrange with [facility] for Dallas to come back to have his G tube replaced. updated on Dallas's g tube status and agreed to replace it with a 24 Fr. tube. I called James the family member back and gave him an update on Dallas's plan and he agreed to the plan as well.
--- NOTE | 2025-01-14 12:33 | PC.NURSE ---
pt pulled his J tube out. GI was called and informed that they need to order a new tube and would like a 24fr darby placed to keep it open. darby was placed in J tube spot by EDP Dr. Denis, 4x4 guaze and tape are keeping it in place as well as an umbilical clamp to prevent gastric contents from spilling
--- NOTE | 2025-01-14 13:16 | PC.NURSE ---
umbilical clamp was removed from catheter due to difficulty taking it on and off. Statlock was placed so the tube is stable. attempted to place an abdominal binder but pt did not tolerate it well, abdominal binder was sent home with him just in case, instead a large anish wrap was placed to secure the tube, an extra anish wrap was sent home with pt in case he needed it. pt tolerate the anish wrap well
--- NOTE | 2025-01-14 13:41 | PC.NURSE ---
Call [facility] and spoke with Temitope HICKS to update them on the status of Dallas's low profile g-tube. ALDO-tapia g tube is expected to be here around 1030 am arranged with them to have Dallas come around 130 tomorrow. Discussed them holding his tube feeding after midnight tonight and ok them giving him his morning meds through the existing darby catheter they inserted in our ER. Discussed the events and duration of Dallas's stay tomorrow and Temitope voiced understanding. I did tell her I would reach out to them around noon if for some reason the G-tube was delayed in shipment.
--- OUTSIDE RECORDS SUMMARY | 2025-01-14 15:01 | XMS_ITS | Clinical Summary ---
Author Organization [facility] Address [address] [place] [address] Care Team Providers Care Hot Patcher Name Role Phone Vicky Torres MD Primary Care Provider + Allergies Active Allergy Reactions Criticality Noted Date Comments Sulfa Antibiotics Unknown 12/30/2024 Medications clorazepate (TRANXENE) 3.75 MG tablet 1 tablet (3.75 mg total) by Per G Tube route 3 (three) times daily. Active valproic acid (DEPAKENE) 250 MG/5ML solution 5 mLs (250 mg total) by Per G Tube route 2 (two) times daily. Active metoclopramide 1 mg/mL (REGLAN) 5 MG/5ML solution 10 mLs (10 mg total) by Per G Tube route 4 (four) times daily before meals and nightly. Active omeprazole (PRILOSEC) 2 mg/mL Suspension oral suspension 5 mLs (10 mg total) by Per G Tube route daily. Active tiZANidine (ZANAFLEX) 2 MG tablet 1 tablet (2 mg total) by Per G Tube route 2 (two) times a day. Active cetirizine (ZYRTEC) 5 MG/5ML Solution 10 mLs (10 mg total) by Per G Tube route daily. Active baclofen (LIORESAL) 20 MG tablet 1 tablet (20 mg total) by Per G Tube route 3 (three) times daily. Active Docusate Sodium 100 MG Tab Take 100 mg by mouth 2 (two) times a day. Active famotidine (PEPCID) 40 MG/5ML suspension Take 5 mLs (40 mg total) by mouth nightly at bedtime. Active scopolamine (TRANSDERM-SCO P) 1 MG/3DAYS patch Place 1 patch onto the skin every third day. Active Prucalopride Succinate 2 MG Tab 2 mg by Per G Tube route daily. Active acetaminophen (TYLENOL) 500 MG tablet Take 1 tablet (500 mg total) by mouth every 6 (six) hours as needed for Pain. Active diazePAM (VALIUM) 5 MG tabletIndicati ons:Cerebral palsy (CMS/HCC HHS/HCC) 0.5 tablets (2.5 mg total) by Per G Tube route 2 (two) times a day AND 2 tablets (10 mg total) every evening. 2.5 mg in AM and afternoon, then 10 mg at HS 30 tablet 01/09/20 25 Active metoprolol tartrate (LOPRESSOR) 25 MG tablet 1 tablet (25 mg total) by Per G Tube route 2 (two) times daily. 60 tablet 01/09/20 25 Active diazePAM (VALIUM) 5 MG tablet 0.5 tablets (2.5 mg total) by Per G Tube route 2 (two) times a day. 2.5 mg in AM and afternoon, then 10 mg at HS 025 Discontinued diazePAM (VALIUM) 5 MG tablet 2 tablets (10 mg total) by Per G Tube route nightly at bedtime. 2.5 mg in AM and afternoon, then 10 mg at HS 025 Discontinued(St op Taking at Discharge) Active Problems Problem Noted Date Diagnosed Date Attention to G-tube 12/31/2024 Tachycardia 12/30/2024 Encounters Date Type Department Care Team Description 01/12/2025 12:43 PM CDT - 01/12/2025 11:59 PM CDT Hospital Encounter [facility] [address] [place] [address] Vicky Torres MD Discharge Disposition: Home or Self Care (Routine Discharge) 01/12/2025 Orders Only [facility] [address] [facility] [place] [address] Vicky Torres MD 01/10/2025 10:38 AM CDT - 01/10/2025 3:34 PM CDT Emergency [facility] [place] [address] Olga Matthew DO Altered Mental Status 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 01/10/2025 Travel 01/09/2025 9:53 AM CDT - 01/09/2025 3:22 PM CDT Emergency [facility] [place] [address] Ha Barbour MD Medical Problem Discharge Disposition: Home or Self Care (Routine Discharge) 01/09/2025 Travel 01/05/2025 Travel 12/30/2024 12:14 PM CDT - 01/08/2025 11:14 AM CDT [facility] [place] [address] Federico Matthews MD Lamonica, MD Juma Monroe Stephanie L, DO Jerkovich, Adria, MD [place]ism[place], MD Dorothea Gonzalez, Radha Bahena MD Vomiting Discharge Disposition: [facility] Facility 12/30/2024 Travel from Last 3 Months Immunizations Immunization Administration Dates Next Due Influenza (Generic) 02/11/2016 Influenza Adult (Generic) 01/21/2022,02/11/2021, 12/06/2014 Pneumococcal (Prevnar 20) 01/21/2022 Social History Tobacco Use Types Packs/Day Years Used Date Smoking Tobacco: Never Alcohol Use Standard Drinks/Week Comments Not Currently 0 (1 standard drink = 0.6 oz pur e alcohol) [facility] Utilities Answer Date Recorded In the past 12 months has [employer], gas, oil, or water [employer] threatened to shut off services in your [...] any time in the past 12 m [facility], were you homeless or living in a fci (including now)? No 12/31/2024 Sex and Gender Information Value Date Recorded Sex Assigned at Male 12/30/2024 2:15 PM CDT Legal Sex Male 7:17 PM CDT Gender Identity Not on file Sexual Orientation Not on file Last Filed Vital Signs Vital Sign Reading Time Taken Comments Blood Pressure 109/67 01/10/2025 3:00 PM CDT Pulse 97 01/10/2025 3:00 PM CDT Temperature 37.4 C (99.3 F) 01/10/2025 10:46 AM CDT Respiratory Rate 29 01/10/2025 3:00 PM CDT Oxygen Saturation 96% 01/10/2025 3:00 PM CDT Inhaled Oxygen Concentration - - Weight 48.5 kg (106 lb 14.8 oz) 025 10:46 AM CDT Height 162.6 cm (5' 4) 01/10/2025 10:4 6 AM CDT Body Mass Index 18.35 01/10/2025 10:46 AM CDT Plan of Treatment Health Maintenance Due Date Last Done Comments Annual Physical 10/18/1986 Hepatitis C 10/18/2001 DTaP, Tdap and Td Vaccines (1 - Tdap) 10/18/2002 Hepatitis B Vaccines (1 of 3 - 19+ 3-dose series) 10/18/2002 HPV Vaccines (1 - 3-dose SCDM series) 10/18/2010 COVID-19 Vaccine ( season) 2024 01/21/2022, 11/08/2020, 10/14/2020 Influenza Adult (#1) 2024 01/21/2022, 02/11/2021, 02/11/2016, Additional history exists Pneumococcal Vaccine: Pediatrics (0 to 5 Years) and At-Risk Patients (6 to 49 Years) Aged Out 01/21/2022 No longer eligible based on patient's age to complete this topic Hepatitis A Vaccines Aged Out No long er eligible based on patient's age to complete this topic Meningococcal B Vaccine Aged Out No l onger eligible based on patient's age to complete this topic Meningococcal Vaccine Aged Out No kimberlyn charlie eligible based on patient's age to complete this topic RSV Immunizations Under 20 Months Aged Out No longer eligible based on patient's age to complete this topic Procedures Procedure Name Priority Date/Time Associated Diagnosis Comments URINE BACTERIA CULTURE Routine 5:00 AM CDT Retention of urine Nontraumatic rupture of bladder 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 HC URINALYSIS AUTO W/O MICRO Routine 01/12/2025 5:00 AM CDT Retention of urine Nontraumatic rupture of bladder 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 ECG 12-LEAD Routine 01/10/2025 11:49 AM CDT ELECTROCARDIOGRAM REPORT Routine 025 11:49 AM CDT XR CHEST PORTABLE STAT 01/10/2025 11: 26 AM CDT COMPREHENSIVE METABOLIC PANEL STAT 01/10/2025 10:52 AM CDT CBC W/DIFF AUTOMATED STAT 01/10/2025 10:52 AM CDT ECG 12-LEAD STAT 01/09/2025 10:[address] HEAD WO CON STAT 01/09/2025 10:39 AM CDT VALPROIC ACID STAT 01/09/2025 10:17 AM CDT COMPREHENSIVE METABOLIC PANEL STAT 01/09/2025 10:17 AM CDT CBC W/DIFF AUTOMATED STAT 01/09/2025 10:17 AM CDT COMPREHENSIVE METABOLIC PANEL Routine 01/08/2025 7:06 AM CDT CBC W/DIFF AUTOMATED Routine 01/08/2025 7:06 AM CDT POCT GLUCOSE - DOCKED DEVICE Routine 01/08/2025 3:12 AM CDT POCT GLUCOSE - DOCKED DEVICE Routine 01/07/2025 6:35 PM CDT POCT GLUCOSE - DOCKED DEVICE Routine 01/07/2025 12:05 PM CDT COMPREHENSIVE METABOLIC PANEL Routine 01/07/2025 7:23 AM CDT CBC W/DIFF AUTOMATED Routine 01/07/2025 7:23 AM CDT POCT GLUCOSE - DOCKED DEVICE Routine 01/06/2025 3:34 PM CDT XR ABD KUB Today 01/06/2025 8:01 AM CDT POCT GLUCOSE - DOCKED DEVICE Routine 01/06/2025 6:39 AM CDT COMPREHENSIVE METABOLIC PANEL Routine 01/06/2025 4:05 AM CDT CBC W/DIFF AUTOMATED Routine 01/06/2025 4:05 AM CDT POCT GLUCOSE - DOCKED DEVICE Routine 01/06/2025 1:03 AM CDT POCT GLUCOSE - DOCKED DEVICE Routine 01/05/2025 4:[address] ABD+PEL WO CON Today 01/05/2025 12: 25 PM CDT XR ABD KUB Today 01/05/2025 10:12 AM CDT POCT GLUCOSE - DOCKED DEVICE Routine 01/05/2025 6:13 AM CDT PHOSPHORUS, INORGANIC PHOSPHATE Routine 01/05/2025 4:35 AM CDT MAGNESIUM Routine 01/05/2025 4:35 AM CDT COMPREHENSIVE METABOLIC PANEL Routine 01/05/2025 4:35 AM CDT CBC W/DIFF AUTOMATED Routine 01/05/2025 4:35 AM CDT POCT GLUCOSE - DOCKED DEVICE Routine 01/05/2025 12:52 AM CDT POCT GLUCOSE - DOCKED DEVICE Routine 01/04/2025 8:17 PM CDT POCT GLUCOSE - DOCKED DEVICE Routine 01/04/2025 4:20 PM CDT POCT GLUCOSE - DOCKED DEVICE Routine 01/04/2025 11:44 AM CDT COMPREHENSIVE METABOLIC PANEL Routine 01/04/2025 10:04 AM CDT CBC W/DIFF AUTOMATED Routine 01/04/2025 10:04 AM CDT POCT GLUCOSE - DOCKED DEVICE Routine 01/04/2025 6:28 AM CDT POCT GLUCOSE - DOCKED DEVICE Routine 01/04/2025 1:46 AM CDT POCT GLUCOSE - DOCKED DEVICE Routine 01/03/2025 7:59 PM CDT POCT GLUCOSE - DOCKED DEVICE Routine 01/03/2025 4:13 PM CDT IR JOHN TO GJ CHANGE Today 01/03/2025 3:08 PM CDT POCT GLUCOSE - DOCKED DEVICE Routine 01/03/2025 11:28 AM CDT PROTHROMBIN TIME, VENOUS STAT 9:20 AM CDT PARTIAL THROMBOPLASTIN TIME,PTT STAT 01/03/2025 9:20 AM CDT COMPREHENSIVE METABOLIC PANEL Routine 01/03/2025 7:07 AM CDT CBC W/DIFF AUTOMATED Routine 01/03/2025 7:07 AM CDT POCT GLUCOSE - DOCKED DEVICE Routine 01/03/2025 6:31 AM CDT POCT GLUCOSE - DOCKED DEVICE Routine 01/02/2025 11:17 PM CDT POCT GLUCOSE - DOCKED DEVICE Routine 01/02/2025 6:24 PM CDT POCT GLUCOSE - DOCKED DEVICE Routine 01/02/2025 12:11 PM CDT COMPREHENSIVE METABOLIC PANEL Routine 01/02/2025 7:31 AM CDT CBC W/DIFF AUTOMATED Routine 01/02/2025 7:31 AM CDT MAGNESIUM Routine 01/02/2025 7:31 AM CDT POCT GLUCOSE - DOCKED DEVICE Routine 01/02/2025 6:05 AM CDT POCT GLUCOSE - DOCKED DEVICE Routine 01/02/2025 1:38 AM CDT POCT GLUCOSE - DOCKED DEVICE Routine 01/01/2025 6:31 PM CDT POCT GLUCOSE - DOCKED DEVICE Routine 01/01/2025 12:39 PM CDT CBC W/DIFF AUTOMATED Routine 01/01/2025 7:19 AM CDT COMPREHENSIVE METABOLIC PANEL Routine 01/01/2025 7:19 AM CDT MAGNESIUM Routine 01/01/2025 7:19 AM CDT POCT GLUCOSE - DOCKED DEVICE Routine 01/01/2025 12:00 AM CDT POCT GLUCOSE - DOCKED DEVICE Routine 12/31/2024 7:19 PM CDT POCT GLUCOSE - DOCKED DEVICE Routine 12/31/2024 10:12 AM CDT PROCALCITONIN (PCT) Routine 12/31/2024 7 :10 AM CDT CBC W/DIFF AUTOMATED Routine 12/31/2024 7:10 AM CDT COMPREHENSIVE METABOLIC PANEL Routine 12/31/2024 7:10 AM CDT MAGNESIUM Routine 12/31/2024 7:10 AM CDT HEMOGLOBIN, GLYCOSYLATED Routine 025 7:10 AM CDT POCT GLUCOSE - DOCKED DEVICE Routine 12/31/2024 5:[address] CHEST+ABD+PEL W CON Today 12:13 AM CDT RESPIRATORY PCR PANEL 2 Routine 12/31/19 25 11:02 PM CDT ELECTROCARDIOGRAM REPORT Routine 4:09 PM CDT ECG 12-LEAD Routine 12/30/2024 3:13 PM CDT URINE BACTERIA CULTURE STAT 2:55 PM CDT HC URINALYSIS AUTO W/O MICRO STAT 12/30/2024 2:55 PM CDT XR CHEST PORTABLE STAT 12/30/2024 2:1 2 PM CDT CULTURE, BACTERIA, BLOOD STAT 025 1:06 PM CDT COMPREHENSIVE METABOLIC PANEL STAT 12/30/2024 1:06 PM CDT LACTIC ACID W REFLEX (SEPSIS) STAT 12/30/2024 1:06 PM CDT CBC W/DIFF AUTOMATED STAT 12/30/2024 1:06 PM CDT TSH W/REFLEX Routine 12/30/2024 1:05 PM CDT TROPONIN, QUANT Routine 12/30/2024 1:05 PM CDT CULTURE, BACTERIA, BLOOD STAT 025 12:46 PM CDT from Last 3 Months Results * (ABNORMAL) URINALYSIS (01/12/2025 5:00 AM CDT) Only the most recent of2 resultswithin the time period is included. COLOR (U) LIGHT YELLOW 01/12/2025 1:03 PM CDT [facility] TRANSPARENCY CLEAR 01/12/2025 1:03 PM CDT [facility] SPECIFIC GRAVITY (U) 1.010 1.002 - 1.030 01/12/2025 1:03 PM CDT [facility] U PH 7.0 4.5 - 8.0 01/12/2025 1:03 PM CDT [facility] LEUKOCYTES (U) NEGATIVE NEGATIVE 01/12/2025 1:03 PM CDT [facility] NITRITES NEGATIVE NEGATIVE 01/12/2025 1:03 PM CDT [facility] PROTEIN RANDOM (U) 2+(A) NEGATIVE 01/12/2025 1:03 PM CDT [facility] GLUCOSE (U) NEGATIVE NEGATIVE 01/12/2025 1:03 PM T [facility] KETONES MG/DL (U) NEGATIVE NEGATIVE 01/12/2025 1:03 PM T [facility] UROBILINOGEN NORMAL NORMAL EU/DL 01/12/2025 1:03 PM CDT [facility] BILIRUBIN (U) NEGATIVE NEGATIVE 01/12/2025 1:03 PM T [facility] BLOOD (U) 5+(A) NEGATIVE 01/12/2025 1:03 PM CDT [facility] WBC/HPF 0-5 /HPF 01/12/2025 1:03 PM CDT [facility] RBC/HPF 20-50 /HPF 01/12/2025 1:03 PM CDT [facility] EPI/HPF 0-5 /HPF 01/12/2025 1:03 PM CDT [facility] BACTERIA (U) 1+ /HPF 01/12/2025 1:03 PM CDT [facility] MUCUS 1+ 01/12/2025 1:03 PM CDT [facility] URINE SPECIMEN OBTAINED BY CLEAN CATCH PROCEDURE / Unknown 01/12/2025 5:00 AM CDT us Vicky Sutherland MD URINE ORDERABLES Final R esult [facility] [address] [place] [address], * ECG 12 lead (01/10/2025 11:49 AM CDT) Only the most recent of3 resultswithin the time period is included. 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 [address] Test Date: 2025-01-10 Pat Name: RUTHANN VILLASENOR Department: 41 Room: [place] [address] Gender: Male Assembler 1[address] Shift: [id number] : 1985 Requested By: OLGA MATTHEW Order Number: [id number] Reading MD: Andrey Anderson Measurements Intervals Zullinger Rate: 82 P: 42 MD: 147 QRS: 68 QRSD: 94 T: 62 QT: 345 QTc: 405 Interpretive Statements SINUS RHYTHM POSSIBLE LEFT ATRIAL ENLARGEMENT [-0.1mV P-WAVE IN V1/V2] POSSIBLE RIGHT VENTRICULAR CONDUCTION DELAY [RSR (QR) IN V1/V2] Compared to ECG 01/09/2025 10:49:13 Sinus bradycardia no longer present us Olga Matthew DO ECG ORDERABLES Final Res ult [facility] * EKG Reading (01/10/2025 11:49 AM CDT) Only the most recent of2 resultswithin the time period is included. Olga Curtis DO - 01/10/2025 11:49 AM CDT Olga Matthew DO 01/10/2025 1:57 PM EKG Reading Date/Time: 01/10/2025 11:49 AM Performed by: Olga Matthew DO Authorized by: Olga Matthew DO Interpreted by ED physician Rhythm: sinus rhythm Rate: normal BPM: 82 QRS axis: normal Conduction: conduction normal Clinical impression: non-specific ECG Comments: Nonspecific ST segment changes us Olga Matthew DO MD [facility] Final Result * XR CHEST PORTABLE (01/10/2025 11:26 AM CDT) Only the most recent of2 resultswithin the time period is included. Anatomical Region Laterality Modality Chest Radiographic Sarah ging 01/10/2025 11:3 4 AM CDT Impressions 01/10/2025 11:34 AM CDT IMPRESSION: Stable chest, no acute findings. Ordered By: OLGA MATTHEW Interpreted By: Lazarus Borjas MD, 01/10/2025 11:34 AM Narrative 01/10/2025 11:34 AM CDT [place] [address] SINGLE VIEW OF THE CHEST Clinical history: Hypoxia Comparison: December 30, 2024 A single view of the chest demonstrates cardiomegaly which is stable. Postoperative changes of Mckeon rods are again noted within the thoracic and lumbar spine. The pulmonary vessels are normally distributed. The Lungs are clear. No consolidations or effusions are seen. Procedure Note Lazarus Borjas MD - 01/10/2025 [place] [address] SINGLE VIEW OF THE CHEST Clinical history: Hypoxia Comparison: December 30, 2024 A single view of the chest demonstrates cardiomegaly which is stable.Postoperative changes of Mckeon rods are again noted within thethoracic and lumbar spine. The pulmonary vessels are normally distributed.The Lungs are clear. No consolidations or effusions are seen. IMPRESSION: Stable chest, no acute findings. Ordered By: OLGA MATTHEW Interpreted By: Lazarus Borjas MD, 01/10/2025 11:34 AM us Olga Matthew DO GENERAL IMAGING Final Res ult * (ABNORMAL) COMPREHENSIVE METABOLIC PANEL (01/10/2025 10:52 AM CDT) Only the most recent of12 resultswithin the time period is included. [facility] Signature GLUCOSE 172(H) 70 - 99 MG/DL 01/10/2025 11:27 AM T [facility] BUN 10 7 - 18 MG/DL 01/10/2025 11:27 AM T [facility] CREATININE S/P/B 0.72 0.7 - 1.3 MG/DL 01/10/2025 11:27 AM CDT [facility] SODIUM S/P/B 140 136 - 145 MMOL/L 01/10/2025 11:27 AM T [facility] POTASSIUM S/P/B 4.2 3.5 - 5.1 MMOL/L 01/10/2025 11:27 AM T [facility] CHLORIDE S/P/B 106 97 - 115 MMOL/L 01/10/2025 11:27 AM CDT [facility] CO2 28.6 21 - 32 MMOL/L 01/10/2025 11:27 AM T [facility] CALCIUM S/P/B 8.9 8.5 - 10.1 MG/DL 01/10/2025 11:27 AM T [facility] BILIRUBIN TOTAL S/P/B 0.2 0.2 - 1.2 MG/DL 01/10/2025 11:27 AM T [facility] Comment: THIS ASSAY IS NOT RECOMMENDED FOR PATIENTS UNDERGOING TREATMENT WITH ELTROMBOPAG DUE TO THE POTENTIAL FOR FALSELY ELEVATED RESULTS. TOTAL PROTEIN S/P/B 6.5 6.4 - 8.2 G/DL 01/10/2025 11:27 AM T [facility] ALBUMIN S/P/B 2.6(L) 3.4 - 5.0 G/DL 01/10/2025 11:27 AM CDT [facility] AST 15 15 - 37 U/L 01/10/2025 11:27 AM CDT [facility] ALT 38 16 - 60 U/L 01/10/2025 11:27 AM CDT [facility] ALKALINE PHOSPHATASE S/P/B 82 50 - 136 U/L 01/10/2025 11:27 AM CDT [facility] ANION GAP 5.4 2 - 10 MMOL/L 01/10/2025 11:27 AM CDT [facility] BUN CREATININE RATIO 13.9 6 - 26 01/10/2025 11:27 AM CDT [facility] A/G RATIO 0.7(L) 1.0 - 2.0 RATIO 01/10/2025 11:27 AM CDT [facility] GFR ESTIMATE >90 >90 ML/MIN/1.7 3 M2 01/10/2025 11:27 AM CDT [facility] Comment: NOTE: eGFR is not calculated for patients <18 years of age or gender unknown. This is an estimated GFR calculation using the new CKD EPI creatinine equation without race and so does not require a correction factor for race. This estimated GFR should not be used for calculating drug doses. 01/10/2025 10:5 2 AM CDT Olga Matthew DO LABORATORY Final Res ult [facility] [address] [place] [address], [place] [phone] * (ABNORMAL) CBC W/DIFF AUTOMATED (01/10/2025 10:52 AM CDT) Only the most recent of12 resultswithin the time period is included. WBC 10.43 4.5 - 11.0 x10'3/uL 01/10/2025 11:03 AM CDT [facility] RBC 3.89(L) 4.70 - 6.10 x10'6/uL 01/10/2025 11:03 AM CDT [facility] HGB 12.3(L) 14.0 - 18.0 G/DL 01/10/2025 11:03 AM CDT [facility] HCT 36.1(L) 43.0 - 54.0 % 01/10/2025 11:03 AM CDT [facility] MCV 92.8 80.0 - 94.0 FL 01/10/2025 11:03 AM CDT [facility] MCH 31.6(H) 27.0 - 31.0 PG 01/10/2025 11:03 AM CDT [facility] MCHC 34.1 32.0 - 36.0 G/DL 01/10/2025 11:03 AM T [facility] RDW 13.3 11.5 - 14.5 % 01/10/2025 11:03 AM T [facility] PLT 415(H) 130 - 400 x10'3/uL 01/10/2025 11:03 AM T [facility] MPV 9.4 9.3 - 12.2 FL 01/10/2025 11:03 AM T [facility] DIFFERENTIAL TYPE AUTOMATED DIFFERENTIAL 01/10/2025 11:03 AM T [facility] NEUTROPHILS % 67.3 % 01/10/2025 11:03 AM CDT [facility] LYMPHOCYTES % 20.8 % 01/10/2025 11:03 AM T [facility] MONOCYTES % 10.8 % 01/10/2025 11:03 AM T [facility] EOSINOPHILS 0.2 % 01/10/2025 11:03 AM CDT [facility] BASOPHILS 0.2 % 01/10/2025 11:03 AM CDT [facility] IMMATURE GRANS % 0.7 % 01/11/20 11:03 AM CDT [facility] ABS. NEUTROPHILS 7.02 1.80 - 7.70 x10'3/uL 01/10/2025 11:03 AM CDT [facility] ABS. LYMPHOCYTES 2.17 1.00 - 4.80 x10'3/uL 01/10/2025 11:03 AM CDT [facility] ABS. MONOCYTES 1.13(H) 0.30 - 0.82 x10'3/uL 01/10/2025 11:03 AM CDT [facility] ABS. EOSINOPHILS 0.02(L) 0.04 - 0.54 x10'3/uL 01/10/2025 11:03 AM CDT [facility] ABS. BASOPHILS 0.02 0.01 - 0.08 x10'3/uL 01/10/2025 11:03 AM CDT [facility] ABS. IMMATURE GRANULOCYTES 0.07 0.00 - 0.49 x10'3/uL 01/10/2025 11:03 AM CDT [facility] 01/10/2025 10:5 2 AM CDT us Olga Matthew DO LABORATORY Final Res ult [facility] [address] [place] [address], [place] [phone] * CT HEAD WO CON (01/09/2025 10:39 AM CDT) Anatomical Region Laterality Modality Head Computed Tomogra phy 01/09/2025 11:0 8 AM CDT Impressions 01/09/2025 11:14 AM CDT IMPRESSION: 1. No acute intracranial hemorrhage or mass effect 2. Mild atrophy and nonspecific decreased density of the supratentorial white matter, compatible with chronic small vessel ischemic changes. 3. Multiple nonspecific punctate calcifications within the upper cerebral hemispheres near the corticomedullary junction reflect the sequela of prior infection. Metastasis cannot be excluded. 4. Right maxillary sinusitis Further evaluation with a contrast enhanced brain MRI would be recommended if symptoms persist or progress. Referred By: Interpreted By: Raul Naqvi MD, 01/09/2025 11:08 AM Narrative 01/09/2025 11:14 AM CDT [place] [address] EXAMINATION: Head CT without contrast 01/09/2025 INDICATION: Altered mental status TECHNIQUE: Axial CT images of ventral cord without intravenous contrast. Sagittal and coronal reformats were constructed. Radiation dose reduction techniques were used. COMPARISON: None FINDINGS:No acute intracranial hemorrhage, mass effect or midline shift or extra axial fluid collection. There is mild symmetric with concordant prominence of ventricles. Mild decreased density noted within the supratentorial white matter. Multiple small punctate calcifications are noted within the upper cerebral hemispheres near the corticomedullary junction with no surrounding edema.. No acute osseous abnormality. The mastoid air cells and middle ear cavities are clear. Mucosal thickening and small air-fluid level within the right maxillary sinus. The orbits and globes are unremarkable. Procedure Note Raul Naqvi MD - 01/09/[address] [address] EXAMINATION: Head CT without contrast 01/09/2025 INDICATION: Altered mental status TECHNIQUE: Axial CT images of ventral cord without intravenous contrast.Sagittal and coronal reformats were constructed. Radiation dose reductiontechniques were used. COMPARISON: None FINDINGS:No acute intracranial hemorrhage, mass effect or midline shift orextra axial fluid collection. There is mild symmetric with concordantprominence of ventricles. Mild decreased density noted within thesupratentorial white matter. Multiple small punctate calcifications arenoted within the upper cerebral hemispheres near the corticomedullaryjunction with no surrounding edema.. No acute osseous abnormality. The mastoid air cells and middle earcavities are clear. Mucosal thickening and small air-fluid level withinthe right maxillary sinus. The orbits and globes are unremarkable. IMPRESSION: 1. No acute intracranial hemorrhage or mass effect 2. Mild atrophy and nonspecific decreased density of the supratentorialwhite matter, compatible with chronic small vessel ischemic changes. 3. Multiple nonspecific punctate calcifications within the upper cerebralhemispheres near the corticomedullary junction reflect the sequela ofprior infection. Metastasis cannot be excluded. 4. Right maxillary sinusitis Further evaluation with a contrast enhanced brain MRI would be recommendedif symptoms persist or progress. Referred By: Interpreted By: Raul Naqvi MD, 01/09/2025 11:08 AM Ha Barbour MD CT Final Result * VALPROIC ACID (01/09/2025 10:17 AM CDT) Pathologist [facility] VALPROIC ACID 58.2 50 - 100 MCG/ML 01/09/2025 10:55 AM CDT [facility] Comment: THERAPEUTIC: 50-100 TOXIC: >150 DOSE UNKNOWN LAST DOSE 01/09/2025 10:56 AM CDT [facility] 01/09/2025 10:1 7 AM CDT us Ha Barbour MD LABORATORY Final Result [facility] [address] [place] [address], [place] [phone] * (ABNORMAL) POCT glucose (01/08/2025 3:12 AM CDT) Only the most recent of29 resultswithin the time period is included. Pathologist [facility] GLUCOSE POC 128(H) 70 - 99 mg/dL 01/08/2025 3:29 AM CDT [facility] 01/08/2025 3:12 AM CDT us Radha Piedra MD POCT ORDERABLES - DEVICE Final Result [facility] [address] [place] [address], [place] [phone] * XR ABD KUB (01/06/2025 8:01 AM CDT) Only the most recent of2 resultswithin the time period is included. Anatomical Region Laterality Modality Abdomen Radiographic Sarah ging 01/06/2025 8:04 AM CDT Impressions 01/06/2025 8:17 AM CDT IMPRESSION: Decreased air distention within the small bowel and colon and decreased stool in the sigmoid colon compared to 01/05/2025. No apparent bowel obstruction. Ordered By: ABHAY GARCIA Interpreted By: Vaughn Cintron, 01/06/2025 8:04 AM Narrative 01/06/2025 8:17 AM CDT [facility] [address] [place], [place] [address] IMAGING STUDIES: XR ABD KUB DATE: 01/06/2025 7:19 AM HISTORY: abdominal pain/distension 39-year-old male. Current inpatient. Abdominal pain and distention. History of cerebral palsy COMPARISON: CT abdomen pelvis without contrast 01/05/2025 DISCUSSION: Supine view of the abdomen and pelvis on 2 images. Rightward rotation. Percutaneous gastrojejunal tube with tip in the left abdomen as on 01/05/2025 CT and radiograph (tube exchange on 01/03/2025). Tube projecting over the lower pelvis is new since 01/05/2025. No appreciable acute opacity in the visualized lower lungs. Mild air within the stomach, small bowel, and colon with decreased air volume compared to 01/05/2025. Stool remains most prominent in the rectosigmoid colon but decreased volume compared to 01/05/2025. Contrast in the rectosigmoid colon most likely from contrast administered for GJ exchange on 01/03/2025. Bilateral spinal Mckeon rods extending from the thoracic spine to sacrum (superior portion not included on these images). Spinal curvature and rotation with associated degenerative changes. Degenerative changes of the pelvis and hips. Procedure Note Vaughn Cintron MD - 01/06/2025 [facility] [address] [place], [place] [address] IMAGING STUDIES: XR ABD KUBDATE: 01/06/2025 7:19 AM HISTORY: abdominal pain/distension 39-year-old male. Current inpatient.Abdominal pain and distention. History of cerebral palsy COMPARISON: CT abdomen pelvis without contrast 01/05/2025 DISCUSSION: Supine view of the abdomen and pelvis on 2 images. Rightward rotation. Percutaneous gastrojejunal tube with tip in the left abdomen as on01/05/2025 CT and radiograph (tube exchange on 01/03/2025). Tube projecting over the lower pelvis is new since 01/05/2025. No appreciable acute opacity in the visualized lower lungs. Mild air within the stomach, small bowel, and colon with decreased airvolume compared to 01/05/2025. Stool remains most prominent in therectosigmoid colon but decreased volume compared to 01/05/2025. Contrastin the rectosigmoid colon most likely from contrast administered for GJexchange on 01/03/2025. Bilateral spinal Mckeon rods extending from the thoracic spine tosacrum (superior portion not included on these images). Spinal curvatureand rotation with associated degenerative changes. Degenerative changes ofthe pelvis and hips. IMPRESSION: Decreased air distention within the small bowel and colon and decreasedstool in the sigmoid colon compared to 01/05/2025. No apparent bowelobstruction. Ordered By: ABHAY GARCIA Interpreted By: Vaughn Cintron, 01/06/2025 8:04 AM us Abhay Garcia MD GENERAL IMAGING Final Result * CT ABD+PEL WO CON (01/05/2025 12:25 PM CDT) Anatomical Region Laterality Modality Abdomen Computed Tomogra phy 01/05/2025 7:12 PM CDT Impressions 01/05/2025 7:20 PM CDT IMPRESSION: 1. Moderate rectal stool burden. No evidence of bowel obstruction or ileus. 2. Mildly distended urinary bladder may be secondary to borderline prostatomegaly. 3. Additional findings as above. Referred By: Interpreted By: Bravo Everett MD, 01/05/2025 7:12 PM Narrative 01/05/2025 7:20 PM CDT [address] [address] EXAMINATION: CT Abdomen and Pelvis without contrast EXAM DATE/TIME: 01/05/2025 12:14 PM REASON FOR EXAM: 39 years of age, Male, with abdominal distention, possible ileus on x-ray COMPARISON: KUB 01/05/2025, chest abdomen pelvis CT 12/31/2024 TECHNIQUE: Axial CT images of the abdomen and pelvis were obtained without the use of IV contrast agent. Subsequent coronal and sagittal reformatted sequences are created for evaluation. A dose lowering technique was used for this procedure, which may include, but is not limited to, dose reduction technique, automated exposure control, iterative reconstruction, ALARA (As Low As Reasonably Achievable), or Image Gently techniques. FINDINGS: Lower chest: No mass or airspace consolidation is seen in the visualized lung bases. No pleural effusion is seen. No cardiomegaly. Liver/biliary: The liver is normal in size and smooth in surface contour. No definite focal liver lesions are seen. Gallbladder is unremarkable. No biliary dilatation is seen. Pancreas/adrenals/spleen: Unremarkable. Genitourinary: No hydronephrosis is seen. No definite renal mass lesion is seen. The urinary bladder is mildly distended and otherwise within normal limits. The prostate is borderline enlarged. Bowel: Rectal contrast. Moderate rectal stool burden. Colonic contrast. No bowel obstruction or inflammatory change is seen in the visualized aspects. No evidence of appendicitis. Gastrojejunostomy tube in place. Peritoneum: No free fluid is seen. No free air is seen. Lymph nodes: No lymphadenopathy is seen. Musculoskeletal: No acute fracture or suspicious osseous lesion is seen. Scoliosis with hardware in place. Procedure Note Bravo Everett MD - 01/05/[address] [address] EXAMINATION: CT Abdomen and Pelvis without contrast EXAM DATE/TIME: 01/05/2025 12:14 PM REASON FOR EXAM: 39 years of age, Male, with abdominal distention,possible ileus on x-ray COMPARISON: KUB 01/05/2025, chest abdomen pelvis CT 12/31/2024 TECHNIQUE: Axial CT images of the abdomen and pelvis were obtainedwithout the use of IV contrast agent. Subsequent coronal and sagittalreformatted sequences are created for evaluation. A dose loweringtechnique was used for this procedure, which may include, but is notlimited to, dose reduction technique, automated exposure control,iterative reconstruction, ALARA (As Low As Reasonably Achievable), orImage Gently techniques. FINDINGS: Lower chest: No mass or airspace consolidation is seen in the visualizedlung bases. No pleural effusion is seen. No cardiomegaly. Liver/biliary: The liver is normal in size and smooth in surface contour.No definite focal liver lesions are seen. Gallbladder is unremarkable.No biliary dilatation is seen. Pancreas/adrenals/spleen: Unremarkable. Genitourinary: No hydronephrosis is seen. No definite renal mass lesion isseen. The urinary bladder is mildly distended and otherwise within normallimits. The prostate is borderline enlarged. Bowel: Rectal contrast. Moderate rectal stool burden. Colonic contrast.No bowel obstruction or inflammatory change is seen in the visualizedaspects. No evidence of appendicitis. Gastrojejunostomy tube in place. Peritoneum: No free fluid is seen. No free air is seen. Lymph nodes: No lymphadenopathy is seen. Musculoskeletal: No acute fracture or suspicious osseous lesion is seen.Scoliosis with hardware in place. IMPRESSION: 1. Moderate rectal stool burden. No evidence of bowel obstruction orileus. 2. Mildly distended urinary bladder may be secondary to borderlineprostatomegaly. 3. Additional findings as above. Referred By: Interpreted By: Bravo Everett MD, 01/05/2025 7:12 PM Abhay Garcia MD CT Final Result * (ABNORMAL) PHOSPHORUS, INORGANIC PHOSPHATE (01/05/2025 4:35 AM CDT) PHOSPHORUS 2.1(L) 2.5 - 4.9 MG/DL 01/05/2025 12:19 PM CDT [facility] 01/05/2025 4:35 AM CDT Abhay Garcia MD LABORATORY Final Result Performing Organization Address City/[facility]/ZIP Co de Phone Number [facility] [address] [place] [address], [place] [phone] * MAGNESIUM (01/05/2025 4:35 AM CDT) Only the most recent of4 resultswithin the time period is included. MAGNESIUM 1.8 1.8 - 2.4 MG/DL 01/05/2025 12:19 PM CDT [facility] 01/05/2025 4:35 AM CDT Abhay Garcia MD LABORATORY Final Result Performing Organization Address City/[facility]/ZIP Co de Phone Number [facility] [address] [place] [address], [place] [phone] * IR JOHN TO GJ CHANGE (01/03/2025 3:08 PM CDT) Anatomical Region Laterality Modality Abdomen Interventional R adiology 01/03/2025 3:05 PM CDT Impressions 01/03/2025 3:11 PM CDT IMPRESSION: 1. Procedure note for technically successful conversion of a chronic indwelling gastrostomy tube for a new new 24 Mozambican 45 cm gastrojejunostomy 2. Tube can be used immediately. Recommend using the jejunostomy tube at least initially as much as possible exclusively, while assessing for continued leakage and allowing excoriated skin around the stoma site to heal. 3. Call IR if further questions. Ordered By: ELENA DENNISON Interpreted By: Oli Luther MD, 01/03/2025 3:05 PM Narrative 01/03/2025 3:11 PM CDT [facility] [address] [place], [place] [address] Procedure: Conversion of gastrostomy to gastrojejunostomy tube. Exam date and time: 01/03/2025 3:05 PM Indication: 39 years old Male. Cerebral palsy. Chronic indwelling gastrostomy tube with the continued leakage. Reported diagnosis of gastroparesis. Plan for conversion of the gastrostomy to gastrojejunostomy tube. Comparison: CT chest abdomen pelvis 12/31/2024 Procedure technique and findings: Informed verbal and written consent was obtained and the patient medical power of mold maker apprentice. The procedure was discussed and explained including the rationale, alternatives, benefits and risks including but not limited to infection, bleeding, damage to the bowel and adjacent structures and inability to convert the G-tube to a GJ tube. Patient was brought to the fluoroscopy suite and placed supine on the procedure table. Timeout was performed. Continuous cardiorespiratory monitoring was performed by the interventional radiology nurse during pulse, blood pressure and oxygen saturation under supervision of the interventional radiologist. Total intraprocedure [id number] time with the radiologist was 10 minutes. Maximum sterile barrier technique including hand wash with soap and water, was employed for the procedure. The patient's anterior abdomen and indwelling tube were prepped and draped in standard sterile fashion. The indwelling G-tube balloon was deflated and the catheter removed without resistance. A 5 Mozambican 40 cm Kumpe catheter was negotiated through the stoma and contrast injected outlining the gastric rugae. The catheter and Glidewire were negotiated through the pylorus into the duodenum and then the proximal jejunum, being exchanged for a longer 65 cm length angled catheter and then a stiff Glidewire. The catheter was removed and a new 24 Mozamb[place] 45 cm ALDO balloon retention gastrojejunostomy tube advanced over the Glidewire and a 4 Mozambican glide catheter into the jejunum. The wire was removed and contrast injected through both the gastric and jejunal ports confirming successful satisfactory positioning of the wire without any loops or kinks. 9 mL mL of sterile water was placed within the retention balloon. Images retracted against the stomach, abdominal wall. The retaining silicone disc was pushed down and secured around the tube with a suture tie. Patient tolerated the procedure well without any complication and was discharged home from the fluoroscopy in good condition. Body Coverer: Dr. Luther Radiation: Patient's radiation exposure - Reference Air Kerma (Ka,r) 42.75 mGy for this procedure. Procedure Note Oli Luther MD - 01/03/[address] [address] Procedure: Conversion of gastrostomy to gastrojejunostomy tube. Exam date and time: 01/03/2025 3:05 PM Indication: 39 years old Male. Cerebral palsy. Chronic indwellinggastrostomy tube with the continued leakage. Reported diagnosis ofgastroparesis. Plan for conversion of the gastrostomy to gastrojejunostomytube. Comparison: CT chest abdomen pelvis 12/31/2024 Procedure technique and findings: Informed verbal and written consent was obtained and the patient medicalpower of mold maker apprentice. The procedure was discussed and explained including therationale, alternatives, benefits and risks including but not limited toinfection, bleeding, damage to the bowel and adjacent structures andinability to convert the G-tube to a GJ tube. Patient was brought to the fluoroscopy suite and placed supine on theprocedure table. Timeout was performed. Continuous cardiorespiratory monitoring wasperformed by the interventional radiology nurse during pulse, bloodpressure and oxygen saturation under supervision of the interventionalradiologist. Total intraprocedure [id number] time with the radiologist was 10minutes. Maximum sterile barrier technique including hand wash with soap and water,was employed for the procedure. The patient's anterior abdomen andindwelling tube were prepped and draped in standard sterile fashion. The indwelling G-tube balloon was deflated and the catheter removedwithout resistance. A 5 Mozambican 40 cm Kumpe catheter was negotiated throughthe stoma and contrast injected outlining the gastric rugae. The catheterand Glidewire were negotiated through the pylorus into the duodenum andthen the proximal jejunum, being exchanged for a longer 65 cm lengthangled catheter and then a stiff Glidewire. The catheter was removed and anew 24 Mozambican 45 cm ALDO balloon retention gastrojejunostomy tube advancedover the Glidewire and a 4 Mozambican glide catheter into the jejunum. Thewire was removed and contrast injected through both the gastric andjejunal ports confirming successful satisfactory positioning of the wirewithout any loops or kinks. 9 mL mL of sterile water was placed within the retention balloon. Imagesretracted against the stomach, abdominal wall. The retaining silicone discwas pushed down and secured around the tube with a suture tie. Patient tolerated the procedure well without any complication and wasdischarged home from the fluoroscopy in good condition. Body Coverer: Dr. Luther Radiation: Patient's radiation exposure - Reference Air Kerma (Ka,r) 42.75mGy for this procedure. IMPRESSION: 1. Procedure note for technically successful conversion of a chronicindwelling gastrostomy tube for a new new 24 Mozambican 45 cmgastrojejunostomy 2. Tube can be used immediately. Recommend using the jejunostomy tube atleast initially as much as possible exclusively, while assessing forcontinued leakage and allowing excoriated skin around the stoma site toheal. 3. Call IR if further questions. Ordered By: ELENA DENNISON Interpreted By: Oli Luther MD, 01/03/2025 3:05 PM us Elena Dennison DO INTERVENTIONAL RADIOLOGY Final Result * PARTIAL THROMBOPLASTIN TIME,PTT (01/03/2025 9:20 AM CDT) PTT 29.9 25.1 - 36.5 SEC 01/03/2025 10:04 AM CDT [facility] 01/03/2025 9:20 AM CDT us Oli Luther MD LABORATORY Final Result Performing Organization Address City/[facility]/ZIP Co de Phone Number [facility] [address] [place] [address], * PROTIME/INR, VENOUS (01/03/2025 9:20 AM CDT) PROTIME 12.2 10.2 - 12.9 SEC 01/03/2025 10:04 AM CDT [facility] INR 1.0 01/03/2025 10:04 AM CDT [facility] Comment: Recommended INR Therapeutic Goals: 2.0-3.0 Routine Therapy 2.5-3.5 Mechanical Prosthetic Valves (High Risk) 01/03/2025 9:20 AM CDT us Oli Luther MD LABORATORY Final Result Performing Organization Address City/[facility]/ZIP Co de Phone Number [facility] [address] [place] [address], * PROCALCITONIN (PCT) (12/31/2024 7:10 AM CDT) PROCALCITONIN 0.27 0.00 - 0.49 NG/ML 12/31/2024 11:47 AM CDT [facility] 12/31/2024 7:10 AM CDT us Elena Dennison DO LABORATORY Final Res ult Performing Organization Address City/[facility]/ZIP Co de Phone Number [facility] [address] [place] [address], * HEMOGLOBIN, GLYCOSYLATED (12/31/2024 7:10 AM CDT) HGB A1C 5.5 <5.7 % 12/31/2024 9:24 AM CDT [facility] Comment: ADA GUIDELINES 2010 5.7 TO 6.4% INCREASED RISK OF DIABETES > OR = 6.5% CONSISTENT WITH DIABETES ESTIMATED AVG GLUCOSE 111 mg/dL 12/31/2024 9:24 AM CDT [facility] 12/31/2024 7:10 AM CDT Flip Pierre NP LABORATORY Final Result Performing Organization Address [facility] Co de Phone Number [facility] [address] [place] [address], * CT CHEST+ABD+PEL W CON (12/31/2024 12:13 AM CDT) Anatomical Region Laterality Modality Chest, Abdomen, Pelvis Computed Tomography 12/31/2024 4:01 PM CDT Impressions 12/31/2024 4:18 PM CDT Impression: 1. Gastric wall thickening and mucosal hyperenhancement raising concern for gastritis. 2. Gastrostomy tube appears properly positioned within the stomach. No free fluid or free air is seen. 3. Mild colonic diverticulosis without evidence for acute diverticulitis. Moderate colonic stool burden. 4. Tiny enhancing focus versus adherent stone noted within the urinary bladder. Recommend correlation with cystoscopy. Ordered By: MONIE CISNEROS Interpreted By: Prateek Pagan MD, 12/31/2024 4:01 PM Narrative 12/31/2024 4:18 PM CDT [facility] [address] [place], [place] [address] Procedure: CT chest, abdomen and pelvis with IV Contrast Comparison: None available Indication: Sepsis of unknown origin, G tube leaking contents, history of aspiration Technique: CT imaging was performed of the chest, abdomen, and pelvis following the administration of intravenous contrast. Iodinated contrast was used due to the indications for the examination, to improve disease detection and to further define anatomy. 3-D maximal intensity projection (MIP) reconstructions of the chest were performed to potentially increase study sensitivity. Coronal and sagittal images were also generated and reviewed. A dose lowering technique was utilized for this procedure which may include but is not limited to dose reduction techniques, automated exposure control, and/or the use of iterative reconstruction in accordance with ALARA principle. Findings: Evaluation is limited by motion artifact and streak artifact from the patient's thoracolumbar spinal fusion hardware, decreasing study sensitivity. Chest: - Chest wall and Thoracic Inlet: No masses or lymphadenopathy. - Mediastinum and Syeda: No masses or lymphadenopathy. - Thoracic Vessels: Normal caliber of the thoracic aorta and main pulmonary artery. - Heart and Pericardium: Normal heart size. No pericardial effusion. - Lungs and Airways: Mild bibasilar subsegmental atelectasis. No focal consolidation. - Pleura: No pleural effusions. Abdomen and pelvis: - Liver: Normal in morphology and enhancement. No suspicious hepatic masses are identified. The portal and hepatic veins are patent. - Biliary and Gallbladder: No intrahepatic or extrahepatic biliary ductal dilatation. The gallbladder is unremarkable. - Spleen: Normal in appearance. - Pancreas: Normal in appearance. - Adrenal Glands: Normal in appearance. - Kidneys: Symmetric in size and enhancement. No suspicious renal lesions. No hydronephrosis. - Abdominal and Pelvic Vasculature: No abdominal aortic aneurysm. - Gastrointestinal Tract: Gastrostomy tube appears appropriately positioned within the stomach. No free fluid or free air is seen. To the left of the gastrostomy tube tract there is a second soft tissue tracts seen to the skin surface on axial image 137. This is favored to reflect an old gastrostomy tube tract. No contained fluid or air is seen. There is gastric wall thickening and mucosal hyperenhancement seen raising concern for gastritis. Mild colonic diverticulosis without evidence for acute diverticulitis. Moderate colonic stool burden. The appendix is not definitively visualized. No pericecal inflammatory changes seen to suggest acute appendicitis. - Peritoneum/Mesentery/Retroperitoneum: No free fluid. No free intraperitoneal air. - Lymph Nodes: No retroperitoneal, mesenteric, or pelvic lymphadenopathy. - Bladder: Tiny punctate hyperattenuating focus versus adherent stone noted within the right posterior aspect of the urinary bladder. Recommend correlation with cystoscopy. - Pelvic Organs: Unremarkable. - Body Wall: Mild subcutaneous dependent edema without discrete fluid collection. - Musculoskeletal: No aggressive appearing osseous lesions. Postsurgical changes of thoracolumbar spinal fusion hardware with associated streak artifact. There is dextroscoliosis of the thoracolumbar spine. Procedure Note Prateek Pagan MD - 12/31/[address] [address] Procedure: CT chest, abdomen and pelvis with IV Contrast Comparison: None available Indication: Sepsis of unknown origin, G tube leaking contents, history ofaspiration Technique: CT imaging was performed of the chest, abdomen, and pelvisfollowing the administration of intravenous contrast. Iodinated contrastwas used due to the indications for the examination, to improve diseasedetection and to further define anatomy. 3-D maximal intensityprojection (MIP) reconstructions of the chest were performed topotentially increase study sensitivity. Coronal and sagittal images werealso generated and reviewed. A dose lowering technique was utilized forthis procedure which may include but is not limited to dose reductiontechniques, automated exposure control, and/or the use of iterativereconstruction in accordance with ALARA principle. Findings: Evaluation is limited by motion artifact and streak artifact from thepatient's thoracolumbar spinal fusion hardware, decreasing studysensitivity. Chest: - Chest wall and Thoracic Inlet: No masses or lymphadenopathy. - Mediastinum and Syeda: No masses or lymphadenopathy. - Thoracic Vessels: Normal caliber of the thoracic aorta and mainpulmonary artery. - Heart and Pericardium: Normal heart size. No pericardial effusion. - Lungs and Airways: Mild bibasilar subsegmental atelectasis. No focalconsolidation. - Pleura: No pleural effusions. Abdomen and pelvis: - Liver: Normal in morphology and enhancement. No suspicious hepaticmasses are identified. The portal and hepatic veins are patent. - Biliary and Gallbladder: No intrahepatic or extrahepatic biliary ductaldilatation. The gallbladder is unremarkable. - Spleen: Normal in appearance. - Pancreas: Normal in appearance. - Adrenal Glands: Normal in appearance. - Kidneys: Symmetric in size and enhancement. No suspicious renallesions. No hydronephrosis. - Abdominal and Pelvic Vasculature: No abdominal aortic aneurysm. - Gastrointestinal Tract: Gastrostomy tube appears appropriatelypositioned within the stomach. No free fluid or free air is seen. To theleft of the gastrostomy tube tract there is a second soft tissue tractsseen to the skin surface on axial image 137. This is favored to reflect anold gastrostomy tube tract. No contained fluid or air is seen. There isgastric wall thickening and mucosal hyperenhancement seen raising concernfor gastritis. Mild colonic diverticulosis without evidence for acutediverticulitis. Moderate colonic stool burden. The appendix is notdefinitively visualized. No pericecal inflammatory changes seen to suggestacute appendicitis. - Peritoneum/Mesentery/Retroperitoneum: No free fluid. No freeintraperitoneal air. - Lymph Nodes: No retroperitoneal, mesenteric, or pelviclymphadenopathy. - Bladder: Tiny punctate hyperattenuating focus versus adherent stonenoted within the right posterior aspect of the urinary bladder. Recommendcorrelation with cystoscopy. - Pelvic Organs: Unremarkable. - Body Wall: Mild subcutaneous dependent edema without discrete fluidcollection. - Musculoskeletal: No aggressive appearing osseous lesions. Postsurgicalchanges of thoracolumbar spinal fusion hardware with associated streakartifact. There is dextroscoliosis of the thoracolumbar spine. Impression: 1. Gastric wall thickening and mucosal hyperenhancement raising concernfor gastritis. 2. Gastrostomy tube appears properly positioned within the stomach. Nofree fluid or free air is seen. 3. Mild colonic diverticulosis without evidence for acute diverticulitis.Moderate colonic stool burden. 4. Tiny enhancing focus versus adherent stone noted within the urinarybladder. Recommend correlation with cystoscopy. Ordered By: MONIE CISNEROS Interpreted By: Prateek Pagan MD, 12/31/2024 4:01 PM us Monie Cisneros MD CT Final Resu lt * RESPIRATORY PCR PANEL 2 (12/30/2024 11:02 PM CDT) [facility] ADENOVIRUS PCR (RESP) NOT DETECTED NOT DETECTED 12/31/2024 12:44 AM CDT [facility] CORONAVIRUS 229E PCR (RESP) NOT DETECTED NOT DETECTED 12/31/2024 12:44 AM CDT [facility] CORONAVIRUS HKU1 PCR (RESP) NOT DETECTED NOT DETECTED 12/31/2024 12:44 AM CDT [facility] CORONAVIRUS NL63 PCR (RESP) NOT DETECTED NOT DETECTED 12/31/2024 12:44 AM CDT [facility] CORONAVIRUS OC43 PCR (RESP) NOT DETECTED NOT DETECTED 12/31/2024 12:44 AM CDT [facility] METAPNEUMOVIRUS PCR (RESP) NOT DETECTED NOT DETECTED 12/31/2024 12:44 AM CDT [facility] RHINOVIRUS/ENTEROV IRUS PCR (RESP) NOT DETECTED NOT DETECTED 12/31/2024 12:44 AM CDT [facility] INFLUENZA A PCR (RESP) NOT DETECTED NOT DETECTED 12/31/2024 12:44 AM CDT [facility] INFLUENZA B PCR (RESP) NOT DETECTED NOT DETECTED 12/31/2024 12:44 AM CDT [facility] PARAINFLUENZA 1 PCR (RESP) NOT DETECTED NOT DETECTED 12/31/2024 12:44 AM CDT [facility] PARAINFLUENZA 2 PCR (RESP) NOT DETECTED NOT DETECTED 12/31/2024 12:44 AM CDT [facility] PARAINFLUENZA 3 PCR (RESP) NOT DETECTED NOT DETECTED 12/31/2024 12:44 AM CDT [facility] PARAINFLUENZA 4 PCR (RESP) NOT DETECTED NOT DETECTED 12/31/2024 12:44 AM CDT [facility] RSV PCR (RESP) NOT DETECTED NOT DETECTED 12/31/2024 12:44 AM CDT [facility] B PARAPERTUSIS PCR (RESP) NOT DETECTED NOT DETECTED 12/31/2024 12:44 AM CDT [facility] BORDETELLA PERTUSSIS PCR (RESP) NOT DETECTED NOT DETECTED 12/31/2024 12:44 AM CDT [facility] CHLAMYDOPHILA PNEUMONIAE PCR (RESP) NOT DETECTED NOT DETECTED 12/31/2024 12:44 AM CDT [facility] MYCOPLASMA PNEUMONIAE PCR (RESP) NOT DETECTED NOT DETECTED 12/31/2024 12:44 AM CDT [facility] CORONAVIRUS SARS COV 2 PCR (RESP) NOT DETECTED NOT DETECTED 12/31/2024 12:44 AM CDT [facility] NASOPHARYNGEAL SWAB / Unknown 12/30/2024 11:02 PM CDT Flip Pierre NP MICROBIOLOGY - GENERAL ORDERAB LES Final Result [facility] [address] [place] [address], [place] [phone] * CULTURE URINE (12/30/2024 2:55 PM CDT) SPEC DESCRIPTION URINE STRAIGHT CATH 12/30/2024 2:56 PM CDT [facility] SPECIAL REQUESTS NO SPECIAL REQUEST 12/30/2024 2:56 PM CDT [facility] CULTURE RESULT NO GROWTH 2 DAYS 01/01/2025 7:37 AM CDT [facility] URINE SPECIMEN OBTAINED BY SINGLE CATHETERIZATION OF URINARY BLADDER / Unknown 12/30/2024 2:55 PM CDT 12/30/2024 3:21 PM CDT us Federico Matthews MD MICROBIOLOGY - GENERAL ORDERAB LES Final Result Performing Organization Address City/[facility]/ZIP Co de Phone Number [facility] [address] [place] [address], [place] [phone] * LACTIC ACID W REFLEX (SEPSIS) (12/30/2024 1:06 PM CDT) LACTIC ACID VENOUS 1.9 0.4 - 2.0 MMOL/L 12/30/2024 1:44 PM CDT [facility] 12/30/2024 1:0 6 PM CDT Federico Matthews MD LABORATORY Final Result Performing Organization Address [facility] Co de Phone Number [facility] [address] [place] [address], [place] [phone] * CULTURE, BACTERIA, BLOOD (12/30/2024 1:06 PM CDT) Only the most recent of2 resultswithin the time period is included. SPEC DESCRIPTION BLOOD 12/31/19 1:15 PM CDT [facility] SPECIAL REQUESTS RHAND 12/31/19 1:15 PM CDT [facility] CULTURE RESULT NO GROWTH 5 DAYS 01/04/2025 2:14 PM CDT [facility] BLOOD SPECIMEN OBTAINED FOR BLOOD CULTURE / Unknown 12/30/2024 1:06 PM CDT 12/30/2024 1:14 PM CDT us Federico Matthews MD MICROBIOLOGY - GENERAL ORDERAB LES Final Result Performing Organization Address City/[facility]/ZIP Co de Phone Number [facility] [address] [place] [address], [place] [phone] * TSH W/REFLEX (12/30/2024 1:05 PM CDT) TSH 0.833 0.358 - 3.74 uIU/ML 12/30/2024 7:48 PM CDT [facility] Comment: HIGH DOSES OF BIOTIN MAY INTERFERE WITH THIS TEST RESULT. CORRELATION TO CLINICAL HISTORY AND PRESENTATION RECOMMENDED. FREE T4 NOT INDICATED 12/30/2024 1:05 PM CDT Flip Pierre NP LABORATORY Final Result [facility] [address] [place] [address], [place] [phone] * TROPONIN, QUANT (12/30/2024 1:05 PM CDT) Pathologist [facility] TROPONIN I HIGH SENSITIVITY 5 <79 ng/L 12/30/2024 2:28 PM CDT [facility] Comment: HIGH DOSES OF BIOTIN, TROPONIN-SPECIFIC AUTOANTIBODIES, AND ANTIBODY THERAPY CONTAINING HAMA MAY INTERFERE WITH THIS TEST RESULT. CORRELATION TO CLINICAL HISTORY AND PRESENTATION RECOMMENDED. 12/30/2024 1:05 PM CDT Federico Matthews MD LABORATORY Final Result [facility] [address] [place] [address], [place] [phone] from Last 3 Months Insurance MEDICARE Advance Directives * Full Code (Latest Code Status on File) Date Activated Date Inactivated Comments 12/30/2024 4:42 PM 01/08/2025 1:14 PM Healthcare Agents on File Name Relationship Healthcare Agent [facility] Communication Ok [facility] Care Agent Care Teams Hot Patcher Relationship Specialty Start Date End Date Vicky Torres MD [address] [place] [id number] PCP - General FAMILY PRACTICE 12/19/24
--- OUTSIDE RECORDS SUMMARY | 2025-01-14 15:01 | XMS_ITS | Encounter Summary ---
Author Organization [facility] Address [facility] access hospital[address] [place] [address] Care Team Providers Care Math Tutor Name Role Phone Vicky Torres MD Primary Care Provider + Encounter Details Date Type Department Care Team (Late st Contact Info) Description 12/25/2012 Abstract [facility] CONVERSION [address] [place] [address] , Generic Conversion, Social History Tobacco Use [...] Diagnoses Not on filedocumented in this encounter Additional Health Concerns Infection Onset Date Last Indicated Resolved Time Respiratory Rule Out 12/30/2024 12/30/2024 025 12:45 AM CDT documented as of this encounter Care Teams Math Tutor Relationship Specialty Start Date End Date Vicky Torres MD [address] [place] [address] PCP - General FAMILY PRACTICE 12/19/24 documented as of this encounter
--- OUTSIDE RECORDS SUMMARY | 2025-01-14 15:01 | XMS_ITS | Clinical Summary ---
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 MOLD TECHNICIAN Gender Identity Not on file Sexual Orientation Not on file Obstetrics History Last Filed Vital Signs Vital Sign Reading Time Taken Comments Blood Pressure 124/74 04/27/2023 1:34 PM SET UP MOLD TECHNICIAN Pulse 103 04/27/2023 1:34 PM SET UP MOLD TECHNICIAN Temperature 36.5 C (97.7 F) 04/27/2023 1:20 PM SET UP MOLD TECHNICIAN Respiratory Rate 20 04/27/2023 1:34 PM SET UP MOLD TECHNICIAN Oxygen Saturation 93% 04/27/2023 1:34 PM SET UP MOLD TECHNICIAN Inhaled Oxygen Concentration - - Weight 44.5 kg (98 lb) 04/27/2023 11:00 AM SET UP MOLD TECHNICIAN Height 157.5 cm (5' 2) 04/27/2023 11:00 AM SET UP MOLD TECHNICIAN Body Mass Index 17.92 04/27/2023 11:00 AM SET UP MOLD TECHNICIAN Plan of Treatment Health Maintenance Due [...] age to complete this topic Insurance MEDICARE [place] MEDICARE [facility] Address: [id number] [place] [id number] [facility] Advance Directives For more information, please contact: [phone] Documents on File Type Date Recorded Patient Field Case Manager Expl anation ADVANCE DIRECTIVE 04/24/2023 10:30 AM EVIN R OF CONTACT CENTER SPECIALIST-MEDICAL Advance Directives and Living Will 03/13/2023 9:46 AM * Full Code (Latest Code Status on File) Date Activated Date Inactivated Comments 04/27/2023 10:55 AM 04/27/2023 6:06 PM Care Teams Director Biologics Relationship Specialty Start Date End Date Amrik Ackerman MD PCP - General Family Practice 11/24/22
== END 2025-01-14 13:21 ==
PROVIDERS: Emergency Provider Student in an Organized Health Care Education/Training Program; PCP Family Medicine
DX: Z43.4 Encounter for attention to other artificial openings of digestive tract (principal); G80.9 Cerebral palsy, unspecified; G93.49 Other encephalopathy; G40.909 Epilepsy, unspecified, not intractable, without status epilepticus; F41.9 Anxiety disorder, unspecified; Z98.1 Arthrodesis status; Z99.3 Dependence on wheelchair; Z79.899 Other long term (current) drug therapy
CPT/HCPCS: 51702; 99283

== ENCOUNTER 2025-01-15 13:07 | Outpatient (CLI) | payer MEDICARE, SELFPAY ==
[2025-01-14 14:49] VITALS: BMI 20.1
--- NOTE | 2025-01-15 08:23 | SUR.PREOP ---
Spoke with a friend of Rahat yesterday who has been taking care of Dallas while his Mom was sick prior to her passing. James helped care for Dallas after his Mom's and facilitated getting him placed in a care facility. James told me yesterday that he is meeting with the staff at [facility] to arrange POA paperwork since neither of Dallas's aunts Elsa or Mariela wanted the responsibility. James said he plans on being Dallas's back up POA since Dallas's brother in the and at times he is unable to be reach due to his job responsibilities. James would then be called in the event the brother cannot be reached. I have spoken to James several times in the last couple of weeks in regards to Dallas and his Gastrostomy tube issues. Today, we will plan on getting consent to replace Dallas's gastrostomy tube from James if we are unable reach the brother.
[2025-01-15 13:55] VITALS: BP 106/68; PULSE 107; RESP 18; TEMP 36.6; O2SAT 95
--- NOTE | 2025-01-15 14:06 | SUR.PREOP ---
Consent was obtained from James Hernández this morning. 24 SPANISH DURHAM- removed by DC BOWEN- 20 ml in catheter balloon Drain gauze placed around gastrostomy tube post procedure. Times - 1400 Time Out Called:1400 Procedure Start: 1401 Procedure End: 1403 Position and Devices - N/A Position: personal wheelchair Positioning Devices: N/A Pre-Procedure Assessment - Site and Procedure Verified w Patient and/or Others as Appropriate:YES Verification Coincides w Consent, H&P, Endoscopy Schedule, and Pre-Op Orders:YES X-Rays/Imaging Studies in Room and/or Implants on Site: YES Verified Operative Side Marked YES When Applicable: N/A Preop Assessment Completed By: RODERICK Time Out - 1400 Entire Operative Team Participates and Confirms: YES Correct Patient, Procedure, Side/Site and Position: YES Availability of Implants, Special Equipment and Requests:YES Preop Antibiotics Given within 1 Hour of Incision: N/A Assessment of Skin Prep Dry Time: N/A Prep = Surgery Prep Solution: Site Prepped: Prepped By: Staff - Director Of Golf:JOSE Reproduction Artist: Non Pharmacy Medications - Time: Name: Strength: Dose: Route: Site: Given By: Lot Number: Expiration Date: Actual Procedures - Description:GASTROSTOMY TUBE REPLACEMENT Side: Wound Class: Surgeon: FRANCIS Severity: Preop Diagnosis:GASTROSTOMY TUBE REPLACEMENT Postop Diagnosis:GASTROSTOMY TUBE REPLACEMENT Transfer Data - Destination: HOME- HALF-WAY Transfer Method: PERSONAL WHEELCHAIR Complications:N/A [place] Events: Report Given To: RN AT [facility] Completed Date/Time:01-15-25 Completed By:RODERICK
--- NOTE | 2025-01-15 14:22 | SUR.PREOP ---
Called James to give him update on Dallas's status and success of g-tube. Let him know Dallas was on his way back to [facility]. James was grateful for the call and said he was going to see Dallas on Monday.
--- NOTE | 2025-01-15 16:12 | PM.HPGS ---
History of Present Illness History of Present Illness Consent: Risks, benefits, and alternatives have been discussed and questions answered. Patient agrees to proceed with procedure. Chief complaint: gastrostomy tube dislodged/pulled out. Narrative: Dallas Slaughter is a 39 year old male with cerebral palsy for which we had been exchanging his G-tube every 3-4 months but came out so he came to ER and darby was placed, here to have 24 Fr size placed. Review of Systems Review of Systems: All systems reviewed & are unremarkable except as noted in HPI and below PMFSH Past Medical History Medical History Static encephalopathy Hematemesis Urinary retention Esophagitis with gastritis History of GI bleed Anxiety Dysphagia Chronic. G-tube in place. History of pulmonary aspiration Seizure disorder Cerebral palsy Surgical History Surgical History History of orthopedic surgery Multiple surgeries related to his cerebra palsy including tendon surgeries and Green transfer. History of spinal fusion Gastrointestinal tube present Family History Family History Father Family history of elevated blood lipids Family history of diabetes mellitus in first degree relative Hypertension Chronic obstructive pulmonary disease Other Lung cancer Social History Social History Social History: Surrogate decision maker: Leonora Slaughter, mother. Code status: Full code. Smoking status: Never smoker Second hand tobacco smoke exposure: No Alcohol intake: never Substance use: never Substance use type: does not use Do You Feel Safe in your Home?: Yes Lack of Transportation: No Lack of Food: Never True Current Housing: I Have Housing Concerned About Future Housing: No Difficulty Paying Gas/Electric Bills: No Difficulty Paying for Meds: No Currently Unemployed: No Education: Don't Know Difficulty w/ Childcare or Family Care: No Living arrangements: with family Additional living arrangements comments: The patient lives with his mother and brother in [place]. His father in November 2022. He is wheelchair-dependent and uses an electric wheelchair which he can manage quite nicely. In fact he likes to spend a lot of his time out in their pole [place] where they have cars and motorcycles, which he really enjoys. He is dependent on most activities of daily living.Mother is currently on Hospice and bedridden due to stage 4 brain cancer. Occupation/Education: unemployed Additional occupation/education comments: Disabled. Spiritual care concerns: No Meds Home Medications and Allergies Home Medications ?Medication ?Instructions ?Recorded ?Confirmed ?Type tizanidine 4 mg tablet See Rx Instructions .Route 06/27/24 01/14/25 Rx .COMPLEX #270 tabs prucalopride 2 mg tablet 2 mg PO DAILY #90 tabs 08/26/24 01/14/25 Rx (Motegrity) cetirizine 1 mg/mL oral solution See Rx Instructions .Route 09/23/24 01/15/25 Rx .COMPLEX #900 mL scopolamine base 1 mg over 3 days See Rx Instructions .Route 11/26/24 01/14/25 Rx transdermal patch .COMPLEX #36 patches omeprazole magnesium 10 mg oral 10 mg feeding tube DAILY #30 ea 12/02/24 01/14/25 Rx suspension,delayed release (Prilosec) docusate sodium 100 mg capsule 100 mg PO DAILY #14 caps 12/06/24 01/15/25 Rx (Colace) metoclopramide HCl 5 mg/5 mL oral See Rx Instructions .Route 12/23/24 01/15/25 Rx solution .COMPLEX #1,200 mL baclofen 20 mg tablet 20 mg feeding tube TID #90 tabs 01/14/25 01/15/25 Rx clorazepate dipotassium 3.75 mg 3.75 mg feeding tube TID #90 tabs 01/14/25 01/15/25 Rx tablet diazepam 5 mg tablet (Valium) 2.5 mg (1/2 x 5 mg) PO TID #60 tabs 01/14/25 01/15/25 Rx hepatitis B virus vacc.rec(PF) 20 1 ml IM ONCE 01/14/25 01/14/25 History mcg/mL intramuscular susp (Engerix-B (PF)) ondansetron HCl 4 mg tablet 4 mg PO Q6H 01/14/25 01/14/25 History valproic acid (as sodium salt) 250 See Rx Instructions .Route 01/14/25 01/14/25 Rx mg/5 mL oral solution .COMPLEX #300 mL acetaminophen 160 mg/5 mL oral 650 mg PO ONCE PRN pain 01/15/25 01/15/25 History elixir docusate sodium 50 mg/5 mL oral 100 mg PO BID 01/15/25 01/15/25 History liquid famotidine 40 mg/5 mL (8 mg/mL) 40 mg PO HS 01/15/25 01/15/25 History oral suspension hydrocodone 5 mg-acetaminophen 325 1 tablet feeding tube Q4H PRN pain 01/15/25 01/15/25 History mg tablet (scale score 4-7) lansoprazole 15 mg oral 15 mg PO DAILY 01/15/25 01/15/25 History suspension,delayed release Allergies Allergy/AdvReac Type Severity Reaction Status Date / Time Sulfa (Sulfonamide Allergy Unknown LIPS AND Verified 01/14/25 14:03 Antibiotics) GENITAL PEELING SKIN Vital Signs Vital Signs - 24 hr 01/15/25 13:55 Temperature 97.8 F Pulse Rate 107 H Respiratory Rate 18 Blood Pressure 106/68 Pulse Oximetry 95 Oxygen Delivery Room Air Exam Narrative: APPEARANCE: cerebral palsy Head: atraumatic. EYES: EOMI, NOSE: Atraumatic NECK: Trachea midline RESPIRATORY: No increased rate of breathing CARDIOVASCULAR: RRR, ABDOMINAL: darby is in place. Abdomen not tender with no guarding. MUSCULOSKELETAl: No obvious deformities NEURO: Alert. SKIN:: Warm, dry. Normal color PSYCHIATRIC: Normal affect Assessment and Plan Assessment and plan (1) PEG (percutaneous endoscopic gastrostomy) adjustment/replacement/removal: Code(s): Z43.1 - Encounter for attention to gastrostomy Status: Acute Assessment and Plan: will placed 24 fr g-tube as usual (2) Cerebral palsy: Qualifiers: Cerebral palsy type: unspecified type Qualified Code(s): G80.9 - Cerebral palsy, unspecified Code(s): G80.9 - Cerebral palsy, unspecified Status: Chronic
--- NOTE | 2025-01-15 16:14 | W.PM.PROC2 ---
Procedure Note - Detailed Date of Procedure 01/15/25 Pre-op Diagnosis gastrostomy tube dislodged/pulled out. Post-op Diagnosis Same Procedure Performed new g-tube placement Surgeon Carloz Valenzuela MD Anesthesia None Description of Procedure Previous darby was removed after removing 10cc of fluid from the internal balloon, darby is withdrawn and removed.? A new ALDO-CAMPBELL 24 Fr gastrostomy tube was replaced into the existing gastrocutaneous fistula.? The internal bumper is inflated with 5cc of sterile water.? Tolerated well.? He can resume tube feedings today. He is living at local nursing facility and staff can exchange it in 4 months otherwise we can do it again.
--- OUTSIDE RECORDS SUMMARY | 2025-01-15 16:38 | XMS_ITS | Clinical Summary ---
Author Organization [facility] Address [address] [place] [address] Care Team Providers Care Carpet Loom Fixer Name Role Phone Amrik Ackerman MD Primary Care Provider +1 [phone] Allergies No known active allergies Medications valproate [...] on file Legal Sex Male 12:19 PM CLINICAL LABORATORY SCIENTIST Gender Identity Not on file Sexual Orientation Not on file Obstetrics History Last Filed Vital Signs Vital Sign Reading Time Taken Comments Blood Pressure 124/74 04/27/2023 1:34 PM CLINICAL LABORATORY SCIENTIST Pulse 103 04/27/2023 1:34 PM CLINICAL LABORATORY SCIENTIST Temperature 36.5 C (97.7 F) 04/27/2023 1:20 PM CLINICAL LABORATORY SCIENTIST Respiratory Rate 20 04/27/2023 1:34 PM CLINICAL LABORATORY SCIENTIST Oxygen Saturation 93% 04/27/2023 1:34 PM CLINICAL LABORATORY SCIENTIST Inhaled Oxygen Concentration - - Weight 44.5 kg (98 lb) 04/27/2023 11:00 AM CLINICAL LABORATORY SCIENTIST Height 157.5 cm (5' 2) 04/27/2023 11:00 AM CLINICAL LABORATORY SCIENTIST Body Mass Index 17.92 04/27/2023 11:00 AM CLINICAL LABORATORY SCIENTIST Plan of Treatment Health Maintenance Due Date [...] age to complete this topic Insurance MEDICARE [place] MEDICARE [facility] Advance Directives For more information, please contact: [phone] Documents on File Type Date Recorded Patient Forest Practices Field Coordinator Expl anation ADVANCE DIRECTIVE 04/24/2023 10:30 AM EVIN R OF MILL OPERATOR-MEDICAL Advance Directives and Living Will 03/13/2023 9:46 AM * Full Code (Latest Code Status on File) Date Activated Date Inactivated Comments 04/27/2023 10:55 AM 04/27/2023 6:06 PM Care Teams Carpet Loom Fixer Relationship Specialty Start Date End Date Amrik Ackerman MD PCP - General Family Practice 11/24/22
--- OUTSIDE RECORDS SUMMARY | 2025-01-15 16:38 | XMS_ITS | Clinical Summary ---
Author Organization [facility] Address [address] [place] [address] Care Team Providers Care Director Human Services Name Role Phone Vicky Torres MD Primary [...] - 01/12/2025 11:59 PM CDT Hospital Encounter [facility] [address] [place] [address] Vicky Torres MD Discharge Disposition: Home or Self Care (Routine Discharge) 01/12/2025 Orders Only [facility] [address] [facility] [address] Vicky Torres MD 01/10/2025 10:38 AM CDT - 01/10/2025 3:34 PM CDT Emergency [facility] [place] [address] Olga Matthew DO Altered Mental Status Discharge Disposition: Peripheral Vascular Tech Care 01/10/2025 Travel 01/09/2025 9:53 AM CDT - 01/09/2025 3:22 PM CDT Emergency [facility] [place] [address] Ha Barbour MD Medical Problem Discharge Disposition: Home or Self Care (Routine Discharge) 01/09/2025 Travel 01/05/2025 Travel 12/30/2024 12:14 PM CDT - 01/08/2025 11:14 AM CDT [facility] [address] [place] [address] Federico Matthews MD Lamonica, MD Juma Monroe Stephanie L, DO Jerkovich, Adria, MD Bismack, MD Dorothea Gonzalez, Radha Bahena MD Vomiting Discharge Disposition: Retirement Facility 12/30/2024 Travel from Last 3 Months Immunizations Immunization Administration Dates Next Due Influenza (Generic) 02/11/2016 Influenza Adult (Generic) 01/21/2022,02/11/2021, 12/06/2014 Pneumococcal (Prevnar 20) 01/21/2022 Social History Tobacco Use Types Packs/Day Years Used Date Smoking Tobacco: Never Alcohol Use Standard Drinks/Week Comments Not Currently 0 (1 standard drink = 0.6 oz pur e alcohol) [facility] Utilities Answer Date Recorded In the past 12 months has [employer], gas, oil, or water [employer] threatened to shut off services in your [...] any time in the past 12 m [facility], were you homeless or living in a nursing home (including now)? No 12/31/2024 Sex and Gender [...] CDT RESPIRATORY PCR PANEL 2 Routine 12/31/19 11:02 PM CDT ELECTROCARDIOGRAM REPORT Routine 4:09 [...] (U) LIGHT YELLOW 01/12/2025 1:03 PM CDT [facility] TRANSPARENCY CLEAR 01/12/2025 1:03 PM CDT [facility] SPECIFIC GRAVITY (U) 1.010 1.002 - 1.030 01/12/2025 1:03 PM CDT [facility] U PH 7.0 4.5 - 8.0 01/12/2025 1:03 PM T [facility] LEUKOCYTES (U) NEGATIVE NEGATIVE 01/12/2025 1:03 PM CDT [facility] NITRITES NEGATIVE NEGATIVE 01/12/2025 1:03 PM T [facility] PROTEIN RANDOM (U) 2+(A) NEGATIVE 01/12/2025 1:03 PM T [facility] GLUCOSE (U) NEGATIVE NEGATIVE 01/12/2025 1:03 PM T [facility] KETONES MG/DL (U) NEGATIVE NEGATIVE 01/12/2025 1:03 PM CDT [facility] UROBILINOGEN NORMAL NORMAL EU/DL 01/12/2025 1:03 PM T [facility] BILIRUBIN (U) NEGATIVE NEGATIVE 01/12/2025 1:03 PM T [facility] BLOOD (U) 5+(A) NEGATIVE 01/12/2025 1:03 PM CDT [facility] WBC/HPF 0-5 /HPF 01/12/2025 1:03 PM CDT [facility] RBC/HPF 20-50 /HPF 01/12/2025 1:03 PM CDT [facility] EPI/HPF 0-5 /HPF 01/12/2025 1:03 PM CDT [facility] BACTERIA (U) 1+ /HPF 01/12/2025 1:03 PM CDT [facility] MUCUS 1+ 01/12/2025 1:03 PM CDT [facility] URINE SPECIMEN OBTAINED BY CLEAN CATCH PROCEDURE / Unknown 01/12/2025 5:00 AM CDT Vicky Sutherland MD URINE ORDERABLES Final R esult [facility] [address] [place] [address], [place] [phone] * URINE BACTERIA CULTURE (01/12/2025 5:00 AM CDT) Only the most recent of2 resultswithin the time period is included. SPEC DESCRIPTION URINE CLEAN CATCH 01/12/2025 12:46 PM CDT [facility] SPECIAL REQUESTS NO SPECIAL REQUEST 01/12/2025 12:46 PM CDT [facility] CULTURE RESULT NO GROWTH 2 DAYS 01/15/2025 7:03 AM CDT [facility] URINE SPECIMEN OBTAINED BY CLEAN CATCH PROCEDURE / Unknown 01/12/2025 5:00 AM CDT 01/12/2025 12:48 PM CDT Vicky Sutherland MD MICROBIOLOGY - GENERAL O RDERABLES Final Result [facility] [address] [place] [address], [place] [phone] [facility] [address] [place] [address], [place] [phone] * ECG 12 lead (01/10/2025 11:49 AM CDT) Only the most recent of3 resultswithin the time period is included. 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: [id number] : 1985 Requested By: OLGA MATTHEW Order Number: [id number] Reading MD: Andrey Anderson Measurements Intervals [place] Rate: 82 P: 42 ME: 147 QRS: 68 QRSD: 94 T: 62 QT: 345 QTc: 405 Interpretive Statements SINUS RHYTHM POSSIBLE LEFT ATRIAL ENLARGEMENT [-0.1mV P-WAVE IN V1/V2] POSSIBLE RIGHT VENTRICULAR CONDUCTION DELAY [RSR (QR) IN V1/V2] Compared to ECG 01/09/2025 10:49:13 Sinus bradycardia no longer present Procedure Note Andrey Anderson MD - 01/10/[address] [facility] [address] Test Date: 2025-01-10 Pat Name: RUTHANNLISBET VILLASENOR Department: 41 Room: [id number] 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 Machine: [id number] : 1985 Requested By: OLGA MATTHEW Order Number: [id number] Reading : Andrey Anderson Measurements Intervals [place] Rate: 82 P: 42 ME: 147 QRS: 68 QRSD: 94 T: 62 QT: 345 QTc: 405 Interpretive Statements SINUS RHYTHM POSSIBLE LEFT ATRIAL ENLARGEMENT [-0.1mV P-WAVE IN V1/V2] POSSIBLE RIGHT VENTRICULAR CONDUCTION DELAY [RSR (QR) IN V1/V2] Compared to ECG 01/09/2025 10:49:13 Sinus bradycardia no longer present us Olga Matthew DO ECG ORDERABLES Final Res ult [facility] * EKG Reading (01/10/2025 11:49 AM CDT) Only the most recent of2 resultswithin the time period is included. Narrative Olga Matthew DO - 01/10/2025 11:49 AM CDT Olga Matthew DO 01/10/2025 1:57 PM EKG Reading Date/Time: 01/10/2025 11:49 AM Performed by: Olga Matthew DO Authorized by: Olga Matthew DO Interpreted by ED physician Rhythm: sinus rhythm Rate: normal BPM: 82 QRS axis: normal Conduction: conduction normal Clinical impression: non-specific ECG Comments: Nonspecific ST segment changes Olga Matthew DO [facility] Final Result * XR [...] 11:34 AM Narrative 01/10/2025 11:34 AM CDT [address] [address] SINGLE VIEW OF THE CHEST Clinical history: Hypoxia Comparison: December 30, 2024 A single view of the chest demonstrates cardiomegaly which is stable. Postoperative changes of Mckeon rods are again noted within the thoracic and lumbar spine. The pulmonary vessels are normally distributed. The Lungs are clear. No consolidations or effusions are seen. Procedure Note Lazarus Borjas MD - 01/10/2025 [facility] [address] [place], [place] [address] SINGLE VIEW OF THE CHEST Clinical history: [...] of12 resultswithin the time period is included. GLUCOSE 172(H) 70 - 99 MG/DL 01/10/2025 11:27 AM CDT [facility] BUN 10 7 - 18 MG/DL 01/10/2025 11:27 AM CDT [facility] CREATININE S/P/B 0.72 0.7 - 1.3 MG/DL 01/10/2025 11:27 AM CDT [facility] SODIUM S/P/B 140 136 - 145 MMOL/L 01/10/2025 11:27 AM CDT [facility] POTASSIUM S/P/B 4.2 3.5 - 5.1 MMOL/L 01/10/2025 11:27 AM T [facility] CHLORIDE S/P/B 106 97 - 115 MMOL/L 01/10/2025 11:27 AM T [facility] CO2 28.6 21 - 32 MMOL/L 01/10/2025 11:27 AM T [facility] CALCIUM S/P/B 8.9 8.5 - 10.1 MG/DL 01/10/2025 11:27 AM CDT [facility] BILIRUBIN TOTAL S/P/B 0.2 0.2 - 1.2 MG/DL 01/10/2025 11:27 AM T [facility] Comment: THIS ASSAY IS NOT RECOMMENDED FOR PATIENTS UNDERGOING TREATMENT WITH ELTROMBOPAG DUE TO THE POTENTIAL FOR FALSELY ELEVATED RESULTS. TOTAL PROTEIN S/P/B 6.5 6.4 - 8.2 G/DL 01/10/2025 11:27 AM T [facility] ALBUMIN S/P/B 2.6(L) 3.4 - 5.0 G/DL 01/10/2025 11:27 AM T [facility] AST 15 15 - 37 U/L 01/10/2025 11:27 AM T [facility] ALT 38 16 - 60 U/L 01/10/2025 11:27 AM T [facility] ALKALINE PHOSPHATASE S/P/B 82 50 - 136 U/L 01/10/2025 11:27 AM T [facility] ANION GAP 5.4 2 - 10 MMOL/L 01/10/2025 11:27 AM T [facility] BUN CREATININE RATIO 13.9 6 - 26 01/10/2025 11:27 AM T [facility] A/G RATIO 0.7(L) 1.0 - 2.0 RATIO 01/10/2025 11:27 AM CDT [facility] GFR ESTIMATE >90 >90 ML/MIN/1.7 3 M2 01/10/2025 11:27 AM CDT [facility] Comment: NOTE: eGFR is not calculated for patients <18 years of age or gender unknown. This is an estimated GFR calculation using the new CKD EPI creatinine equation without race and so does not require a correction factor for race. This estimated GFR should not be used for calculating drug doses. 01/10/2025 10:5 2 AM CDT us Olga Matthew DO LABORATORY Final Res ult [facility] [address] [place] [address], [place] [phone] * (ABNORMAL) CBC W/DIFF AUTOMATED (01/10/2025 10:52 AM CDT) Only the most recent of12 resultswithin the time period is included. WBC 10.43 4.5 - 11.0 x10'3/uL 01/10/2025 11:03 AM CDT [facility] RBC 3.89(L) 4.70 - 6.10 x10'6/uL 01/10/2025 11:03 AM CDT [facility] HGB 12.3(L) 14.0 - 18.0 G/DL 01/10/2025 11:03 AM CDT [facility] HCT 36.1(L) 43.0 - 54.0 % 01/10/2025 11:03 AM CDT [facility] MCV 92.8 80.0 - 94.0 FL 01/10/2025 11:03 AM CDT [facility] MCH 31.6(H) 27.0 - 31.0 PG 01/10/2025 11:03 AM CDT [facility] MCHC 34.1 32.0 - 36.0 G/DL 01/10/2025 11:03 AM T [facility] RDW 13.3 11.5 - 14.5 % 01/10/2025 11:03 AM T [facility] PLT 415(H) 130 - 400 x10'3/uL 01/10/2025 11:03 AM T [facility] MPV 9.4 9.3 - 12.2 FL 01/10/2025 11:03 AM T [facility] DIFFERENTIAL TYPE AUTOMATED DIFFERENTIAL 01/10/2025 11:03 AM T [facility] NEUTROPHILS % 67.3 % 01/10/2025 11:03 AM T [facility] LYMPHOCYTES % 20.8 % 01/10/2025 11:03 AM T [facility] MONOCYTES % 10.8 % 01/10/2025 11:03 AM T [facility] EOSINOPHILS 0.2 % 01/10/2025 11:03 AM T [facility] BASOPHILS 0.2 % 01/10/2025 11:03 AM T [facility] IMMATURE GRANS % 0.7 % 01/11/20 11:03 AM T [facility] ABS. NEUTROPHILS 7.02 1.80 - 7.70 x10'3/uL 01/10/2025 11:03 AM T [facility] ABS. LYMPHOCYTES 2.17 1.00 - 4.80 x10'3/uL 01/10/2025 11:03 AM T [facility] ABS. MONOCYTES 1.13(H) 0.30 - 0.82 x10'3/uL 01/10/2025 11:03 AM CDT [facility] ABS. EOSINOPHILS 0.02(L) 0.04 - 0.54 x10'3/uL 01/10/2025 11:03 AM CDT [facility] ABS. BASOPHILS 0.02 0.01 - 0.08 x10'3/uL 01/10/2025 11:03 AM CDT [facility] ABS. IMMATURE GRANULOCYTES 0.07 0.00 - 0.49 x10'3/uL 01/10/2025 11:03 AM CDT [facility] 01/10/2025 10:5 2 AM CDT Olga Matthew DO LABORATORY Final Res ult [facility] [address] [place] [address], * CT HEAD WO CON (01/09/2025 10:39 [...] 11:08 AM Narrative 01/09/2025 11:14 AM CDT [facility] [address] [place], [place] [address] EXAMINATION: Head CT without contrast 01/09/2025 INDICATION: [...] Procedure Note Raul Naqvi MD - 01/09/2025 [facility] [address] [place], [place] [address] EXAMINATION: Head CT without contrast 01/09/2025 INDICATION: [...] VALPROIC ACID (01/09/2025 10:17 AM CDT) Pathologist [facility] VALPROIC ACID 58.2 50 - 100 MCG/ML 01/09/2025 10:55 AM CDT [facility] Comment: THERAPEUTIC: 50-100 TOXIC: >150 DOSE UNKNOWN LAST DOSE 01/09/2025 10:56 AM CDT [facility] 01/09/2025 10:1 7 AM CDT Ha Barbour MD LABORATORY Final Result Performing Organization Address [facility]/ZIP Co de Phone Number [facility] [address] [place] [address], [place] [phone] * (ABNORMAL) POCT glucose (01/08/2025 3:12 AM CDT) Only the most recent of29 resultswithin the time period is included. [facility] GLUCOSE POC 128(H) 70 - 99 mg/dL 01/08/2025 3:29 AM CDT [facility] 01/08/2025 3:12 AM CDT Radha Piedra MD POCT ORDERABLES - DEVICE Final Result [facility] [address] [place] [address], [place] [phone] * XR ABD KUB (01/06/2025 8:01 AM [...] 8:04 AM Narrative 01/06/2025 8:17 AM [address] [address] IMAGING STUDIES: XR ABD KUB DATE: 01/06/2025 [...] Procedure Note Vaughn Cintron MD - 01/06/[address] [address] IMAGING STUDIES: XR ABD KUBDATE: 01/06/2025 7:19 [...] 7:12 PM Narrative 01/05/2025 7:20 PM CDT [facility] [address] [place], [place] [address] EXAMINATION: CT Abdomen and Pelvis without contrast [...] Procedure Note Bravo Everett MD - 01/05/2025 [facility] [address] [place], [place] [address] EXAMINATION: CT Abdomen and Pelvis without contrast [...] By: Bravo Everett MD, 01/05/2025 7:12 PM us Abhay Garcia MD CT Final Result * (ABNORMAL) PHOSPHORUS, INORGANIC PHOSPHATE (01/05/2025 4:35 AM CDT) PHOSPHORUS 2.1(L) 2.5 - 4.9 MG/DL 01/05/2025 12:19 PM CDT [facility] 01/05/2025 4:35 AM CDT Abhay Garcia MD LABORATORY Final Result [facility] [address] [place] [address], [place] [phone] * MAGNESIUM (01/05/2025 4:35 AM CDT) Only the most recent of4 resultswithin the time period is included. MAGNESIUM 1.8 1.8 - 2.4 MG/DL 01/05/2025 12:19 PM CDT [facility] 01/05/2025 4:35 AM CDT Abhay Garcia MD LABORATORY Final Result Performing Organization Address City/[facility] Co de Phone Number [facility] [address] [place] [address], [place] [phone] * IR JOHN TO GJ CHANGE (01/03/2025 3:08 PM CDT) Anatomical Region Laterality Modality Abdomen Interventional R adiology 01/03/2025 3:05 PM CDT Impressions 01/03/2025 3:11 PM CDT IMPRESSION: 1. Procedure note for technically successful conversion of a chronic indwelling gastrostomy tube for a new new 24 [place]oth[place] 45 cm gastrojejunostomy 2. Tube can be used immediately. Recommend using the jejunostomy tube at least initially as much as possible exclusively, while assessing for continued leakage and allowing excoriated skin around the stoma site to heal. 3. Call IR if further questions. Ordered By: ELENA DENNISON Interpreted By: Oli Luther MD, 01/03/2025 3:05 PM Narrative 01/03/2025 3:11 PM CDT [facility] [address] Procedure: Conversion of gastrostomy to gastrojejunostomy tube. [...] obtained and the patient medical power of professor of musicology. The procedure was discussed and explained including [...] supervision of the interventional radiologist. Total intraprocedure qcbw-lw-bjvr time with the radiologist was 10 minutes. Maximum sterile barrier technique including hand wash with soap and water, was employed for the procedure. The patient's anterior abdomen and indwelling tube were prepped and draped in standard sterile fashion. The indwelling G-tube balloon was deflated and the catheter removed without resistance. A 5 Mosotho 40 cm Kumpe catheter was negotiated through the stoma and contrast injected outlining the gastric rugae. The catheter and Glidewire were negotiated through the pylorus into the duodenum and then the proximal jejunum, being exchanged for a longer 65 cm length angled catheter and then a stiff Glidewire. The catheter was removed and a new 24 [place] 45 cm ALDO balloon retention gastrojejunostomy tube advanced over the Glidewire and a 4 Mosotho glide catheter into the jejunum. The wire [...] home from the fluoroscopy in good condition. Facial Operator: Dr. Luther Radiation: Patient's radiation exposure - Reference Air Kerma (Ka,r) 42.75 mGy for this procedure. Procedure Note Oli Luther MD - 01/03/[address] [address] Procedure: Conversion of gastrostomy to gastrojejunostomy tube. Exam date and time: 01/03/2025 3:05 PM Indication: 39 years old Male. Cerebral palsy. Chronic indwellinggastrostomy tube with the continued leakage. Reported diagnosis ofgastroparesis. Plan for conversion of the gastrostomy to gastrojejunostomytube. Comparison: CT chest abdomen pelvis 12/31/2024 Procedure technique and findings: Informed verbal and written consent was obtained and the patient medicalpower of professor of musicology. The procedure was discussed and explained including [...] under supervision of the interventionalradiologist. Total intraprocedure fdxd-or-sdye time with the radiologist was 10minutes. Maximum sterile barrier technique including hand wash with soap and water,was employed for the procedure. The patient's anterior abdomen andindwelling tube were prepped and draped in standard sterile fashion. The indwelling G-tube balloon was deflated and the catheter removedwithout resistance. A 5 Mosoth[place] 40 cm Kumpe catheter was negotiated throughthe stoma and contrast injected outlining the gastric rugae. The catheterand Glidewire were negotiated through the pylorus into the duodenum andthen the proximal jejunum, being exchanged for a longer 65 cm lengthangled catheter and then a stiff Glidewire. The catheter was removed and anew 24 [place]oth[place] 45 cm ALDO balloon retention gastrojejunostomy tube advancedover the Glidewire and a 4 Mosotho glide catheter into the jejunum. Thewire was [...] home from the fluoroscopy in good condition. Facial Operator: Dr. Luther Radiation: Patient's radiation exposure - Reference Air Kerma (Ka,r) 42.75mGy for this procedure. IMPRESSION: 1. Procedure note for technically successful conversion of a chronicindwelling gastrostomy tube for a new new 24 Mosotho 45 cmgastrojejunostomy 2. Tube can be used immediately. Recommend using the jejunostomy tube atleast initially as much as possible exclusively, while assessing forcontinued leakage and allowing excoriated skin around the stoma site toheal. 3. Call IR if further questions. Ordered By: ELENA DENNISON Interpreted By: Oli Luther MD, 01/03/2025 3:05 PM Elena Dennison DO INTERVENTIONAL RADIOLOGY Final Result * PARTIAL THROMBOPLASTIN TIME,PTT (01/03/2025 9:20 AM CDT) PTT 29.9 25.1 - 36.5 SEC 01/03/2025 10:04 AM CDT [facility] 01/03/2025 9:20 AM CDT Oli Luther MD LABORATORY Final Result [facility] [address] [place] [address], [place] [phone] * PROTIME/INR, VENOUS (01/03/2025 9:20 AM CDT) PROTIME 12.2 10.2 - 12.9 SEC 01/03/2025 10:04 AM CDT [facility] INR 1.0 01/03/2025 10:04 AM CDT [facility] Comment: Recommended INR Therapeutic Goals: 2.0-3.0 Routine Therapy 2.5-3.5 Mechanical Prosthetic Valves (High Risk) 01/03/2025 9:20 AM CDT Oli Luther MD LABORATORY Final Result Performing Organization Address City/[facility]/ZIP Co de Phone Number [facility] [address] [place] [address], * PROCALCITONIN (PCT) (12/31/2024 7:10 AM CDT) PROCALCITONIN 0.27 0.00 - 0.49 NG/ML 12/31/2024 11:47 AM CDT [facility] 12/31/2024 7:10 AM CDT Elena Dennison DO LABORATORY Final Res ult Performing Organization Address City/[facility]/ZIP Co de Phone Number [facility] [address] [place] [address], [place] [phone] * HEMOGLOBIN, GLYCOSYLATED (12/31/2024 7:10 AM CDT) HGB A1C 5.5 <5.7 % 12/31/2024 9:24 AM CDT [facility] Comment: ADA GUIDELINES 2010 5.7 TO 6.4% INCREASED RISK OF DIABETES > OR = 6.5% CONSISTENT WITH DIABETES ESTIMATED AVG GLUCOSE 111 mg/dL 12/31/2024 9:24 AM CDT [facility] 12/31/2024 7:10 AM CDT Flip Pierre TODD LABORATORY Final Result [facility] [address] [place] [address], [place] [phone] * CT CHEST+ABD+PEL W CON (12/31/2024 12:13 [...] 4:01 PM Narrative 12/31/2024 4:18 PM CDT [facility] [address] [place], [place] [address] Procedure: CT chest, abdomen and pelvis with [...] Procedure Note Prateek Pagan MD - 12/31/[address] [facility] [address] [place], [place] [address] Procedure: CT chest, abdomen and pelvis with [...] PCR PANEL 2 (12/30/2024 11:02 PM CDT) ADENOVIRUS PCR (RESP) NOT DETECTED NOT DETECTED 12/31/2024 12:44 AM CDT [facility] CORONAVIRUS 229E PCR (RESP) NOT DETECTED NOT DETECTED 12/31/2024 12:44 AM CDT [facility] CORONAVIRUS HKU1 PCR (RESP) NOT DETECTED NOT DETECTED 12/31/2024 12:44 AM CDT [facility] CORONAVIRUS NL63 PCR (RESP) NOT DETECTED NOT DETECTED 12/31/2024 12:44 AM CDT [facility] CORONAVIRUS OC43 PCR (RESP) NOT DETECTED NOT DETECTED 12/31/2024 12:44 AM CDT [facility] METAPNEUMOVIRUS PCR (RESP) NOT DETECTED NOT DETECTED 12/31/2024 12:44 AM CDT [facility] RHINOVIRUS/ENTEROV IRUS PCR (RESP) NOT DETECTED NOT DETECTED 12/31/2024 12:44 AM CDT [facility] INFLUENZA A PCR (RESP) NOT DETECTED NOT DETECTED 12/31/2024 12:44 AM CDT [facility] INFLUENZA B PCR (RESP) NOT DETECTED NOT DETECTED 12/31/2024 12:44 AM CDT [facility] PARAINFLUENZA 1 PCR (RESP) NOT DETECTED NOT DETECTED 12/31/2024 12:44 AM CDT [facility] PARAINFLUENZA 2 PCR (RESP) NOT DETECTED NOT DETECTED 12/31/2024 12:44 AM CDT [facility] PARAINFLUENZA 3 PCR (RESP) NOT DETECTED NOT DETECTED 12/31/2024 12:44 AM CDT [facility] PARAINFLUENZA 4 PCR (RESP) NOT DETECTED NOT DETECTED 12/31/2024 12:44 AM CDT [facility] RSV PCR (RESP) NOT DETECTED NOT DETECTED 12/31/2024 12:44 AM CDT [facility] B PARAPERTUSIS PCR (RESP) NOT DETECTED NOT DETECTED 12/31/2024 12:44 AM CDT [facility] BORDETELLA PERTUSSIS PCR (RESP) NOT DETECTED NOT DETECTED 12/31/2024 12:44 AM CDT [facility] CHLAMYDOPHILA PNEUMONIAE PCR (RESP) NOT DETECTED NOT DETECTED 12/31/2024 12:44 AM CDT [facility] MYCOPLASMA PNEUMONIAE PCR (RESP) NOT DETECTED NOT DETECTED 12/31/2024 12:44 AM CDT [facility] CORONAVIRUS SARS COV 2 PCR (RESP) NOT DETECTED NOT DETECTED 12/31/2024 12:44 AM CDT [facility] NASOPHARYNGEAL SWAB / Unknown 12/30/2024 11:02 PM CDT Flip Pierre NP MICROBIOLOGY - GENERAL ORDERAB LES Final Result Performing Organization Address City/[facility]/ZIP Co de Phone Number [facility] [address] [place] [address], [place] [phone] * LACTIC ACID W REFLEX (SEPSIS) (12/30/2024 1:06 PM CDT) LACTIC ACID VENOUS 1.9 0.4 - 2.0 MMOL/L 12/30/2024 1:44 PM CDT [facility] 12/30/2024 1:06 PM CDT Federico Matthews MD LABORATORY Final Result Performing Organization Address City/[facility]/ZIP Co de Phone Number [facility] [address] [place] [address], [place] [phone] * CULTURE, BACTERIA, BLOOD (12/30/2024 1:06 PM CDT) Only the most recent of2 resultswithin the time period is included. SPEC DESCRIPTION BLOOD 12/31/19 1:15 PM CDT [facility] SPECIAL REQUESTS RHAND 12/31/19 1:15 PM CDT [facility] CULTURE RESULT NO GROWTH 5 DAYS 01/04/2025 2:14 PM CDT [facility] BLOOD SPECIMEN OBTAINED FOR BLOOD CULTURE / Unknown 12/30/2024 1:06 PM CDT 12/30/2024 1:14 PM CDT Federico Matthews MD MICROBIOLOGY - GENERAL ORDERAB LES Final Result [facility] [address] [place] [address], [place] [phone] * TSH W/REFLEX (12/30/2024 1:05 PM CDT) TSH 0.833 0.358 - 3.74 uIU/ML 12/30/2024 7:48 PM CDT [facility] Comment: HIGH DOSES OF BIOTIN MAY INTERFERE WITH THIS TEST RESULT. CORRELATION TO CLINICAL HISTORY AND PRESENTATION RECOMMENDED. FREE T4 NOT INDICATED 12/30/2024 1:05 PM CDT Flip Pierre NP LABORATORY Final Result Performing Organization Address [facility] Co de Phone Number [facility] [address] [place] [id number], [place] [phone] * TROPONIN, QUANT (12/30/2024 1:05 PM CDT) TROPONIN I HIGH SENSITIVITY 5 <79 ng/L 12/30/2024 2:28 PM CDT [facility] Comment: HIGH DOSES OF BIOTIN, TROPONIN-SPECIFIC AUTOANTIBODIES, AND ANTIBODY THERAPY CONTAINING HAMA MAY INTERFERE WITH THIS TEST RESULT. CORRELATION TO CLINICAL HISTORY AND PRESENTATION RECOMMENDED. 12/30/2024 1:05 PM CDT Federico Matthews MD LABORATORY Final Result Performing Organization Address City/[facility] Co de Phone Number [facility] [address] [place] [address], [place] [phone] from Last 3 Months Insurance MEDICARE Advance Directives * Full Code (Latest Code Status on File) Date Activated Date Inactivated Comments 12/30/2024 4:42 PM 01/08/2025 1:14 PM Healthcare Agents on File Name Relationship Healthcare Agent [facility] Communication [facility] Health Care Agent Care Teams Director Human Services Relationship Specialty Start Date End Date Vicky Torres MD [address] [place] [address] PCP - General FAMILY PRACTICE 12/19/24
--- OUTSIDE RECORDS SUMMARY | 2025-01-15 16:38 | XMS_ITS | Encounter Summary ---
Author Organization [facility] Address [facility] [place] [address] Care Team Providers Care Olive Grader Name Role Phone Vicky Torres MD Primary Care Provider + Encounter Details Date Type Department Care Team (Late st Contact Info) Description 12/25/2012 Abstract [facility] CONVERSION [id number] [place] [address] , Generic Conversion, Social History Tobacco Use [...] documented as of this encounter Care Teams Olive Grader Relationship Specialty Start Date End Date Vicky Torres MD [address] [place] [address] PCP - General FAMILY PRACTICE 12/19/24 documented as of this encounter
--- NOTE | 2025-01-16 09:17 | SUR.PREOP ---
Follow up phone call with nurse at [facility]. States Dallas is doing well this morning and had no issues overnight. We discussed his medication list and that things may need to be adjusted based on his new tube placement. Instructions and information about his Darrell-Rai tube discussed.
== END 2025-01-15 14:05 | disposition home or self-care (01) ==
PROVIDERS: PCP Family Medicine; Referring Provider Internal Medicine Gastroenterology; Visit Provider Internal Medicine Gastroenterology
PROC: 0DH63UZ Insertion of Feeding Device into Stomach, Percutaneous Approach (ICD-10-PCS; CPT 43246; principal; 2025-01-15 13:30)
DX: R13.10 Dysphagia, unspecified (principal); Z43.1 Encounter for attention to gastrostomy; G80.9 Cerebral palsy, unspecified; Z01.818 Encounter for other preprocedural examination
CPT/HCPCS: 99212; G0463

== ENCOUNTER 2025-02-01 22:37 | Emergency (ER) | payer MEDICARE, SELFPAY ==
--- NOTE | ~2025-02-01 | XR_ITS ---
EXAMINATION: XR abdomen gastric tube insert, 02/01/2025 23:25 TRANSIT OPERATIONS SUPERVISOR HISTORY: G tube placement COMPARISON: No comparisons available. Technique: 3 view. Findings: There is contrast within the stomach and proximal small bowel. No free air. No abnormal calcifications Postsurgical changes noted in the spine and pelvis. Impression: 1. Feeding tube in appropriate location Reviewed, dictated and finalized at location P. SIT OPERATIONS SUPERVISOR Impression: 1. Feeding tube in appropriate location
--- NOTE | 2025-02-01 22:43 | ED.GENADULT ---
HPI - General Adult General Chief complaint: Unspecified Stated complaint: G tube replacement History of Present Illness HPI narrative: This is a 39-year-old male with history of cerebral palsy and J-tube dependency who presents the ED with family for G-tube dislodgement. Family states that this does happen occasionally and believe that he may have a had a sneeze and accidentally dislodged it. He had G-tube replaced a week and half ago but has ripped it out again which he does frequently. halfway replaced the G-tube but x-ray was apparently inconclusive so he was sent here for further evaluation. Related Data Home Medications ?Medication ?Instructions ?Recorded ?Confirmed ?Last Taken ?Type hepatitis B virus vacc.rec(PF) 20 1 ml IM ONCE 01/14/25 01/14/25 Unknown History mcg/mL intramuscular susp (Engerix-B (PF)) ondansetron HCl 4 mg tablet 4 mg PO Q6H 01/14/25 01/14/25 Unknown History acetaminophen 160 mg/5 mL oral 650 mg PO ONCE PRN pain 01/15/25 01/15/25 Unknown History elixir cetirizine 1 mg/mL oral solution 10 mg feeding tube DAILY 01/15/25 01/15/25 Unknown History docusate sodium 50 mg/5 mL oral 100 mg PO BID 01/15/25 01/15/25 Unknown History liquid famotidine 40 mg/5 mL (8 mg/mL) 40 mg PO HS 01/15/25 01/15/25 Unknown History oral suspension hydrocodone 5 mg-acetaminophen 325 1 tablet feeding tube Q4H PRN pain 01/15/25 01/15/25 Unknown History mg tablet (scale score 4-7) lansoprazole 15 mg oral 15 mg PO DAILY 01/15/25 01/15/25 Unknown History suspension,delayed release Allergies Allergy/AdvReac Type Severity Reaction Status Date / Time Sulfa (Sulfonamide Allergy Unknown LIPS AND Verified 01/14/25 14:03 Antibiotics) GENITAL PEELING SKIN Review of Systems Review of Systems: ROS unobtainable: Yes unobtainable due to mental status PMFSH Past Medical History Medical History Static encephalopathy Hematemesis Urinary retention Esophagitis with gastritis History of GI bleed Anxiety Dysphagia Chronic. G-tube in place. History of pulmonary aspiration Seizure disorder Cerebral palsy Surgical History Surgical History History of orthopedic surgery Multiple surgeries related to his cerebra palsy including tendon surgeries and Green transfer. History of spinal fusion Gastrointestinal tube present Family History Family History Father Family history of elevated blood lipids Family history of diabetes mellitus in first degree relative Hypertension Chronic obstructive pulmonary disease Other Lung cancer Social History Social History Social History: Surrogate decision maker: Leonora Slaughter, mother. Code status: Full code. Second hand tobacco smoke exposure: No Alcohol intake: never Substance use: never Substance use type: does not use Do You Feel Safe in your Home?: Yes Lack of Transportation: No Lack of Food: Never True Current Housing: I Have Housing Concerned About Future Housing: No Difficulty Paying Gas/Electric Bills: No Difficulty Paying for Meds: No Currently Unemployed: No Education: Don't Know Difficulty w/ Childcare or Family Care: No Living arrangements: with family Additional living arrangements comments: The patient lives with his mother and brother in [place]. His father in November 2022. He is wheelchair-dependent and uses an electric wheelchair which he can manage quite nicely. In fact he likes to spend a lot of his time out in their [place] where they have cars and motorcycles, which he really enjoys. He is dependent on most activities of daily living.Mother is currently on Hospice and bedridden due to stage 4 brain cancer. Occupation/Education: unemployed Additional occupation/education comments: Disabled. Spiritual care concerns: No Exam Narrative: APPEARANCE: No acute distress, nontoxic, resting in bed HEENT: Normocephalic, atraumatic, OMM RESPIRATORY: No respiratory distress CARDIOVASCULAR: Appears well perfused ABDOMINAL: G-tube in the epigastrium, no surrounding erythema or drainage, no tenderness to palpation. MUSCULOSKELETAl: Moves all extremities. No obvious deformities NEURO: Awake and alert. SKIN:: Warm, dry. No rashes lesions or abrasions PSYCHIATRIC: Normal affect/mood, Course Vital Signs Vital signs: Vital Signs Temperature 98.2 F 02/01/25 22:53 Pulse Rate 85 02/01/25 22:53 Respiratory Rate 18 02/01/25 22:53 Blood Pressure 130/90 02/01/25 22:53 Pulse Oximetry 95 02/01/25 22:53 Oxygen Delivery Room Air 02/01/25 22:53 Temperature 98.2 F 02/01/25 22:53 Pulse Rate 85 02/01/25 22:53 Respiratory Rate 18 02/01/25 22:53 Blood Pressure 130/90 02/01/25 22:53 Pulse Oximetry 95 02/01/25 22:53 Oxygen Delivery Room Air 02/01/25 22:53 Medical Decision Making MDM Narrative Medical decision making narrative: 39-year-old male Presenting for dislodged G-tube. On initial evaluation patient was in no acute distress afebrile, hemodynamic stable. Differentials include but are not limited to: G-tube problem, G-tube dislodgement G-tube was in place and we were able to flush without difficulty. Confirmatory x-ray was obtained with contrast which did show appropriate placement of the G-tube. Patient was deemed appropriate for discharge at this time. senior care instructed to follow-up with patient's chief media officer as needed for re-evaluation. Vital Signs Vital Signs: Vital Signs Temperature 98.2 F 02/01/25 22:53 Pulse Rate 85 02/01/25 22:53 Respiratory Rate 18 02/01/25 22:53 Blood Pressure 130/90 02/01/25 22:53 Pulse Oximetry 95 02/01/25 22:53 Oxygen Delivery Room Air 02/01/25 22:53 Temperature 98.2 F 02/01/25 22:53 Pulse Rate 85 02/01/25 22:53 Respiratory Rate 18 02/01/25 22:53 Blood Pressure 130/90 02/01/25 22:53 Pulse Oximetry 95 02/01/25 22:53 Oxygen Delivery Room Air 02/01/25 22:53 Imaging Data Attestation: I personally reviewed and interpreted this imaging study as follows: My impression: KUB: Contrast within the stomach and the duodenum suggesting appropriate placement of the G-tube Discharge Plan Discharge Clinical Impression: Dislodged gastrostomy tube Patient Disposition: Home Condition: Stable Instructions: Antibiotic Form Additional Instructions: G-tube was in the appropriate location on repeat x-ray. Use as instructed previously. Patient Language: Tanzanian Prescriptions: No Action ondansetron HCl 4 mg tablet 4 mg PO Q6H Engerix-B (PF) 20 mcg/mL suspension 1 ml IM ONCE Rx Instructions: as a single dose clorazepate dipotassium 3.75 mg tablet 3.75 mg feeding tube TID Qty: 90 5RF diazepam [Valium] 5 mg tablet 2.5 mg PO TID Qty: 60 3RF Rx Instructions: 2.5 mg 3 times a day for 1 month and then 2.5 mg daily for 1 month and then stop baclofen 20 mg tablet 20 mg feeding tube TID Qty: 90 6RF Rx Instructions: TAKE 1 TABLET BY MOUTH EVERY 8 HOURS valproic acid (as sodium salt) 250 mg/5 mL solution See Rx Instructions .ROUTE .COMPLEX Qty: 300 12RF Dose Instruction: TAKE 5 ML VIA FEEDING TUBE EVERY 12 HOURS Rx Instructions: TAKE 5 ML VIA FEEDING TUBE EVERY 12 HOURS acetaminophen 160 mg/5 mL elixir 650 mg PO ONCE PRN (Reason: pain) docusate sodium 50 mg/5 mL liquid 100 mg PO BID hydrocodone-acetaminophen 5-325 mg tablet 1 tablet feeding tube Q4H PRN (Reason: pain (scale score 4-7)) lansoprazole 15 mg susp,delayed release for recon 15 mg PO DAILY Patient Comments: per g-tube famotidine 40 mg/5 mL (8 mg/mL) suspension for reconstitution 40 mg PO HS cetirizine 1 mg/mL solution 10 mg feeding tube DAILY docusate sodium [Colace] 100 mg capsule 100 mg PO DAILY Qty: 14 0RF tizanidine 4 mg tablet See Rx Instructions .ROUTE .COMPLEX Qty: 270 0RF Dose Instruction: TAKE 1 TABLET BY MOUTH THREE TIMES DAILY NEEDED FOR MUSCLE SPASMS Rx Instructions: TAKE 1 TABLET BY MOUTH THREE TIMES DAILY NEEDED FOR MUSCLE SPASMS prucalopride [Motegrity] 2 mg tablet 2 mg PO DAILY Qty: 90 1RF Rx Instructions: feeding tube scopolamine base 1 mg over 3 days patch 3 day See Rx Instructions .ROUTE .COMPLEX Qty: 36 1RF Dose Instruction: APPLY 1 PATCH TOPICALLY TO THE SKIN EVERY 3 TO 4 DAYS Rx Instructions: APPLY ONE PATCH TOPICALLY TO THE SKIN EVERY 3 TO 4 DAYS Prilosec 10 mg susp,delayed release for recon 10 mg feeding tube DAILY Qty: 30 5RF metoclopramide HCl 5 mg/5 mL solution See Rx Instructions .ROUTE .COMPLEX Qty: 1200 5RF Dose Instruction: TAKE 10 ML VIA FEEDING TUBE BEFORE MEALS AND AT BEDTIME Rx Instructions: TAKE 10 ML VIA FEEDING TUBE BEFORE MEALS AND AT BEDTIME Follow-up/Referrals: Amrik Ackerman MD [Physician, Family Practice]
[2025-02-01 22:53] VITALS: BP 130/90; PULSE 85; RESP 18; TEMP 36.8; O2SAT 95
[2025-02-01] MEDS: NACL 0.9% IRRIGATION POUR BOTTL 1,000 ML 1000 ML (23:01)
--- OUTSIDE RECORDS SUMMARY | 2025-02-01 23:21 | XMS_ITS | Clinical Summary ---
Author Organization [facility] Address [address] [place] [address] Care Team Providers Care Heavy Coil Winder Name Role Phone Amrik Ackerman MD Primary Care Provider [phone] Allergies No known active allergies Medications valproate [...] on file Legal Sex Male 12:19 PM TICKET ATTENDANT Gender Identity Not on file Sexual Orientation Not on file Last Filed Vital Signs Vital Sign Reading Time Taken Comments Blood Pressure 124/74 04/27/2023 1:34 PM TICKET ATTENDANT Pulse 103 04/27/2023 1:34 PM TICKET ATTENDANT Temperature 36.5 C (97.7 F) 04/27/2023 1:20 PM TICKET ATTENDANT Respiratory Rate 20 04/27/2023 1:34 PM TICKET ATTENDANT Oxygen Saturation 93% 04/27/2023 1:34 PM TICKET ATTENDANT Inhaled Oxygen Concentration - - Weight 44.5 kg (98 lb) 04/27/2023 11:00 AM TICKET ATTENDANT Height 157.5 cm (5' 2) 04/27/2023 11:00 AM TICKET ATTENDANT Body Mass Index 17.92 04/27/2023 11:00 AM TICKET ATTENDANT Plan of Treatment Health Maintenance Due Date [...] age to complete this topic Insurance MEDICARE [place] MEDICARE [facility] Advance Directives For more information, please contact: [phone] Documents on File Type Date Recorded Patient Battery Service Technician Expl anation ADVANCE DIRECTIVE 04/24/2023 10:30 AM [employer]IN [employer] Advance Directives and Living Will 03/13/2023 9:46 AM * Full Code (Latest Code Status on File) Date Activated Date Inactivated Comments 04/27/2023 10:55 AM 04/27/2023 6:06 PM Care Teams Heavy Coil Winder Relationship Specialty Start Date End Date Amrik Ackerman MD PCP - General Family Practice 11/24/22
--- OUTSIDE RECORDS SUMMARY | 2025-02-01 23:21 | XMS_ITS | Encounter Summary ---
Author Organization [facility] Address [facility] [place] [address] Care Team Providers Care Photovoltaic Technician Name Role Phone Vicky Torres MD Primary Care Provider + Encounter Details Date Type Department Care Team (Late st Contact Info) Description 12/25/2012 Abstract [facility] CONVERSION [id number] [place] [address] , Generic Conversion, Social History Tobacco Use [...] documented as of this encounter Care Teams Photovoltaic Technician Relationship Specialty Start Date End Date Vicky Torres MD [address] [place] [address] PCP - General FAMILY PRACTICE 12/19/24 documented as of this encounter
--- OUTSIDE RECORDS SUMMARY | 2025-02-01 23:22 | XMS_ITS | Clinical Summary ---
Author Organization [facility] Address [address] [place] [address] Care Team Providers Care Equine Manager Name Role Phone Vicky Torres MD Primary [...] 01/12/2025 11:59 PM CDT Hospital Encounter [facility] [address] [place] [address] Vicky Torres MD Discharge Disposition: Home or Self Care (Routine Discharge) 01/12/2025 Orders Only [facility] [address] [place] [address] Vicky Torres MD 01/10/2025 10:38 AM CDT - 01/10/2025 3:34 PM CDT Emergency [facility] [place] [address] Olga Matthew DO Altered Mental Status Discharge Disposition: Pre Coder Care 01/10/2025 Travel 01/09/2025 9:53 AM CDT - 01/09/2025 3:22 PM CDT Emergency [facility] [place] [address] Ha Barbour MD Medical Problem Discharge Disposition: Home or Self Care (Routine Discharge) 01/09/2025 Travel 01/05/2025 Travel 12/30/2024 12:14 PM CDT - 01/08/2025 11:14 AM CDT [facility] [address] [place] [address] Federico Matthews MD Lamonica, MD Juma Monroe Stephanie L, DO Jerkovich, Adria, MD [place]ism[place], MD Dorothea Gonzalez, Radha Bahena MD Vomiting Discharge Disposition: Care Home Facility 12/30/2024 Travel from Last 3 Months Immunizations Immunization Administration Dates Next Due Influenza (Generic) 02/11/2016 Influenza Adult (Generic) 01/21/2022,02/11/2021, 12/06/2014 Pneumococcal (Prevnar 20) 01/21/2022 Social History Tobacco Use Types Packs/Day Years Used Date Smoking Tobacco: Never Alcohol Use Standard Drinks/Week Comments Not Currently 0 (1 standard drink = 0.6 oz pur e alcohol) [facility] Utilities Answer Date Recorded In the past 12 months has [place], gas, oil, or water [employer] [place] threatened to shut off services in your [...] any time in the past 12 m [facility], were you homeless or living in a skilled nursing (including now)? No 12/31/2024 Sex and Gender [...] (U) LIGHT YELLOW 01/12/2025 1:03 PM CDT [facility] TRANSPARENCY CLEAR 01/12/2025 1:03 PM CDT [facility] SPECIFIC GRAVITY (U) 1.010 1.002 - 1.030 01/12/2025 1:03 PM CDT [facility] U PH 7.0 4.5 - 8.0 01/12/2025 1:03 PM T [facility] LEUKOCYTES (U) NEGATIVE NEGATIVE 01/12/2025 1:03 PM CDT [facility] NITRITES NEGATIVE NEGATIVE 01/12/2025 1:03 PM T [facility] PROTEIN RANDOM (U) 2+(A) NEGATIVE 01/12/2025 1:03 PM T [facility] GLUCOSE (U) NEGATIVE NEGATIVE 01/12/2025 1:03 PM T [facility] KETONES MG/DL (U) NEGATIVE NEGATIVE 01/12/2025 1:03 PM CDT [facility] UROBILINOGEN NORMAL NORMAL EU/DL 01/12/2025 1:03 PM T [facility] BILIRUBIN (U) NEGATIVE NEGATIVE 01/12/2025 1:03 PM T [facility] BLOOD (U) 5+(A) NEGATIVE 01/12/2025 1:03 PM CDT [facility] WBC/HPF 0-5 /HPF 01/12/2025 1:03 PM CDT [facility] RBC/HPF 20-50 /HPF 01/12/2025 1:03 PM CDT [facility] EPI/HPF 0-5 /HPF 01/12/2025 1:03 PM CDT [facility] BACTERIA (U) 1+ /HPF 01/12/2025 1:03 PM CDT [facility] MUCUS 1+ 01/12/2025 1:03 PM CDT [facility] URINE SPECIMEN OBTAINED BY CLEAN CATCH PROCEDURE / Unknown 01/12/2025 5:00 AM CDT Vicky Sutherland MD URINE ORDERABLES Final R esult [facility] [address] [place] [address], [place] [phone] * URINE BACTERIA CULTURE (01/12/2025 5:00 AM CDT) Only the most recent of2 resultswithin the time period is included. SPEC DESCRIPTION URINE CLEAN CATCH 01/12/2025 12:46 PM CDT [facility] SPECIAL REQUESTS NO SPECIAL REQUEST 01/12/2025 12:46 PM CDT [facility] CULTURE RESULT NO GROWTH 2 DAYS 01/15/2025 7:03 AM CDT [facility] URINE SPECIMEN OBTAINED BY CLEAN CATCH PROCEDURE / Unknown 01/12/2025 5:00 AM CDT 01/12/2025 12:48 PM CDT Vicky Sutherland MD MICROBIOLOGY - GENERAL O RDERABLES Final Result [facility] [address] [place] [address], [place] [phone] [facility] [address] [place] [address], [place] [phone] * ECG 12 lead (01/10/2025 11:49 AM CDT) Only the most recent of3 resultswithin the time period is included. 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 [place]: [id number] : 1985 Requested By: OLGA MATTHEW Order Number: [id number] Reading MD: Andrey Anderson Measurements Intervals [place] Rate: 82 P: 42 CO: 147 QRS: 68 QRSD: 94 T: 62 QT: 345 QTc: 405 Interpretive Statements SINUS RHYTHM POSSIBLE LEFT ATRIAL ENLARGEMENT [-0.1mV P-WAVE IN V1/V2] POSSIBLE RIGHT VENTRICULAR CONDUCTION DELAY [RSR (QR) IN V1/V2] Compared to ECG 01/09/2025 10:49:13 Sinus bradycardia no longer present Procedure Note Andrey Anderson MD - 01/10/2025 [facility] [place] Test Date: 2025-01-10 Pat Name: RUTHANNLISBET VILLASENOR Department: 41 Room: [id number] 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: Male 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 [place]: [id number] : 1985 Requested By: OLGA MATTHEW Order Number: [id number] Reading : Andrey Anderson Measurements Intervals [place] Rate: 82 P: 42 CO: 147 QRS: 68 QRSD: 94 T: 62 QT: 345 QTc: 405 Interpretive Statements SINUS RHYTHM POSSIBLE LEFT ATRIAL ENLARGEMENT [-0.1mV P-WAVE IN V1/V2] POSSIBLE RIGHT VENTRICULAR CONDUCTION DELAY [RSR (QR) IN V1/V2] Compared to ECG 01/09/2025 10:49:13 Sinus bradycardia no longer present us Olga Matthew DO ECG ORDERABLES Final Res ult [facility] * EKG Reading (01/10/2025 [...] Nonspecific ST segment changes Olga Matthew DO [facility] Final Result * XR [...] 11:34 AM Narrative 01/10/2025 11:34 AM CDT [address] [address] SINGLE VIEW OF THE CHEST Clinical history: Hypoxia Comparison: December 30, 2024 A single view of the chest demonstrates cardiomegaly which is stable. Postoperative changes of Mckeon rods are again noted within the thoracic and lumbar spine. The pulmonary vessels are normally distributed. The Lungs are clear. No consolidations or effusions are seen. Procedure Note Lazarus Borjas MD - 01/10/2025 [facility] [address] [place], [place] [address] SINGLE VIEW OF THE CHEST Clinical history: [...] - 99 MG/DL 01/10/2025 11:27 AM CDT [facility] BUN 10 7 - 18 MG/DL 01/10/2025 11:27 AM CDT [facility] CREATININE S/P/B 0.72 0.7 - 1.3 MG/DL 01/10/2025 11:27 AM CDT [facility] SODIUM S/P/B 140 136 - 145 MMOL/L 01/10/2025 11:27 AM CDT [facility] POTASSIUM S/P/B 4.2 3.5 - 5.1 MMOL/L 01/10/2025 11:27 AM T [facility] CHLORIDE S/P/B 106 97 - 115 MMOL/L 01/10/2025 11:27 AM T [facility] CO2 28.6 21 - 32 MMOL/L 01/10/2025 11:27 AM T [facility] CALCIUM S/P/B 8.9 8.5 - 10.1 MG/DL 01/10/2025 11:27 AM CDT [facility] BILIRUBIN TOTAL S/P/B 0.2 0.2 - 1.2 MG/DL 01/10/2025 11:27 AM T [facility] Comment: THIS ASSAY IS NOT RECOMMENDED FOR PATIENTS UNDERGOING TREATMENT WITH ELTROMBOPAG DUE TO THE POTENTIAL FOR FALSELY ELEVATED RESULTS. TOTAL PROTEIN S/P/B 6.5 6.4 - 8.2 G/DL 01/10/2025 11:27 AM T [facility] ALBUMIN S/P/B 2.6(L) 3.4 - 5.0 G/DL 01/10/2025 11:27 AM T [facility] AST 15 15 - 37 U/L 01/10/2025 11:27 AM T [facility] ALT 38 16 - 60 U/L 01/10/2025 11:27 AM T [facility] ALKALINE PHOSPHATASE S/P/B 82 50 - 136 U/L 01/10/2025 11:27 AM T [facility] ANION GAP 5.4 2 - 10 MMOL/L 01/10/2025 11:27 AM T [facility] BUN CREATININE RATIO 13.9 6 - 26 01/10/2025 11:27 AM T [facility] A/G RATIO 0.7(L) 1.0 - 2.0 RATIO 01/10/2025 11:27 AM CDT [facility] GFR ESTIMATE >90 >90 ML/MIN/1.7 3 M2 01/10/2025 11:27 AM CDT [facility] Comment: NOTE: eGFR is not calculated [...] Olga Matthew DO LABORATORY Final Res ult [facility] [address] [place] [address], [place] [phone] * (ABNORMAL) CBC W/DIFF AUTOMATED (01/10/2025 10:52 AM CDT) Only the most recent of12 resultswithin the time period is included. WBC 10.43 4.5 - 11.0 x10'3/uL 01/10/2025 11:03 AM CDT [facility] RBC 3.89(L) 4.70 - 6.10 x10'6/uL 01/10/2025 11:03 AM CDT [facility] HGB 12.3(L) 14.0 - 18.0 G/DL 01/10/2025 11:03 AM CDT [facility] HCT 36.1(L) 43.0 - 54.0 % 01/10/2025 11:03 AM CDT [facility] MCV 92.8 80.0 - 94.0 FL 01/10/2025 11:03 AM CDT [facility] MCH 31.6(H) 27.0 - 31.0 PG 01/10/2025 11:03 AM CDT [facility] MCHC 34.1 32.0 - 36.0 G/DL 01/10/2025 11:03 AM T [facility] RDW 13.3 11.5 - 14.5 % 01/10/2025 11:03 AM T [facility] PLT 415(H) 130 - 400 x10'3/uL 01/10/2025 11:03 AM T [facility] MPV 9.4 9.3 - 12.2 FL 01/10/2025 11:03 AM T [facility] DIFFERENTIAL TYPE AUTOMATED DIFFERENTIAL 01/10/2025 11:03 AM T [facility] NEUTROPHILS % 67.3 % 01/10/2025 11:03 AM T [facility] LYMPHOCYTES % 20.8 % 01/10/2025 11:03 AM T [facility] MONOCYTES % 10.8 % 01/10/2025 11:03 AM T [facility] EOSINOPHILS 0.2 % 01/10/2025 11:03 AM T [facility] BASOPHILS 0.2 % 01/10/2025 11:03 AM T [facility] IMMATURE GRANS % 0.7 % 01/11/20 11:03 AM T [facility] ABS. NEUTROPHILS 7.02 1.80 - 7.70 x10'3/uL 01/10/2025 11:03 AM T [facility] ABS. LYMPHOCYTES 2.17 1.00 - 4.80 x10'3/uL 01/10/2025 11:03 AM T [facility] ABS. MONOCYTES 1.13(H) 0.30 - 0.82 x10'3/uL 01/10/2025 11:03 AM CDT [facility] ABS. EOSINOPHILS 0.02(L) 0.04 - 0.54 x10'3/uL 01/10/2025 11:03 AM CDT [facility] ABS. BASOPHILS 0.02 0.01 - 0.08 x10'3/uL 01/10/2025 11:03 AM CDT [facility] ABS. IMMATURE GRANULOCYTES 0.07 0.00 - 0.49 x10'3/uL 01/10/2025 11:03 AM CDT [facility] 01/10/2025 10:5 2 AM CDT Olga Matthew DO LABORATORY Final Res ult [facility] [address] [place] [address], * CT HEAD WO CON (01/09/2025 10:39 [...] 11:08 AM Narrative 01/09/2025 11:14 AM CDT [facility] [address] [place], [place] [address] EXAMINATION: Head CT without contrast 01/09/2025 INDICATION: [...] Procedure Note Raul Naqvi MD - 01/09/2025 [facility] [address] [place], [place] [address] EXAMINATION: Head CT without contrast 01/09/2025 INDICATION: [...] VALPROIC ACID (01/09/2025 10:17 AM CDT) Pathologist [facility] VALPROIC ACID 58.2 50 - 100 MCG/ML 01/09/2025 10:55 AM CDT [facility] Comment: THERAPEUTIC: 50-100 TOXIC: >150 DOSE UNKNOWN LAST DOSE 01/09/2025 10:56 AM CDT [facility] 01/09/2025 10:1 7 AM CDT Ha Barbour MD LABORATORY Final Result Performing Organization Address [facility]/ZIP Co de Phone Number [facility] [address] [place] [address], [place] [phone] * (ABNORMAL) POCT glucose (01/08/2025 3:12 AM CDT) Only the most recent of29 resultswithin the time period is included. [facility] GLUCOSE POC 128(H) 70 - 99 mg/dL 01/08/2025 3:29 AM CDT [facility] 01/08/2025 3:12 AM CDT Radha Piedra MD POCT ORDERABLES - DEVICE Final Result [facility] [address] [place] [address], [place] [phone] * XR ABD KUB (01/06/2025 8:01 AM [...] 8:04 AM Narrative 01/06/2025 8:17 AM CDT [address] [address] IMAGING STUDIES: XR ABD KUB DATE: 01/06/2025 [...] Procedure Note Vaughn Cintron MD - 01/06/[address] [address] IMAGING STUDIES: XR ABD KUBDATE: 01/06/2025 7:19 [...] 7:12 PM Narrative 01/05/2025 7:20 PM CDT [facility] [address] [place], [place] [address] EXAMINATION: CT Abdomen and Pelvis without contrast [...] Procedure Note Bravo Everett MD - 01/05/2025 [facility] [address] [place], [place] [address] EXAMINATION: CT Abdomen and Pelvis without contrast [...] - 4.9 MG/DL 01/05/2025 12:19 PM CDT [facility] 01/05/2025 4:35 AM CDT Abhay Garcia MD LABORATORY Final Result [facility] [address] [place] [address], [place] [phone] * MAGNESIUM (01/05/2025 4:35 AM CDT) Only the most recent of4 resultswithin the time period is included. MAGNESIUM 1.8 1.8 - 2.4 MG/DL 01/05/2025 12:19 PM CDT [facility] 01/05/2025 4:35 AM CDT Abhay Garcia MD LABORATORY Final Result Performing Organization Address City/[facility] Co de Phone Number [facility] [address] [place] [address], [place] [phone] * IR JOHN TO GJ CHANGE (01/03/2025 3:08 PM CDT) Anatomical Region Laterality Modality Abdomen Interventional R adiology 01/03/2025 3:05 PM CDT Impressions 01/03/2025 3:11 PM CDT IMPRESSION: 1. Procedure note for technically successful conversion of a chronic indwelling gastrostomy tube for a new new 24 Qatari 45 cm gastrojejunostomy 2. Tube can be used immediately. Recommend using the jejunostomy tube at least initially as much as possible exclusively, while assessing for continued leakage and allowing excoriated skin around the stoma site to heal. 3. Call IR if further questions. Ordered By: ELENA DENNISON Interpreted By: Oli Luther MD, 01/03/2025 3:05 PM Narrative 01/03/2025 3:11 PM CDT [facility] [address] Procedure: Conversion of gastrostomy to gastrojejunostomy tube. [...] obtained and the patient medical power of assembler movement. The procedure was discussed and explained including [...] supervision of the interventional radiologist. Total intraprocedure ufek-rt-dhkh time with the radiologist was 10 minutes. Maximum sterile barrier technique including hand wash with soap and water, was employed for the procedure. The patient's anterior abdomen and indwelling tube were prepped and draped in standard sterile fashion. The indwelling G-tube balloon was deflated and the catheter removed without resistance. A 5 Qatari 40 cm Kumpe catheter was negotiated through the stoma and contrast injected outlining the gastric rugae. The catheter and Glidewire were negotiated through the pylorus into the duodenum and then the proximal jejunum, being exchanged for a longer 65 cm length angled catheter and then a stiff Glidewire. The catheter was removed and a new 24 Qatari 45 cm ALDO balloon retention gastrojejunostomy tube advanced over the Glidewire and a 4 Qatari glide catheter into the jejunum. The wire [...] home from the fluoroscopy in good condition. Highway Landscape Architect: Dr. Luther Radiation: Patient's radiation exposure - Reference Air Kerma (Ka,r) 42.75 mGy for this procedure. Procedure Note Oli Luther MD - 01/03/[address] [address] Procedure: Conversion of gastrostomy to gastrojejunostomy tube. Exam date and time: 01/03/2025 3:05 PM Indication: 39 years old Male. Cerebral palsy. Chronic indwellinggastrostomy tube with the continued leakage. Reported diagnosis ofgastroparesis. Plan for conversion of the gastrostomy to gastrojejunostomytube. Comparison: CT chest abdomen pelvis 12/31/2024 Procedure technique and findings: Informed verbal and written consent was obtained and the patient medicalpower of assembler movement. The procedure was discussed and explained including [...] under supervision of the interventionalradiologist. Total intraprocedure thiw-ac-lhsr time with the radiologist was 10minutes. Maximum sterile barrier technique including hand wash with soap and water,was employed for the procedure. The patient's anterior abdomen andindwelling tube were prepped and draped in standard sterile fashion. The indwelling G-tube balloon was deflated and the catheter removedwithout resistance. A 5 Qatari 40 cm Kumpe catheter was negotiated throughthe stoma and contrast injected outlining the gastric rugae. The catheterand Glidewire were negotiated through the pylorus into the duodenum andthen the proximal jejunum, being exchanged for a longer 65 cm lengthangled catheter and then a stiff Glidewire. The catheter was removed and anew 24 Qatari 45 cm ALDO balloon retention gastrojejunostomy tube advancedover the Glidewire and a 4 Qatari glide catheter into the jejunum. Thewire was [...] home from the fluoroscopy in good condition. Highway Landscape Architect: Dr. Luther Radiation: Patient's radiation exposure - Reference Air Kerma (Ka,r) 42.75mGy for this procedure. IMPRESSION: 1. Procedure note for technically successful conversion of a chronicindwelling gastrostomy tube for a new new 24 Qatari 45 cmgastrojejunostomy 2. Tube can be used [...] - 36.5 SEC 01/03/2025 10:04 AM CDT [facility] 01/03/2025 9:20 AM CDT Oli Luther MD LABORATORY Final Result [facility] [address] [place] [address], [place] [phone] * PROTIME/INR, VENOUS (01/03/2025 9:20 AM CDT) PROTIME 12.2 10.2 - 12.9 SEC 01/03/2025 10:04 AM CDT [facility] INR 1.0 01/03/2025 10:04 AM CDT [facility] Comment: Recommended INR Therapeutic Goals: 2.0-3.0 Routine Therapy 2.5-3.5 Mechanical Prosthetic Valves (High Risk) 01/03/2025 9:20 AM CDT Oli Luther MD LABORATORY Final Result Performing Organization Address City/[facility]/ZIP Co de Phone Number [facility] [address] [place] [address], * PROCALCITONIN (PCT) (12/31/2024 7:10 AM CDT) PROCALCITONIN 0.27 0.00 - 0.49 NG/ML 12/31/2024 11:47 AM CDT [facility] 12/31/2024 7:10 AM CDT Elena Dennison DO LABORATORY Final Res ult Performing Organization Address City/[facility]/ZIP Co de Phone Number [facility] [address] [place] [address], [place] [phone] * HEMOGLOBIN, GLYCOSYLATED (12/31/2024 7:10 AM CDT) HGB A1C 5.5 <5.7 % 12/31/2024 9:24 AM CDT [facility] Comment: ADA GUIDELINES 2010 5.7 TO 6.4% INCREASED RISK OF DIABETES > OR = 6.5% CONSISTENT WITH DIABETES ESTIMATED AVG GLUCOSE 111 mg/dL 12/31/2024 9:24 AM CDT [facility] 12/31/2024 7:10 AM CDT Flip Pierre TDOD LABORATORY Final Result [facility] [address] [place] [address], [place] [phone] * CT CHEST+ABD+PEL W CON (12/31/2024 12:13 [...] 4:01 PM Narrative 12/31/2024 4:18 PM CDT [facility] [address] [place], [place] [address] Procedure: CT chest, abdomen and pelvis with [...] Prateek Pagan MD - 12/31/[address] [facility] [address] [place], [place] [address] Procedure: CT chest, abdomen and pelvis with [...] DETECTED NOT DETECTED 12/31/2024 12:44 AM CDT [facility] CORONAVIRUS 229E PCR (RESP) NOT DETECTED NOT DETECTED 12/31/2024 12:44 AM CDT [facility] CORONAVIRUS HKU1 PCR (RESP) NOT DETECTED NOT DETECTED 12/31/2024 12:44 AM CDT [facility] CORONAVIRUS NL63 PCR (RESP) NOT DETECTED NOT DETECTED 12/31/2024 12:44 AM CDT [facility] CORONAVIRUS OC43 PCR (RESP) NOT DETECTED NOT DETECTED 12/31/2024 12:44 AM CDT [facility] METAPNEUMOVIRUS PCR (RESP) NOT DETECTED NOT DETECTED 12/31/2024 12:44 AM CDT [facility] RHINOVIRUS/ENTEROV IRUS PCR (RESP) NOT DETECTED NOT DETECTED 12/31/2024 12:44 AM CDT [facility] INFLUENZA A PCR (RESP) NOT DETECTED NOT DETECTED 12/31/2024 12:44 AM CDT [facility] INFLUENZA B PCR (RESP) NOT DETECTED NOT DETECTED 12/31/2024 12:44 AM CDT [facility] PARAINFLUENZA 1 PCR (RESP) NOT DETECTED NOT DETECTED 12/31/2024 12:44 AM CDT [facility] PARAINFLUENZA 2 PCR (RESP) NOT DETECTED NOT DETECTED 12/31/2024 12:44 AM CDT [facility] PARAINFLUENZA 3 PCR (RESP) NOT DETECTED NOT DETECTED 12/31/2024 12:44 AM CDT [facility] PARAINFLUENZA 4 PCR (RESP) NOT DETECTED NOT DETECTED 12/31/2024 12:44 AM CDT [facility] RSV PCR (RESP) NOT DETECTED NOT DETECTED 12/31/2024 12:44 AM CDT [facility] B PARAPERTUSIS PCR (RESP) NOT DETECTED NOT DETECTED 12/31/2024 12:44 AM CDT [facility] BORDETELLA PERTUSSIS PCR (RESP) NOT DETECTED NOT DETECTED 12/31/2024 12:44 AM CDT [facility] CHLAMYDOPHILA PNEUMONIAE PCR (RESP) NOT DETECTED NOT DETECTED 12/31/2024 12:44 AM CDT [facility] MYCOPLASMA PNEUMONIAE PCR (RESP) NOT DETECTED NOT DETECTED 12/31/2024 12:44 AM CDT [facility] CORONAVIRUS SARS COV 2 PCR (RESP) NOT DETECTED NOT DETECTED 12/31/2024 12:44 AM CDT [facility] NASOPHARYNGEAL SWAB / Unknown 12/30/2024 11:02 PM CDT Flip Pierre NP MICROBIOLOGY - GENERAL ORDERAB LES Final Result Performing Organization Address City/[facility]/ZIP Co de Phone Number [facility] [address] [place] [address], [place] [phone] * LACTIC ACID W REFLEX (SEPSIS) (12/30/2024 1:06 PM CDT) LACTIC ACID VENOUS 1.9 0.4 - 2.0 MMOL/L 12/30/2024 1:44 PM CDT [facility] 12/30/2024 1:06 PM CDT Federico Matthews MD LABORATORY Final Result Performing Organization Address City/[facility]/ZIP Co de Phone Number [facility] [address] [place] [address], [place] [phone] * CULTURE, BACTERIA, BLOOD (12/30/2024 1:06 PM CDT) Only the most recent of2 resultswithin the time period is included. SPEC DESCRIPTION BLOOD 12/31/19 1:15 PM CDT [facility] SPECIAL REQUESTS RHAND 12/31/19 1:15 PM CDT [facility] CULTURE RESULT NO GROWTH 5 DAYS 01/04/2025 2:14 PM CDT [facility] BLOOD SPECIMEN OBTAINED FOR BLOOD CULTURE / Unknown 12/30/2024 1:06 PM CDT 12/30/2024 1:14 PM CDT Federico Matthews MD MICROBIOLOGY - GENERAL ORDERAB LES Final Result [facility] [address] [place] [address], [place] [phone] * TSH W/REFLEX (12/30/2024 1:05 PM CDT) TSH 0.833 0.358 - 3.74 uIU/ML 12/30/2024 7:48 PM CDT [facility] Comment: HIGH DOSES OF BIOTIN MAY INTERFERE WITH THIS TEST RESULT. CORRELATION TO CLINICAL HISTORY AND PRESENTATION RECOMMENDED. FREE T4 NOT INDICATED 12/30/2024 1:05 PM CDT Flip Pierre NP LABORATORY Final Result Performing Organization Address [facility] Co de Phone Number [facility] [address] [place] [address], [place] [phone] * TROPONIN, QUANT (12/30/2024 1:05 PM CDT) TROPONIN I HIGH SENSITIVITY 5 <79 ng/L 12/30/2024 2:28 PM CDT [facility] Comment: HIGH DOSES OF BIOTIN, TROPONIN-SPECIFIC AUTOANTIBODIES, AND ANTIBODY THERAPY CONTAINING HAMA MAY INTERFERE WITH THIS TEST RESULT. CORRELATION TO CLINICAL HISTORY AND PRESENTATION RECOMMENDED. 12/30/2024 1:05 PM CDT Federico Matthews MD LABORATORY Final Result Performing Organization Address City/[facility] Co de Phone Number [facility] [address] [place] [address], [place] [phone] from Last 3 Months Insurance MEDICARE Advance Directives * Full Code (Latest Code Status on File) Date Activated Date Inactivated Comments 12/30/2024 4:42 PM 01/08/2025 1:14 PM Healthcare Agents on File Name Relationship Healthcare Agent [facility] Communication Ok [facility] Agent Care Teams Equine Manager Relationship Specialty Start Date End Date Vicky Torres MD [address] [place] [address] PCP - General FAMILY PRACTICE 12/19/24
== END 2025-02-01 23:40 ==
PROVIDERS: Emergency Provider Student in an Organized Health Care Education/Training Program; PCP Family Medicine
DX: Z43.1 Encounter for attention to gastrostomy (principal); G80.9 Cerebral palsy, unspecified; G40.909 Epilepsy, unspecified, not intractable, without status epilepticus
CPT/HCPCS: 43762; 99283